=== PATIENT | male | born 1955 | race Caucasian/White ===

== ENCOUNTER 2018-04-17 20:52 | Emergency (ER) | payer OTHER, SELFPAY ==
[2018-04-17 21:01] VITALS: BP 154/105; PULSE 89; RESP 18; TEMP 36.9; O2SAT 95
--- NOTE | 2018-04-17 21:09 | DI.RAD.S_ITS ---
PROCEDURE: XR CHEST 1V INDICATIONS: chest pain TECHNIQUE: One view of the chest was acquired. COMPARISON: [facility], , CHEST 1 VIEW, 03/15/2016, 18:14. FINDINGS: Surgical changes and devices: None. Lungs and pleura: Right medial lower lung strandy parenchymal density, stable. Lungs are otherwise clear. No pleural effusions or pneumothorax. Mediastinum: Mediastinal contours appear normal. Heart size is normal. Bones and chest wall: No suspicious bony lesions. Overlying soft tissues appear unremarkable. IMPRESSION: Chronic right medial lung atelectatic changes, similar compared to prior study. No other acute process. Dictated by: Sally Ralph M.D. on 04/17/2018 at 21:44 Approved by: Sally Ralph M.D. on 04/17/2018 at 21:46
[2018-04-17] MEDS: ASPIRIN 81 MG TAB 324 MG PO (21:11)
[2018-04-17 21:35] LABS: Add Manual Diff / Slide Review NO; Basophils Absolute Auto 0 /uL (0-100); Basophils Percent Auto 0.9 % (0-2); Eosinophils Absolute Auto 200 /uL (0-450); Eosinophils Percent Auto 3.7 % (2-4); Hematocrit 47.5 % (41-53); Hemoglobin 16.7 g/dL (13.5-17.5); INR 0.9 (0.9-1.3); Lymphocytes Absolute Auto 2200 /uL (1100-4500); Lymphocytes Percent Auto 41.3 % (25-40); Mean Corpuscular HGB Conc 35.1 % (30-36); Mean Corpuscular Hemoglobin 32.9 PG (26-34); Mean Corpuscular Volume 93.7 fL (80-100); Monocytes Absolute Auto 700 /uL (0-900); Monocytes Percent Auto 13.3 % (3-14); Neutrophils Absolute Auto 2200 /uL (1500-7000); Neutrophils Percent Auto 40.8 % (50-75); Platelet Count 192 X10^3/uL (150-400); Red Blood Cell Count 5.07 X10^6/uL (4.5-5.9); Red Cell Distribution Width 14.6 % (11.6-14.8); White Blood Cell Count 5.3 X10^3/uL (4.5-11.0)
[2018-04-17 21:38] LABS: PTT Partial Thromboplastin Tim 30 SECONDS (26.4-36.2)
[2018-04-17 21:40] VITALS: BP 148/91; PULSE 93; RESP 25; O2SAT 95
[2018-04-17 21:40] LABS: Alanine Aminotransferase 26 IU/L (21-72); Albumin 4.3 g/dL (3.5-5.0); Albumin Globulin Ratio 1.3 (1.0-2.8); Alkaline Phosphatase 100 U/L (38-126); Aspartate Aminotransferase 26 IU/L (17-59); BUN Creatinine Ratio 15.3 (6-22); Bilirubin Total 0.5 mg/dL (0.2-1.3); Blood Urea Nitrogen 23 mg/dL (9-20); Calcium 8.8 mg/dL (8.4-10.2); Carbon Dioxide 26 mmol/L (22-32); Chloride 99 mmol/L (98-107); Creatine Kinase 70 U/L (55-170); Estimated Glomerular Filt Rate 47.6 mL/min (>60); Globulin 3.2 g/dL (1.7-4.1); Glucose 200 mg/dL (80-110); Lipase 75 U/L (23-300); Sodium 134 mmol/L (137-145); Total Protein 7.5 g/dL (6.3-8.2)
[2018-04-17 21:41] LABS: HEMOLYSIS 71 (0-50); Prothrombin Time 10.3 SECONDS (10.1-12.7)
[2018-04-17 21:51] LABS: Troponin I < 0.012 ng/mL (0.01-0.034)
[2018-04-17 22:00] VITALS: BP 127/88; PULSE 91; RESP 15; O2SAT 95
--- NOTE | 2018-04-17 22:22 | ED.CHESTPAIN ---
HPI - Chest Pain General Chief Complaint: Chest Pain Stated Complaint: chest pain, pain in his head, pains in his back Time Seen by Provider: 04/17/18 22:22 Source: patient Mode of arrival: ambulatory Limitations: no limitations History of Present Illness HPI narrative: The patient is here with left-sided chest pain. Had intermittent chest pain yesterday, none today. He describes pin like chest pain on and off in the left upper lateral chest. Pain would be sharp, lasting only seconds. There was no injury to the site. Has no underlying cardiac disease. He is on meds for hypertension and hyperlipidemia. He is a nonsmoker. The pain is not present today. There is no radiation or associated dyspnea. Interestingly, yesterday he was suffering intermittent headaches. He was having brief, sharp stabbing headaches in the central scalp. He has no headaches today. He has had these root occasionally. He was taking Tylenol and Advil for the headaches. He has only 1 kidney, he previously donated 1 his kidneys. He has known normal renal function. He has no diagnosis of migraines. He has no recent illness. Related Data Home Medications Medication Instructions Recorded Confirmed losartan 50 mg PO QDAY #0 03/15/16 04/17/18 metformin [Glucophage] 1,000 mg PO BIDCC #0 03/15/16 simvastatin 40 mg PO QDAY #0 03/15/16 04/17/18 tadalafil [Cialis] 5 mg PO QDAY #0 03/15/16 04/17/18 canagliflozin [Invokana] 300 mg PO DAILY 04/17/18 04/17/18 mometasone 2 spray INTRANASAL DAILY 04/17/18 04/17/18 Previous Rx's Medication Instructions Recorded tramadol 50 mg PO Q6H PRN #20 tab 04/17/18 Allergies Allergy/AdvReac Type Severity Reaction Status Date / Time celecoxib [From CELEBREX] Allergy Intermediate Verified 04/17/18 21:05 citalopram [From CELEXA] Allergy Intermediate Verified 04/17/18 21:05 sulfamethoxazole Allergy Intermediate Verified 04/17/18 21:05 [From SEPTRA] trimethoprim [From SEPTRA] Allergy Intermediate Verified 04/17/18 21:05 Review of Systems Review of Systems ROS Unobtainable: All systems reviewed & are unremarkable except as noted in HPI and below Constitutional Reports as per HPI and Reports system reviewed and no additional complaints, except as docu Eyes Denies change in vision, Denies irritation and Denies loss of vision ENT Ears, Nose, Mouth, and Throat: Denies change in voice, Denies dizziness, Denies dry mouth, Denies ear discharge, Denies neck pain and Denies sore throat Cardiovascular Reports as per HPI, Reports chest pain, Denies irregular heart rhythm, Denies lightheadedness, Denies palpitations, Denies dyspnea, Denies dyspnea on exertion and Denies orthopnea Respiratory Denies cough, Denies dyspnea, Denies dyspnea on exertion and Denies wheezing Gastrointestinal Gastrointestinal: Denies abdominal pain, Denies change in bowel habits, Denies nausea and Denies vomiting Musculoskeletal Denies back pain, Denies myalgias and Denies neck pain Integumentary/Breasts Denies pruritus, Denies erythema, Denies rash and Denies wounds Neurologic Denies dizziness and Denies loss of vision Endocrine Denies palpitations Allergic/Immunologic Denies wheezing PFSH Medical History History of nephrectomy, unilateral (Acute) Hyperlipidemia (Acute) Hypertension (Acute) Social History Smoking Status: Former smoker Social History Smoking Status: Former smoker Exam Initial Vital Signs Initial Vital Signs: Vital Signs Temperature 98.4 F 04/17/18 21:01 Pulse Rate 89 04/17/18 21:01 Respiratory Rate 18 04/17/18 21:01 Blood Pressure 154/105 H 04/17/18 21:01 Pulse Oximetry 95 04/17/18 21:01 Const General: cooperative and well developed Nutritional Appearance: well nourished Orientation: alert, awake, oriented x3 and not confused [facility] Head: normocephalic, atraumatic, No scalp tenderness and other ( no palpable sinus tenderness) Ears: external ears normal and TM's normal bilaterally Nose: external nose normal and No nasal discharge Face and sinus: sinuses nontender, face symmetric, no sinus tenderness and No dry mucous membranes Mouth: oral mucosae normal and moist mucous membranes Teeth and gingiva: dentition normal Throat: tonsils normal and uvula midline Eyes General: appearance normal, both eyes and all related structures Eyelids: eyelids normal Conjunctivae: conjunctivae normal Sclera: sclerae normal Pupils: PERRL EOM: EOM intact bilaterally Neck Neck: normal visual inspection, trachea midline, No lymphadenopathy, No midline deformity and No JVD Lymphatic: No lymphedema Chest Chest: normal inspection of the chest and No crepitus Resp Effort & Inspection: normal respiratory effort, able to speak in complete sentences, no respiratory distress and no use of accessory muscles Auscultation: clear to auscultation bilaterally, no rales, no rhonchi and no wheezes Cardio Rate: regular rate Rhythm: regular rhythm Heart Sounds: no click, no gallops, no murmurs and no rubs Pulses: normal peripheral pulses GI Inspection: non-distended Palpation: soft, no hepatosplenomegaly, No guarding, No pulsatile mass and No tender Auscultation: normal bowel sounds Skin General: no rashes or lesions noted, No jaundice and No petechiae Neuro General: alert, oriented x3, gait normal and no focal motor deficits Speech: speech normal Course Orders Ordered: ED Orders 04/17/18 21:09 XR chest 1V Stat EKG-12 Lead Stat 04/17/18 21:25 Complete Blood Count AUTO DIFF Stat Comprehensive Metabolic Panel Stat Lipase Stat Partial Thromboplastin Time Stat Prothrombin Time INR Stat Troponin & CK Cardiac Panel Stat Discontinued Medications Aspirin (Aspirin Chew) 324 mg PO NOW ONE Stop: 04/17/18 21:10 Last Admin: 04/17/18 21:11 Dose: 324 mg Vital Signs - 8 hr 04/17/18 21:01 04/17/18 21:40 04/17/18 22:00 Temperature 98.4 F Pulse Rate 89 93 H 91 H Respiratory Rate 18 25 H 15 Blood Pressure 154/105 H Blood Pressure [Left Arm] 148/91 H 127/88 Pulse Oximetry 95 95 95 04/17/18 22:36 Temperature Pulse Rate 88 Respiratory Rate 32 H Blood Pressure Blood Pressure [Left Arm] 127/82 Pulse Oximetry 95 MDM - Chest Pain Lab Data Result diagrams: 04/17/18 21:25 04/17/18 21:25 Lab Results 04/17/18 04/17/18 04/17/18 Range/Units 21:25 21:25 21:25 WBC 5.3 (4.5-11.0) X10^3/uL RBC 5.07 (4.5-5.9) X10^6/uL Hgb 16.7 (13.5-17.5) g/dL Hct 47.5 (41-53) % MCV 93.7 (80-100) fL MCH 32.9 (26-34) PG MCHC 35.1 (30-36) % RDW 14.6 (11.6-14.8) % Plt Count 192 (150-400) X10^3/uL Neut % (Auto) 40.8 L (50-75) % Lymph % (Auto) 41.3 H (25-40) % Coleman % (Auto) 13.3 (3-14) % Eos % (Auto) 3.7 (2-4) % Baso % (Auto) 0.9 (0-2) % Neut # (Auto) 2200 (4896-8999) /uL Lymph # (Auto) 2200 (6783-3152) /uL Coleman # (Auto) 700 (0-900) /uL Eos # (Auto) 200 (0-450) /uL Baso # (Auto) 0 (0-100) /uL PT 10.3 (10.1-12.7) SECONDS INR 0.9 (0.9-1.3) APTT 30 (26.4-36.2) SECONDS Sodium 134 L (137-145) mmol/L Potassium 4.0 (3.4-5.1) mmol/L Chloride 99 (98-107) mmol/L Carbon Dioxide 26 (22-32) mmol/L BUN 23 H (9-20) mg/dL Creatinine 1.50 H (0.66-1.25) mg/dL Estimated GFR 47.6 L (>60) mL/min BUN/Creatinine Ratio 15.3 (6-22) Glucose 200 H (80-110) mg/dL Calcium 8.8 (8.4-10.2) mg/dL Total Bilirubin 0.5 (0.2-1.3) mg/dL AST 26 (17-59) IU/L ALT 26 (21-72) IU/L Alkaline Phosphatase 100 (38-126) U/L Total Creatine Kinase 70 (55-170) U/L CK-MB (CK-2) TNP CK-MB (CK-2) Rel Index TNP Troponin I < 0.012 (0.01-0.034) ng/mL Total Protein 7.5 (6.3-8.2) g/dL Albumin 4.3 (3.5-5.0) g/dL Globulin 3.2 (1.7-4.1) g/dL Albumin/Globulin Ratio 1.3 (1.0-2.8) Lipase 75 (23-300) U/L Imaging Data Chest x-ray: Radiologist's impression: [address] [id number] XRay Report Signed Patient: Mal Goodwin OMR#: [id number] : 7Acct:[id number] Age/Sex: 62 / MDate of Service: 04/17/18 Loc: ED Accession Number: [id number] Procedure: XR chest 1V Ordering Provider: Rod Her M.D. PROCEDURE: XR CHEST 1V INDICATIONS: chest pain TECHNIQUE: One view of the chest was acquired. COMPARISON: [facility], CHEST 1 VIEW, 03/15/2016, 18:14. FINDINGS: Surgical changes and devices: None. Lungs and pleura: Right medial lower lung strandy parenchymal density, stable. Lungs are otherwise clear. No pleural effusions or pneumothorax. Mediastinum: Mediastinal contours appear normal. Heart size is normal. Bones and chest wall: No suspicious bony lesions. Overlying soft tissues appear unremarkable. IMPRESSION: Chronic right medial lung atelectatic changes, similar compared to prior study. No other acute process. Dictated by: Sally Ralph M.D. on 04/17/2018 at 21:44 Approved by: Sally Ralph M.D. on 04/17/2018 at 21:46 ECG Data Attestation: I personally reviewed and interpreted this ECG as follows: ( normal sinus rhythm rate 85 bpm. No ectopy. No acute ST or T-wave changes. Normal study.) [facility] Narrative Medical decision making narrative: The patient has no findings suggestive of a cardio or pulmonary disease. He has these ice pick type headaches, he has had these headaches in periods of clusters periodic lead across his life. He has normal renal function, but has donated a kidney to his sister. I am suggesting tramadol for headache management. He has had good luck with this in the past. Discharge Plan Departure Patient Disposition: Home Clinical Impression: Atypical chest pain Headache Qualifiers: Headache type: primary stabbing headache Qualified Code(s): G44.85 - Primary stabbing headache Instructions: Cluster Headaches (Alternative Therapy), DI for Atypical Chest Pain Activity Restrictions/Additional Instructions: I would recommend avoiding Advil. Tylenol 2 tablets every 4 hr as needed For headache. Tramadol every 6 hr when necessary for added headache control. If you have sustained, severe chest pain return the ER. Follow up with her doctor for ongoing headache management. Prescriptions: New tramadol 50 mg tablet 50 mg PO Q6H PRN (Reason: pain) Qty: 20 RF: 0 No Action metformin [Glucophage] 1,000 MG tablet 1,000 mg PO BIDCC Qty: 0 RF: 0 tadalafil [Cialis] 5 MG tablet 5 mg PO QDAY Qty: 0 RF: 0 losartan 50 MG tablet 50 mg PO QDAY Qty: 0 RF: 0 simvastatin 40 MG tablet 40 mg PO QDAY Qty: 0 RF: 0 mometasone 50 mcg/actuation spray,non-aerosol 2 spray Intranasal DAILY RF: 0 Invokana 300 mg tablet 300 mg PO DAILY RF: 0 Referrals: Marcello Marti MD [Primary Care Provider] -
[2018-04-17 22:36] VITALS: BP 127/82; PULSE 88; RESP 32; O2SAT 95
[2018-04-17 23:30] VITALS: BP 133/77; PULSE 94; RESP 24; O2SAT 95
== END 2018-04-17 23:31 | disposition home or self-care (01) ==
PROVIDERS: Emergency Provider Emergency Medicine; Family Provider Family Medicine; PCP Family Medicine
DX: R07.89 Other chest pain (principal); G44.85 Primary stabbing headache
CPT/HCPCS: 36591; 71045; 80053; 82550; 83690; 84484; 85025; 85610; 85730; 93005; 99283; 99285

== ENCOUNTER 2018-11-03 15:41 | Inpatient (IN) | payer OTHER, SELFPAY ==
[2018-11-03 15:44] VITALS: BP 179/101; PULSE 99; RESP 20; TEMP 36.9; O2SAT 97
[2018-11-03] MEDS: ONDANSETRON 4 MG/2 ML INJ IV ×2 (16:35→18:23)
[2018-11-03 16:42] LABS: Add Manual Diff / Slide Review NO; Basophils Absolute Auto 0 /uL (0-100); Basophils Percent Auto 0.6 % (0-2); Eosinophils Absolute Auto 100 /uL (0-450); Eosinophils Percent Auto 2.6 % (2-4); Hematocrit 45.4 % (41-53); Hemoglobin 15.8 g/dL (13.5-17.5); Lymphocytes Absolute Auto 1000 /uL (1100-4500); Lymphocytes Percent Auto 25.4 % (25-40); Mean Corpuscular HGB Conc 34.7 % (30-36); Mean Corpuscular Hemoglobin 32.1 PG (26-34); Mean Corpuscular Volume 92.4 fL (80-100); Monocytes Absolute Auto 600 /uL (0-900); Monocytes Percent Auto 14.7 % (3-14); Neutrophils Absolute Auto 2100 /uL (1500-7000); Neutrophils Percent Auto 56.7 % (50-75); Platelet Count 179 X10^3/uL (150-400); Red Blood Cell Count 4.92 X10^6/uL (4.5-5.9); Red Cell Distribution Width 14.2 % (11.6-14.8); White Blood Cell Count 3.8 X10^3/uL (4.5-11.0)
[2018-11-03 16:57] LABS: Alanine Aminotransferase 22 IU/L (21-72); Albumin 3.7 g/dL (3.5-5.0); Albumin Globulin Ratio 1.2 (1.0-2.8); Alkaline Phosphatase 111 U/L (38-126); Aspartate Aminotransferase 18 IU/L (17-59); BUN Creatinine Ratio 18.9 (6-22); Bilirubin Total 0.4 mg/dL (0.2-1.3); Blood Urea Nitrogen 17 mg/dL (9-20); Calcium 8.8 mg/dL (8.4-10.2); Carbon Dioxide 30 mmol/L (22-32); Chloride 97 mmol/L (98-107); Estimated Glomerular Filt Rate > 60.0 mL/min (>60); Globulin 3.1 g/dL (1.7-4.1); Glucose 306 mg/dL (80-110); HEMOLYSIS 16 (0-50); Lipase 31 U/L (23-300); Potassium 3.9 mmol/L (3.4-5.1); Sodium 134 mmol/L (137-145); Total Protein 6.8 g/dL (6.3-8.2)
--- NOTE | 2018-11-03 18:11 | DI.CT.S_ITS ---
PROCEDURE: CT ABDOMEN PELVIS W CON INDICATIONS: abd pain/bloating TECHNIQUE: After the administration of intravenous contrast, 5 mm thick sections acquired from the diaphragm to the symphysis. 5 mm coronal and sagittal reformats were acquired. For radiation dose reduction, the following was used: automated exposure control, adjustment of mA and/or kV according to patient size. COMPARISON: None. FINDINGS: Image quality: Excellent. ABDOMEN: Lung bases: Elevation of the right hemidiaphragm and associated right base atelectasis. Heart size is normal. Coarse aortic valvular calcification. Solid organs: Liver is normal in size and enhancement. Gallbladder contains a peripherally calcified, 2.3 cm stone.. Biliary system is non dilated. Pancreas enhances normally. Spleen is normal in size and enhancement. No adrenal nodules. A right kidney is surgically absent. The left demonstrates normal morphology without stones. Peritoneum and bowel: Stomach appears within normal limits. There is incomplete rotation of proximal small bowel with either a surgical takedown or congenital laxity ligament of Treitz. Axial jejunum is to the right of midline. There are multiple scattered areas of mild circumferential wall thickening, and site wall edema resulting in short segments of stricture alternating with numerous loops of moderately prominent/dilated small bowel. There is mild hypervascularity of left abdominal and mid abdominal small bowel loops. The long segment stricture seen in the central mid abdomen. Distal small bowel loops are of normal caliber. There is fatty infiltration at the ileocecal valve. There is fat within the colonic wall. No pericolonic inflammation. Occasional diverticula are seen in the sigmoid. Mild mucosal hyperemia seen in the rectum without wall thickening or inflammation. Nodes and vessels: No retroperitoneal or mesenteric adenopathy by size criteria. Aorta and inferior vena cava are normal in size. Miscellaneous: No ventral hernias. PELVIS: Genitourinary: Bladder wall thickness is normal. Miscellaneous: No inguinal hernias or adenopathy. Bones: No suspicious bony lesions. Surgical changes of remote right lower rib resection. 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 No vertebral body compression fractures. IMPRESSION: 1. Findings of scattered segments of small bowel stricture and dilatation with adjacent hyperemia. Findings are most suggestive of acute flare of inflammatory bowel disease such as Crohn's disease. Given long segment findings, adhesive or ischemic strictures are felt less likely. There are multiple segments of partial bowel obstruction. 2. Possible mild proctitis. 3. Right nephrectomy. 4. Incomplete proximal bowel rotation. 5. Cholelithiasis. Dictated by: Sally Ralph M.D. on 11/03/2018 at 19:06 Approved by: Sally Ralph M.D. on 11/03/2018 at 19:16
[2018-11-03] MEDS: MORPHINE 4 MG/ML INJ IV ×2 (18:23→21:27)
[2018-11-03] MEDS: SODIUM CHLORIDE 0.9% 1,000 ML 1000 ML IV ×2 (18:23→21:06)
--- NOTE | 2018-11-03 18:45 | ED_ITS ---
HPI - Abdominal Pain General Chief Complaint: Abdominal Pain Stated Complaint: cramps and abdominal pain,nausea Time Seen by Provider: 11/03/18 18:03 Source: patient Mode of arrival: ambulatory Limitations: no limitations History of Present Illness HPI narrative: 63-year-old male former smoker with history of hypertension presents with a chief complaint of worsening abdominal pain with nausea and vomiting over the past few days. He admits to decreased bowel movements, he continues to pass gas but decreasing the. His belly is swollen and distended. He denies fever or chills. His pain is worse with motion and improves with rest. MD complaint: abdominal pain Onset (ago): day(s) Pain Consistency: constant Location: diffuse Severity: moderate Quality: cramping and aching Radiation: none Migration to: no migration Relieving factors: rest Exacerbating factors: movement Associated symptoms: nausea and constipation Related Data Home Medications Medication Instructions Recorded Confirmed losartan 50 mg PO QDAY #0 03/15/16 11/03/18 metformin [Glucophage] 1,000 mg PO BIDCC #0 03/15/16 11/03/18 simvastatin 40 mg PO QDAY #0 03/15/16 11/03/18 tadalafil [Cialis] 5 mg PO QDAY #0 03/15/16 11/03/18 canagliflozin [Invokana] 300 mg PO DAILY 04/17/18 11/03/18 mometasone 2 spray INTRANASAL DAILY 04/17/18 11/03/18 Previous Rx's Medication Instructions Recorded tramadol 50 mg PO Q6H PRN #20 tab 04/17/18 Allergies Allergy/AdvReac Type Severity Reaction Status Date / Time celecoxib [From CELEBREX] Allergy Intermediate Verified 04/17/18 21:05 citalopram [From CELEXA] Allergy Intermediate Verified 04/17/18 21:05 sulfamethoxazole Allergy Intermediate Verified 04/17/18 21:05 [From SEPTRA] trimethoprim [From SEPTRA] Allergy Intermediate Verified 04/17/18 21:05 Review of Systems Constitutional Constitutional: Denies chills, Denies fatigue, Denies fever(s), Denies frequent falls, Denies lethargy and Denies weakness Eyes Eyes: Denies change in vision, Denies eye discharge, Denies irritation and Denies loss of vision ENT Ears, Nose, Mouth, and Throat: Denies change in voice, Denies dizziness, Denies neck pain, Denies sore throat and Denies throat swelling Cardiovascular Cardiovascular: Denies chest pain, Denies irregular heart rhythm, Denies lightheadedness, Denies palpitations, Denies dyspnea, Denies dyspnea on exertion and Denies orthopnea Respiratory Respiratory: Denies cough, Denies dyspnea, Denies dyspnea on exertion and Denies wheezing Gastrointestinal Gastrointestinal: Reports abdominal pain, Reports change in bowel habits, Denies diarrhea, Reports nausea and Denies vomiting Genitourinary Genitourinary: Denies hematuria, Denies flank pain, Denies urinary incontinence and Denies urinary urgency Musculoskeletal Musculoskeletal: Denies back pain, Denies muscle weakness, Denies neck pain, Denies numbness and Denies tingling Integumentary/Breasts Skin/Breast: Denies pruritus, Denies erythema, Denies rash and Denies wounds Neurologic Neurologic: Denies behavioral changes, Denies confusion, Denies dizziness, Denies frequent falls, Denies loss of vision, Denies numbness, Denies tingling and Denies weakness Psychiatric Psychiatric: Denies anxiety, Denies behavioral changes, Denies confusion, Denies depression, Denies homicidal ideation and Denies suicidal ideation Endocrine Endocrine: Denies fatigue, Denies flushing and Denies palpitations Hematologic/Lymphatic Hematologic/Lymphatic: Denies easy bruising Allergic/Immunologic Allergic/Immunologic: Denies urticaria, Denies throat swelling and Denies wheezing [facility] Medical History History of nephrectomy, unilateral (Acute) Hyperlipidemia (Acute) Hypertension (Acute) Surgical History History of appendectomy (Acute) History of exploratory laparotomy (Acute) History of ventral hernia repair (Acute) Social History household members: family Smoking Status: Former smoker Social History household members: family Smoking Status: Former smoker Exam Narrative Exam Narrative: GENERAL: [61 to] year old patient appears stated age. Well- nourished, well-developed patient, in mild distress. HEAD: Atraumatic. Normocephalic. EYES: Pupils equal round and reactive. Extraocular motions intact. No scleral icterus. No injection or drainage. ENT: Nose without bleeding, purulent drainage. Throat without erythema, tonsillar hypertrophy or exudate. Airway patent. NECK: Trachea midline. Non tender CARDIOVASCULAR: Regular rate and rhythm without murmurs, gallops, or rubs. RESPIRATORY: Clear to auscultation. Breath sounds equal bilaterally. No wheezes, rales, or rhonchi. GASTROINTESTINAL: Abdomen soft, protuberant, generalized tenderness with decreased bowel sounds EXTREMITIES: No edema or joint tenderness. BACK: Nontender without deformity or crepitance. No flank tenderness. NEURO: AOx3. SKIN: No rash or erythema of visible areas Initial Vital Signs Initial Vital Signs: Vital Signs Temperature 98.5 F 11/03/18 15:44 Pulse Rate 99 H 11/03/18 15:44 Respiratory Rate 20 11/03/18 15:44 Blood Pressure 179/101 H 11/03/18 15:44 Pulse Oximetry 97 11/03/18 15:44 Course Orders Ordered: Acetaminophen (Tylenol) 650 mg PO Q6HR PRN PRN Reason: As Needed for Fever/Mild Pain Dextrose (D50w) 25 gm IV PRN PRN PRN Reason: Hypoglycemia Docusate Sodium (Colace) 100 mg PO BID [facility] Enalaprilat (Vasotec) 2.5 mg IV NOW [facility] Last Admin: 11/04/18 00:57 Dose: 2.5 mg Documented by: SUSAN Enoxaparin Sodium (Lovenox) 40 mg SUBCUT DAILY [facility] Sodium Chloride (Normal Saline 0.45%) 1,000 mls @ 150 mls/hr IV CONT [facility] Last Admin: 11/03/18 23:59 Dose: 150 mls/hr Documented by: SUSAN Metronidazole (Flagyl) 500 mg in 100 mls @ 100 mls/hr IV Q6H [facility] Levofloxacin (Levaquin) 500 mg in 100 mls @ 100 mls/hr IV Q24H [facility] Influenza Virus Vaccine (Flu Vaccine) 0.5 ml IM .ONCE ONE Stop: 11/04/18 09:01 Insulin Aspart (Novolog Flexpen) 0 unit SUBCUT Q6HR [facility]; Protocol Last Admin: 11/04/18 01:32 Dose: 5 unit Documented by: SUSAN Cosigned by: GREYSON Ketorolac Tromethamine (Toradol) 15 mg IV Q6HR [facility]IYAH Stop: 11/08/18 21:57 Last Admin: 11/04/18 00:13 Dose: 15 mg Documented by: SUSAN Methylprednisolone (Solu-Medrol 125 Mg Vial) 20 mg IV Q6H [facility] Last Admin: 11/04/18 03:01 Dose: 20 mg Documented by: SUSAN Morphine Sulfate (Morphine) 2 mg IV Q4HR PRN PRN Reason: Pain, Moderate (4-6) Ondansetron HCl (Zofran) 4 mg IV Q6HR [facility] Last Admin: 11/04/18 00:12 Dose: 4 mg Documented by: SUSAN Discontinued Medications Enalaprilat (Enalaprilat) 2.5 mg IV NOW ONE Stop: 11/03/18 22:09 Last Admin: 11/04/18 00:55 Dose: 2.5 mg Documented by: SUSAN Sodium Chloride (Normal Saline 0.9%) 1,000 mls @ 1,000 mls/hr IV BOLUS ONE Stop: 11/03/18 19:15 Last Infusion: 11/03/18 20:16 Dose: 0 mls/hr Documented by: Admin: 11/03/18 18:23 Dose: 1,000 mls/hr Documented by: DEBORAH Levofloxacin (Levaquin) 500 mg in 100 mls @ 100 mls/hr IV NOW ONE Stop: 11/03/18 21:32 Last Admin: 11/03/18 21:08 Dose: 100 mls/hr Documented by: SHARON Metronidazole (Flagyl) 500 mg in 100 mls @ 100 mls/hr IV NOW ONE Stop: 11/03/18 21:32 Last Admin: 11/03/18 22:32 Dose: 100 mls/hr Documented by: ERICA Sodium Chloride (Normal Saline 0.9%) 1,000 mls @ 1,000 mls/hr IV BOLUS ONE Stop: 11/03/18 21:36 Last Admin: 11/03/18 21:06 Dose: 1,000 mls/hr Documented by: SHARON Levofloxacin (Levaquin) 500 mg in 100 mls @ 100 mls/hr IV Q24H [facility] Insulin Aspart (Novolog Flexpen) 0 unit SUBCUT Q6H [facility]; Protocol Last Admin: 11/04/18 02:39 Dose: Not Given Documented by: SUSAN Ketorolac Tromethamine (Toradol) 15 mg IV NOW ONE Stop: 11/03/18 18:12 Last Admin: 11/03/18 18:27 Dose: Not Given Documented by: DEBORAH Methylprednisolone (Solu-Medrol 125 Mg Vial) 125 mg IV NOW ONE Stop: 11/03/18 20:34 Last Admin: 11/03/18 21:06 Dose: 125 mg Documented by: SHARON Methylprednisolone (Solu-Medrol 125 Mg Vial) 20 mg IV Q6HR [facility] Methylprednisolone (Solu-Medrol 125 Mg Vial) 20 mg IV Q6HR [facility] Methylprednisolone (Solu-Medrol 125 Mg Vial) 20 mg IV Q6HR [facility] Morphine Sulfate (Morphine) 4 mg IV NOW ONE Stop: 11/03/18 18:18 Last Admin: 11/03/18 18:23 Dose: 4 mg Documented by: DEBORAH Morphine Sulfate (Morphine) 4 mg IV NOW ONE Stop: 11/03/18 21:15 Last Admin: 11/03/18 21:27 Dose: 4 mg Documented by: JOSH Ondansetron HCl (Zofran) 4 mg IV NOW ONE Stop: 11/03/18 16:32 Last Admin: 11/03/18 16:35 Dose: 4 mg Documented by: DEBORAH Ondansetron HCl (Zofran) 4 mg IV NOW ONE Stop: 11/03/18 18:12 Last Admin: 11/03/18 18:23 Dose: 4 mg Documented by: DEBORAH Consultations Consultation #1: call to Dr. Logan upon receipt of imaging. He has seen patient at bedside and written a consult. Consultation #2: call to GI at [facility]. They suggest that patient is in no obvious need of transfer at this time and is best served by received antibiotics, bowel rest, and steroids. In the end they suggest that though patient needs a GI follow up that he is most appropriate for [facility] given the strictures suggested on imaging. Consultation #3: hospitalist happy to accept Vital Signs Vital signs: Vital Signs - 8 hr 11/03/18 21:00 Pulse Rate 96 H Respiratory Rate 16 Blood Pressure [Right Arm] 158/92 H Pulse Oximetry 100 MDM - Abdominal Pain Lab Data Result diagrams: 11/03/18 16:30 11/03/18 16:30 Labs: Lab Results 11/03/18 11/03/18 11/03/18 Range/Units 16:30 16:30 16:30 WBC 3.8 L (4.5-11.0) X10^3/uL RBC 4.92 (4.5-5.9) X10^6/uL Hgb 15.8 (13.5-17.5) g/dL Hct 45.4 (41-53) % MCV 92.4 (80-100) fL MCH 32.1 (26-34) PG MCHC 34.7 (30-36) % RDW 14.2 (11.6-14.8) % Plt Count 179 (150-400) X10^3/uL Neut % (Auto) 56.7 (50-75) % Lymph % (Auto) 25.4 (25-40) % [place] % (Auto) 14.7 H (3-14) % Eos % (Auto) 2.6 (2-4) % Baso % (Auto) 0.6 (0-2) % Neut # (Auto) 2100 (1372-8275) /uL Lymph # (Auto) 1000 L (1676-5291) /uL [place] # (Auto) 600 (0-900) /uL Eos # (Auto) 100 (0-450) /uL Baso # (Auto) 0 (0-100) /uL Sodium 134 L (137-145) mmol/L Potassium 3.9 (3.4-5.1) mmol/L Chloride 97 L (98-107) mmol/L Carbon Dioxide 30 (22-32) mmol/L BUN 17 (9-20) mg/dL Creatinine 0.90 (0.66-1.25) mg/dL Estimated GFR > 60.0 (>60) mL/min BUN/Creatinine Ratio 18.9 (6-22) Glucose 306 H (80-110) mg/dL Hemoglobin A1c 9.8 H (4.0-6.0) % Calcium 8.8 (8.4-10.2) mg/dL Total Bilirubin 0.4 (0.2-1.3) mg/dL AST 18 (17-59) IU/L ALT 22 (21-72) IU/L Alkaline Phosphatase 111 (38-126) U/L Total Protein 6.8 (6.3-8.2) g/dL Albumin 3.7 (3.5-5.0) g/dL Globulin 3.1 (1.7-4.1) g/dL Albumin/Globulin Ratio 1.2 (1.0-2.8) Lipase 31 (23-300) U/L Imaging Data CT scan - abdomen: Radiologist's impression: [address] [address] [address] Scan Report Signed Patient: Mal Goodwin OMR#: [id number] : 7Acct:[id number] Age/Sex: 63 / MDate of Service: 11/03/18 Loc: ED Accession Number: [id number] Procedure: CT abdomen pelvis w con Ordering Provider: Desmond Rm D.O. PROCEDURE: CT ABDOMEN PELVIS W CON INDICATIONS: abd pain/bloating TECHNIQUE: After the administration of intravenous contrast, 5 mm thick sections acquired from the diaphragm to the symphysis. 5 mm coronal and sagittal reformats were acquired. For radiation dose reduction, the following was used: automated exposure control, adjustment of mA and/or kV according to patient size. COMPARISON: None. FINDINGS: Image quality: Excellent. ABDOMEN: Lung bases: Elevation of the right hemidiaphragm and associated right base atelectasis. Heart size is normal. Coarse aortic valvular calcification. Solid organs: Liver is normal in size and enhancement. Gallbladder contains a peripherally calcified, 2.3 cm stone.. Biliary system is non dilated. Pancreas enhances normally. Spleen is normal in size and enhancement. No adrenal nodules. A right kidney is surgically absent. The left demonstrates normal morphology without stones. Peritoneum and bowel: Stomach appears within normal limits. There is incomplete rotation of proximal small bowel with either a surgical takedown or congenital laxity ligament of Treitz. Axial jejunum is to the right of midline. There are multiple scattered areas of mild circumferential wall thickening, and site wall edema resulting in short segments of stricture alternating with numerous loops of moderately prominent/dilated small bowel. There is mild hypervascularity of left abdominal and mid abdominal small bowel loops. The long segment stricture seen in the central mid abdomen. Distal small bowel loops are of normal caliber. There is fatty infiltration at the ileocecal valve. There is fat within the colonic wall. No pericolonic inflammation. Occasional diverticula are seen in the sigmoid. Mild mucosal hyperemia seen in the rectum without wall thickening or inflammation. Nodes and vessels: No retroperitoneal or mesenteric adenopathy by size criteria. Aorta and inferior vena cava are normal in size. Miscellaneous: No ventral hernias. PELVIS: Genitourinary: Bladder wall thickness is normal. Miscellaneous: No inguinal hernias or adenopathy. Bones: No suspicious bony lesions. Surgical changes of remote right lower rib resection. 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 No vertebral body compression fra ctures. IMPRESSION: 1. Findings of scattered segments of small bowel stricture and dilatation with adjacent hyperemia. Findings are most suggestive of acute flare of inflammatory bowel disease such as Crohn's disease. Given long segment findings, adhesive or ischemic strictures are felt less likely. There are multiple segments of partial bowel obstruction. 2. Possible mild proctitis. 3. Right nephrectomy. 4. Incomplete proximal bowel rotation. 5. Cholelithiasis. Dictated by: Sally Ralph M.D. on 11/03/2018 at 19:06 Approved by: Sally Ralph M.D. on 11/03/2018 at 19:16 ECG Data Prior ECG tracings: available for review Discharge Plan Departure Patient Disposition: Admitted As Inpatient Clinical Impression: Colitis Abdominal pain Qualifiers: Abdominal location: generalized Qualified Code(s): R10.84 - Generalized abdominal pain Discharge Date/Time: 11/03/18 22:20 Admit Date/Time: 11/03/18 21:03 Admit Provider: Teresa Persaud
[2018-11-03 19:33] VITALS: PULSE 96; RESP 16; O2SAT 100
--- NOTE | 2018-11-03 20:08 | PM.CN ---
History of Present Illness Consult details Date Patient Seen: 11/03/18 Time Patient Seen: 20:08 Chief complaint: cramps and abdominal pain,nausea Reason for consult: Abdominal pain/abnormal CT Requesting provider: Desmond Rm Narrative: The patient is a gentleman who developed abdominal pain and distension on for Thursday. The pain was quite intense at that time and was accompanied by nausea and the sensation that he had to vomit. He almost passed out at that point. However he waited until this evening to come. He has had intermittent crampy dull achy abdominal pain since then. This is very similar to an episode he had perhaps 15 years ago. At that time he underwent exploration and was told he had inflammation throughout his intestine but nothing was resected except an incidental appendectomy was performed (per his history). He was treated with IV antibiotics and the problem resolved. He continues to pass flatus and have bowel movements but is far from normal he said. The bowel movements are very small and narrow and claylike and the gas is very intermittent. Usually he has 5 normal bowel movements a day he said. They are not diarrhea they are formed. He also states he feels very distended though he is usually have a big belly. He is a type 2 diabetic but he does not test sugars. He denies any fever. No blood in his stool. He has had a kidney resection as he was a donor for his sister were 2 receive a kidney. 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 He had a ventral hernia repaired and a subsequent exploration described above. No personal history or family history of ulcerative colitis or Crohn's disease. [facility] Medical History (Updated 11/03/18 @ 20:19 by Josh Logan MD) History of nephrectomy, unilateral (Acute) Hyperlipidemia (Acute) Hypertension (Acute) Surgical History (Updated 11/03/18 @ 20:14 by Josh Logan MD) History of appendectomy (Acute) History of exploratory laparotomy (Acute) History of ventral hernia repair (Acute) Social History Smoking Status: Former smoker Social History Smoking Status: Former smoker Meds Home Medications and Allergies Home Medications Medication Instructions Recorded Confirmed Type losartan 50 mg PO QDAY #0 03/15/16 04/17/18 History metformin [Glucophage] 1,000 mg PO BIDCC #0 03/15/16 History simvastatin 40 mg PO QDAY #0 03/15/16 04/17/18 History tadalafil [Cialis] 5 mg PO QDAY #0 03/15/16 04/17/18 History canagliflozin [Invokana] 300 mg PO DAILY 04/17/18 04/17/18 History mometasone 2 spray INTRANASAL DAILY 04/17/18 04/17/18 History tramadol 50 mg PO Q6H PRN #20 tab 04/17/18 Rx Allergies Allergy/AdvReac Type Severity Reaction Status Date / Time celecoxib [From CELEBREX] Allergy Intermediate Verified 04/17/18 21:05 citalopram [From CELEXA] Allergy Intermediate Verified 04/17/18 21:05 sulfamethoxazole Allergy Intermediate Verified 04/17/18 21:05 [From SEPTRA] trimethoprim [From SEPTRA] Allergy Intermediate Verified 04/17/18 21:05 Review of Systems Review of Systems Narrative: Patient denies visual difficulties. No cough or cold but is right lung does not ventilate normally because of the diaphragm issue. No heart attacks though he does have a aortic stenosis and a bifid aortic valve. He has had a heart murmur all of his life. No chest pain. No black bowel movements. No history of renal calculus though he has had prostatitis with stones. No seizures. Exam Vital Signs (past 8 hours): - 11/03/18 15:44 11/03/18 19:33 Temperature 98.5 F Pulse Rate 99 H 96 H Respiratory Rate 20 16 Blood Pressure 179/101 H Pulse Oximetry 97 100 Oxygen Delivery Method Room Air Narrative Exam Narrative: Obese gentleman no apparent distress. He is standing in the room looking at me and moves without difficulty. He has been medicated however with morphine and feels much better. His eyes are nonicteric. Pupils equal round reactive to light. Lungs are clear to auscultation. No rales or rhonchi. Heart regular rate and rhythm without gallop. He has a soft systolic blowing murmur heard best at the right base without radiation into the neck. He has no heave lift or thrill. His abdomen is distended like a basketball. There is a midline scar, and a right flank scar. No hernias are appreciated. There is mild tenderness diffusely. No guarding. The patient is alert and oriented. Speech rate and content are appropriate. Affect is appropriate. Objective Imaging CT scan - abdomen: My impression: Most of the abdomen distention is actually intraperitoneal fat. There are some areas of distention of small bowel but they appeared to be isolated and not in continuity. Much of the intestine is small and contracted. Labs Result Diagrams: 11/03/18 16:30 11/03/18 16:30 Labs: Laboratory Results - last 24 hr 11/03/18 11/03/18 16:30 16:30 WBC 3.8 L RBC 4.92 Hgb 15.8 Hct 45.4 MCV 92.4 MCH 32.1 MCHC 34.7 RDW 14.2 Plt Count 179 Neut % (Auto) 56.7 Lymph % (Auto) 25.4 [place] % (Auto) 14.7 H Eos % (Auto) 2.6 Baso % (Auto) 0.6 Neut # (Auto) 2100 Lymph # (Auto) 1000 L [place] # (Auto) 600 Eos # (Auto) 100 Baso # (Auto) 0 Sodium 134 L Potassium 3.9 Chloride 97 L Carbon Dioxide 30 BUN 17 Creatinine 0.90 Estimated GFR > 60.0 BUN/Creatinine Ratio 18.9 Glucose 306 H Calcium 8.8 Total Bilirubin 0.4 AST 18 ALT 22 Alkaline Phosphatase 111 Total Protein 6.8 Albumin 3.7 Globulin 3.1 Albumin/Globulin Ratio 1.2 Lipase 31 Assessment & Plan Assessment and plan (1) Abdominal pain: Current visit: Yes Status: Acute Assessment & Plan narrative: Not clear what the patient's symptoms are from. His CT suggest a possible ileitis. I do not think this is an obstruction. The patient's white blood cell count and differential are fairly normal except an increase of monos. I do not see anything requiring surgical intervention at this time. I do believe however that the patient should be admitted and begun on broad-spectrum treatment with submission of stool specimen for analysis for infectious agents. It is also not clear the patient has taken some medication recently which could have induced this process. If they cause cannot be found consider transfer to a facility with GI availability. Consider a Gastrografin or other water contrast small-bowel follow-through which may help elucidate the inflammatory process and also provide for therapeutic treatment of any narrowing or partially obstructive process. Obviously, patient needs better control of his diabetes as well.
[2018-11-03 21:00] VITALS: BP 158/92; PULSE 96; RESP 16; O2SAT 100
[2018-11-03] MEDS: methylPREDNISolone 125 MG/2 ML VIAL IV (21:06)
[2018-11-03] MEDS: levoFLOXacin 500 MG/100 ML PIGGYBACK 100 MG IV (21:08)
[2018-11-03 22:28] VITALS: BP 140/100; PULSE 100; RESP 20; TEMP 37.1; O2SAT 99
[2018-11-03] MEDS: metroNIDAZOLE 500 MG/100 ML PIGGYBACK 100 MG IV (22:32)
[2018-11-03 22:44] VITALS: BMI 34.2
[2018-11-03 23:00] VITALS: O2SAT 99
--- NOTE | 2018-11-03 23:02 | PC.ADMIT ---
[id number] [facility] Admission Note: The patient,Mal Goodwin,63 y/o, was given written information regarding hospital policies, unit procedures and contact persons. Patient's smoking status: Former smoker. Vital Signs - 8 hr 11/03/18 15:44 11/03/18 19:33 11/03/18 21:00 Temperature 98.5 F Pulse Rate 99 H 96 H 96 H Respiratory Rate 20 16 16 Blood Pressure 179/101 H Blood Pressure [Right Arm] 158/92 H Pulse Oximetry 97 100 100 11/03/18 22:28 Temperature 98.7 F Pulse Rate 100 H Respiratory Rate 20 Blood Pressure 140/100 H Blood Pressure [Right Arm] Pulse Oximetry 99 Pt arrived via stretcher from ED. A/O, ambulated to bed independently. Urine specimen needed. Pt aware. Valuables sent home with family. Pt states he has not taken most of his meds in a long time. Enc pt to start following his PCP plan of care. Pt verbalized understanding. Oriented to room and call system. Call light within reach.
[2018-11-03 23:04] LABS: Hemoglobin A1C% w Est Avg Glu 9.8 % (4.0-6.0)
--- NOTE | 2018-11-03 23:09 | P.HP_ITS ---
History of Present Illness History of Present Illness Date Patient Seen: 11/03/18 Time Patient Seen: 21:15 Chief complaint: cramps and abdominal pain,nausea Narrative: Buddy Resendez is a 63-year-old male with a history of diabetes type 2, hypertension, history of hyperlipidemia who presents to the emergency department with a 3 day history of abdominal cramping, diminished bowel movements and abdominal pain. He stated that it started with cramping and decreased bowel movements from a normal 3 bowel movements a day pattern to 1 bowel movement per day. He stated he was burping a lot and was releasing what he referred to as small farts. On Thursday he stopped eating and was very nauseated but did not vomit. On Thursday he states that his abdomen seemed to be flatter and he did go to work and had a brautworst. On Thursday he went to work and then started to feel abdominal cramping and pain and went to the walk-in clinic which was was very busy, and then presented himself to the emergency department. He states he went to Dr. Mazariegos at [facility] who did an exploratory laparotomy, removed his appendix, noted that his bowel was inflamed, closed his abdomen up and was put on a long course of antibiotics. The patient endorses having low-grade fever of 99. He states that he has had a history of diminished lung capacity of 56% due to having a paralyzed diaphragm and a partial lobectomy a number of years ago. He states that he has been bloating and cramping, has had diminished urine output for the last 4 days and partially due to not drinking fluids. He does endorse having chronic muscle aches and pains, he has psoriasis of the scalp although his PCP started him on an antibiotic thinking he might have a staph infection. Patient is had shooting pains across his chest and has been worked up as a recent for chest pain and has not been ruled in for an acute OK. Patient was taking Cymbalta for anxiety but discontinued this in some years back. He states that he bruises easily. He states that he believes his diabetes is under good control, however he does not take his blood sugars and his last A1c was over a year ago. CT exam noted: There are multiple scattered areas of mild circumferential wall thickening, and site wall edema resulting in short segments of stricture alternating with numerous loops of moderately prominent/dilated small bowel. There is mild hypervascularity of left abdominal and mid abdominal small bowel loops. The long segment stricture seen in the central mid abdomen. 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 Tobacco & Substance use: Smoking Status Former smoker, quit 4 years ago alcohol intake frequency holiday/special occasion Substance Use Type does not use Meds Home Medications and Allergies Home Medications Medication Instructions Recorded Confirmed Type losartan 50 mg PO QDAY #0 03/15/16 11/03/18 History metformin [Glucophage] 1,000 mg PO BIDCC #0 03/15/16 11/03/18 History simvastatin 40 mg PO QDAY #0 03/15/16 11/03/18 History tadalafil [Cialis] 5 mg PO QDAY #0 03/15/16 11/03/18 History canagliflozin [Invokana] 300 mg PO DAILY 04/17/18 11/03/18 History mometasone 2 spray INTRANASAL DAILY 04/17/18 11/03/18 History tramadol 50 mg PO Q6H PRN #20 tab 04/17/18 11/03/18 Rx Allergies Allergy/AdvReac Type Severity Reaction Status Date / Time celecoxib [From CELEBREX] Allergy Intermediate Verified 04/17/18 21:05 citalopram [From CELEXA] Allergy Intermediate Verified 04/17/18 21:05 sulfamethoxazole Allergy Intermediate Verified 04/17/18 21:05 [From SEPTRA] trimethoprim [From SEPTRA] Allergy Intermediate Verified 04/17/18 21:05 Review of Systems Review of Systems ROS Unobtainable: All systems reviewed & are unremarkable except as noted in HPI and below Exam Vital Signs (past 8 hours): - 11/03/18 15:44 11/03/18 19:33 11/03/18 21:00 Temperature 98.5 F Pulse Rate 99 H 96 H 96 H Respiratory Rate 20 16 16 Blood Pressure 179/101 H Blood Pressure [Right Arm] 158/92 H Pulse Oximetry 97 100 100 11/03/18 22:28 Temperature 98.7 F Pulse Rate 100 H Respiratory Rate 20 Blood Pressure 140/100 H Blood Pressure [Right Arm] Pulse Oximetry 99 Oxygen Delivery Method Room Air Narrative Exam Narrative: Gen: Alert, oriented, truncally obese 63 y.o. male, appears uncomfortable HEENT: normocephalic, atraumatic, conjunctiva clear, sclera non-icteric, oral mucosa dry Neck: supple, full ROM Resp: Lungs CTA, non-labored breathing CV: RRR, no murmur or rubs Abd: distended, hard w/hypoactive bowel tones, no peritoneal signs, diffusely tender Skin: no lesions or rashes, dry and intact Neuro: Alert and oriented X 4 w/no focal deficits Extremities: moves all 4 extremities, is ambulatory, negative Liane?s sign Psyche: normal mood and affect. Objective Labs Result Diagrams: 11/03/18 16:30 11/03/18 16:30 Labs: Laboratory Results - last 24 hr 11/03/18 11/03/18 11/03/18 16:30 16:30 16:30 WBC 3.8 L RBC 4.92 Hgb 15.8 Hct 45.4 MCV 92.4 MCH 32.1 MCHC 34.7 RDW 14.2 Plt Count 179 Neut % (Auto) 56.7 Lymph % (Auto) 25.4 [place] % (Auto) 14.7 H Eos % (Auto) 2.6 Baso % (Auto) 0.6 Neut # (Auto) 2100 Lymph # (Auto) 1000 L [place] # (Auto) 600 Eos # (Auto) 100 Baso # (Auto) 0 Sodium 134 L Potassium 3.9 Chloride 97 L Carbon Dioxide 30 BUN 17 Creatinine 0.90 Estimated GFR > 60.0 BUN/Creatinine Ratio 18.9 Glucose 306 H Hemoglobin A1c 9.8 H Calcium 8.8 Total Bilirubin 0.4 AST 18 ALT 22 Alkaline Phosphatase 111 Total Protein 6.8 Albumin 3.7 Globulin 3.1 Albumin/Globulin Ratio 1.2 Lipase 31 Assessment & Plan Assessment & Plan narrative: Buddy Resendez will be admitted for management and treatment of a suspected small bowel obstruction/stricture. General Surgery was consulted and their involvement and guidance is appreciated. 1. Acute abdominal pain, acute, present on admission * Patient will be administered IV Levaquin once daily, IV Flagyl 500 mg q.6 hour s * Per recommendation of GI service, the patient will be administered IV Solu- Medrol 20 mg q.6 hours * Bowel rest, NPO * Patient will receive IV morphine 2 mg q.4 hours as needed for pain or iv Torad ol 15 mg q.6 hours as needed for mild pain * CT indicated strictures in bowel wall. Per the ED provider, recommended outpatient referral to the stricture sparing subspecialty unit of Gastroenterology. 2. Diabetes type 2 poorly controlled with a hemoglobin A1c of 9.8, present on admission * Patient's admission glucose was in excess of 300 and his A1c is 9.8. * Patient will be on high-dose insulin correctional scale q.6 hours due to the patient being NPO and due to his poorly controlled blood sugars. * I have requested diabetic education during the day. * Patient's oral anti diabetic medications have been held due to NPO status. 3. Essential hypertension, chronic, poorly controlled, present on admission * Patient seen home medication list includes losartan 50 mg daily however this is being held due to NPO status * Patient was given a 1 time dose of enalapril 2.5 mg and will be administered on a one time basis as needed for elevated blood pressures 4. Hyperlipidemia, chronic and stable, present on admission * Patient's home medication includes simvastatin 40 mg p.o. daily, this is being held due to NPO status, will likely be resumed in a couple of days 5. Solitary kidney, stable * Patient was a kidney donor to his sister and has one kidney Patient is admitted inpatient as his/her stay is anticipated to exceed 2 midnights. FEN: 0.45 NS at 150 ml/hour, NPO, chemistries in the am. VTE Prophylaxis: Enoxaparin 40 mg subQ daily Disposition: unknown at this time Code status: Full Code Admission time: 75 minutes Meds reconciled: Yes Time Spent With Patient Time with patient: 25 - 35 minutes Quality VTE Deep Vein Thrombosis/Pulmonary Embolism Present on Admission: No
[2018-11-03 23:35] VITALS: BP 127/74; PULSE 90; RESP 18; TEMP 36.5; O2SAT 94
[2018-11-03] MEDS: SODIUM CHLORIDE 0.45% 1,000 ML 150 ML IV (23:59)
[2018-11-04] VITALS (11 sets, daily range): BP systolic 97–145; BP diastolic 58–84; PULSE 79–110; RESP 16–18; TEMP 36.1–36.6; O2SAT 93–97
[2018-11-04] MEDS: ONDANSETRON 4 MG/2 ML INJ IV ×4 (00:12→18:27)
[2018-11-04] MEDS: KETOROLAC 30 MG/ML VIAL 15 MG IV ×3 (00:13→13:20)
[2018-11-04] MEDS: ENALAPRILAT 2.5 MG/ 2 ML VIAL IV (00:55)
[2018-11-04] MEDS: ENALAPRILAT 1.25 MG/ML VIAL 2.5 MG IV (00:57)
[2018-11-04] MEDS: INSULIN ASPART 100 UNIT/ML INSULN PEN SUBCUT ×4 (01:32→18:28)
--- NOTE | 2018-11-04 02:54 | PC.NURSE ---
Pt states he does not have an advance directive.
[2018-11-04] MEDS: methylPREDNISolone 125 MG/2 ML VIAL 20 MG IV ×4 (03:01→21:57)
[2018-11-04 03:19] LABS: Bacteria Urine None Seen; RBC Urine None Seen (0-5/HPF); WBC Urine None Seen (0-5/HPF)
[2018-11-04 03:35] LABS: Appearance Urine UA CLEAR; Bilirubin Urine UA NEGATIVE (NEGATIVE); Color Urine UA YELLOW; Glucose Urine UA 2+ g/dL (Negative); Ketones Urine UA NEGATIVE (NEGATIVE); Leukocyte Esterase Urine UA NEGATIVE (NEGATIVE); Nitrite Urine UA NEGATIVE (Negative); Occult Blood Urine UA TRACE-LYSED (Negative); Protein Urine UA 2+ (Negative); Specific Gravity Urine UA 1.015 (1.000-1.035); Urobilinogen Urine UA 0.2 E.U./dL (0.2)
[2018-11-04 03:45] LABS: Culture Indicated Urine Cult Not Indicated; Urine Comments Microscopic Normal
[2018-11-04] MEDS: metroNIDAZOLE 500 MG/100 ML PIGGYBACK 100 MG IV ×3 (04:28→16:56)
[2018-11-04] MEDS: SODIUM CHLORIDE 0.45% 1,000 ML 150 ML IV ×2 (06:11→16:07)
--- NOTE | 2018-11-04 06:54 | PC.NURSE ---
Pt admitted after abdominal pain and cramping since thursday. Upon arrival to floor pt stated he has felt the best he had in days. On IV methylpred q6hrs, received IV morphine in ED. Pt NPO on q6hr BG, in 300's. Pt reports he does not manage his BG at home, providers aware. Pt up independently in room. On IV Flagyl and Levofloxacin. Plan for IV antibiotics, review CT scan and consult with conferring MD today. If pt GI cause not found will transfer pt to facility with GI service. Monitoring for pain control. BG levels, change in GI symptoms.
[2018-11-04 07:05] LABS: Blood Urea Nitrogen 18 mg/dL (9-20); Calcium 8.3 mg/dL (8.4-10.2); Carbon Dioxide 28 mmol/L (22-32); Chloride 99 mmol/L (98-107); Estimated Glomerular Filt Rate > 60.0 mL/min (>60); Glucose 326 mg/dL (80-110); HEMOLYSIS < 15 (0-50); Potassium 4.7 mmol/L (3.4-5.1); Sodium 135 mmol/L (137-145)
[2018-11-04 07:14] LABS: Add Manual Diff / Slide Review NO; Basophils Absolute Auto 0 /uL (0-100); Eosinophils Absolute Auto 0 /uL (0-450); Hematocrit 42.4 % (41-53); Hemoglobin 14.3 g/dL (13.5-17.5); Lymphocytes Absolute Auto 300 /uL (1100-4500); Lymphocytes Percent Auto 8.2 % (25-40); Mean Corpuscular HGB Conc 33.8 % (30-36); Mean Corpuscular Volume 94.7 fL (80-100); Monocytes Absolute Auto 100 /uL (0-900); Monocytes Percent Auto 2.2 % (3-14); Neutrophils Absolute Auto 3200 /uL (1500-7000); Neutrophils Percent Auto 89.6 % (50-75); Platelet Count 159 X10^3/uL (150-400); Red Blood Cell Count 4.48 X10^6/uL (4.5-5.9); Red Cell Distribution Width 14.1 % (11.6-14.8); White Blood Cell Count 3.6 X10^3/uL (4.5-11.0)
--- NOTE | 2018-11-04 08:23 | DI.RAD.S_ITS ---
PROCEDURE: [place] SMALL BOWEL FOLLOW THROUGH INDICATIONS: evaluate small bowel mucosa for inflammation COMPARISON: [facility], CT, CT ABDOMEN PELVIS W CON, 11/03/2018, 18:25. FINDINGS: KUB: Preprocedural concreter film demonstrates a normal bowel gas pattern. No suspicious abdominal calcifications. Visualized solid organ contours appear normal. No suspicious bony abnormalities. Small bowel: There is moderately reduced transit time of barium through the small bowel. Small bowel loops are of abnormal enlarged caliber throughout the small bowel superiorly, but more inferiorly approximately half through the small bowel the caliber diminishes and then becomes normal proximal to the right lower quadrant.. Mucosal folds are smooth and of normal thickness. No strictures, intraluminal masses, or extrinsic mass effects are noted. The terminal ileum is identified, and is normal in morphology. IMPRESSION: Partial small bowel obstruction appears present. The point of transition appears to be at approximately the junction of the middle and distal thirds of the small bowel. Etiology is uncertain. The patient does report prior abdominal surgery and also an inflammatory event possibly diverticulitis that produce similar symptomatology. Dictated by: Duane Anderson M.D. on 11/04/2018 at 10:50 Approved by: Duane Anderson M.D. on 11/04/2018 at 10:52
--- NOTE | 2018-11-04 08:44 | PC.NURSE ---
Addendum entered by Roderick Butler R.N. 11/04/18 12:28: PATIENT HAD 1000CC'S LIQUID BROWN STOOL. SAMPLE SENT FOR GI PANEL. Original Note: Patient denies flatus, abd round and firm but not rigid. Indep w/ ambulation. Steady on feet. Off of unit for small bowel follow thru.
[2018-11-04] MEDS: DOCUSATE 100 MG CAPSULE PO (10:44)
[2018-11-04] MEDS: ENOXAPARIN 40 MG/0.4 ML SYRINGE SUBCUT (10:44)
--- NOTE | 2018-11-04 11:27 | CM.DANOTE ---
DCP: Case received, EMR reviewed and met with patient. Introduced self and role. Was able to meet with patient in his room to obtain baseline health information. DCP template/assessment completed with information currently available. Patient is a 63 year old male who admitted yesterday evening to the care of the hospitalist team. PCP: Dr. Marti. Payer: confirmed: [employer]. Patient came to the hospital via family vehicle secondary to abdominal pain. Patient diagnosed with small bowel obstruction. Dr. Wills is consulting. At this time, unclear if he will be having surgery. Patient has history of diabetes type 2, as well as a partial lobectomy. Met with patient in his room after his testing. Alert and oriented, pleasant, and appreciative of care. He is independent at home. He resides in [place] with his son, Juan. Patient is independent with ambulation, and drives. P: DCP to continue to follow closely. It is uncertain if patient will be having surgery. Patient should be able to go home when he is medically stable. Mali Wang RN/Car Repairer
[2018-11-04 13:42] LABS: Adenovirus F 40/41 Not Detected (Not Detect); Astrovirus Not Detected (Not Detect); Campylobacter Not Detected (Not Detect); Clostridium difficile toxin AB Not Detected (Not Detect); Cryptosporidium Not Detected (Not Detect); Cyclospora cayetanensis Not Detected (Not Detect); Entamoeba histolytica Not Detected (Not Detect); Enteroaggregative E.coli Not Detected (Not Detect); Enteropathogenic E.coli Not Detected (Not Detect); Enterotoxigenic E.coli It/st Not Detected (Not Detect); Giardia lamblia Not Detected (Not Detect); Norovirus GI/GII Not Detected (Not Detect); Plesiomonsa shigelloides Not Detected (Not Detect); Rotavirus A Not Detected (Not Detect); Salmonella Not Detected (Not Detect); Shiga-like toxin-prod E.coli Not Detected (Not Detect); Shigella/Enteroinvasive E.coli Not Detected (Not Detect); Vibrio Not Detected (Not Detect); Vibrio cholerae Not Detected (Not Detect); Yersinia enterocolitica Not Detected (Not Detect)
--- NOTE | 2018-11-04 14:49 | PM.PN.1 ---
Subjective Subjective Date Patient Seen: 11/04/18 Time Patient Seen: 14:49 Interval history: The patient feels much better. Since the small-bowel follow-through this morning he has had multiple large bowel movements. Feels less distended and has no abdominal pain. Exam Vital Signs (past 8 hours): - 11/04/18 07:00 11/04/18 07:23 11/04/18 12:00 Temperature 97.0 F L 97.4 F L Pulse Rate 79 110 H Respiratory Rate 18 18 Blood Pressure 97/59 L 121/79 Pulse Oximetry 95 95 95 11/04/18 14:44 Temperature Pulse Rate 101 H Respiratory Rate Blood Pressure 145/78 H Pulse Oximetry 93 Oxygen Delivery Method Room Air Oxygen Flow Rate 0 Narrative Exam Narrative: Lungs are clear. Abdomen is less distended. Soft. No guarding or tenderness. Objective Labs Result Diagrams: 11/04/18 06:45 11/04/18 06:45 Labs: Laboratory Results - last 24 hr 11/03/18 11/03/18 11/03/18 16:30 16:30 16:30 WBC 3.8 L RBC 4.92 Hgb 15.8 Hct 45.4 MCV 92.4 MCH 32.1 MCHC 34.7 RDW 14.2 Plt Count 179 Neut % (Auto) 56.7 Lymph % (Auto) 25.4 [place] % (Auto) 14.7 H Eos % (Auto) 2.6 Baso % (Auto) 0.6 Neut # (Auto) 2100 Lymph # (Auto) 1000 L [place] # (Auto) 600 Eos # (Auto) 100 Baso # (Auto) 0 Sodium 134 L Potassium 3.9 Chloride 97 L Carbon Dioxide 30 BUN 17 Creatinine 0.90 Estimated GFR > 60.0 BUN/Creatinine Ratio 18.9 Glucose 306 H Hemoglobin A1c 9.8 H Calcium 8.8 Total Bilirubin 0.4 AST 18 ALT 22 Alkaline Phosphatase 111 Total Protein 6.8 Albumin 3.7 Globulin 3.1 Albumin/Globulin Ratio 1.2 Lipase 31 Urine Color Urine Appearance Urine pH Ur Specific [place] Urine Protein Urine Glucose (UA) Urine Ketones Urine Occult Blood Urine Nitrate Urine Bilirubin Urine Urobilinogen Ur Leukocyte Esterase Urine RBC Urine WBC Urine Bacteria Ur Culture Indicated? Micro UA Comment Stl C. cayetanensis PCR Stool Rotavirus (PCR) Stool Adenovirus (PCR) Stool Astrovirus (PCR) Stool Cryptosporidium PCR Stl E.coli Shiga Tox PCR St Sh/Enteroin Ecoli PCR Stool E coli O157 PCR Stl Enterotoxigenic E PCR Stool EPEC (PCR) Stl E. histolytica PCR Stool Giardia Lamblia PCR Stl P. shigelloides PCR St Y.enterocolitica PCR Stool Vibrio (PCR) Stl Vibrio cholerae PCR Stl Enteroaggr Ecoli PCR Stl Norovirus GI/GII PCR Campylobacter (PCR) C. difficile Tox (PCR) Salmonella (PCR) 11/03/18 11/04/18 11/04/18 23:35 06:45 06:45 WBC 3.6 L RBC 4.48 L Hgb 14.3 Hct 42.4 MCV 94.7 MCH 32.0 MCHC 33.8 RDW 14.1 Plt Count 159 Neut % (Auto) 89.6 H D Lymph % (Auto) 8.2 L [place] % (Auto) 2.2 L Eos % (Auto) 0.0 L Baso % (Auto) 0.0 Neut # (Auto) 3200 Lymph # (Auto) 300 L [place] # (Auto) 100 Eos # (Auto) 0 Baso # (Auto) 0 Sodium 135 L Potassium 4.7 Chloride 99 Carbon Dioxide 28 BUN 18 Creatinine 0.90 Estimated GFR > 60.0 BUN/Creatinine Ratio 20.0 Glucose 326 H Hemoglobin A1c Calcium 8.3 L Total Bilirubin AST ALT Alkaline Phosphatase Total Protein Albumin Globulin Albumin/Globulin Ratio Lipase Urine Color Yellow Urine Appearance Clear Urine pH 5.0 Ur Specific [place] 1.015 Urine Protein 2+ H Urine Glucose (UA) 2+ H Urine Ketones Negative Urine Occult Blood Trace-lysed Urine Nitrate Negative Urine Bilirubin Negative Urine Urobilinogen 0.2 Ur Leukocyte Esterase Negative Urine RBC None seen Urine WBC None seen Urine Bacteria None seen Ur Culture Indicated? Cult not indicated Micro UA Comment Microscopic normal Stl C. cayetanensis PCR Stool Rotavirus (PCR) Stool Adenovirus (PCR) Stool Astrovirus (PCR) Stool Cryptosporidium PCR Stl E.coli Shiga Tox PCR St Sh/Enteroin Ecoli PCR Stool E coli O157 PCR Stl Enterotoxigenic E PCR Stool EPEC (PCR) Stl E. histolytica PCR Stool Giardia Lamblia PCR Stl P. shigelloides PCR St Y.enterocolitica PCR Stool Vibrio (PCR) Stl Vibrio cholerae PCR Stl Enteroaggr Ecoli PCR Stl Norovirus GI/GII PCR Campylobacter (PCR) C. difficile Tox (PCR) Salmonella (PCR) 11/04/18 12:05 WBC RBC Hgb Hct MCV MCH MCHC RDW Plt Count Neut % (Auto) Lymph % (Auto) [place] % (Auto) Eos % (Auto) Baso % (Auto) Neut # (Auto) Lymph # (Auto) [place] # (Auto) Eos # (Auto) Baso # (Auto) Sodium Potassium Chloride Carbon Dioxide BUN Creatinine Estimated GFR BUN/Creatinine Ratio Glucose Hemoglobin A1c Calcium Total Bilirubin AST ALT Alkaline Phosphatase Total Protein Albumin Globulin Albumin/Globulin Ratio Lipase Urine Color Urine Appearance Urine pH Ur Specific [place] Urine Protein Urine Glucose (UA) Urine Ketones Urine Occult Blood Urine Nitrate Urine Bilirubin Urine Urobilinogen Ur Leukocyte Esterase Urine RBC Urine WBC Urine Bacteria Ur Culture Indicated? Micro UA Comment Stl C. cayetanensis PCR Not detected Stool Rotavirus (PCR) Not detected Stool Adenovirus (PCR) Not detected Stool Astrovirus (PCR) Not detected Stool Cryptosporidium PCR Not detected Stl E.coli Shiga Tox PCR Not detected St Sh/Enteroin Ecoli PCR Not detected Stool E coli O157 PCR Not detected Stl Enterotoxigenic E PCR Not detected Stool EPEC (PCR) Not detected Stl E. histolytica PCR Not detected Stool Giardia Lamblia PCR Not detected Stl P. shigelloides PCR Not detected St Y.enterocolitica PCR Not detected Stool Vibrio (PCR) Not detected Stl Vibrio cholerae PCR Not detected Stl Enteroaggr Ecoli PCR Not detected Stl Norovirus GI/GII PCR Not detected Campylobacter (PCR) Not detected C. difficile Tox (PCR) Not detected Salmonella (PCR) Not detected Assessment & Plan Assessment & Plan narrative: X-rays suggest the presence of a partial small-bowel obstruction rather than an ileitis or colitis as a source of the patient's symptoms. The stomach and proximal small bowel were quite dilated on the study. Contrast to ever reach the colon. Therefore I will keep him NPO for right now in bring her sugars under control. Will repeat x-rays in the morning before trying to give any p.o.. Quality VTE Deep Vein Thrombosis/Pulmonary Embolism Present on Admission: No
[2018-11-04] MEDS: INSULIN REGULAR 100 UNIT/ML 3 ML VIAL IV (15:02)
--- NOTE | 2018-11-04 18:08 | P.PN_ITS ---
Subjective Subjective Date Patient Seen: 11/04/18 Interval history: Patient seen and examined chart reviewed. Patient is a 63-year-old male who was admitted to the hospital for abdominal pain. There was concern regarding a stricture and possible inflammatory bowel disease. He was initially treated with Solu-Medrol and then placed on bowel rest. He was able to have a bowel movement his abdomen is still distended but pain has significantly improved. He is NPO for repeat studies tomorrow. Exam Vital Signs (past 8 hours): - 11/04/18 12:00 11/04/18 14:44 11/04/18 15:00 Temperature 97.4 F L Pulse Rate 110 H 101 H Respiratory Rate 18 Blood Pressure 121/79 145/78 H Pulse Oximetry 95 93 97 11/04/18 15:52 Temperature 97.6 F Pulse Rate 103 H Respiratory Rate 18 Blood Pressure 140/84 Pulse Oximetry 97 Oxygen Delivery Method Room Air Oxygen Flow Rate 0 Narrative Exam Narrative: Pleasant male resting comfortably in no obvious distress Lungs: Clear to auscultation Cardiac exam: Regular rate and rhythm normal S1-S2 with a 3/6 systolic ejection murmur Abdomen soft nontender distended with normoactive bowel tones no rebound tenderness no board-like rigidity no palpable mass Extremities no edema Objective Labs Result Diagrams: 11/04/18 06:45 11/04/18 06:45 Labs: Laboratory Results - last 24 hr 11/03/18 11/03/18 11/04/18 16:30 23:35 06:45 WBC 3.6 L RBC 4.48 L Hgb 14.3 Hct 42.4 MCV 94.7 MCH 32.0 MCHC 33.8 RDW 14.1 Plt Count 159 Neut % (Auto) 89.6 H D Lymph % (Auto) 8.2 L [place] % (Auto) 2.2 L Eos % (Auto) 0.0 L Baso % (Auto) 0.0 Neut # (Auto) 3200 Lymph # (Auto) 300 L [place] # (Auto) 100 Eos # (Auto) 0 Baso # (Auto) 0 Sodium Potassium Chloride Carbon Dioxide BUN Creatinine Estimated GFR BUN/Creatinine Ratio Glucose Hemoglobin A1c 9.8 H Calcium Urine Color Yellow Urine Appearance Clear Urine pH 5.0 Ur Specific [place] 1.015 Urine Protein 2+ H Urine Glucose (UA) 2+ H Urine Ketones Negative Urine Occult Blood Trace-lysed Urine Nitrate Negative Urine Bilirubin Negative Urine Urobilinogen 0.2 Ur Leukocyte Esterase Negative Urine RBC None seen Urine WBC None seen Urine Bacteria None seen Ur Culture Indicated? Cult not indicated Micro UA Comment Microscopic normal Stl C. cayetanensis PCR Stool Rotavirus (PCR) Stool Adenovirus (PCR) Stool Astrovirus (PCR) Stool Cryptosporidium PCR Stl E.coli Shiga Tox PCR St Sh/Enteroin Ecoli PCR Stool E coli O157 PCR Stl Enterotoxigenic E PCR Stool EPEC (PCR) Stl E. histolytica PCR Stool Giardia Lamblia PCR Stl P. shigelloides PCR St Y.enterocolitica PCR Stool Vibrio (PCR) Stl Vibrio cholerae PCR Stl Enteroaggr Ecoli PCR Stl Norovirus GI/GII PCR Campylobacter (PCR) C. difficile Tox (PCR) Salmonella (PCR) 11/04/18 11/04/18 06:45 12:05 WBC RBC Hgb Hct MCV MCH MCHC RDW Plt Count Neut % (Auto) Lymph % (Auto) [place] % (Auto) Eos % (Auto) Baso % (Auto) Neut # (Auto) Lymph # (Auto) [place] # (Auto) Eos # (Auto) Baso # (Auto) Sodium 135 L Potassium 4.7 Chloride 99 Carbon Dioxide 28 BUN 18 Creatinine 0.90 Estimated GFR > 60.0 BUN/Creatinine Ratio 20.0 Glucose 326 H Hemoglobin A1c Calcium 8.3 L Urine Color Urine Appearance Urine pH Ur Specific [place] Urine Protein Urine Glucose (UA) Urine Ketones Urine Occult Blood Urine Nitrate Urine Bilirubin Urine Urobilinogen Ur Leukocyte Esterase Urine RBC Urine WBC Urine Bacteria Ur Culture Indicated? Micro UA Comment Stl C. cayetanensis PCR Not detected Stool Rotavirus (PCR) Not detected Stool Adenovirus (PCR) Not detected Stool Astrovirus (PCR) Not detected Stool Cryptosporidium PCR Not detected Stl E.coli Shiga Tox PCR Not detected St Sh/Enteroin Ecoli PCR Not detected Stool E coli O157 PCR Not detected Stl Enterotoxigenic E PCR Not detected Stool EPEC (PCR) Not detected Stl E. histolytica PCR Not detected Stool Giardia Lamblia PCR Not detected Stl P. shigelloides PCR Not detected St Y.enterocolitica PCR Not detected Stool Vibrio (PCR) Not detected Stl Vibrio cholerae PCR Not detected Stl Enteroaggr Ecoli PCR Not detected Stl Norovirus GI/GII PCR Not detected Campylobacter (PCR) Not detected C. difficile Tox (PCR) Not detected Salmonella (PCR) Not detected Assessment & Plan Assessment & Plan narrative: 1. Partial small-bowel obstruction, improved, patient is NPO and will have repeat x-rays in the morning. 2. Type 2 diabetes poorly controlled. Despite the patient being NPO home blood sugars are elevated. Will start him on a basal insulin of 10 units plus a sliding scale. 3. Hyperlipidemia medications on hold 4. Hypertension will resume losartan once the patient is taking p.o.. Hopefully if repeat x-rays have improved and patient's diet will be advanced tomorrow and if tolerated discharge home. Quality VTE Deep Vein Thrombosis/Pulmonary Embolism Present on Admission: No
[2018-11-04] MEDS: INSULIN GLARGINE 100 UNIT/ML 3ML PEN 10 UNIT SUBCUT (21:58)
[2018-11-05] VITALS (9 sets, daily range): BP systolic 129–157; BP diastolic 80–99; PULSE 83–93; RESP 18–20; TEMP 36.2–37.3; O2SAT 95–97
[2018-11-05] MEDS: SODIUM CHLORIDE 0.45% 1,000 ML 150 ML IV ×2 (00:24→06:32)
[2018-11-05] MEDS: INSULIN ASPART 100 UNIT/ML INSULN PEN SUBCUT ×5 (01:14→16:35)
[2018-11-05] MEDS: ONDANSETRON 4 MG/2 ML INJ IV ×2 (01:18→06:32)
[2018-11-05] MEDS: methylPREDNISolone 125 MG/2 ML VIAL 20 MG IV ×2 (02:44→09:46)
--- NOTE | 2018-11-05 05:50 | PC.NURSE ---
Pt denies abdominal pain or cramping, denies nausea. Remain NPO for repeat x-rays today. Pt states he is anxious to go home and he hopes the x-rays can be done early today. Had small bowel follow through yesterday showing partial small bowel obstruction. Pt had 1000cc diarrhea yesterday, none overnight. On IV methylpred. BG q6hr with coverage. Up independently, ambulating halls this morning.
--- NOTE | 2018-11-05 07:54 | DI.RAD.S_ITS ---
PROCEDURE: XR ABDOMEN MIN 2V INDICATIONS: Follow-up SBO TECHNIQUE: 2 views of the abdomen were acquired. COMPARISON: [facility], , [place] SMALL BOWEL FOLLOW THROUGH, 11/04/2018, 8:41. FINDINGS: Surgical changes and devices: None. Bowel: No pneumoperitoneum. Contrast remains visualized within portions of the colon, extending to what appears to be the sigmoid colon. There remains dilated loops of small bowel appearing slightly improved compared to prior exam Soft tissues: No masses; visualized solid organ contours appear normal in size. No suspicious abdominal calcifications. Bones: No suspicious bony abnormalities. IMPRESSION: Contrast noted within the colon as above. There is persistent dilation of small bowel loops although minimally improved consistent partial small bowel traction. Dictated by: Shobha Hebert M.D. on 11/05/2018 at 8:20 Approved by: Shobha Hebert M.D. on 11/05/2018 at 8:33
--- NOTE | 2018-11-05 09:34 | P.PN_ITS ---
Subjective Subjective Date Patient Seen: 11/05/18 Time Patient Seen: 09:34 Interval history: No acute overnight events. Was began on a small-bowel follow- through yesterday the x-rays morning demonstrates contrast within the colon. He has had multiple bowel movements overnight. No nausea no vomiting. Hungry. Exam Vital Signs (past 8 hours): - 11/05/18 06:00 11/05/18 07:45 Temperature 97.5 F L 98.8 F Pulse Rate 83 84 Respiratory Rate 18 20 Blood Pressure 147/80 H 147/91 H Pulse Oximetry 96 95 Oxygen Delivery Method Room Air Oxygen Flow Rate 0 Narrative Exam Narrative: General adult male no acute distress Abdomen soft compressible. No peritonitis Objective Labs Result Diagrams: 11/04/18 06:45 11/04/18 06:45 Labs: Laboratory Results - last 24 hr 11/04/18 12:05 Stl C. cayetanensis PCR Not detected Stool Rotavirus (PCR) Not detected Stool Adenovirus (PCR) Not detected Stool Astrovirus (PCR) Not detected Stool Cryptosporidium PCR Not detected Stl E.coli Shiga Tox PCR Not detected St Sh/Enteroin Ecoli PCR Not detected Stool E coli O157 PCR Not detected Stl Enterotoxigenic E PCR Not detected Stool EPEC (PCR) Not detected Stl E. histolytica PCR Not detected Stool Giardia Lamblia PCR Not detected Stl P. shigelloides PCR Not detected St Y.enterocolitica PCR Not detected Stool Vibrio (PCR) Not detected Stl Vibrio cholerae PCR Not detected Stl Enteroaggr Ecoli PCR Not detected Stl Norovirus GI/GII PCR Not detected Campylobacter (PCR) Not detected C. difficile Tox (PCR) Not detected Salmonella (PCR) Not detected Assessment & Plan Assessment & Plan narrative: 63-year-old male with multiple prior abdominal surgeries admitted with a partial small-bowel obstruction secondary to adhesions resolving. I reviewed his abdominal x-ray this morning which demonstrates his small-bowel follow-through has contrast within the colon. I he has resolution of his nausea vomiting he is having multiple bowel movements. Plan -clear liquid diet now, if tolerates advance diet Quality VTE Deep Vein Thrombosis/Pulmonary Embolism Present on Admission: No
[2018-11-05] MEDS: ENOXAPARIN 40 MG/0.4 ML SYRINGE SUBCUT (09:46)
[2018-11-05] MEDS: DOCUSATE 100 MG CAPSULE PO ×2 (09:48→21:04)
[2018-11-05] MEDS: LOSARTAN 50 MG TABLET PO (12:43)
--- NOTE | 2018-11-05 14:10 | DIET.PN ---
Dietary Progress Note Assessment: 63 yom referred for Type 2 Diabetes nutrition counseling. He is with long standing HX of diabetes admitted with cramps, abd pain, and nausea. He has been NPO for several days and was just progressed to [place] with hopes of progressing to General/CCD for dinner. He admits he has not taken care of his diabetes for quite some time, but in recent events has decided it is time for a change. He is knowledgeable on the disease process, but has become complacent in care. Admits he does not monitor his BG. Diet: F/L Ht: 177.8cm Wt: 108.2kg BMI: 34.2 (obese) Labs: A1c: 9.8 Gluc: 306, 326 Meds: Transdermal Metformin at home NUTRITION DX 1. Altered Nutrition related labs related to impaired glucose metabolism, lack of previous exposure to accurate nutrition information as evidenced by pt report, dx of diabetes, previous diet high in refined carbohydrates.? INTERVENTION(s): 1. Discussed pathophysiology of diabetes. Reviewed A1c and its correlation to blood glucose numbers. Discussed recommended BG ranges. 2. Discussed importance of self-monitoring, how often, and when to check. 3. Discussed impact of nutrition/diet on blood sugar control.? Discussed fed versus non-fed state.?? 4. Discussed the effect of carbohydrates/protein/fat on blood sugar control.? Stressed importance of consistent carbohydrate intake at each meal and provided instructions for recommended servings/portions of carbohydrates/protein per meal. Provided pt with educational material. 5. Reviewed carbohydrate counting and measuring carbohydrate content via serving sizes and reading nutrition labels.? Provided handouts.?? 6. Reviewed pt menu he planned before my arrival. Expresses greater understanding of counting carbs and easy ways to cut them out. MONITOR/EVALUATE: Wt, PO's BG. Diet: Advance to Diabetic (CCD-4) as tolerated. Recommend pt for outpatient Diabetes MNT. Pt agreeable and states he will request referral. Contact info provided.
--- NOTE | 2018-11-05 15:58 | PM.PN.1 ---
Subjective Subjective Date Patient Seen: 11/05/18 Interval history: He is seen today to follow-up his small-bowel obstruction, valvular heart disease, diabetes and hypertension. He tells me that he has had a heart murmur caused by a bicuspid aortic valve for several years but he thinks his last echocardiogram was over 5 years ago. His x-rays apparently show evidence of resolving bowel obstruction so he is now on a diet per General surgery. Exam Vital Signs (past 8 hours): - 11/05/18 12:00 Temperature 97.3 F L Pulse Rate 84 Respiratory Rate 20 Blood Pressure 146/83 H Pulse Oximetry 97 Oxygen Delivery Method Room Air Oxygen Flow Rate 0 Narrative Exam Narrative: He is alert and oriented x3. He is in no apparent distress. Heart is regular rate and rhythm with a 2/6 systolic ejection murmur. Lungs are clear to auscultation bilaterally. Abdomen is distended, with high-pitched tinkling bowel sounds and bulges across the upper abdomen suggestive of ventral hernia small size. Extremities have no ankle edema. Objective Labs Result Diagrams: 11/04/18 06:45 11/04/18 06:45 Assessment & Plan Assessment & Plan narrative: 1. Partial small-bowel obstruction, improved symptomatically and on xray, patient is on a diet challenge per General surgery with expected discharge soon, possibly tomorrow. 2. Type 2 diabetes poorly controlled. With the Solu-Medrol being stopped his blood sugars are expected to improve, meanwhile he is on Lantus 10 units plus a sliding scale. 3. Hyperlipidemia medications on hold 4. Hypertension, will now resume losartan. 5. Valvular Heart Disease. -he has a significant heart murmur. Per his history he probably has a history of bicuspid aortic valve which can be expected to progress to significant aortic stenosis over time so an echocardiogram as an outpatient is advised. I think he will proceed, based on this discussion today. Quality VTE Deep Vein Thrombosis/Pulmonary Embolism Present on Admission: No
[2018-11-05] MEDS: INSULIN GLARGINE 100 UNIT/ML 3ML PEN 10 UNIT SUBCUT (21:04)
[2018-11-06 00:10] VITALS: BP 147/96; PULSE 81; RESP 16; TEMP 36.7; O2SAT 97
[2018-11-06] MEDS: diphenhydrAMINE 25 MG TABLET PO (00:24)
[2018-11-06 06:00] VITALS: BP 141/86; PULSE 80; RESP 16; TEMP 36.9; O2SAT 97
--- NOTE | 2018-11-06 06:58 | PC.NURSE ---
Pt reports no BM since mid day yesterday. Passing flatus. Tolerating PO intake without increased in abd pain or cramping. Pt remains hypertensive, Losaartn restarted. Pt stated he understands how to better take care of his DM after speaking with Dieticianand plans on better self care of DM post discharge
--- NOTE | 2018-11-06 07:44 | P.DS_ITS ---
History of Present Illness History of Present Illness Date Patient Seen: 11/06/18 Chief complaint: cramps and abdominal pain,nausea Narrative: The patient is a gentleman who developed abdominal pain and distension on for Thursday. The pain was quite intense at that time and was accompanied by nausea and the sensation that he had to vomit. He almost passed out at that point. However he waited until this evening to come. He has had intermittent crampy dull achy abdominal pain since then. This is very similar to an episode he had perhaps 15 years ago. At that time he underwent explo ration and was told he had inflammation throughout his intestine but nothing was resected except an incidental appendectomy was performed (per his history). He was treated with IV antibiotics and the problem resolved. He continues to pass flatus and have bowel movements but is far from normal he said. The bowel movements are very small and narrow and claylike and the gas is very intermittent. Usually he has 5 normal bowel movements a day he said. They are not diarrhea they are formed. He also states he feels very distended though he is usually have a big belly. He is a type 2 diabetic but he does not test sugars. He denies any fever. No blood in his stool. He has had a kidney resec tion as he was a donor for his sister were 2 receive a kidney. 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 He had a ventral hernia repaired and a subsequent exploration described above. No personal history or family history of ulcerative colitis or Crohn's disease. Discharge Providers Provider Date of admission: 11/03/18 21:03 Discharge Date: 11/06/18 Primary care physician: Marcello Marti MD Consults: 11/03/18 21:59 Consult to Physician Routine Comment: Consulting Provider: Josh Logan Reason for consultation: SBO, strictures, vs crohn's Has provider been notified: Yes 11/05/18 12:51 Consult to Dietitian, Adult Routine Comment: Reason For Exam: diabetic teaching, elevated A1C, Discharge provider: Maricarmen De Oliveira MD Summary Hospital Course Discharge Diagnosis: 1. Partial small-bowel obstruction resolved 2. Type 2 diabetes 3. Hypertension 4. Allergic rhinitis 5. Hyperlipidemia Hospital Course: The patient is a 63-year-old male who was admitted to the hospital for abdominal pain. Initially there was concern regarding Crohn's disease versus inflammatory bowel disease. He was initially treated with IV antibiotics and steroids. The patient had an x-ray which demonstrated a partial small bowel obstruction. He subsequently had an upper GI small-bowel follow- through and contrast was seen going all the way down to the level of the colon. Patient had bowel movements. He had no further abdominal pain. His diet was advanced and he tolerated this without difficulty. He had no fever or chills. His abdominal distention improved. He was seen and followed by our general surgeon who outlined the course to treat and agreed that the patient was appropriate for discharge home. On the day of discharge she has no complaints. He has no nausea vomiting or abdominal pain. He has had no additional bowel movements. He tolerated his diet yesterday without incident. Patient was deemed appropriate for discharge and discharged home. Status at Discharge Cognitive/behavioral status at discharge: oriented Functional status at discharge: independent ambulation Overall status at discharge: patient is back to baseline Time Spent with Patient Time spent: Less than 30 minutes Exam Vital Signs (past 8 hours): - 11/06/18 00:10 11/06/18 06:00 Temperature 98.0 F 98.5 F Pulse Rate 81 80 Respiratory Rate 16 16 Blood Pressure 147/96 H 141/86 H Pulse Oximetry 97 97 Oxygen Delivery Method Room Air Oxygen Flow Rate 0 Narrative Exam Narrative: Pleasant gentleman resting comfortably in no obvious distress Lungs: Clear to auscultation Cardiac exam: Regular rate and rhythm normal S1-S2 with a 2/6 systolic ejection murmur Abdomen: Distended, positive bowel tones in all quadrants, no board-like rigidity, no palpable masses, no rebound tender Extremities: 1+ edema Objective Labs Result Diagrams: 11/04/18 06:45 11/04/18 06:45 Discharge Plan Discharge Plan Patient Disposition: Home Discharge Med Rec/Prescriptions Prescriptions: Continued metformin [Glucophage] 1,000 MG tablet 1,000 mg PO BIDCC Qty: 0 RF: 0 tadalafil [Cialis] 5 MG tablet 5 mg PO QDAY Qty: 0 RF: 0 losartan 50 MG tablet 50 mg PO QDAY Qty: 0 RF: 0 simvastatin 40 MG tablet 40 mg PO QDAY Qty: 0 RF: 0 mometasone 50 mcg/actuation spray,non-aerosol 2 spray Intranasal DAILY RF: 0 Invokana 300 mg tablet 300 mg PO DAILY RF: 0 tramadol 50 mg tablet 50 mg PO Q6H PRN (Reason: pain) Qty: 20 RF: 0 Follow up/Referrals: Marcello Marti MD [Primary Care Provider] - Provider Discharge Instructions Diet: Low-sodium and Low-cholesterol Activity: as tolerated Discharge Data Primary Care Provider: Marcello Marti Quality VTE Deep Vein Thrombosis/Pulmonary Embolism Present on Admission: No
[2018-11-06 08:30] VITALS: BP 138/87; PULSE 86; RESP 16; TEMP 36.4; O2SAT 97
[2018-11-06] MEDS: LOSARTAN 50 MG TABLET PO (08:40)
[2018-11-06] MEDS: DOCUSATE 100 MG CAPSULE PO (08:41)
[2018-11-06] MEDS: INSULIN ASPART 100 UNIT/ML INSULN PEN SUBCUT (08:42)
--- NOTE | 2018-11-06 10:36 | PC.NURSE ---
1035 Pt dcd to home per Dr De Oliveira and Dr Echevarria. Escorted out via w/c .
== END 2018-11-06 10:37 | disposition home or self-care (01) | DRG 390 ==
LOC: ED 20:38 → AC 21:05
PROVIDERS: Emergency Medicine; Specialist; Admitting Provider Nurse Practitioner Family; Emergency Provider Emergency Medicine; Family Provider Family Medicine; PCP Family Medicine; Visit Provider Nurse Practitioner Family
DX: K56.51 Intestinal adhesions [bands], with partial obstruction (principal); E11.65 Type 2 diabetes mellitus with hyperglycemia; I10 Essential (primary) hypertension; E78.5 Hyperlipidemia, unspecified; Z90.5 Acquired absence of kidney; Z87.891 Personal history of nicotine dependence; Z79.84 Long term (current) use of oral hypoglycemic drugs
CPT/HCPCS: 36415; 36591; 74019; 74177; 74250; 80048; 80053; 81001; 82962; 83036; 83690; 85025; 87507; 96361; 96365; 96375; 96376; 99282; 99285; J1650; J1885; J1956; J2270; J2405; J2920; J2930; J7050; Q9967

== ENCOUNTER 2019-01-14 06:43 | Emergency (ER) | payer OTHER, SELFPAY ==
[2019-01-14 06:52] VITALS: BP 170/100; PULSE 88; RESP 15; TEMP 36.5; O2SAT 97; BMI 32.3
--- NOTE | 2019-01-14 07:09 | ED.ABDPAIN ---
HPI - Abdominal Pain General Chief Complaint: Abdominal Pain Stated Complaint: possible bowel blockage, nausea Time Seen by Provider: 01/14/19 07:01 Source: patient and family Mode of arrival: Family Vehicle Limitations: no limitations History of Present Illness HPI narrative: 63-year-old male former smoker with history of diabetes, hypertension, hyperlipidemia, and colitis presents with a chief complaint of 24 hours of gradually worsening generalized abdominal pain with nausea and vomiting. He has a history of small-bowel obstruction and states this feels the same. He normally has about 4 bowel movements daily and has not gone in 24 hours. Patient has a history with Gastroenterology at the [facility] and had saravia endoscopy on January 03 and 1 polyp was removed but was otherwise normal. He was last seen and evaluated here in October and admitted for 3 and half days on IV fluids, antibiotics. Patient has had multiple abdominal surgeries. He does have a solitary kidney as he donated 1 to his sister. He states that since his last hospitalization he has been visual in about adhering to dietary restrictions and has lost 20 lb. MD complaint: abdominal pain Onset (ago): hour(s) Pain Consistency: constant Location: diffuse Severity: moderate Quality: cramping and aching Radiation: none Relieving factors: nothing Exacerbating factors: movement Associated symptoms: nausea and vomiting Related Data Home Medications Medication Instructions Recorded Confirmed losartan 50 mg PO QDAY #0 03/15/16 11/03/18 metformin [Glucophage] 1,000 mg PO BIDCC #0 03/15/16 11/03/18 simvastatin 40 mg PO QDAY #0 03/15/16 11/03/18 tadalafil [Cialis] 5 mg PO QDAY #0 03/15/16 11/03/18 canagliflozin 300 mg PO DAILY 04/17/18 11/03/18 mometasone 2 spray INTRANASAL DAILY 04/17/18 11/03/18 ketoconazole 1 applic TOPICAL DAILY 01/14/19 01/14/19 Previous Rx's Medication Instructions Recorded tramadol 50 mg PO Q6H PRN #20 tab 04/17/18 hydrocodone-acetaminophen 1 tab PO Q4-6H PRN #10 tab 01/14/19 ondansetron 4 mg PO TID-QID PRN #10 tab 01/14/19 Allergies Allergy/AdvReac Type Severity Reaction Status Date / Time celecoxib [From CELEBREX] Allergy Intermediate Verified 01/14/19 07:53 citalopram [From CELEXA] Allergy Intermediate Verified 01/14/19 07:53 sulfamethoxazole Allergy Intermediate Verified 01/14/19 07:53 [From SEPTRA] trimethoprim [From SEPTRA] Allergy Intermediate Verified 01/14/19 07:53 Review of Systems Constitutional Constitutional: Denies chills, Denies fatigue, Denies fever(s), Denies frequent falls, Denies lethargy and Denies weakness Eyes Eyes: Denies change in vision, Denies eye discharge, Denies irritation and Denies loss of vision ENT Ears, Nose, Mouth, and Throat: Denies change in voice, Denies dizziness, Denies neck pain, Denies sore throat and Denies throat swelling Cardiovascular Cardiovascular: Denies chest pain, Denies irregular heart rhythm, Denies lightheadedness, Denies palpitations, Denies dyspnea, Denies dyspnea on exertion and Denies orthopnea Respiratory Respiratory: Denies cough, Denies dyspnea, Denies dyspnea on exertion and Denies wheezing Gastrointestinal Gastrointestinal: Reports abdominal pain, Denies change in bowel habits, Denies diarrhea, Reports nausea and Reports vomiting Genitourinary Genitourinary: Denies hematuria, Denies flank pain, Denies urinary incontinence and Denies urinary urgency Musculoskeletal Musculoskeletal: Denies back pain, Denies muscle weakness, Denies neck pain, Denies numbness and Denies tingling Integumentary/Breasts Skin/Breast: Denies pruritus, Denies erythema, Denies rash and Denies wounds Neurologic Neurologic: Denies behavioral changes, Denies confusion, Denies dizziness, Denies frequent falls, Denies loss of vision, Denies numbness, Denies tingling and Denies weakness Psychiatric Psychiatric: Denies anxiety, Denies behavioral changes, Denies confusion, Denies depression, Denies homicidal ideation and Denies suicidal ideation Endocrine Endocrine: Denies fatigue, Denies flushing and Denies palpitations Hematologic/Lymphatic Hematologic/Lymphatic: Denies easy bruising Allergic/Immunologic Allergic/Immunologic: Denies urticaria, Denies throat swelling and Denies wheezing Patient History Medical History History of nephrectomy, unilateral (Acute) Hyperlipidemia (Acute) Hypertension (Acute) Surgical History History of appendectomy (Acute) History of exploratory laparotomy (Acute) History of ventral hernia repair (Acute) Social History household members: family Smoking Status: Former smoker alcohol intake frequency: holidays/special occasions only Substance Use Type: does not use Exam Narrative Exam Narrative: GENERAL: [63] year old patient appears stated age. Well-nourished, well-developed patient, in mild distress. HEAD: Atraumatic. Normocephalic. EYES: Pupils equal round and reactive. Extraocular motions intact. No scleral icterus. No injection or drainage. ENT: Nose without bleeding, purulent drainage. Throat without erythema, tonsillar hypertrophy or exudate. Airway patent. NECK: Trachea midline. Non tender CARDIOVASCULAR: Regular rate and rhythm without murmurs, gallops, or rubs. RESPIRATORY: Clear to auscultation. Breath sounds equal bilaterally. No wheezes, rales, or rhonchi. GASTROINTESTINAL: Abdomen firm, disteneded, decreased bowel sounds EXTREMITIES: No edema or joint tenderness. BACK: Nontender without deformity or crepitance. No flank tenderness. NEURO: AOx3. SKIN: No rash or erythema of visible areas Initial Vital Signs Initial Vital Signs: Vital Signs Temperature 97.7 F 01/14/19 06:52 Pulse Rate 88 01/14/19 06:52 Respiratory Rate 15 01/14/19 06:52 Blood Pressure 170/100 H 01/14/19 06:52 Pulse Oximetry 97 01/14/19 06:52 Course Orders Ordered: Discontinued Medications Hydromorphone HCl (Dilaudid) 0.5 mg IV NOW ONE Stop: 01/14/19 07:07 Last Admin: 01/14/19 07:15 Dose: 0.5 mg Documented by: MIRIAM Hydromorphone HCl (Dilaudid) 0.5 mg IV NOW ONE Stop: 01/14/19 08:30 Last Admin: 01/14/19 08:35 Dose: 0.5 mg Documented by: TATIANA Sodium Chloride (Normal Saline 0.9%) 1,000 mls @ 150 mls/hr IV CONT ALIYAH Last Infusion: 01/14/19 09:04 Dose: 0 mls/hr Documented by: Admin: 01/14/19 07:16 Dose: 150 mls/hr Documented by: MIRIAM Ondansetron HCl (Zofran) 4 mg IV NOW ONE Stop: 01/14/19 07:02 Last Admin: 01/14/19 07:15 Dose: 4 mg Documented by: MIRIAM Pantoprazole Sodium (Protonix) 40 mg IV NOW ONE Stop: 01/14/19 08:30 Last Admin: 01/14/19 08:35 Dose: 40 mg Documented by: TATIANA Vital Signs Vital signs: Vital Signs - 8 hr 01/14/19 06:52 Temperature 97.7 F Pulse Rate 88 Respiratory Rate 15 Blood Pressure 170/100 H Pulse Oximetry 97 MDM - Abdominal Pain Lab Data Result diagrams: 01/14/19 06:59 01/14/19 06:59 Labs: Lab Results 01/14/19 01/14/19 01/14/19 Range/Units 06:59 06:59 06:59 WBC 4.7 (4.5-11.0) X10^3/uL RBC 5.27 (4.5-5.9) X10^6/uL Hgb 16.7 (13.5-17.5) g/dL Hct 48.8 (41-53) % MCV 92.7 (80-100) fL MCH 31.6 (26-34) PG MCHC 34.1 (30-36) % RDW 14.4 (11.6-14.8) % Plt Count 218 (150-400) X10^3/uL Neut % (Auto) 66.6 (50-75) % Lymph % (Auto) 19.2 L (25-40) % [place] % (Auto) 11.2 (3-14) % Eos % (Auto) 2.6 (2-4) % Baso % (Auto) 0.4 (0-2) % Neut # (Auto) 3100 (0506-8867) /uL Lymph # (Auto) 900 L (9402-3180) /uL [place] # (Auto) 500 (0-900) /uL Eos # (Auto) 100 (0-450) /uL Baso # (Auto) 0 (0-100) /uL Sodium 137 (137-145) mmol/L Potassium 4.4 (3.4-5.1) mmol/L Chloride 98 (98-107) mmol/L Carbon Dioxide 26 (22-32) mmol/L BUN 27 H (9-20) mg/dL Creatinine 1.30 H (0.66-1.25) mg/dL Estimated GFR 55.9 L (>60) mL/min BUN/Creatinine Ratio 20.8 (6-22) Glucose 198 H (80-110) mg/dL Lactate 1.3 (0.7-2.1) mmol/L Calcium 10.2 (8.4-10.2) mg/dL Total Bilirubin 0.6 (0.2-1.3) mg/dL AST 20 (17-59) IU/L ALT 22 (<50) IU/L Alkaline Phosphatase 93 (38-126) U/L Total Protein 8.1 (6.3-8.2) g/dL Albumin 4.9 (3.5-5.0) g/dL Globulin 3.2 (1.7-4.1) g/dL Albumin/Globulin Ratio 1.5 (1.0-2.8) Lipase 55 (23-300) U/L Discharge Plan Departure Patient Disposition: Home Clinical Impression: Abdominal pain Qualifiers: Abdominal location: generalized Qualified Code(s): R10.84 - Generalized abdominal pain Constipation Qualifiers: Constipation type: unspecified constipation type Qualified Code(s): K59.00 - Constipation, unspecified Discharge Date/Time: 01/14/19 09:04 Instructions: DI for Abdominal Pain-Adult Activity Restrictions/Additional Instructions: 1. Stay active 2. Return to your normal diet as much as possible 3. Stay well hydrated 4. A combination of over the counter laxitives including Dulcolax (stimulant laxative) Magnesium Citrate (pulls water into stool) Colace (stool softener) 1. Drink plenty of fluids with frequent small sips. 2. For the next 24 hours a clear liquid diet is advised. After that please employ a brat diet which would include bananas, rice, apples, toast. 3. Please take medications as directed; including prescriptions given and over the counter antacids like Pepcid or Zantac 4. Please follow-up with your doctor in the next 1-2 days. Call the office for an appointment. 5. Please return to the emergency Department for any worsening or persistent symptoms, such as increasing pain or fever. Prescriptions: New hydrocodone-acetaminophen 5-325 mg tablet 1 tab PO Q4-6H PRN (Reason: pain) Qty: 10 RF: 0 ondansetron 4 mg tablet,disintegrating 4 mg PO TID-QID PRN (Reason: nausea and vomiting) Qty: 10 RF: 0 No Action metformin [Glucophage] 1,000 MG tablet 1,000 mg PO BIDCC Qty: 0 RF: 0 tadalafil [Cialis] 5 MG tablet 5 mg PO QDAY Qty: 0 RF: 0 losartan 50 MG tablet 50 mg PO QDAY Qty: 0 RF: 0 simvastatin 40 MG tablet 40 mg PO QDAY Qty: 0 RF: 0 mometasone 50 mcg/actuation spray,non-aerosol 2 spray Intranasal DAILY RF: 0 canagliflozin 300 mg tablet 300 mg PO DAILY RF: 0 tramadol 50 mg tablet 50 mg PO Q6H PRN (Reason: pain) Qty: 20 RF: 0 ketoconazole 2 % shampoo 1 applic TOPICAL DAILY RF: 0 Referrals: Marcello Marti MD [Primary Care Provider] -
[2019-01-14 07:12] LABS: Add Manual Diff / Slide Review NO; Basophils Absolute Auto 0 /uL (0-100); Basophils Percent Auto 0.4 % (0-2); Eosinophils Absolute Auto 100 /uL (0-450); Eosinophils Percent Auto 2.6 % (2-4); Hematocrit 48.8 % (41-53); Hemoglobin 16.7 g/dL (13.5-17.5); Lymphocytes Absolute Auto 900 /uL (1100-4500); Lymphocytes Percent Auto 19.2 % (25-40); Mean Corpuscular HGB Conc 34.1 % (30-36); Mean Corpuscular Hemoglobin 31.6 PG (26-34); Mean Corpuscular Volume 92.7 fL (80-100); Monocytes Absolute Auto 500 /uL (0-900); Monocytes Percent Auto 11.2 % (3-14); Neutrophils Absolute Auto 3100 /uL (1500-7000); Neutrophils Percent Auto 66.6 % (50-75); Platelet Count 218 X10^3/uL (150-400); Red Blood Cell Count 5.27 X10^6/uL (4.5-5.9); Red Cell Distribution Width 14.4 % (11.6-14.8); White Blood Cell Count 4.7 X10^3/uL (4.5-11.0)
[2019-01-14] MEDS: HYDROMORPHONE 0.5 MG INJ IV ×2 (07:15→08:35)
[2019-01-14] MEDS: ONDANSETRON 4 MG/2 ML INJ IV (07:15)
[2019-01-14] MEDS: SODIUM CHLORIDE 0.9% 1,000 ML 150 ML IV (07:16)
[2019-01-14 07:17] LABS: Alanine Aminotransferase 22 IU/L (<50); Albumin 4.9 g/dL (3.5-5.0); Albumin Globulin Ratio 1.5 (1.0-2.8); Alkaline Phosphatase 93 U/L (38-126); Aspartate Aminotransferase 20 IU/L (17-59); BUN Creatinine Ratio 20.8 (6-22); Bilirubin Total 0.6 mg/dL (0.2-1.3); Blood Urea Nitrogen 27 mg/dL (9-20); Calcium 10.2 mg/dL (8.4-10.2); Carbon Dioxide 26 mmol/L (22-32); Chloride 98 mmol/L (98-107); Estimated Glomerular Filt Rate 55.9 mL/min (>60); Globulin 3.2 g/dL (1.7-4.1); Glucose 198 mg/dL (80-110); HEMOLYSIS 19 (0-50); Lipase 55 U/L (23-300); Potassium 4.4 mmol/L (3.4-5.1); Sodium 137 mmol/L (137-145); Total Protein 8.1 g/dL (6.3-8.2)
[2019-01-14 07:18] LABS: Lactate (Lactic Acid) 1.3 mmol/L (0.7-2.1)
--- NOTE | 2019-01-14 07:41 | DI.CT.S_ITS ---
PROCEDURE: CT ABDOMEN PELVIS W CON INDICATIONS: vomiting pain distention hx small bowel obstruction TECHNIQUE: After the administration of intravenous contrast, 5 mm thick sections acquired from the diaphragm to the symphysis. 5 mm coronal and sagittal reformats were acquired. For radiation dose reduction, the following was used: automated exposure control, adjustment of mA and/or kV according to patient size. COMPARISON: [facility], CR, XR ABDOMEN MIN 2V, 11/05/2018, 8:00. [facility], RF, [place] SMALL BOWEL FOLLOW THROUGH, 11/04/2018, 8:41. [facility], CT, CT ABDOMEN PELVIS W CON, 11/03/2018, 18:25. FINDINGS: Image quality: Excellent. ABDOMEN: Lung bases: Right basilar atelectasis. Heart size is normal. Solid organs: Liver is normal in size and enhancement. Gallbladder contains a calcified stone.. Biliary system is non dilated. Pancreas enhances normally. Spleen is normal in size and enhancement. No adrenal nodules. Right kidney is absent. Left kidney is normal in size and enhancement, without hydronephrosis. Peritoneum and bowel: There is gastric antral thickening. Bowel loops demonstrate normal caliber. There are scattered colonic diverticula. No CT findings to suggest acute diverticulitis. There is a moderate amount of stool in colon. Appendix is not visualized, presumably surgically resected. No free fluid or air. Nodes and vessels: No retroperitoneal or mesenteric adenopathy by size criteria. Aorta and inferior vena cava are normal in size. Miscellaneous: No ventral hernias. PELVIS: Genitourinary: Bladder wall thickness is normal. Miscellaneous: No inguinal hernias or adenopathy. Bones: No suspicious bony lesions. No vertebral body compression fractures. Degenerative changes in lumbar spine. IMPRESSION: 1. Gastric antral thickening. This finding may be secondary to peptic ulcer disease or focal gastritis. In the absence of oral contrast, artifact from peristalsis could also give this appearance. 2. Cholelithiasis without acute cholecystitis. 3. Diverticulosis without acute diverticulitis. 4. No findings to suggest small bowel obstruction. 5. A moderate amount of stool in colon. The result was discussed with Dr. Rm. Dictated by: Helio Onofre M.D. on 01/14/2019 at 8:23 Approved by: Helio Onofre M.D. on 01/14/2019 at 8:34
[2019-01-14 07:52] VITALS: BP 135/72; PULSE 73; RESP 18; O2SAT 98
[2019-01-14] MEDS: PANTOPRAZOLE 40 MG VIAL IV (08:35)
[2019-01-14 09:04] VITALS: BP 153/82; PULSE 84; RESP 14; O2SAT 94
== END 2019-01-14 09:04 | disposition home or self-care (01) ==
PROVIDERS: Emergency Medicine; Emergency Provider Emergency Medicine; Family Provider Family Medicine; PCP Family Medicine
DX: K59.00 Constipation, unspecified (principal); R10.84 Generalized abdominal pain
CPT/HCPCS: 36415; 74177; 80053; 83605; 83690; 85025; 96361; 96374; 96375; 99283; 99285; C9113; J1170; J2405; Q9967

== ENCOUNTER → 2019-02-04 12:29 | Outpatient (CLI) | payer OTHER, SELFPAY ==
--- NOTE | 2019-02-04 | DI.RAD.S_ITS ---
PROCEDURE: XR ABDOMEN MIN 2V INDICATIONS: Abnormal findings on diagnostic imaging of other parts of di TECHNIQUE: 2 views of the abdomen were acquired. COMPARISON: [facility], CT, CT ABDOMEN PELVIS W CON, 01/14/2019, 7:28. [facility], CR, XR ABDOMEN MIN 2V, 11/05/2018, 8:00. FINDINGS: Surgical changes and devices: Surgical clips consistent with recent cholecystectomy. The gallbladder was present 01/14/[address] scanning.. Bowel: No pneumoperitoneum. The bowel gas pattern is normal. Soft tissues: No masses; visualized solid organ contours appear normal in size. No suspicious abdominal calcifications. Bones: No suspicious bony abnormalities. IMPRESSION: Postsurgical clips of cholecystectomy, no free air found. Dictated by: Duane Anderson M.D. on 02/04/2019 at 14:45 Approved by: Duane Anderson M.D. on 02/04/2019 at 14:47
== END ==
PROVIDERS: Family Provider Family Medicine; PCP Family Medicine; Visit Provider Nurse Practitioner
DX: R93.3 Abnormal findings on diagnostic imaging of other parts of digestive tract (principal); Z90.49 Acquired absence of other specified parts of digestive tract
CPT/HCPCS: 74019

== ENCOUNTER → 2019-02-17 16:25 | Outpatient (CLI) | payer OTHER, SELFPAY ==
--- NOTE | 2019-02-17 | DI.MRI.S_ITS ---
PROCEDURE: MR SHOULDER RT WO CON INDICATIONS: PAIN IN RIGHT SHOULDER TECHNIQUE: Noncontrast oblique coronal T2 fast spin echo with fat saturation, oblique sagittal T1 spin echo and T2 fast spin echo with fat saturation, axial T1 spin echo and T2 fast spin echo with fat saturation through the shoulder. COMPARISON: None. FINDINGS: Image quality: Excellent. Rotator cuff: Supraspinatus tendinopathy and thickening is present. There is interstitial tearing and low-grade bursal and articular surface fraying. No full-thickness or retracted defect identified.. There is mild infraspinatus tendinopathy and thickening. The teres minor appears grossly intact. Degenerative cystic change seen at the posterior aspect of the greater tuberosity. Partial thickness bursal sided tear and tendinopathy involving the subscapularis. Diffuse fatty infiltration of the rotator cuff musculature and borderline atrophy of the supraspinatus and subscapularis. Bones and bursae: No bone marrow contusions or fractures. Severe hypertrophic acromioclavicular joint degeneration. There is also severe soft tissue edema in the region of the coracoclavicular ligament image 21/9. Coracoclavicular ligament appears intact although thickened with intrasubstance T2 hyperintensity suggestive of sprain Acromion demonstrates conventional anatomy, without an os acromiale. Trace subacromial-subdeltoid bursitis. Capsule and soft tissues: Severe poorly defined and macerated circumferential labral tear which is probably chronic/degenerative. Long head of the biceps tendon intact. No definite medial subluxation. Of note, there is internal rotation of the humerus at the time of the study, which makes evaluation mildly suboptimal. The rotator interval appears normal, without fibrosis. Coracohumeral ligament intact. IMPRESSION: Supraspinatus tendinopathy and thickening, with interstitial tearing and low-grade bursal and articular surface fraying. Mild infraspinatus tendinopathy Subscapularis tendinopathy with partial-thickness bursal sided tear. Borderline atrophy of the supraspinatus and subscapularis muscles Trace subacromial-subdeltoid bursitis Severe macerated circumferential labral tear likely chronic/degenerative Sprain of the coracoclavicular ligament without complete rupture. Adjacent severe soft tissue edema Dictated by: Trav Persaud M.D. on 02/18/2019 at 8:56 Approved by: Trav Persaud M.D. on 02/18/2019 at 9:12
--- NOTE | 2019-02-17 | DI.RAD.S_ITS ---
PROCEDURE: XR ABDOMEN 1V INDICATIONS: POSSIBLE FOREIGN BODY MRI SCREENING. ENDOSCOPY CAMERA TECHNIQUE: One view of the abdomen acquired. COMPARISON: [facility], , XR ABDOMEN MIN 2V, 02/04/2019, 12:33. FINDINGS: Surgical changes and devices: Surgical clips are noted in gallbladder fossa and right lower quadrant abdomen unchanged from prior study. No other radiopaque foreign body is seen. Bowel: Bowel gas pattern is normal. Soft tissues: No suspicious abdominal calcifications. Visualized solid organ contours appear normal in size. Bones: No suspicious bony lesions. IMPRESSION: Surgical clips in right side of abdomen. No other foreign body is seen. No gross free air. Dictated by: Zach Arriaza M.D. on 02/17/2019 at 17:34 Approved by: Zach Arriaza M.D. on 02/17/2019 at 17:35
== END ==
PROVIDERS: Family Provider Family Medicine; PCP Family Medicine; Visit Provider Orthopaedic Surgery
DX: M25.511 Pain in right shoulder (principal); M75.111 Incomplete rotator cuff tear or rupture of right shoulder, not specified as traumatic; S43.491A Other sprain of right shoulder joint, initial encounter; S43.81XA Sprain of other specified parts of right shoulder girdle, initial encounter; M75.51 Bursitis of right shoulder; Z04.89 Encounter for examination and observation for other specified reasons
CPT/HCPCS: 73221; 74018

== ENCOUNTER 2019-08-14 11:37 | Emergency (ER) | payer OTHER, SELFPAY ==
[2019-08-14] VITALS (8 sets, daily range): BP systolic 92–156; BP diastolic 63–90; PULSE 82–119; RESP 12–26; TEMP 36.7; O2SAT 97–99; BMI 31.9
--- NOTE | 2019-08-14 11:43 | DI.RAD.S_ITS ---
PROCEDURE: XR CHEST 1V INDICATIONS: chest pain TECHNIQUE: One view of the chest was acquired. COMPARISON: [facility], CR, XR CHEST 1V, 04/17/2018, 21:25. FINDINGS: Surgical changes and devices: Median sternotomy. Lungs and pleura: Lungs are clear. No pleural effusions or pneumothorax. Mediastinum: Mediastinal contours appear normal. Heart size is normal. Bones and chest wall: No suspicious bony lesions. Overlying soft tissues appear unremarkable. IMPRESSION: No acute process. Dictated by: Ernesto Pretty M.D. on 08/14/2019 at 12:13 Approved by: Ernesto Pretty M.D. on 08/14/2019 at 12:13
--- NOTE | 2019-08-14 11:53 | PC.NURSE ---
[place] heart surgery in [place] on . Reports having palpitations, has had some nausea, ringing in the ears and blurry vision. Maurizio new or different chest pain. SOB but no worse than normal. Patient has been on lasix took last dose this morning.
[2019-08-14 12:06] LABS: Add Manual Diff / Slide Review NO; Basophils Absolute Auto 100 /uL (0-100); Basophils Percent Auto 1.2 % (0-2); Eosinophils Absolute Auto 200 /uL (0-450); Eosinophils Percent Auto 3.5 % (2-4); Hemoglobin 14.6 g/dL (13.5-17.5); Lymphocytes Absolute Auto 600 /uL (1100-4500); Lymphocytes Percent Auto 10.1 % (25-40); Mean Corpuscular HGB Conc 33.1 % (30-36); Mean Corpuscular Hemoglobin 31.5 PG (26-34); Monocytes Absolute Auto 800 /uL (0-900); Monocytes Percent Auto 13.3 % (3-14); Neutrophils Absolute Auto 4300 /uL (1500-7000); Neutrophils Percent Auto 71.9 % (50-75); Platelet Count 299 X10^3/uL (150-400); Red Blood Cell Count 4.63 X10^6/uL (4.5-5.9); Red Cell Distribution Width 14.3 % (11.6-14.8)
--- NOTE | 2019-08-14 12:06 | PC.NURSE ---
Patinet tearful and anxious i have just felt like I am on an emotional rollercoaster on the verge of tears encouraged patient to let it out. Release those feelings. Reminded patient he has been through a lot in the last month. Patient cried and repeated thank you Son at bedside for emotional support
[2019-08-14 12:10] LABS: INR 1.1 (0.9-1.3); Prothrombin Time 12.8 SECONDS (10.1-12.7)
[2019-08-14 12:12] LABS: PTT Partial Thromboplastin Tim 34 SECONDS (26.4-36.2)
[2019-08-14] MEDS: SODIUM CHLORIDE 0.9% 1,000 ML 150 ML IV (12:12)
[2019-08-14] MEDS: METOPROLOL TARTRATE 5 MG/5 ML INJ IV (12:12)
[2019-08-14 12:14] LABS: Alanine Aminotransferase 25 IU/L (<50); Albumin 4.4 g/dL (3.5-5.0); Albumin Globulin Ratio 1.4 (1.0-2.8); Alkaline Phosphatase 112 U/L (38-126); Aspartate Aminotransferase 24 IU/L (17-59); BUN Creatinine Ratio 18.3 (6-22); Bilirubin Total 0.3 mg/dL (0.2-1.3); Blood Urea Nitrogen 20 mg/dL (9-20); Calcium 9.6 mg/dL (8.4-10.2); Carbon Dioxide 31 mmol/L (22-32); Chloride 94 mmol/L (98-107); Creatine Kinase 36 U/L (55-170); Estimated Glomerular Filt Rate > 60.0 mL/min (>60); Globulin 3.1 g/dL (1.7-4.1); Glucose 324 mg/dL (80-110); HEMOLYSIS < 15 (0-50); Lipase 69 U/L (23-300); Magnesium 2.1 mg/dL (1.6-2.3); Potassium 3.9 mmol/L (3.4-5.1); Sodium 135 mmol/L (137-145); Total Protein 7.5 g/dL (6.3-8.2)
[2019-08-14 12:15] LABS: Lactate (Lactic Acid) 2.7 mmol/L (0.7-2.1)
[2019-08-14 12:26] LABS: NT-proBNP (BNP-Adult 18+) 303 pg/mL (<125); Troponin I 0.021 ng/mL (0.01-0.034)
--- NOTE | 2019-08-14 12:36 | ED_ITS ---
HPI - Arrhythmia/Palpitations General Chief Complaint: Arrhythmia/Palpitations Stated Complaint: a-fib Time Seen by Provider: 08/14/19 12:20 Source: patient and family Mode of arrival: Ambulatory Limitations: no limitations History of Present Illness HPI narrative: CC: Palpitations. HPI: The patient is a 64-year-old male who had a valve replacement on August 01. Today he came into the emergency department to be evaluated because he had a rapid heart rate and was experiencing palpitations. He denied having any new chest pain shortness of breath but did complain of feeling cold without any fever. He denies any shortness of breath. He is not reported to be on any anticoagulation. The patient states that he also had a repair of an aneurysm. He came into the emergency department today because he was primarily having a rapid heart rate called the PA who sent him in to be evaluated for the possibility of atrial fibrillation. He states that he was mildly short of breath and felt air hungry. 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 He denies being dizzy lightheaded or passing out. He has had no headache. He is not on any anticoagulant and had a bioprosthetic valve inserted. He has had no chest pain. He denies a history of myocardial infarction COPD air asthma but has had type 2 diabetes mellitus and hypertension. He is a former cigarette smoker and does not currently smoke cigarettes. He does not chew tobacco occasionally drinks alcohol which is rarely and does not use any marijuana products. Related Data Home Medications Medication Instructions Recorded Confirmed losartan 25 mg PO QAM #0 03/15/16 08/14/19 simvastatin 40 mg PO BEDTIME #0 03/15/16 08/14/19 mometasone 2 spray INTRANASAL DAILY PRN 04/17/18 08/14/19 B complex-vitamin C-folic acid 1 tab PO QAM 08/14/19 08/14/19 Metformin Gel 100 mg TOPICAL BID 08/14/19 08/14/19 acetaminophen [Acetaminophen Extra 500 mg PO Q6H PRN 08/14/19 08/14/19 Strength] albuterol sulfate 2 puff INHALATION Q6H PRN 08/14/19 08/14/19 ascorbic acid (vitamin C) 500 mg PO DAILY 08/14/19 08/14/19 aspirin [Adult Low Dose Aspirin] 81 mg PO QAM 08/14/19 08/14/19 cetirizine 10 mg PO BID PRN 08/14/19 08/14/19 cholecalciferol (vitamin D3) 100 mcg PO QAM 08/14/19 08/14/19 clobetasol 0.005 % TOPICAL BID PRN 08/14/19 08/14/19 cyanocobalamin (vitamin B-12) 100 mcg PO QAM 08/14/19 08/14/19 dapagliflozin [Farxiga] 10 mg PO QAM 08/14/19 08/14/19 furosemide 40 mg PO QAM 08/14/19 08/14/19 halobetasol propionate 1 applic TOPICAL BID PRN 08/14/19 08/14/19 ipratropium-albuterol 1 puff INHALATION Q4H PRN 08/14/19 08/14/19 melatonin 3 mg PO BEDTIME PRN 08/14/19 08/14/19 metoprolol succinate 25 mg PO QAM 08/14/19 08/14/19 vitikpxh-aii-MF-lycopen-lutein 1 tab PO QAM 08/14/19 08/14/19 [Centrum Silver Men] potassium chloride 20 meq PO BID 08/14/19 08/14/19 tadalafil 20 mg PO Q3D 08/14/19 08/14/19 tramadol 50 - 100 mg PO Q6H PRN 08/14/19 08/14/19 trazodone 50 mg PO BEDTIME PRN 08/14/19 08/14/19 Allergies Allergy/AdvReac Type Severity Reaction Status Date / Time celecoxib [From CELEBREX] Allergy Intermediate Verified 08/14/19 11:47 citalopram [From CELEXA] Allergy Intermediate Verified 08/14/19 11:47 sulfamethoxazole Allergy Intermediate Verified 08/14/19 11:47 [From SEPTRA] trimethoprim [From SEPTRA] Allergy Intermediate Verified 08/14/19 11:47 Review of Systems Review of Systems Narrative: REVIEW OF SYSTEMS: CONSTITUTIONAL: Patient has chronic chills since his surgery. He has had no fever nor sweats. NEUROLOGICAL: He denies any headache numbness tingling paresthesias or anesthesias. He has had no diplopia change in vision loss of vision. EENT: He denies being on any cold medications having sore throat dysphagia or sinus congestion. CARDIO-PULMONARY: He was mildly short of breath this morning but has had no significant shortness of breath more than what he normally experiences. He has had no chest pain cough or dizziness. He did not feel faint. He did have palpitations and felt rapid heart rate. GASTROINTESTINAL: He has had no abdominal pain nausea vomiting or diarrhea. GENITAL URINARY: He has had no urinary symptoms. MUSCULOSKELETAL/ RHEUMATOLOGICAL: He denies any back pain. DERMATOLOGICAL: He denies any swelling of his legs any skin rash bruising. Patient History Medical History History of nephrectomy, unilateral (Acute) Hyperlipidemia (Acute) Hypertension (Acute) Surgical History History of appendectomy (Acute) History of exploratory laparotomy (Acute) History of ventral hernia repair (Acute) Social History household members: family Smoking Status: Former smoker Smoking Status: Former smoker alcohol intake frequency: holidays/special occasions only Substance Use Type: does not use Exam Narrative Exam Narrative: PHYSICAL EXAM: CONSTITUTIONAL: Awake, Alert, Oriented, Coherent, Cooperative in NAD. Does not appear toxic or ill. The patient ambulated to the bathroom slowly but steadily without any discomfort or distress. The patient is very friendly and cooperative. HEAD: AT/NC EENT: PERRL, FROM of eyes, no discharge, no nystagmus NECK: Supple, no obvious JVD, Trachea is midline without stridor, no palpable LN. SPINE: Palpationof the cervical, Thoracic, Lumbar or Sacral spine reveals no gross deformity or tenderness. No CVA tenderness. THORAX: No deformity, retractions, chest wall tenderness. The patient has a midline sternal scar that is well-healed and apposed without any erythema drainage or signs of infection. The patient has diffuse brownish bruising over his chest. LUNGS: Clear, symmetrical breath sounds without respiratory distress. HEART: At this time postoperatively the patient has a normal rhythm that is regular without any murmur appreciated. His S2 seems to be a little bit prominent but not mechanical in nature. ABDOMEN: Soft, non-tender, without guarding, rebound, rigidity or palpable mass. EXTREMITIES: No pitting edema, deformity, calf tenderness or cyanosis. SKIN: No rash, bruising, petechiae or purpura. NEURO: Awake, alert, oriented, conversive, cooperative.cranial nerves II-XII are symmetrical , moves all 4 extremities and is ambulatory. MENTAL HEALTH: Does not appear anxious or depressed. Patient actually appears very good and healthy for what he has been through. Initial Vital Signs Initial Vital Signs: Vital Signs Temperature 98.0 F 08/14/19 11:40 Pulse Rate 119 H 08/14/19 11:40 Respiratory Rate 26 H 08/14/19 11:40 Blood Pressure 156/90 H 08/14/19 11:40 Pulse Oximetry 97 08/14/19 11:40 Course Course Course Narrative: 1247: The patient ambulated to the bathroom without difficulty. Orthostatics vital signs revealed the in the sitting position is heart rate was 92 and his blood pressure was 108/68. When he stood of his blood pressure was 92 over 64. A bolus of normal saline 500 cc was administered to the patient. 1300; when I saw the patient he stated that he felt 200% better since his heart rate slowed down. He was informed that he may be a little bit dehydrated and taking too much Lasix. He was hypotensive orthostatically. He informed me that he is taking his last dose of Lasix. He was advised that his EKG did not show that he was in atrial fibrillation but that he needs to follow-up with his analytical chemistry teacher and thoracic surgeon. If he develops rapid heart rate he needs to come back in so that we can evaluate to see whether not he is developing atrial fibrillation. 1400 the patient states that with the administration of the fluid this is the best that he has felt since surgery. I explained to the patient that when he has rapid heart rate palpitations feels dizzy lightheaded short of breath since he has had his valve replacement he needs to proceed to the nearest emergency department to be evaluated for atrial fibrillation. I explained to him that atrial fibrillation increases the possible risk of having a stroke and that is what his doctors are concerned with. Since he has had his valve replaced and luis rgery on his heart he has an increased risk for developing this more than the general population as result of the surgery. 1435 the patient's potassium is 3.9. The patient was instructed take his last dose of potassium. He informs is that this is his last dose of Lasix and potassium. His repeat lactic acid was 0.9. His urinalysis is normal. I believe the patient had a sinus tachycardia with mild orthostatic hypotension secondary to being dehydrated and probably over diuresed. He will be discharged home instructed to follow-up with his analytical chemistry teacher. Orders Ordered: Discontinued Medications Sodium Chloride (Normal Saline 0.9%) 1,000 mls @ 150 mls/hr IV BOLUS ONE Stop: 08/14/19 18:32 Last Infusion: 08/14/19 14:05 Dose: 0 mls/hr Documented by: Admin: 08/14/19 12:12 Dose: 150 mls/hr Documented by: KASSANDRA Sodium Chloride (Normal Saline 0.9%) 500 mls @ 500 mls/hr IV BOLUS ONE Stop: 08/14/19 13:45 Last Infusion: 08/14/19 14:05 Dose: 0 mls/hr Documented by: Admin: 08/14/19 13:06 Dose: 500 mls/hr Documented by: KASSANDRA Sodium Chloride (Normal Saline 0.9%) 1,000 mls @ 500 mls/hr IV BOLUS ONE Stop: 08/14/19 15:16 Last Infusion: 08/14/19 14:05 Dose: 0 mls/hr Documented by: Infusion: 08/14/19 14:04 Dose: 0 mls/hr Documented by: Admin: 08/14/19 13:36 Dose: 500 mls/hr Documented by: KASSANDRA Metoprolol Tartrate (Lopressor) 5 mg IV Q5M ALIYAH Stop: 08/14/19 12:11 Last Admin: 08/14/19 13:25 Dose: Not Given Documented by: Admin: 08/14/19 13:08 Dose: Not Given Documented by: Admin: 08/14/19 12:12 Dose: 5 mg Documented by: KASSANDRA Vital Signs Vital signs: Vital Signs - 8 hr 08/14/19 11:40 08/14/19 11:55 08/14/19 12:08 Temperature 98.0 F Pulse Rate 119 H 106 H 107 H Respiratory Rate 26 H 12 16 Blood Pressure 156/90 H Blood Pressure [Left Arm] 118/76 125/71 Pulse Oximetry 97 99 99 08/14/19 12:16 08/14/19 12:46 08/14/19 13:15 Temperature Pulse Rate 84 93 H 83 Respiratory Rate 16 18 Blood Pressure Blood Pressure [Left Arm] 111/63 92/64 121/80 Pulse Oximetry 98 97 08/14/19 13:35 Temperature Pulse Rate 82 Respiratory Rate 18 Blood Pressure Blood Pressure [Left Arm] 124/80 Pulse Oximetry 98 MDM - Arrhythmia/Palpitations Medical Records Attestation: I reviewed the patient's medical records. Lab Data Attestation: I reviewed the patient's lab results. Result diagrams: 08/14/19 11:45 08/14/19 11:45 Labs: Lab Results 08/14/19 08/14/19 08/14/19 Range/Units 11:45 11:45 11:45 WBC 6.0 (4.5-11.0) X10^3/uL RBC 4.63 (4.5-5.9) X10^6/uL Hgb 14.6 (13.5-17.5) g/dL Hct 44.0 (41-53) % MCV 95.0 (80-100) fL MCH 31.5 (26-34) PG MCHC 33.1 (30-36) % RDW 14.3 (11.6-14.8) % Plt Count 299 (150-400) X10^3/uL Neut % (Auto) 71.9 (50-75) % Lymph % (Auto) 10.1 L (25-40) % [place] % (Auto) 13.3 (3-14) % Eos % (Auto) 3.5 (2-4) % Baso % (Auto) 1.2 (0-2) % Neut # (Auto) 4300 (7673-4642) /uL Lymph # (Auto) 600 L (7041-9445) /uL [place] # (Auto) 800 (0-900) /uL Eos # (Auto) 200 (0-450) /uL Baso # (Auto) 100 (0-100) /uL ESR (0-15) MM/HR PT 12.8 H (10.1-12.7) SECONDS INR 1.1 (0.9-1.3) APTT 34 D (26.4-36.2) SECONDS Sodium 135 L (137-145) mmol/L Potassium 3.9 (3.4-5.1) mmol/L Chloride 94 L (98-107) mmol/L Carbon Dioxide 31 (22-32) mmol/L BUN 20 (9-20) mg/dL Creatinine 1.09 (0.66-1.25) mg/dL Estimated GFR > 60.0 (>60) mL/min BUN/Creatinine Ratio 18.3 (6-22) Glucose 324 H (80-110) mg/dL Lactate (0.7-2.1) mmol/L Calcium 9.6 (8.4-10.2) mg/dL Magnesium 2.1 (1.6-2.3) mg/dL Total Bilirubin 0.3 (0.2-1.3) mg/dL AST 24 (17-59) IU/L ALT 25 (<50) IU/L Alkaline Phosphatase 112 (38-126) U/L Total Creatine Kinase 36 L (55-170) U/L CK-MB (CK-2) TNP CK-MB (CK-2) Rel Index TNP Troponin I 0.021 (0.01-0.034) ng/mL C-Reactive Protein (<1.0) mg/dL NT-Pro-B Natriuret Pep 303 H (<125) pg/mL Total Protein 7.5 (6.3-8.2) g/dL Albumin 4.4 (3.5-5.0) g/dL Globulin 3.1 (1.7-4.1) g/dL Albumin/Globulin Ratio 1.4 (1.0-2.8) Lipase 69 (23-300) U/L Procalcitonin (<0.5) ng/mL Urine Color Urine Appearance Urine pH (4.5-8.0) Ur Specific [place] (1.000-1.035) Urine Protein (Negative) Urine Glucose (UA) (Negative) g/dL Urine Ketones (NEGATIVE) Urine Occult Blood (Negative) Urine Nitrate (Negative) Urine Bilirubin (NEGATIVE) Urine Urobilinogen (0.2) E.U./dL Ur Leukocyte Esterase (NEGATIVE) Urine RBC (0-5/HPF) Urine WBC (0-5/HPF) Urine Bacteria (None) Ur Culture Indicated? 08/14/19 08/14/19 08/14/19 Range/Units 11:45 11:45 11:45 WBC (4.5-11.0) X10^3/uL RBC (4.5-5.9) X10^6/uL Hgb (13.5-17.5) g/dL Hct (41-53) % MCV (80-100) fL MCH (26-34) PG MCHC (30-36) % RDW (11.6-14.8) % Plt Count (150-400) X10^3/uL Neut % (Auto) (50-75) % Lymph % (Auto) (25-40) % [place] % (Auto) (3-14) % Eos % (Auto) (2-4) % Baso % (Auto) (0-2) % Neut # (Auto) (6476-1765) /uL Lymph # (Auto) (7710-5696) /uL [place] # (Auto) (0-900) /uL Eos # (Auto) (0-450) /uL Baso # (Auto) (0-100) /uL ESR 37 H (0-15) MM/HR PT (10.1-12.7) SECONDS INR (0.9-1.3) APTT (26.4-36.2) SECONDS Sodium (137-145) mmol/L Potassium (3.4-5.1) mmol/L Chloride (98-107) mmol/L Carbon Dioxide (22-32) mmol/L BUN (9-20) mg/dL Creatinine (0.66-1.25) mg/dL Estimated GFR (>60) mL/min BUN/Creatinine Ratio (6-22) Glucose (80-110) mg/dL Lactate 2.7 H (0.7-2.1) mmol/L Calcium (8.4-10.2) mg/dL Magnesium (1.6-2.3) mg/dL Total Bilirubin (0.2-1.3) mg/dL AST (17-59) IU/L ALT (<50) IU/L Alkaline Phosphatase (38-126) U/L Total Creatine Kinase (55-170) U/L CK-MB (CK-2) CK-MB (CK-2) Rel Index Troponin I (0.01-0.034) ng/mL C-Reactive Protein (<1.0) mg/dL NT-Pro-B Natriuret Pep (<125) pg/mL Total Protein (6.3-8.2) g/dL Albumin (3.5-5.0) g/dL Globulin (1.7-4.1) g/dL Albumin/Globulin Ratio (1.0-2.8) Lipase (23-300) U/L Procalcitonin 0.06 (<0.5) ng/mL Urine Color Urine Appearance Urine pH (4.5-8.0) Ur Specific [place] (1.000-1.035) Urine Protein (Negative) Urine Glucose (UA) (Negative) g/dL Urine Ketones (NEGATIVE) Urine Occult Blood (Negative) Urine Nitrate (Negative) Urine Bilirubin (NEGATIVE) Urine Urobilinogen (0.2) E.U./dL Ur Leukocyte Esterase (NEGATIVE) Urine RBC (0-5/HPF) Urine WBC (0-5/HPF) Urine Bacteria (None) Ur Culture Indicated? 08/14/19 08/14/19 08/14/19 Range/Units 11:45 14:00 14:08 WBC (4.5-11.0) X10^3/uL RBC (4.5-5.9) X10^6/uL Hgb (13.5-17.5) g/dL Hct (41-53) % MCV (80-100) fL MCH (26-34) PG MCHC (30-36) % RDW (11.6-14.8) % Plt Count (150-400) X10^3/uL Neut % (Auto) (50-75) % Lymph % (Auto) (25-40) % [place] % (Auto) (3-14) % Eos % (Auto) (2-4) % Baso % (Auto) (0-2) % Neut # (Auto) (5772-5439) /uL Lymph # (Auto) (5283-9677) /uL [place] # (Auto) (0-900) /uL Eos # (Auto) (0-450) /uL Baso # (Auto) (0-100) /uL ESR (0-15) MM/HR PT (10.1-12.7) SECONDS INR (0.9-1.3) APTT (26.4-36.2) SECONDS Sodium (137-145) mmol/L Potassium (3.4-5.1) mmol/L Chloride (98-107) mmol/L Carbon Dioxide (22-32) mmol/L BUN (9-20) mg/dL Creatinine (0.66-1.25) mg/dL Estimated GFR (>60) mL/min BUN/Creatinine Ratio (6-22) Glucose (80-110) mg/dL Lactate 0.9 (0.7-2.1) mmol/L Calcium (8.4-10.2) mg/dL Magnesium (1.6-2.3) mg/dL Total Bilirubin (0.2-1.3) mg/dL AST (17-59) IU/L ALT (<50) IU/L Alkaline Phosphatase (38-126) U/L Total Creatine Kinase (55-170) U/L CK-MB (CK-2) CK-MB (CK-2) Rel Index Troponin I (0.01-0.034) ng/mL C-Reactive Protein 1.6 H (<1.0) mg/dL NT-Pro-B Natriuret Pep (<125) pg/mL Total Protein (6.3-8.2) g/dL Albumin (3.5-5.0) g/dL Globulin (1.7-4.1) g/dL Albumin/Globulin Ratio (1.0-2.8) Lipase (23-300) U/L Procalcitonin (<0.5) ng/mL Urine Color Yellow Urine Appearance Clear Urine pH 5.5 (4.5-8.0) Ur Specific [place] <=1.005 (1.000-1.035) Urine Protein Trace H (Negative) Urine Glucose (UA) 3+ H (Negative) g/dL Urine Ketones Negative (NEGATIVE) Urine Occult Blood Negative (Negative) Urine Nitrate Negative (Negative) Urine Bilirubin Negative (NEGATIVE) Urine Urobilinogen 0.2 (0.2) E.U./dL Ur Leukocyte Esterase Negative (NEGATIVE) Urine RBC None seen (0-5/HPF) Urine WBC None seen (0-5/HPF) Urine Bacteria None seen (None) Ur Culture Indicated? Cult not indicated ECG Data Attestation: I personally reviewed and interpreted this ECG as follows: Interpretation: The patient's initial EKG obtained on arrival on August 13 at 11:43 a.m. revealed a ventricular rate of 115 with normal intervals QRS is slightly prolonged at 106 milliseconds. QTC is borderline at 456 milliseconds left axis deviation. The patient's EKG is relatively normal with slight R to R variation. It does not grossly look irregular irregular. There appears to be P waves and this appears to be actually a sinus tachycardia rather than atrial fib rillation. The patient has a questionable history of atrial fibrillation. The patient's repeat EKG obtained on August 13 at 12:24 p.m. reveals a ventricular rate of 78 with a definite identified normal sinus rhythm. QRS remains 106 milliseconds duration. QTC is 419 milliseconds. He has a left axis deviation at this time. The patient has inverted T-waves in leads III and V1 as well as the to. This indicates that the patient may have some septal arm ischemia or may be a normal variant. There are no other acute diagnostic ST segment changes. There are no ST segment changes to suggest an acute infarct or injury pattern. The patient's heart rate converted than slow down after he was administered 5 mg of metoprolol IV. The patient's lactic acid was elevated at 2.7. Magnesium is 2.1. Renal functions are within normal limits. The question is whether not the lactate is elevated because the patient is dehydrated. There is no signs that the patient has infection at this time. Chest x-ray reveals no acute cardiopulmonary pathology no evidence of pneumonia. Discharge Plan Departure Patient Disposition: Home Clinical Impression: Sinus tachycardia, Palpitation, Orthostatic hypotension, Acidosis, lactic, Dehydration Discharge Date/Time: 08/14/19 14:59 Instructions: DI for Dehydration -- Adult, DI for Atrial Fibrillation, DI for Paroxysmal Supraventricular Tachycardia Activity Restrictions/Additional Instructions: 1. Follow-up with your primary care physician and analytical chemistry teacher. 2. Continue to take your metoprolol as prescribed. 3. As we discussed since you have had the valve surgery if you developed rapid heart rate palpitations, shortness of breath, feelings of being faint or or that she might pass out you need to proceed to the nearest emergency department to be evaluated for atrial fibrillation. If this occurs keep a log so that you can notify your primary care physician and analytical chemistry teacher. 4. If you develop chest pain you need to be re-evaluated and proceed to the nearest emergency department. 5. Take your medications as prescribed. Prescriptions: No Action losartan 50 MG tablet 25 mg PO QAM Qty: 0 RF: 0 simvastatin 40 MG tablet 40 mg PO BEDTIME Qty: 0 RF: 0 mometasone 50 mcg/actuation spray,non-aerosol 2 spray Intranasal DAILY PRN (Reason: allergies) RF: 0 furosemide 40 mg tablet 40 mg PO QAM RF: 0 potassium chloride 20 mEq tablet,ER particles/crystals 20 meq PO BID RF: 0 tadalafil 20 mg Tablet 20 mg PO Q3D RF: 0 tramadol 50 mg tablet 50 - 100 mg PO Q6H PRN (Reason: pain) RF: 0 cyanocobalamin (vitamin B-12) 100 mcg Tablet 100 mcg PO QAM RF: 0 trazodone 50 mg Tablet 50 mg PO BEDTIME PRN (Reason: Insomnia) RF: 0 melatonin 3 mg Tablet 3 mg PO BEDTIME PRN (Reason: Insomnia) RF: 0 aspirin [Adult Low Dose Aspirin] 81 mg Tablet,Delayed Release (Dr/Ec) 81 mg PO QAM RF: 0 acetaminophen [Acetaminophen Extra Strength] 500 mg Tablet 500 mg PO Q6H PRN (Reason: Pain (Scale Score 1-3)) RF: 0 ascorbic acid (vitamin C) 500 mg Tablet 500 mg PO DAILY RF: 0 halobetasol propionate 0.05 % ointment 1 applic TOPICAL BID PRN (Reason: Skin Cleansing) RF: 0 B complex-vitamin C-folic acid 0.8 mg Tablet 1 tab PO QAM RF: 0 albuterol sulfate 90 mcg/actuation Hfa Aerosol Inhaler 2 puff INHALATION Q6H PRN (Reason: Wheezing) RF: 0 clobetasol 0.05 % solution 0.005 % TOPICAL BID PRN (Reason: Skin Cleansing) RF: 0 cetirizine 10 mg Capsule 10 mg PO BID PRN (Reason: allergies) RF: 0 cholecalciferol (vitamin D3) 100 mcg (4,000 unit) Tablet 100 mcg PO QAM RF: 0 Centrum Silver Men 300-600-300 mcg Tablet 1 tab PO QAM RF: 0 Farxiga 10 mg tablet 10 mg PO QAM RF: 0 ipratropium-albuterol 20-100 mcg/actuation Mist 1 puff INHALATION Q4H PRN (Reason: Wheezing) RF: 0 metoprolol succinate 25 mg Tablet Extended Release 24 Hr 25 mg PO QAM RF: 0 Metformin Gel 200 mg gel 100 mg topical BID RF: 0 Referrals: Marcello Marti MD [Primary Care Provider] -
[2019-08-14 12:37] LABS: Procalcitonin 0.06 ng/mL (<0.5)
[2019-08-14] MEDS: SODIUM CHLORIDE 0.9% 500 ML IV (13:06)
[2019-08-14] MEDS: SODIUM CHLORIDE 0.9% 1,000 ML 500 ML IV (13:36)
[2019-08-14 13:42] LABS: C-Reactive Protein Quant 1.6 mg/dL (<1.0)
[2019-08-14 13:49] LABS: Reflexed Lactate in 2 Hours Y
[2019-08-14 14:12] LABS: Bacteria Urine None Seen; RBC Urine None Seen (0-5/HPF); WBC Urine None Seen (0-5/HPF)
[2019-08-14 14:15] LABS: Erythrocyte Sedimentation Rate 37 MM/HR (0-15)
[2019-08-14 14:15] LABS: Appearance Urine UA CLEAR; Bilirubin Urine UA NEGATIVE (NEGATIVE); Color Urine UA YELLOW; Glucose Urine UA 3+ g/dL (Negative); Ketones Urine UA NEGATIVE (NEGATIVE); Leukocyte Esterase Urine UA NEGATIVE (NEGATIVE); Nitrite Urine UA NEGATIVE (Negative); Occult Blood Urine UA NEGATIVE (Negative); Protein Urine UA TRACE (Negative); Specific Gravity Urine UA <=1.005 (1.000-1.035); Urobilinogen Urine UA 0.2 E.U./dL (0.2); pH Urine UA 5.5 (4.5-8.0)
[2019-08-14 14:21] LABS: Culture Indicated Urine Cult Not Indicated
[2019-08-14 14:23] LABS: Lactate 2HR (Lactic Acid Rflx) 0.9 mmol/L (0.7-2.1)
== END 2019-08-14 14:59 | disposition home or self-care (01) ==
PROVIDERS: Emergency Provider Emergency Medicine; Family Provider Family Medicine; PCP Family Medicine
DX: R00.0 Tachycardia, unspecified (principal); R00.2 Palpitations; I95.1 Orthostatic hypotension; E87.2 Acidosis; E86.0 Dehydration; Z95.5 Presence of coronary angioplasty implant and graft; R06.02 Shortness of breath; E11.9 Type 2 diabetes mellitus without complications; I10 Essential (primary) hypertension
CPT/HCPCS: 36415; 71045; 80053; 81001; 82550; 83605; 83690; 83735; 83880; 84145; 84484; 85025; 85610; 85651; 85730; 86140; 93005; 96360; 96361; 99285

== ENCOUNTER → 2020-02-11 15:21 | Outpatient (CLI) | payer OTHER, SELFPAY ==
[2020-02-11 16:33] LABS: COVID19 -Nasal RAPID Negative (Negative)
== END ==
PROVIDERS: Family Provider Physician Assistant; PCP Family Medicine; Visit Provider Nurse Practitioner
DX: Z11.59 Encounter for screening for other viral diseases (principal)
CPT/HCPCS: 87635

== ENCOUNTER → 2020-05-09 07:48 | Outpatient (CLI) | payer OTHER, SELFPAY ==
[2020-05-09 08:58] LABS: Hemoglobin A1C% w Est Avg Glu 6.9 % (4.0-6.0)
[2020-05-09 09:03] LABS: Alanine Aminotransferase 22 IU/L (<50); Albumin 4.2 g/dL (3.5-5.0); Albumin Globulin Ratio 1.4 (1.0-2.8); Alkaline Phosphatase 86 U/L (38-126); Aspartate Aminotransferase 24 IU/L (17-59); BUN Creatinine Ratio 15.7 (6-22); Bilirubin Total 0.4 mg/dL (0.2-1.3); Blood Urea Nitrogen 18 mg/dL (9-20); Calcium 9.3 mg/dL (8.4-10.2); Carbon Dioxide 30 mmol/L (22-32); Chloride 100 mmol/L (98-107); Cholesterol 145 mg/dL (140-199); Estimated Glomerular Filt Rate > 60.0 mL/min (>60); Globulin 2.9 g/dL (1.7-4.1); Glucose 165 mg/dL (80-110); HDL Cholesterol 33 mg/dL (40-60); HEMOLYSIS < 15 (0-50); LDL Cholesterol Calculated 71 mg/dL (<100); Potassium 4.4 mmol/L (3.4-5.1); Sodium 136 mmol/L (137-145); Total Protein 7.1 g/dL (6.3-8.2); Triglycerides 207 mg/dL (35-150)
== END ==
PROVIDERS: Family Provider Physician Assistant; PCP Internal Medicine; Referring Provider Internal Medicine; Visit Provider Internal Medicine
DX: E11.9 Type 2 diabetes mellitus without complications (principal); E78.5 Hyperlipidemia, unspecified; I10 Essential (primary) hypertension; J44.9 Chronic obstructive pulmonary disease, unspecified
CPT/HCPCS: 36415; 80053; 80061; 83036

== ENCOUNTER 2020-05-21 08:30 | Outpatient (RCR) | payer OTHER, SELFPAY | END 2020-05-21 10:30 | LOC: CAR 08:30 | PROVIDERS: Family Provider Physician Assistant; PCP Family Medicine; Referring Provider Internal Medicine Cardiovascular Disease; Visit Provider Physician Assistant | DX: Z95.2 Presence of prosthetic heart valve (principal) | CPT/HCPCS: 93798 ==

== ENCOUNTER → 2021-09-03 08:54 | Outpatient (CLI) | payer OTHER, SELFPAY ==
[2021-09-03 09:37] LABS: Hemoglobin A1C% w Est Avg Glu 9.2 % (4.0-6.0)
[2021-09-03 09:58] LABS: Alanine Aminotransferase 22 IU/L (<50); Albumin 4.1 g/dL (3.5-5.0); Alkaline Phosphatase 85 U/L (38-126); Aspartate Aminotransferase 21 IU/L (17-59); BUN Creatinine Ratio 12.8 (6-22); Bilirubin Total 0.5 mg/dL (0.2-1.3); Blood Urea Nitrogen 14 mg/dL (9-20); Calcium 9.1 mg/dL (8.4-10.2); Carbon Dioxide 32 mmol/L (22-32); Chloride 98 mmol/L (98-107); Estimated Glomerular Filt Rate > 60 mL/min (>60); Globulin 2.4 g/dL (1.7-4.1); Glucose 202 mg/dL (80-110); Potassium 4.8 mmol/L (3.4-5.1); Sodium 137 mmol/L (137-145); Total Protein 6.5 g/dL (6.3-8.2)
[2021-09-03 09:59] LABS: Albumin Globulin Ratio 1.7 (1.0-2.8); Cholesterol 177 mg/dL (140-199); HDL Cholesterol 43 mg/dL (40-60); HEMOLYSIS < 15 (0-50); LDL Cholesterol Calculated 83 mg/dL (<100); Triglycerides 255 mg/dL (35-150)
== END ==
PROVIDERS: Family Provider Physician Assistant; PCP Internal Medicine; Referring Provider Internal Medicine; Visit Provider Internal Medicine
DX: E11.9 Type 2 diabetes mellitus without complications (principal); E78.2 Mixed hyperlipidemia; I10 Essential (primary) hypertension
CPT/HCPCS: 36415; 80053; 80061; 83036

== ENCOUNTER → 2021-11-20 10:22 | Outpatient (CLI) | payer OTHER, SELFPAY ==
[2021-11-20 12:45] LABS: COVID19 -Nasal RAPID Negative (Negative)
== END ==
PROVIDERS: Family Provider Physician Assistant; PCP Internal Medicine; Visit Provider Surgery
DX: Z01.812 Encounter for preprocedural laboratory examination (principal); Z20.822 Contact with and (suspected) exposure to COVID-19
CPT/HCPCS: 87635; C9803

== ENCOUNTER 2021-11-21 08:32 | Day surgery (SDC) | payer OTHER, SELFPAY ==
--- NOTE | 2021-11-21 | PATH_ITS ---
[facility] [place] Accession Number: [id number] . 01 Material submitted: . cecum - CECAL POLYP . 01 Clinical history: . SCREENING COLONOSCOPY ENCOUNTER FOR SCREENING FOR MALIGNANT NEOPLASM . 01 Diagnosis: Cecal Polyp, Biopsy: Food/plant and fecal material. No colonic mucosa present. MRV 11/26/2021 1205 Local . 01 Electronically signed: . Sissy Resendiz MD, Pathologist NPI- [id number] . 01 Gross description: . CECAL POLYP: Received in formalin are multiple fragment(s) of mcallister, soft tissue measuring 0.1 x 0.1 x 0.1 cm to 0.2 x 0.1 x 0.1 cm submitted entirely in 1 cassette(s) /EZEKIEL 11/25/20217 Local . 01 Pathologist provided ICD-10: Z12.11 . 01 CPT . 992495 Performed at: 01 [facility] [address] [place] [address] [address], [place], [place] [id number] MD Juma Edouard MD Phone: [phone]
[2021-11-21 08:51] VITALS: BP 163/86; PULSE 90; RESP 18; TEMP 36.2; O2SAT 96; BMI 34.1
[2021-11-21] MEDS: LACTATED RINGERS 1,000 ML 42 ML IV (09:00)
--- NOTE | 2021-11-21 09:50 | PM.HP.1 ---
History of Present Illness History of Present Illness Date Patient Seen: 11/21/21 Time Patient Seen: 09:50 Chief complaint: SCREENING COLONOSCOPY Narrative: Mal is a 66-year-old man who is here for colonoscopy. He had several in the past most recently 5 years ago which was polyp free. He has had polyps on prior colonoscopies. He says multiple types of cancers run in the family and he had an uncle with colon cancer. Patient History Medical History (Updated 11/21/21 @ 09:51 by Marcello Templeton MD) Aneurysm, thoracic aortic Aortic regurgitation Aortic stenosis Atrial fibrillation BPH w urinary obs/LUTS Cataracts, bilateral Colon polyps COPD (chronic obstructive pulmonary disease) Depression H/O adenomatous polyp of colon Hearing loss Hyperlipidemia Hypertelorism Hypertension Hypogonadism male Low testosterone (~2009) Psoriasis (~2016) Tinnitus Type 2 diabetes mellitus Uncontrolled type 2 diabetes mellitus with hyperglycemia Wears glasses Surgical History (Updated 05/17/20 @ 20:26 by Teresa Shepherd) Anesthesia History of appendectomy (~1987) History of exploratory laparotomy History of nephrectomy, unilateral (~1984) History of ventral hernia repair (~1986) S/P AVR (aortic valve replacement) (~08/2019) S/P plication of diaphragm (~2010) Family & Social History Family History (Updated 05/17/20 @ 20:28 by Teresa Shepherd) Father Cancer Mother Diabetes mellitus Sister Diabetes mellitus Grandfather Cancer Social History: household members family Tobacco & Substance use: Smoking Status Former smoker alcohol intake frequency holiday/special occasion Substance Use Type does not use Meds Home Medications and Allergies Home Medications Medication Instructions Recorded Confirmed Type mometasone 50 mcg/actuation nasal 2 spray intranasal DAILY PRN 04/17/18 11/21/21 History spray allergies acetaminophen 500 mg tablet 500 mg PO Q6H PRN Pain (Scale 08/14/19 11/21/21 History (Acetaminophen Extra Strength) Score 1-3) albuterol sulfate 90 mcg/actuation 2 puff inhalation Q6H PRN Wheezing 08/14/19 11/21/21 History aerosol inhaler ascorbic acid (vitamin C) 500 mg 500 mg PO DAILY 08/14/19 11/21/21 History tablet aspirin 81 mg tablet,delayed 81 mg PO QAM 08/14/19 11/21/21 History release (Adult Low Dose Aspirin) cetirizine 10 mg capsule 10 mg PO BID PRN allergies 08/14/19 11/21/21 History cholecalciferol (vitamin D3) 100 100 mcg PO QAM 08/14/19 11/21/21 History mcg (4,000 unit) tablet clobetasol 0.05 % scalp solution 0.005 % topical BID PRN Skin 08/14/19 11/21/21 History Cleansing cyanocobalamin (vitamin B-12) 100 100 mcg PO QAM 08/14/19 11/21/21 History mcg tablet ipratropium 20 mcg-albuterol 100 1 puff inhalation Q4H PRN Wheezing 08/14/19 11/21/21 History mcg/actuation mist for inhalation melatonin 3 mg tablet 6 mg PO BEDTIME PRN Insomnia 08/14/19 11/21/21 History hwsluvoo-yxb-phlyv acid 300 1 tab PO QAM 08/14/19 11/21/21 History mcg-lycopene 600 mcg-lutein 300 mcg tablet (Centrum Silver Men) trazodone 50 mg tablet 50 mg PO BEDTIME PRN Insomnia 08/14/19 11/21/21 History vitamin B complex-vitamin C-folic 1 tab PO QAM 08/14/19 11/21/21 History acid 0.8 mg tablet amoxicillin 500 mg capsule 2,000 mg PO .PRN 03/22/20 11/21/21 History CoQ10 Chewable 1 ea PO DAILY 09/10/21 11/21/21 History dapagliflozin 10 mg tablet 10 mg PO QAM #90 tabs 09/10/21 11/21/21 Rx (Farxiga) glipizide 5 mg tablet 5 mg PO BID #180 tabs 09/10/21 11/21/21 Rx losartan 25 mg tablet 25 mg PO DAILY #90 tabs 09/10/21 11/21/21 Rx metoprolol succinate 25 mg 25 mg PO QAM #90 tabs 09/10/21 11/21/21 Rx tablet,extended release 24 hr rosuvastatin 5 mg tablet 5 mg PO DAILY 09/10/21 11/21/21 History tamsulosin 0.4 mg capsule 0.4 mg PO DAILY #90 caps 09/10/21 11/21/21 Rx ketoconazole 2 % shampoo 1 applic topical 2XW 10/08/21 11/21/21 History Allergies Allergy/AdvReac Type Severity Reaction Status Date / Time celecoxib [From CELEBREX] Allergy Intermediate Verified 11/21/21 08:44 citalopram [From CELEXA] Allergy Intermediate Verified 11/21/21 08:44 sulfamethoxazole Allergy Intermediate Verified 11/21/21 08:44 [From SEPTRA] trimethoprim [From SEPTRA] Allergy Intermediate Verified 11/21/21 08:44 metformin AdvReac Severe GI Sx Verified 11/21/21 08:44 Exam Vital Signs (past 8 hours): - 11/21/21 08:51 Temperature 97.2 F L Pulse Rate 90 Respiratory Rate 18 Blood Pressure 163/86 H Pulse Oximetry 96 Oxygen Delivery Method Room Air Oxygen Flow Rate 0 Oxygen Delivery Method Room Air Oxygen Flow Rate 0 Const General: No acute distress Resp Effort & Inspection: normal respiratory effort Assessment & Plan Assessment and plan (1) Colon cancer screening: Status: Acute Plan Mal is a 66-year-old man who is here for colonoscopy for colon cancer screening. We reviewed the risks and benefits and he would like to proceed. Time Spent With Patient Critical Care time: I spent a total of [] minutes of critical care time on this patient's care today; this time is exclusive of procedural time.
[2021-11-21] MEDS: MIDAZOLAM 5 MG/5 ML VIAL 10 MG IV (09:58)
[2021-11-21] MEDS: fentaNYL 100 MCG/2 ML INJ 225 MCG IV (09:58)
--- NOTE | 2021-11-21 10:46 | PM.OP.COLON ---
Operative Date/Time/Diagnoses Date of procedure: 11/21/21 Time of procedure: 10:46 Pre-op diagnosis: Colon cancer screening Post-op diagnosis: same Procedure & Clinicians Study performed: Colonoscopy Same procedure as scheduled: Yes Surgeon: Marcello Templeton Procedure Notes Procedure in detail: Surgeon: Marcello Templeton MD Procedure: The patient was brought to the endoscopy suite, placed in left lateral decubitus position. The patient was connected to monitoring devices. A time-out was performed. Sedation was administered. Once the patient was adequately sedated, a digital rectal exam was performed and was normal. The scope was then inserted and advanced to the cecum where the appendiceal orifice was identified and photographed. 5 mm polyp was removed from the cecum with cold snare. The scope was then slowly withdrawn over greater than 6 minutes. The mucosa was thoroughly inspected. There were few rare diverticula in the sigmoid colon. No other polyps were noted. The scope was retroflexed in the rectum. No other abnormalities were noted. The scope was straightened and removed. The patient was awakened and brought to recovery. Versed: 10 mg Fentanyl: 225 mcg EBL: 5 mL Findings: 5 mm cecal polyp Scope withdrawal time: 23 Sedation minutes: 46 Post-procedure Disposition: PACU
[2021-11-21 10:50] VITALS: BP 126/72; PULSE 77; RESP 16; TEMP 36.3; O2SAT 99
[2021-11-21 10:55] VITALS: BP 111/73; PULSE 76; RESP 16; O2SAT 95
[2021-11-21 11:00] VITALS: BP 113/72; PULSE 87; RESP 18; TEMP 37.2; O2SAT 95
[2021-11-21 11:17] VITALS: BP 123/76; PULSE 75; RESP 16; O2SAT 99
== END 2021-11-21 11:37 | disposition home or self-care (01) ==
PROVIDERS: Family Provider Physician Assistant; PCP Internal Medicine; Referring Provider Surgery; Visit Provider Surgery
PROC: 0DJD8ZZ Inspection of Lower Intestinal Tract, Via Natural or Artificial Opening Endoscopic (ICD-10-PCS; CPT 45378; principal; 2021-11-21 09:15)
DX: Z12.11 Encounter for screening for malignant neoplasm of colon (principal); Z86.010 Personal history of colon polyps; K57.30 Diverticulosis of large intestine without perforation or abscess without bleeding
CPT/HCPCS: 45385; 99152; 99153; J2250; J3010

== ENCOUNTER 2021-11-26 18:25 | Emergency (ER) | payer OTHER, SELFPAY ==
[2021-11-26 18:42] VITALS: BP 134/74; PULSE 82; RESP 20; TEMP 37.1; O2SAT 96; BMI 34.4
--- NOTE | 2021-11-26 18:46 | DI.RAD.S_ITS ---
PROCEDURE: XR CHEST 2V INDICATIONS: covid exposure, sob TECHNIQUE: 2 views of the chest were acquired. COMPARISON: [facility], CR, XR CHEST 1V, 04/17/2018, 21:25. [facility], CR, XR CHEST 1V, 08/14/2019, 12:03. FINDINGS: Surgical changes and devices: Sternotomy wires and prosthetic heart valve are again seen. Lungs and pleura: Stable small opacity at the medial right lower lung zone. No acute consolidation. No pleural effusions or pneumothorax. Mediastinum: Mediastinal contours are normal. Heart size is borderline enlarged. Bones and chest wall: No suspicious bony abnormalities. Soft tissues appear unremarkable. Small ossification projecting over the left scapula may represent intra-articular loose body in the left shoulder or other nonspecific soft tissue ossification. IMPRESSION: No acute cardiopulmonary abnormality. Stable borderline cardiomegaly. Dictated by: Constantino Molina M.D. on 11/26/2021 at 18:58 Approved by: Constantino Molina M.D. on 11/26/2021 at 19:01
[2021-11-26 19:14] LABS: COVID19 -Nasal RAPID POSITIVE (Negative)
[2021-11-26 21:57] VITALS: BP 133/68; PULSE 82; RESP 18; O2SAT 97
--- NOTE | 2021-11-26 22:11 | ED.URI ---
HPI - URI/Sore Throat General Chief Complaint: Upper Respiratory Symptoms Stated Complaint: Head cold weakness cough Time Seen by Provider: 11/26/21 22:00 History of Present Illness HPI Narrative: 66-year-old male former smoker, hypertension, hyperlipidemia, BPH had a recent COVID exposure and has had classic symptoms including runny nose, sore throat and dry hacking cough with body aches for the past few days. He denies any nausea or vomiting. Denies shortness of breath or hypoxemia. He is otherwise well and free of complaint Related Data Home Medications Medication Instructions Recorded Confirmed mometasone 50 mcg/actuation nasal 2 spray intranasal DAILY PRN 04/17/18 11/21/21 spray allergies acetaminophen 500 mg tablet 500 mg PO Q6H PRN Pain (Scale 08/14/19 11/21/21 (Acetaminophen Extra Strength) Score 1-3) albuterol sulfate 90 mcg/actuation 2 puff inhalation Q6H PRN Wheezing 08/14/19 11/21/21 aerosol inhaler ascorbic acid (vitamin C) 500 mg 500 mg PO DAILY 08/14/19 11/21/21 tablet aspirin 81 mg tablet,delayed 81 mg PO QAM 08/14/19 11/21/21 release (Adult Low Dose Aspirin) cetirizine 10 mg capsule 10 mg PO BID PRN allergies 08/14/19 11/21/21 cholecalciferol (vitamin D3) 100 100 mcg PO QAM 08/14/19 11/21/21 mcg (4,000 unit) tablet clobetasol 0.05 % scalp solution 0.005 % topical BID PRN Skin 08/14/19 11/21/21 Cleansing cyanocobalamin (vitamin B-12) 100 100 mcg PO QAM 08/14/19 11/21/21 mcg tablet ipratropium 20 mcg-albuterol 100 1 puff inhalation Q4H PRN Wheezing 08/14/19 11/21/21 mcg/actuation mist for inhalation melatonin 3 mg tablet 6 mg PO BEDTIME PRN Insomnia 08/14/19 11/21/21 fydcwkml-sit-oesha acid 300 1 tab PO QAM 08/14/19 11/21/21 mcg-lycopene 600 mcg-lutein 300 mcg tablet (Centrum Silver Men) trazodone 50 mg tablet 50 mg PO BEDTIME PRN Insomnia 08/14/19 11/21/21 vitamin B complex-vitamin C-folic 1 tab PO QAM 08/14/19 11/21/21 acid 0.8 mg tablet amoxicillin 500 mg capsule 2,000 mg PO .PRN 03/22/20 11/21/21 CoQ10 Chewable 1 ea PO DAILY 09/10/21 11/21/21 rosuvastatin 5 mg tablet 5 mg PO DAILY 09/10/21 11/21/21 ketoconazole 2 % shampoo 1 applic topical 2XW 10/08/21 11/21/21 Previous Rx's Medication Instructions Recorded dapagliflozin 10 mg tablet 10 mg PO QAM #90 tabs 09/10/21 (Farxiga) glipizide 5 mg tablet 5 mg PO BID #180 tabs 09/10/21 losartan 25 mg tablet 25 mg PO DAILY #90 tabs 09/10/21 metoprolol succinate 25 mg 25 mg PO QAM #90 tabs 09/10/21 tablet,extended release 24 hr tamsulosin 0.4 mg capsule 0.4 mg PO DAILY #90 caps 09/10/21 Allergies Allergy/AdvReac Type Severity Reaction Status Date / Time celecoxib [From CELEBREX] Allergy Intermediate Verified 11/21/21 08:44 citalopram [From CELEXA] Allergy Intermediate Verified 11/21/21 08:44 sulfamethoxazole Allergy Intermediate Verified 11/21/21 08:44 [From SEPTRA] trimethoprim [From SEPTRA] Allergy Intermediate Verified 11/21/21 08:44 metformin AdvReac Severe GI Sx Verified 11/21/21 08:44 Review of Systems Review of Systems Narrative: GENERAL: See HPI HEENT: See HPI RESPIRATORY: See HPI CARDIOVASCULAR: Denies chest pain, palpitations, orthopnea, edema, GASTROINTESTINAL: Denies nausea, vomiting, abdominal pain, diarrhea, constipation, melena. : Denies dysuria, frequency, incontinence, hematuria, urinary retention. MUSCULOSKELETAL: denies weakness, joint pain, or bony pain SKIN: Denies rash, skin lesions, or other NEUROLOGIC: Denies weakness, headache, numbness, change in speech, confusion, seizures, incoordination. PSYCHIATRIC: No concerning psychosocial issues. 12 point review of systems is negative except for those stated above Patient History Medical History Aneurysm, thoracic aortic Aortic regurgitation Aortic stenosis Atrial fibrillation BPH w urinary obs/LUTS Cataracts, bilateral Colon polyps COPD (chronic obstructive pulmonary disease) Depression H/O adenomatous polyp of colon Hearing loss Hyperlipidemia Hypertelorism Hypertension Hypogonadism male Low testosterone (~2009) Psoriasis (~2016) Tinnitus Type 2 diabetes mellitus Uncontrolled type 2 diabetes mellitus with hyperglycemia Wears glasses Surgical History Anesthesia History of appendectomy (~1987) History of exploratory laparotomy History of nephrectomy, unilateral (~1984) History of ventral hernia repair (~1986) S/P AVR (aortic valve replacement) (~08/2019) S/P plication of diaphragm (~2010) Family History Father Cancer Mother Diabetes mellitus Sister Diabetes mellitus Grandfather Cancer Social History household members: family Smoking Status: Former smoker Smoking Status: Former smoker alcohol intake frequency: holidays/special occasions only Substance Use Type: does not use Exam Narrative Exam Narrative: GENERAL: [66] year old patient appears stated age. Well-developed patient, in mild distress. HEAD: Atraumatic. Normocephalic. EYES: Pupils equal round and reactive. Extraocular motions intact. No scleral icterus. No injection or drainage. ENT: Nose without bleeding, purulent drainage. Throat without erythema, tonsillar hypertrophy or exudate. Airway patent. NECK: Trachea midline. Non tender CARDIOVASCULAR: Regular rate and rhythm without murmurs, gallops, or rubs. RESPIRATORY: Clear to auscultation. Breath sounds equal bilaterally. No wheezes, rales, or rhonchi. GASTROINTESTINAL: Abdomen soft, non-tender, nondistended. EXTREMITIES: No edema or joint tenderness. BACK: Nontender without deformity or crepitance. No flank tenderness. NEURO: AOx3. SKIN: No rash or erythema of visible areas Initial Vital Signs Initial Vital Signs: Vital Signs Temperature 98.8 F 11/26/21 18:42 Pulse Rate 82 11/26/21 18:42 Respiratory Rate 20 11/26/21 18:42 Blood Pressure 134/74 11/26/21 18:42 Pulse Oximetry 96 11/26/21 18:42 Oxygen Delivery Method 11/26/21 18:42 Course Orders Ordered: Discontinued Medications Hydrocodone Bitart/Acetaminophen (Hydrocodone/Acet 5/325 Prepack) 1 bottle MISC SEEINSTR ONE Stop: 11/26/21 22:25 Last Admin: 11/26/21 22:31 Dose: 1 bottle Documented By: ASHISH Vital Signs Vital signs: Vital Signs - 8 hr 11/26/21 18:42 11/26/21 21:57 Temperature 98.8 F Pulse Rate 82 82 Respiratory Rate 20 18 Blood Pressure 134/74 133/68 Pulse Oximetry 96 97 Oxygen Delivery Method Room Air Room Air MDM - URI/Sore Throat Lab Data Labs: Lab Results 11/26/21 Range/Units 18:47 SARS-CoV-2 (PCR) Positive H (Negative) MDM Narrative Medical decision making narrative: Well-appearing, vaccinated patient with classic symptoms and a known exposure to COVID. There is no hypoxemia, increased work of breathing or use of accessory muscles. Chest x-ray is clear. No nausea, vomiting or diarrhea. Patient outside of any window for paxlovid and no further workup is indicated. Patient given extensive return precautions and questions have been answered to his apparent satisfaction Discharge Plan Departure Patient Disposition: Home Clinical Impression: COVID-19 Instructions: COVID-19 Activity Restrictions/Additional Instructions: *You have been diagnosed with [ COVID-19] *What to do: ?* per recommendations from the CDC and the [facility] Department of Health ?* stay home except to get medical care. ?Restrict activities outside your home, except for getting medical care. ?Do not go to work, school, or public areas. ?Avoid using public transportation, ride sharing, or taxis. ?* separate yourself from other people in your home. ?* call ahead before visiting your doctor ?* Wear a facemask ?* Cover your coughs and sneezes ?* Clean your hands often ?* Avoid sharing household items ?* Clean all high-touch services every day ?* Monitor your symptoms and seek prompt medical attention if your illness is worsening, particularly with difficulty in breathing. You may discontinue your isolation when: ?1. You have been fever-free for at least 24 hours without the use of fever reducing medication, AND ?2. Your symptoms are getting better, AND ?3. At least 5 days have passed since symptoms first appeared ?4. If you have fever, continue to stay home until fever resolves Individuals with laboratory confirmed COVID-19 who have not had any symptoms may discontinue home isolation when at least 5 days have passed since the date of their first COVID-19 diagnostic test and have had no subsequent illness You should notifiy any friends and family that have been in close contact *If up to date on COVID Vaccines, then they do not need to quarantine unless symptoms develop. Get tested on day 5 (or sooner if symptoms develop). Take precautions and watch for symptoms until day 10 *If NOT up to date on COVID Vaccines, then CDC recommends quarantine for at least 5 full days. Wear a well fitted mask at home if you must be around others. If they ?develop symptoms they should get tested. If they remain asymptomatic they should get tested on day 5. They should take precautions and monitor for symptoms until day 10. Prescriptions: No Action amoxicillin 500 mg capsule 2,000 mg PO .PRN Rx Instructions: Prior to dental procedures. ketoconazole 2 % shampoo 1 applic topical 2XW rosuvastatin 5 mg tablet 5 mg PO DAILY CoQ10 Chewable 1,000 mg 1 ea PO DAILY Farxiga 10 mg tablet 10 mg PO QAM Qty: 90 3RF metoprolol succinate 25 mg tablet extended release 24 hr 25 mg PO QAM Qty: 90 3RF losartan 25 mg tablet 25 mg PO DAILY Qty: 90 3RF glipizide 5 mg tablet 5 mg PO BID Qty: 180 3RF tamsulosin 0.4 mg capsule 0.4 mg PO DAILY Qty: 90 3RF mometasone 50 mcg/actuation spray,non-aerosol 2 spray Intranasal DAILY PRN (Reason: allergies) Label Comments: SHAKE LQ AND U 2 SPRAYS IEN BID cyanocobalamin (vitamin B-12) 100 mcg Tablet 100 mcg PO QAM trazodone 50 mg Tablet 50 mg PO BEDTIME PRN (Reason: Insomnia) melatonin 3 mg Tablet 6 mg PO BEDTIME PRN (Reason: Insomnia) aspirin [Adult Low Dose Aspirin] 81 mg Tablet,Delayed Release (Dr/Ec) 81 mg PO QAM acetaminophen [Acetaminophen Extra Strength] 500 mg Tablet 500 mg PO Q6H PRN (Reason: Pain (Scale Score 1-3)) ascorbic acid (vitamin C) 500 mg Tablet 500 mg PO DAILY B complex-vitamin C-folic acid 0.8 mg Tablet 1 tab PO QAM albuterol sulfate 90 mcg/actuation Hfa Aerosol Inhaler 2 puff INHALATION Q6H PRN (Reason: Wheezing) clobetasol 0.05 % solution 0.005 % TOPICAL BID PRN (Reason: Skin Cleansing) cetirizine 10 mg Capsule 10 mg PO BID PRN (Reason: allergies) cholecalciferol (vitamin D3) 100 mcg (4,000 unit) Tablet 100 mcg PO QAM Centrum Silver Men 300-600-300 mcg Tablet 1 tab PO QAM ipratropium-albuterol 20-100 mcg/actuation Mist 1 puff INHALATION Q4H PRN (Reason: Wheezing) Referrals: Benjamin Mancilla MD [Primary Care Provider] - Visit Report Forms: Patient Portal/API
[2021-11-26] MEDS: HYDROCODONE/ACET 5/325 PREPACK 1 BOTTLE MISC (22:31)
== END 2021-11-26 22:34 | disposition home or self-care (01) ==
PROVIDERS: Emergency Provider Emergency Medicine; Family Provider Physician Assistant; PCP Internal Medicine
DX: U07.1 COVID-19 (principal)
CPT/HCPCS: 71046; 87635; 99282; 99283; C9803

== ENCOUNTER → 2021-12-11 08:44 | Outpatient (CLI) | payer OTHER, SELFPAY ==
[2021-12-11 10:04] LABS: Hemoglobin A1C% w Est Avg Glu 6.8 % (4.0-6.0)
[2021-12-11 10:28] LABS: BUN Creatinine Ratio 17.6 (6-22); Blood Urea Nitrogen 21 mg/dL (9-20); Calcium 9.3 mg/dL (8.4-10.2); Carbon Dioxide 29 mmol/L (22-32); Chloride 99 mmol/L (98-107); Estimated Glomerular Filt Rate > 60 mL/min (>60); Glucose 140 mg/dL (80-110); HEMOLYSIS < 15 (0-50); Sodium 138 mmol/L (137-145)
== END ==
PROVIDERS: Family Provider Physician Assistant; PCP Internal Medicine; Referring Provider Internal Medicine; Visit Provider Internal Medicine
DX: E11.65 Type 2 diabetes mellitus with hyperglycemia (principal)
CPT/HCPCS: 36415; 80048; 83036

== ENCOUNTER → 2022-03-17 09:17 | Outpatient (CLI) | payer OTHER, SELFPAY ==
[2022-03-17 11:05] LABS: Alanine Aminotransferase 21 IU/L (<50); Alkaline Phosphatase 93 U/L (38-126); Aspartate Aminotransferase 20 IU/L (17-59); BUN Creatinine Ratio 13.9 (6-22); Bilirubin Total 0.6 mg/dL (0.2-1.3); Blood Urea Nitrogen 16 mg/dL (9-20); Carbon Dioxide 30 mmol/L (22-32); Chloride 99 mmol/L (98-107); Cholesterol 169 mg/dL (140-199); Estimated Glomerular Filt Rate > 60 mL/min (>60); Glucose 189 mg/dL (80-110); HDL Cholesterol 45 mg/dL (40-60); HEMOLYSIS < 15 (0-50); LDL Cholesterol Calculated 84 mg/dL (<100); Potassium 4.8 mmol/L (3.4-5.1); Sodium 138 mmol/L (137-145); Triglycerides 202 mg/dL (35-150)
[2022-03-21 15:43] LABS: Albumin 4.2 g/dL (3.5-5.0); Albumin Globulin Ratio 1.5 (1.0-2.8); Globulin 2.8 g/dL (1.7-4.1)
== END ==
PROVIDERS: Family Provider Physician Assistant; PCP Internal Medicine; Referring Provider Internal Medicine; Visit Provider Internal Medicine
DX: E11.9 Type 2 diabetes mellitus without complications (principal); E78.2 Mixed hyperlipidemia; I10 Essential (primary) hypertension; J44.9 Chronic obstructive pulmonary disease, unspecified
CPT/HCPCS: 36415; 80053; 80061; 83036

== ENCOUNTER → 2022-09-16 08:13 | Outpatient (CLI) | payer OTHER, SELFPAY ==
[2022-09-16 09:48] LABS: Alanine Aminotransferase 23 IU/L (<50); Albumin 3.9 g/dL (3.5-5.0); Albumin Globulin Ratio 1.6 (1.0-2.8); Alkaline Phosphatase 98 U/L (38-126); Aspartate Aminotransferase 18 IU/L (17-59); Bilirubin Total 0.3 mg/dL (0.2-1.3); Blood Urea Nitrogen 18 mg/dL (9-20); Calcium 8.7 mg/dL (8.4-10.2); Carbon Dioxide 36 mmol/L (22-32); Chloride 99 mmol/L (98-107); Cholesterol 122 mg/dL (140-199); Estimated Glomerular Filt Rate > 60 mL/min (>60); Globulin 2.4 g/dL (1.7-4.1); Glucose 144 mg/dL (80-110); HDL Cholesterol 39 mg/dL (40-60); HEMOLYSIS < 15 (0-50); LDL Cholesterol Calculated 63 mg/dL (<100); Potassium 5.4 mmol/L (3.4-5.1); Sodium 138 mmol/L (137-145); Total Protein 6.3 g/dL (6.3-8.2); Triglycerides 98 mg/dL (35-150)
[2022-09-16 10:02] LABS: Creatinine Urine Random 121.3 mg/dL
[2022-09-16 10:31] LABS: Microalbumi Creatinin Ratio Ur 355.3 ug/mg CR (<30); Microalbumin Urine Random 43.1 mg/dL (0-1.6)
[2022-09-17 06:05] LABS: x Labcorp Estim. Avg Glu (eAG) 146 mg/dL (.); x Labcorp Hemoglobin A1c 6.7 % (4.8-5.6)
== END ==
PROVIDERS: Family Provider Physician Assistant; PCP Internal Medicine; Referring Provider Internal Medicine; Visit Provider Internal Medicine
DX: E11.9 Type 2 diabetes mellitus without complications (principal); E78.2 Mixed hyperlipidemia; I10 Essential (primary) hypertension; Z12.5 Encounter for screening for malignant neoplasm of prostate
CPT/HCPCS: 36415; 80053; 80061; 82043; 82570; 83036; G0103

== ENCOUNTER → 2022-11-27 17:05 | Outpatient (CLI) | payer OTHER, SELFPAY ==
[2022-11-26 12:05] VITALS: BMI 34.2
[2022-11-27 18:51] LABS: Prostate Specific Antigen 22.2 ng/mL (0.10-4.00)
== END ==
PROVIDERS: Family Provider Physician Assistant; PCP Internal Medicine; Referring Provider Specialist; Visit Provider Specialist
DX: R97.20 Elevated prostate specific antigen [PSA] (principal)
CPT/HCPCS: 36415; 84153

== ENCOUNTER → 2023-03-16 11:07 | Outpatient (CLI) | payer OTHER, SELFPAY ==
[2022-11-26 12:05] VITALS: BMI 34.2
[2023-03-16 12:17] LABS: Alanine Aminotransferase 26 IU/L (<50); Albumin 4.1 g/dL (3.5-5.0); Albumin Globulin Ratio 1.5 (1.0-2.8); Alkaline Phosphatase 108 U/L (38-126); Aspartate Aminotransferase 24 IU/L (17-59); BUN Creatinine Ratio 17.3 (6-22); Bilirubin Total 0.7 mg/dL (0.2-1.3); Blood Urea Nitrogen 18 mg/dL (9-20); Calcium 9.4 mg/dL (8.4-10.2); Carbon Dioxide 32 mmol/L (22-32); Chloride 98 mmol/L (98-107); Cholesterol 243 mg/dL (140-199); Estimated Glomerular Filt Rate > 60 mL/min (>60); Globulin 2.7 g/dL (1.7-4.1); Glucose 155 mg/dL (80-110); HDL Cholesterol 42 mg/dL (40-60); HEMOLYSIS < 15 (0-50); LDL Cholesterol Calculated 148 mg/dL (<100); Potassium 5.5 mmol/L (3.4-5.1); Sodium 137 mmol/L (137-145); Total Protein 6.8 g/dL (6.3-8.2); Triglycerides 266 mg/dL (35-150)
[2023-03-16 12:26] LABS: Hemoglobin A1C% w Est Avg Glu 6.4 % (4.0-6.0)
== END ==
PROVIDERS: Family Provider Physician Assistant; PCP Internal Medicine; Referring Provider Internal Medicine; Visit Provider Internal Medicine
DX: E11.9 Type 2 diabetes mellitus without complications (principal); I10 Essential (primary) hypertension
CPT/HCPCS: 36415; 80053; 80061; 83036

== ENCOUNTER → 2023-05-11 15:43 | Outpatient (CLI) | payer OTHER, SELFPAY ==
[2022-11-26 12:05] VITALS: BMI 34.2
[2023-05-11 16:42] LABS: Add Manual Diff / Slide Review NO; Basophils Absolute Auto 0 /uL (0-100); Basophils Percent Auto 0.5 % (0-2); Eosinophils Absolute Auto 100 /uL (0-450); Eosinophils Percent Auto 2.6 % (2-4); Hematocrit 45.2 % (41-53); Hemoglobin 15.8 g/dL (13.5-17.5); Lymphocytes Absolute Auto 900 /uL (1100-4500); Mean Corpuscular HGB Conc 34.9 % (30-36); Mean Corpuscular Hemoglobin 33.6 PG (26-34); Mean Corpuscular Volume 96.3 fL (80-100); Monocytes Absolute Auto 400 /uL (0-900); Monocytes Percent Auto 13.4 % (3-14); Neutrophils Absolute Auto 1400 /uL (1500-7000); Neutrophils Percent Auto 50.5 % (50-75); Platelet Count 176 X10^3/uL (150-400); Red Blood Cell Count 4.69 X10^6/uL (4.5-5.9); Red Cell Distribution Width 14.9 % (11.6-14.8); White Blood Cell Count 2.8 X10^3/uL (4.5-11.0)
[2023-05-11 17:09] LABS: Albumin 4.3 g/dL (3.5-5.0); BUN Creatinine Ratio 19.6 (6-22); Blood Urea Nitrogen 22 mg/dL (9-20); Calcium 8.9 mg/dL (8.4-10.2); Carbon Dioxide 32 mmol/L (22-32); Chloride 103 mmol/L (98-107); Estimated Glomerular Filt Rate > 60 mL/min (>60); Glucose 122 mg/dL (80-110); HEMOLYSIS 39 (0-50); Potassium 4.3 mmol/L (3.4-5.1); Sodium 141 mmol/L (137-145)
[2023-05-11 17:18] LABS: Prealbumin 40.6 mg/dL (17.6-36.0)
[2023-05-11 17:42] LABS: Vitamin D 25 Hydroxy (D3) 41.1 ng/mL (30.0-100.0)
[2023-05-11 20:21] LABS: Hemoglobin A1C% w Est Avg Glu 6.4 % (4.0-6.0)
== END ==
PROVIDERS: Family Provider Physician Assistant; PCP Internal Medicine; Referring Provider Orthopaedic Surgery Adult Reconstructive Orthopaedic Surgery; Visit Provider Orthopaedic Surgery Adult Reconstructive Orthopaedic Surgery
DX: Z01.812 Encounter for preprocedural laboratory examination (principal); R77.0 Abnormality of albumin; E55.9 Vitamin D deficiency, unspecified; R73.9 Hyperglycemia, unspecified
CPT/HCPCS: 36415; 80048; 82040; 82306; 83036; 84134; 85025

== ENCOUNTER 2023-07-11 15:02 | Observation (INO) | payer OTHER, SELFPAY ==
[2022-11-26 12:05] VITALS: BMI 34.2
[2023-06-24 08:55] VITALS: BMI 36.1
[2023-07-10] VITALS (17 sets, daily range): BP systolic 86–149; BP diastolic 44–81; PULSE 79–91; RESP 12–20; TEMP 36.3–37.2; O2SAT 90–99; BMI 30.1
[2023-07-10 07:02] LABS: Add Manual Diff / Slide Review NO; Basophils Absolute Auto 0 /uL (0-100); Basophils Percent Auto 0.6 % (0-2); Eosinophils Absolute Auto 100 /uL (0-450); Eosinophils Percent Auto 4.9 % (2-4); Hemoglobin 13.7 g/dL (13.5-17.5); Lymphocytes Absolute Auto 800 /uL (1100-4500); Lymphocytes Percent Auto 29.5 % (25-40); Mean Corpuscular HGB Conc 33.4 % (30-36); Mean Corpuscular Hemoglobin 32.3 PG (26-34); Mean Corpuscular Volume 96.7 fL (80-100); Monocytes Absolute Auto 500 /uL (0-900); Monocytes Percent Auto 17.9 % (3-14); Neutrophils Absolute Auto 1200 /uL (1500-7000); Neutrophils Percent Auto 47.1 % (50-75); Platelet Count 141 X10^3/uL (150-400); Red Blood Cell Count 4.24 X10^6/uL (4.5-5.9); White Blood Cell Count 2.6 X10^3/uL (4.5-11.0)
[2023-07-10] MEDS: LACTATED RINGERS 1,000 ML 42 ML IV ×2 (07:09→09:41)
--- NOTE | 2023-07-10 07:32 | PM.PREOP ---
Pre-operative Note Interval Note History & Physical reviewed/Exam performed by Physician: Yes Changes to H&P: No
[2023-07-10] MEDS: CEFAZOLIN 2 GM/100 ML PREMIX 100 ML IV ×2 (07:53→17:30)
--- NOTE | 2023-07-10 08:27 | SUR.OPER ---
Patient supine on padded [place] table, Both arms on padded arm board at <90, both legs secured in padded traction boots and positioned per surgeon, padded post at patient's groin, pressure points checked and padded.
[2023-07-10] MEDS: BUPIVACAINE 0.25% (PF) 30 ML, EPINEPHrine 0.15 MG INJ (08:40)
[2023-07-10] MEDS: BUPIVACAINE LIPOSOME 266 MG/20 ML VIAL INJ (08:41)
[2023-07-10] MEDS: TRANEXAMIC ACID 1,000 MG in SODIUM CHLORIDE 0.9% 100 ML 200 MG IV ×2 (08:42→09:41)
--- NOTE | 2023-07-10 09:57 | P.OP_ITS ---
Operative Date/Time/Diagnoses Date of procedure: 07/10/23 Pre-op diagnosis: Right hip osteoarthritis Post-op diagnosis: same Procedure & Clinicians Procedure: Right total hip arthroplasty (12865) Same procedure as scheduled: Yes Surgeon: Nick Pierre Business Support: Tonya Hebert Anesthesia Type: Spinal, Sedation and Local Operative Notes Estimated Blood Loss (mL): 250 Procedure in detail: Right Uncemented Direct Anterior Total Hip Arthroplasty: Implants: Right Depuy Total Hip Arthroplasty: * Depuy [place] Gription size 60 cup?with +4 liner * Depuy Actis femoral stem size 6 high offset? * 36 mm +8.5 ceramic femoral head? Procedure Summary: This 68-year-old male patient is 250 lb with a relatively muscular body habitus. A conjoined tendon release was necessary to obtain access to the femur for broaching. His operative hip was 2 mm long relative to his contralateral side and there are no plans to proceed with total hip arthroplasty in the near future on that side. He has a significant amount of varus through his proximal femur as well. Therefore in order to maximize stability, restore his significant offset, and avoid lengthening the hip, I utilized a +4 liner, a high offset neck, and a +8.5 head. The neck cut was very short and after initial trialing I think the broach further to get it down closer to the lesser trochanter to minimize his leg length. I was unable to dislocate the final construct with maximum external rotation. Leg lengths was grossly equal with the use of a metal gael to measure leg lengths relative to the contralateral side to minimize the effect of fluoroscopic distortion. Procedure in Detail: This patient was seen preoperatively and evaluated for hip pain which was refractory to numerous nonoperative treatment modalities. Their hip pain correlated with radiographic changes demonstrating significant degeneration in the hip joint. The risks and benefits of continued nonoperative management versus operative management were discussed at length and all of the patient?s questions were answered. Additional educational materials providing further details beyond our discussion in clinic were provided via a publicly available patient education video which included the incidence of medical complications associated with total hip arthroplasty, reasons for revision following total hip arthroplasty, and patient satisfaction rates following total hip arthroplasty. That video can be accessed at [email or web address] . With this understanding of the risks inherent to the procedure, the patient elected to move forward with operative management. Following preoperative optimization, the patient was scheduled for surgery. The patient was met in the preoperative holding area the day of the procedure and all questions were answered. The patient?s nares were swabbed with betadine in order to decolonize them from MRSA. Informed consent was signed and the operative limb was marked with indelible ink.? The patient was brought back to the operating room where anesthesia was induced. The patient was transferred to the [place] table and all bony prominences were padded. The operative site was prepped and draped in the usual sterile fashion. Prior to incision, tranexamic acid and cefazolin were administered. Operative templating images were displayed demonstrating the anticipated implant sizes and correct operative extremity. A timeout procedure was performed verifying the patient?s identity, medical comorbidities, allergies, relevant medications, anesthesia type and the surgical plan. All present were in agreement. The assistance of a physician orthotics prosthetics assistant was required for positioning, room setup, soft tissue retraction and wound closure. Without this assistance, the procedure would have been significantly more challenging and time consuming.?? A direct anterior approach to the hip was utilized. This was performed with a longitudinal incision through a Heuter interval. The incision was planned 2 cm distal and 2 cm lateral to the ASIS extending towards the lateral patella, in line with the muscle body of the TFL. Following incision, the subcutaneous tissue was dissected while taking care to avoid injury to the lateral femoral cutaneous nerve. The fascia overlying the TFL was identified by dissecting off the overlying fat and identifying perforating vessels to the TFL. The TFL fascia was incised and dissected away from the medial border of the TFL. A cobra retractor was placed over the superior femoral neck between the abductors and the hip capsule and used to reflect the TFL laterally. A [place] self-retainer was then placed in the distal aspect of the wound between the TFL and the rectus femoris. This was tensioned to open up the direct anterior interval and the lateral circumflex vessels were identified and coagulated using electrocautery. The floor of the TFL fascia was incised, exposing the pericapsular fat overlying the hip capsule. A second cobra retractor was placed on the inferior femoral neck. A double-bent soft tissue retractor was placed on the anterior wall of the acetabulum and used to tension the reflected head of rectus femoris, which was then released in order to limit soft tissue tension. A capsulotomy was made in the midline of the anterior hip capsule in line with the femoral neck ending at the vastus tubercle. The double-bent retractor was removed in order to limit the amount of time that a soft tissue retractor remained on the anterior wall and protect the femoral nerve. Tag stitches were placed in the superior and inferior leaflets of the hip capsule. An Markel soft tissue retractor was introduced over the tag stitches and tensioned in the interval between the rectus femoris and the TFL in order to retract and protect those muscles. The cobra retractors were replaced intracapsularly, with one over the superior neck in the pocket created by the base of the greater trochanter and the other on the femoral head. The capsulotomy was extended laterally to the base of the greater trochanter and medially to the lesser trochanter. This required externally rotating the hip. Once the lesser trochanter had been identified, a neck cut was planned according to measurements from preoperative templating. A ruler was cut at the length measured between the superior aspect of the lesser trochanter and the collar of the prosthesis. This line was extended towards the inferior aspect of the lateral cobra retractor to plan a cut which would leave minimal residual femoral neck laterally. The neck was cut at 60 degrees of external rotation along that line. A second cut was performed to remove a large napkin ring and facilitate head extraction. The napkin ring cut and femoral head were removed.?? A broad anterior wall retractor was placed between the labrum and the anterior capsule so that the anterior capsule would prevent capturing and pinching the femoral nerve anteriorly. An additional retractor was placed on the posterior wall. External rotation and traction were applied through the [place] table so that the cut surface of the femoral neck would not restrict access to the acetabulum. The labrum was excised sharply and the pulvinar was excised with electrocautery to limit bleeding from branches of the obturator artery. Acetabular reamers were selected based on preoperative templating and measurements of the excised femoral head. These were introduced into the acetabulum. Fluoroscopy was utilized to replicate a standing AP pelvis radiograph by centering over the pelvis, rotating until there was appropriate symmetry between the obturator foramen, and introducing caudal tilt to match the position of the pubic symphysis relative to the sacrococcygeal junction according to the patient?s anatomy. Fluoroscopy was utilized to ensure appropriate reaming depth. Once satisfied with the reaming depth corresponding to the preoperative template and the pinch fit between the columns, an appropriate sized acetabular cup was selected which would provide 1 mm of press-fit. This cup was introduced and manipulated until appropriate abduction and anteversion angles were obtained with careful attention to appropriate abduction and anteversion angles as evaluated by the position of the cup relative to the anterior and posterior navarro of the acetabulum and the AP fluoroscopy which recreated the patient?s standing radiograph. The cup was impacted into place. Peripheral osteophytes were removed. The acetabular liner was then placed with care to ensure locking of the locking mechanism.? Attention was then turned to the femur. All retractors were removed, traction was released, a retractor was placed in the interval between the hip capsule and the gluteus minimus, and the hip was externally rotated to 90 degrees. Traction was applied through the [place] table to tension the lateral capsule and this was released using electrocautery. Traction was released and a [place] hook was placed posteriorly around the proximal femur at the level of the vastus ridge. The table height was lowered in order to restrict the tension on the anterior structures during hip hyperextension to limit the risk of femoral nerve palsy. With traction off and the hip at 90 degrees of external rotation, the hip was hyperextended and adducted while manually elevating the femur away from the acetabulum with the [place] hook to ensure it would not be caught behind the greater trochanter. An asymmetric retractor was placed over the calcar and a broad double-pronged retractor was placed over the greater trochanter. The tag stitch capturing the lateral leaflet of the capsule was moved to the medial side, leaving the conjoined and piriformis tendons isolated in the face of the greater trochanter. The hip was externally rotated and elevated. A release of the conjoined tendon was necessary in order to obtain adequate exposure for broaching. The canal was opened with an opening broach and a rasp was used to remove cancellous bone. A rongeur was used to remove the residual lateral bone at the base of the greater trochanter to avoid placing the stem in varus. The femur was then broached to the appropriate sized stem yielding good rotational fit and fill of the canal as well as appropriate version of the stem trial. Neck and head trials were placed, all retractors were removed and the hip was returned to neutral abduction and extension. I then reduced the hip. An AP pelvis fluoroscopic image matching the preoperative standing radiograph was obtained with both lesser trochanters visible and both hips in 40 degrees of external rotation. This demonstrated that the operative site was long but had appropriate offset. I therefore downsized from a +8.5 head to a +5 head. Stability was maintained with this construct but the operative side still appeared long. I therefore downsized to a +1.5 head. I noted instability with maximum external rotation with a +1.5 head.. An AP hip fluoroscopic image was obtained with the hip in neutral rotation which demonstrated good canal fill with the size 6 broach. Good canal fill was also demonstrated on a 110 degree externally rotated fluoroscopic image. The hip was dislocated and I returned to the broaching position. I felt that it would be beneficial to sink the broach further to decrease leg length and go back up to a +8.5 head in order to maximize offset instability after I had decreased the length. I therefore think the size 6 broach significantly further down the canal closer to the lesser trochanter and repeated the calcar planing. I did this again and was able to obtain additional depth. I placed the high offset neck trial and a +8.5 head trial on the size 6 broach in repeated the trialing process. Leg length was appropriate with the use of a long metal bar to limit the affected fluoroscopic distortion. Offset was restored. The hip was unable to be dislocated with maximum external rotation through the foot and did not dislocate with a 45 degree drop test. Satisfied with this construct I returned to the broaching positioned. The definitive stem was placed and the trunnion was cleaned and dried. I placed a ceramic head onto the trunnion and impacted it into place on the [place] taper.?? All retractors were removed and the hip was reduced. A dilute mixture of betadine and peroxide was used to bathe the soft tissues during final fluoroscopic assessment. Appropriate component positioning was confirmed on an AP pelvis radiograph with the operative and nonoperative legs in 40 degrees of external rotation, evaluating leg length and offset. Appropriate stem fill was evaluated on an AP hip radiograph with the operative leg in neutral rotation. No fractures were identified on these radiographs. Stability was satisfactory with a 90 degree external rotation test as well as a 45 degree drop test. The hip was copiously irrigated with pulse lavage. The capsule was closed with absorbable interrupted suture. The TFL fascia was closed with barbed suture while carefully protecting the lateral femoral cutaneous nerve from entrapment. A mixture of local anesthetic and Exparel was infiltrated throughout the soft tissues. The skin was closed with 2-0 and 3-0 sutures. Surgical glue was applied and a soft dressing was placed.??The sponge, instrument and needle counts were reported as being correct at the end of the case.??No obvious complications occurred. The patient was transferred from the [place] table back to a stretcher. The patient emerged from anesthesia without difficulty and was taken to the PACU in a stable condition.? Plan for aftercare: * Anterior hip precautions * Weightbearing as tolerated * Aspirin 81 twice per day for DVT prophylaxis * Multimodal pain regimen with no IV opioids ordered. No NSAIDs as the patient does not take NSAIDs given his solitary kidney * Anticipate discharge home today following mobilization with physical therapy * Follow up at [facility] in 2 weeks * Detailed postoperative instructions available at [email or web address]
--- NOTE | 2023-07-10 10:00 | DI.RAD.S_ITS ---
PROCEDURE: XR HIP W PEL IF DONE RT 2V INDICATIONS: INNER OP HIP TECHNIQUE: AP pelvis and lateral view of the hip acquired. COMPARISON: [facility], [facility], XR HIP W PEL IF DONE RT 2V, 07/10/2023, 10:25. FINDINGS: Intraoperative images demonstrate right hip arthroplasty. Hardware is intact. Good anatomic alignment. IMPRESSION: Intraoperative right hip arthroplasty. Dictated by: Shobha Hebert M.D. on 07/10/2023 at 14:53 Approved by: Shobha Hebert M.D. on 07/10/2023 at 14:56
[2023-07-10] MEDS: ALBUTEROL/IPRATROPIUM 3 ML AMPUL INH (10:24)
[2023-07-10] MEDS: OXYCODONE IR 5 MG TABLET PO ×5 (10:41→21:12)
--- NOTE | 2023-07-10 10:52 | SUR.PHASEI ---
Addendum entered by Carmencita Rosen R.N. 07/10/23 10:53: Karolina verbal order from Dr Coello. Original Note: Pt to PACU with anesth. Pt with cough, suction for clear secretions. Pt with exp wheezes and coarse lungs. Duoneb given with good results.
--- NOTE | 2023-07-10 10:56 | SUR.PHASEI ---
Dr Pierre informed of CBG of 183. Sliding scale ordered for AC and MD states pt may start this upstairs.
--- NOTE | 2023-07-10 11:00 | DI.RAD.S_ITS ---
PROCEDURE: XR HIP W PEL IF DONE RT 2V INDICATIONS: POST OP RIGHT HIP TECHNIQUE: 2. views of the hip were acquired. COMPARISON: [facility], [place], XR HIP W PEL IF DONE RT 2V, 07/10/2023, 8:47. FINDINGS: Bones: Status post right total hip arthroplasty, in near anatomic alignment. No hardware complication. Soft tissues: No suspicious soft tissue calcifications or masses. IMPRESSION: Postoperative changes. No hardware complication. Dictated by: Nery Elam M.D. on 07/10/2023 at 12:19 Approved by: Nery Elam M.D. on 07/10/2023 at 12:21
[2023-07-10] MEDS: ACETAMINOPHEN IV 1,000 MG/100 ML VIAL 400 MG IV (11:09)
--- NOTE | 2023-07-10 11:47 | SUR.PHASEI ---
Pt transferred to room 205 in bed with one belongings bag by Josie GONZALES.
[2023-07-10] MEDS: LACTATED RINGERS 1,000 ML 100 ML IV ×2 (12:21→21:50)
[2023-07-10] MEDS: TRAMADOL 50 MG TABLET PO (14:38)
--- NOTE | 2023-07-10 15:02 | PT.IIE ---
Current Diagnoses Unilateral primary osteoarthritis, right hip (07/10/23) Surgery Performed Operation Date: 07/10/23 07:45 Actual Procedures p Total Hip Arthroplasty/Anterior Approach(Right) - Nick Pierre MD Surgical History (Last Updated 06/24/23 @ 09:20 by Mariposa Marks, RN) Anesthesia History of appendectomy (~1987) History of circumcision History of exploratory laparotomy History of nephrectomy, unilateral (~1984) History of ventral hernia repair (~1986) Hx of bilateral cataract extraction S/P AVR (aortic valve replacement) (~08/2019) S/P plication of diaphragm (~2010) Medical History (Last Updated 06/24/23 @ 09:36 by Mariposa Marks, CHRISTIAN) Anesthesia complication Aneurysm, thoracic aortic Aortic regurgitation Aortic stenosis Atrial fibrillation Bicuspid aortic valve Bowel obstruction (01/2019) BPH w urinary obs/LUTS Cataracts, bilateral Colon polyps COPD (chronic obstructive pulmonary disease) COVID-19 (~10/2021) Depression Elevated PSA H/O adenomatous polyp of colon Hearing impaired Hearing loss History of gout Hyperlipidemia Hypertelorism Hypertension Hypogonadism male Incomplete bladder emptying Low testosterone (~2009) Prostate nodule with urinary obstruction Psoriasis (~2016) Solitary kidney Tinnitus Type 2 diabetes mellitus Wears glasses Physical Therapy Inpatient Evaluation/Re-Eval M1 PT/OT-IP Prior Functional Status Start: 07/10/23 17:06 Freq: NEEDED Status: Active Protocol: Document 07/10/23 15:02 AB (Rec: 07/10/23 17:25 AB [id number]) Medical Review Prior Functional Status Medical History Reviewed Yes Communication able to make needs known Mobility and Gait pt stated that he was modified independent with all mobilities and ambulation without AD indoors but tends to furniture cruise but uses a SPC for outdoor mobility Social History Household Members family Living Arrangements House Number of Floors (Floors) One Floor Number of Stairs To Enter/Railing? 2 platform steps to enter Home Environment Standard Height Toilet,Walk in Shower Home Equipment Front Wheel Walker,Straight Cane,Raised Toilet Seat w/ Armrests,Shower Seat without Backrest,Hand Held Shower,Leg Campus Aide,Sock Aid,Hospital Bed Additional Social History Comment pt has an adjustable bed M2 PT-IP Current Condition Start: 07/10/23 17:06 Freq: NEEDED Status: Active Protocol: Document 07/10/23 15:02 AB (Rec: 07/10/23 17:25 [id number]) Physical Therapy Current Condition Current Condition Evaluation Date 07/10/23 Treatment Diagnosis s/p R SABIHA anterior; difficulty in walking Onset Date 07/10/23 M3 PT-IP Subjective Start: 07/10/23 17:06 Freq: NEEDED Status: Active Protocol: Document 07/10/23 15:02 AB (Rec: 07/10/23 17:25 [id number]) Subjective Physical Therapy Visit Type Type Initial Evaluation Visit Start Time 15:02 Visit Stop Time 16:10 Number of ACCESS TECH Visits 0 Physical Therapy Visit Comments Patient Comments agreeable to do PT Therapy Pain Assessment Pain When Pain Assessed At Rest Pain Present Pain Present Pain Reported Location Right Hip Intensity 8 Scale Used Numeric (0 - 10) Pain Behaviors Facial Grimacing,Guarding Pain Management Techniques Apply Cold,Distraction, Modification of Treatment,Re- positioning,Timing of Activity with Medications M4 PT-IP Mobility and Gait Start: 07/10/23 17:06 Freq: NEEDED Status: Active Protocol: Document 07/10/23 15:02 AB (Rec: 07/10/23 17:25 [id number]) PT-Bed Mobility Assessment Supine to Sit Supine to Sit Minimal Assistance Sit to Supine Sit to Supine Minimal Assistance PT-Transfer Assessment Sit to and From Stand Sit to and from Stand Contact Guard Assistance,1 Person Assistance,Use of Upper Extremities Equipment Transfer Assistive Device Gait Belt,Front Wheeled Walker Orthotic/Prosthetic Devices or Brace: No Transfers Transfer Destination Bed,Chair Transfer Technique ambulated Transfer Ability Level of Assist Contact Guard Assistance,1 Person Assistance,Use of Upper Extremities Comments Mobility Comments pt sitting on the chair. family in room with pt. obtained PLOF and home set up from pt and family. pt's DIL will be the man person assist pt at home. post-op folder provided and reviewed contents . educated pt regarding anterior hip precautions for RLE. pt completed sit to stand from the chair CGA and ambulated ~ 20 ft in room using FWW CGA. pt sat on EOB. completed sit<>supine min A and cues. pt used a leg lift to assist and bed rail. family will get a bed cane for pt to use at home. educated DIL on how to assist pt with bed mobility. caregiver training conducted. educated DIL on how to use safety belt and how to assist pt. DIL was able to put safety belt on and assisted pt with sit to stand. ambulated with pt using FWW CGA ~ 15 ft . educated pt and family regarding car transfers. stair climbing training. educated pt and DIL on how to do stairs. DIL assisted pt with ambulation to platform step. pt completed up/down step using FWW min A with cues needed initially from PT. pt repeated again and was able to complete with only the DIL providing cues and assistance. pt ambulated back to his room using fWW CGA. DIL assisted pt . Left pt with family and OT. pt and family without further concerns. Gait Assessment Gait Gait Assistance Required: Contact Guard Assist,1 Person Assist Distance (Feet) 20 Able to Maintain Weight Bearing Status Yes During Gait Assistive Devices Assistive Device Gait Belt,Front Wheeled Walker Orthotic/Prosthetic Devices or Brace: No Gait Deviations General Gait Pattern Antalgic,Decreased Feet Clearance Factors Limiting Gait Function Factors Limiting Gait Function Decreased Strength,Limited Range of Motion,Pain,Poor Balance,Poor Safety Awareness Stair Climbing Assessment Evaluation Level of Assist On Stairs Minimal Assistance,1 Person Assistance Devices Stair Climbing Assistive Devices Front Wheel Walker Technique/Endurance Stair Climbing Direction Ascend and Descend Stair Climbing Technique Step to Step Number of Steps Climbed 1 Query Text: Stair Climbing Set # Repetitions (reps) 2 PT-Balance Assessment Sitting Balance and Reactions Static Sitting Balance Ability Normal Dynamic Sitting Balance Ability Good Standing Balance and Reactions Static Standing Balance Ability Fair Dynamic Standing Balance Ability Fair Device Used FWW M5 PT-IP Objective Assessments Start: 07/10/23 17:06 Freq: NEEDED Status: Active Protocol: Document 07/10/23 15:02 AB (Rec: 07/10/23 17:25 AB [id number]) Orientation Orientation/Cognition Level of Alertness Alert Orientation Name,Place,Situation Language Function Ability No Deficits Noted Safety Awareness Decreased Safety Awareness Memory Description Short Term Impaired Gross Range of Motion Lower Extremity ROM Assessment Within Functional Limits Strength Lower Extremity Strength Assessment Right Impaired Hip 3-/5 Knee 3+/5 Coordination Assessment Gross Coordination Gross Coordination WNL Sensation Assessment Sensation Gross Sensation WNL Muscle Tone Muscle Tone WNL Yes M6 PT-IP Treatment Start: 07/10/23 17:06 Freq: NEEDED Status: Active Protocol: Document 07/10/23 15:02 AB (Rec: 07/10/23 17:25 AB [id number]) Physical Therapy Treatment Education Education Provided Precautions,Weight Bearing Status,Post-Op Packet,Safety M7 PT-IP Assessment and Plan Start: 07/10/23 17:06 Freq: NEEDED Status: Active Protocol: Document 07/10/23 15:02 (Rec: 07/10/23 17:25 [id number]) PT Summary Assessment and Plan Potential Rehabilitation Potential Good Status of Condition at Evaluation Evolving Summary Impairments Pain,ROM,Strength,Balance, Coordination,Sensation,Tone, Cognition,Bed Mobility, Transfers,Gait,Activity Tolerance Assessment Summary pt is a 68 y/o M s/p R SABIHA anterior approach POD 0. pt has R hip anterior precautions and is WBAT. pt requiring CGA with mobility using fWW and min A for stair climbing. caregiver training conducted and DIL was able to assist pt safely. pt may go home when medically stable. pt stated that he has outpt PT set up. Goals Bed Mobility Goal Independent Transfer Goal Independent,Front Wheeled Walker Gait Goal Independent,Front Wheel Walker Gait Distance 200 Other Goals up/down 2 platform steps mod I using FWW Days to Meet Goals 5 Frequency of Treatment Frequency Of Treatment Twice a Day Treatment Plan Physical Therapy Treatment Plan Bed Mobility Training,Transfer Training,Gait Training, Therapeutic Exercise,Balance Retraining,Post Op Education, Discharge Planning,Hot or Cold Pack,Neuromuscular Re-ed, Coordination Retraining,Manual Therapy Precautions Anterior Hip Precautions No Hip Extension,No Hip External Rotation Weight Bearing Status Weight Bearing Status Weight Bear as Tolerated Allowed Weight Bearing Amount (enter % RLE WBAT or #) (%) Recommendations To Nursing Amount of Assist Needed 1 Person Assist Discharge Recommendations PT Discharge Recommendations Home with Assistance, Outpatient PT Transportation Needs at Discharge Private Vehicle
--- NOTE | 2023-07-10 16:23 | OT.IP.EVAL ---
Current Diagnoses Unilateral primary osteoarthritis, right hip (07/10/23) Surgery Performed Operation Date: 07/10/23 07:45 Actual Procedures p Total Hip Arthroplasty/Anterior Approach(Right) - Nick Pierre MD Past Medical History (Last Updated 06/24/23 @ 09:36 by Mariposa Marks, RN) Anesthesia complication Aneurysm, thoracic aortic Aortic regurgitation Aortic stenosis Atrial fibrillation Bicuspid aortic valve Bowel obstruction (01/2019) BPH w urinary obs/LUTS Cataracts, bilateral Colon polyps COPD (chronic obstructive pulmonary disease) COVID-19 (~10/2021) Depression Elevated PSA H/O adenomatous polyp of colon Hearing impaired Hearing loss History of gout Hyperlipidemia Hypertelorism Hypertension Hypogonadism male Incomplete bladder emptying Low testosterone (~2009) Prostate nodule with urinary obstruction Psoriasis (~2016) Solitary kidney Tinnitus Type 2 diabetes mellitus Wears glasses Surgical History (Last Updated 06/24/23 @ 09:20 by Mariposa Marks RN) Anesthesia History of appendectomy (~1987) History of circumcision History of exploratory laparotomy History of nephrectomy, unilateral (~1984) History of ventral hernia repair (~1986) Hx of bilateral cataract extraction S/P AVR (aortic valve replacement) (~08/2019) S/P plication of diaphragm (~2010) Occupational Therapy Inpatient Evaluation/Re-Eval M2 OT-IP Current Condition Start: 07/10/23 16:47 Freq: Status: Active Protocol: Document 07/10/23 16:48 [facility] (Rec: 07/10/23 17:09 [facility] [id number]) Occupational Therapy Current Condition Current Condition Evaluation Date 07/10/23 Treatment Diagnosis S/P R SABIHA Anterior approach Diagnosis Onset Date 07/10/23 Post Operative Precautions Anterior Hip Precautions No Hip Extension,No Hip External Rotation M3 OT- IP Subjective and Pain Start: 07/10/23 16:47 Freq: Status: Active Protocol: Document 07/10/23 16:48 [facility] (Rec: 07/10/23 17:09 [facility] [id number]) OT- Subjective Occupational Therapy Visit Type Type Initial Evaluation Visit Start Time 15:35 Visit Stop Time 16:23 Occupational Therapy Visit Comments Patient Comments Pt working with PT when OT came in to work with the pt. Patient/Caregiver Goals TO go home. OT Pain Assessment Pain When Pain Assessed During Mobility Pain Present Pain Present Pain Reported Location Right Hip Intensity 9 Scale Used Numeric (0 - 10) M4 OT- IP ADL's Start: 05/10/24 16:47 Freq: Status: Active Protocol: Document 07/10/23 16:48 [facility] (Rec: 07/10/23 17:09 [facility] [id number]) OT [id number] General Evaluation Self-Feeding Ability Independent OT ADL-Grooming Comments OT Grooming Comments Not performed. OT ADL-Oral Care Comments Oral Care Comments Not performed. OT ADL-Dressing Comments OT Dressing Comments Pt has all LB dressing equipment at home. Educated to dress his RLE first and take out last. Reminded pt to be mindful of his RLE positioning during ADL needs. In addition suggested to attach his licensed investment sales assistant to FWW. Suggested to use one hand on the FWW while the other hand asisst with his LB dressing needs. Or initially have his daughter assist as needed. OT ADL-Toileting Comments OT Toileting Comments Suggested to wear pads/pull ups and use of urinal at night . Able to show pt toilet paper aid or bidet to increase his ease and independence with hygiene needs. OT ADL-Bathing Comments OT Bathing Comments Suggested to use the FWW to help get into the shower and sit to the shower chair while showering. M5 OT- IP IADL's Start: 07/10/23 16:47 Freq: Status: Active Protocol: Document 07/10/23 16:48 [facility] (Rec: 07/10/23 17:09 [facility] [id number]) OT-Instrumental Activities of Daily Living Deficits IADL Deficits Identified Deficits Home Safety Awareness Awareness of Need for Assistance at Home Good Awareness Ability to Problem Solve Emergency Able to Problem Solve Situations Medication Management Medication Management No Deficits Identified Money Management Money Management No Deficits Identified Meal Preparation Meal Preparation Caregiver Provides Assist Concession Supervisor Concession Supervisor Caregiver Provides Assist M6 OT- IP Functional Cognition Start: 07/10/23 16:47 Freq: Status: Active Protocol: Document 07/10/23 16:48 [facility] (Rec: 07/10/23 17:09 [facility] [id number]) Cognitive Factors Limiting Selfcare Function Cognitive Ability Level of Alertness Alert Patient Orientation Name,Age,Birthday,Month,Date, Year,Day of Week,Place, Situation Ability to Follow Commands Able to Follow One Step Commands Safety Awareness Decreased Ability to Apply Precautions Cognitive Comments Cognitive Assessment Comments Pt able to follow commands for ADl and mobility needs and needing reminders to incorporate his hip precautions during especially mobility needs. OT- Vision and Hearing OT- Hearing Assessment OT- Hearing Assessment Use of Hearing Aids OT- Vision Assessment Visual Acuity Glasses For Reading Visual Attentiveness WFL Occular Pursuits WFL M7 OT- IP Mobility and Balance Start: 07/10/23 16:47 Freq: Status: Active Protocol: Document 07/10/23 16:48 [facility] (Rec: 07/10/23 17:09 [facility] [id number]) OT-Transfer Assessment Sit to and From Stand Sit to and from Stand Minimal Assistance,Moderate Assistance Transfers Transfer Ability Contact Guard Assistance, Minimal Assistance Comments Mobility Comments Pt needing use of leg dealer support technician and with the bed elevated so able to get out of bed. Educated to try to use his core more to assist with his needs and eventually work towards not using the bed to assist. Pt needing heavy use of the bed rail to assist to get up as well. Pt plans on buying a bed cane. Pt needing one person assist to come to stand and walk with the FWW. OT- Balance Assessment Sitting Balance and Reactions Static Sitting Balance Ability Normal Dynamic Sitting Balance Ability Good Standing Balance and Reactions Static Standing Balance Ability Good Dynamic Standing Balance Ability Fair M8 OT- IP Objective Assessments Start: 07/10/23 16:47 Freq: Status: Active Protocol: Document 07/10/23 16:48 [facility] (Rec: 07/10/23 17:09 [facility] [id number]) OT Gross Range of Motion Upper Extremity Range of Motion Assessment Within Functional Limits OT Strength Comments Strength Comments WFL for ADL and mobility needs . M9 OT- IP Assessment and Plan Start: 07/10/23 16:47 Freq: Status: Active Protocol: Document 07/10/23 16:48 [facility] (Rec: 07/10/23 17:09 [facility] [id number]) OT Summary Assessment and Plan Potential Rehabilitation Potential Good Analytic Complexity at Evaluation Low Summary OT Impairments Pain,Strength,Balance, Functional Mobility,Dressing, Toileting,Bathing,Toilet Transfers,Shower Transfers, Activity Tolerance Progress Towards Goals Progressing Toward Goals Assessment Summary Pt low complexity and main barriers are pain, difficulty with bed mobility and transition due to weakness. Pt 's daughter and son in law present for caregiver training and his daughter able to assist him safely for all needs. Pt to go home with assist when medically stable and have outpt PT. Goals Dressing Goal Independent,Long Handled Shoe Horn,Veterinary Practitioner,Sock Aid Toileting Goal Independent Bathing Goal Standby Assistance,Grab Bars, Hand Held Shower Sprayer Toilet Transfer Goal Independent Shower Transfer Goal Standby Assistance Days to Meet Goals 2 Frequency of Treatment Frequency Of Treatment Once a Day Treatment Plan OT Treatment Plan ADL Training,Functional Mobility,Patient/Family Education,Discharge Planning Discharge Recommendations OT Discharge Recommendations Home with Assistance, Outpatient PT Transportation Needs at Discharge Private Vehicle
--- NOTE | 2023-07-10 17:17 | P.PN_ITS ---
Subjective Subjective Interval history: Patient seen postoperatively. Using the bathroom when I arrived. Spoke with physical therapy who said he ambulated very well during the session. His dressing is clean dry and intact. He would like to remain inpatient overnight and have some more time to ambulate in the morning prior to returning home. We will continue with routine postoperative care for him. He will not receive any NSAIDs given his solitary kidney Exam Vital Signs (past 8 hours): - 07/10/23 10:16 07/10/23 10:21 07/10/23 10:26 Temperature 98.4 F Pulse Rate 86 79 80 Respiratory Rate 18 13 14 Blood Pressure 123/67 121/76 105/57 L Pulse Oximetry 94 92 96 Oxygen Delivery Method Room Air Room Air Room Air Oxygen Flow Rate 07/10/23 10:31 07/10/23 10:36 07/10/23 10:41 Temperature 97.3 F L Pulse Rate 80 83 81 Respiratory Rate 14 15 16 Blood Pressure 86/45 L 90/44 L 109/71 Pulse Oximetry 99 94 95 Oxygen Delivery Method Room Air Room Air Room Air Oxygen Flow Rate 07/10/23 10:47 07/10/23 11:01 07/10/23 11:16 Temperature Pulse Rate 85 83 80 Respiratory Rate 19 12 20 Blood Pressure 132/74 128/79 127/70 Pulse Oximetry 95 94 94 Oxygen Delivery Method Room Air Room Air Room Air Oxygen Flow Rate 07/10/23 11:26 07/10/23 11:45 07/10/23 12:15 Temperature 97.3 F L 97.7 F 97.8 F Pulse Rate 79 82 91 H Respiratory Rate 18 14 18 Blood Pressure 126/75 134/73 115/64 Pulse Oximetry 95 94 90 L Oxygen Delivery Method Room Air Oxygen Flow Rate 0 0 07/10/23 12:30 07/10/23 13:30 07/10/23 15:10 Temperature 98.0 F 98.1 F 98.0 F Pulse Rate 87 82 86 Respiratory Rate 18 18 18 Blood Pressure 113/73 120/72 129/70 Pulse Oximetry 96 96 92 Oxygen Delivery Method Oxygen Flow Rate 0 0 0 Oxygen Delivery Method Room Air Oxygen Flow Rate 0 Objective Labs 07/10/23 06:50 Labs: Laboratory Results - last 24 hr 07/10/23 06:50 WBC 2.6 L RBC 4.24 L Hgb 13.7 Hct 41.0 MCV 96.7 MCH 32.3 MCHC 33.4 RDW 15.0 H Plt Count 141 L Neut % (Auto) 47.1 L Lymph % (Auto) 29.5 O'Brien % (Auto) 17.9 H Eos % (Auto) 4.9 H Baso % (Auto) 0.6 Neut # (Auto) 1200 L Lymph # (Auto) 800 L O'Brien # (Auto) 500 Eos # (Auto) 100 Baso # (Auto) 0 Blood Type O Positive Antibody Screen Negative PFSH Medical History (Updated 06/24/23 @ 09:36 by Mariposa Marks RN) Bowel obstruction (01/2019) Anesthesia complication Hearing impaired Solitary kidney Bicuspid aortic valve Incomplete bladder emptying Prostate nodule with urinary obstruction Elevated PSA History of gout COVID-19 (~10/2021) BPH w urinary obs/LUTS Wears glasses Tinnitus Hearing loss Cataracts, bilateral Colon polyps Low testosterone (~2009) Aortic regurgitation Psoriasis (~2016) COPD (chronic obstructive pulmonary disease) Depression Hypogonadism male H/O adenomatous polyp of colon Atrial fibrillation Aortic stenosis Aneurysm, thoracic aortic Type 2 diabetes mellitus Hyperlipidemia Hypertension Hypertelorism Surgical History (Updated 06/24/23 @ 09:20 by Mariposa Marks RN) Hx of bilateral cataract extraction History of circumcision Anesthesia S/P plication of diaphragm (~2010) S/P AVR (aortic valve replacement) (~08/2019) History of appendectomy (~1987) History of exploratory laparotomy History of ventral hernia repair (~1986) History of nephrectomy, unilateral (~1984) Family History Father Cancer Mother Diabetes mellitus Sister Diabetes mellitus Grandfather Cancer Social History marital status: number of children: 2 household members: family Smoking Status: Former smoker alcohol intake: current Quality VTE Deep Vein Thrombosis/Pulmonary Embolism Present on Admission: No
[2023-07-10] MEDS: TAMSULOSIN 0.4 MG CAPSULE 0.8 MG PO (17:28)
[2023-07-10] MEDS: INSULIN LISPRO 100 UNIT/ML 3ML VIAL SUBCUT ×2 (17:29→21:14)
[2023-07-10] MEDS: ONDANSETRON 4 MG/2 ML INJ IV ×2 (17:33→21:50)
[2023-07-10] MEDS: glipiZIDE 5 MG TABLET PO (21:12)
[2023-07-10] MEDS: DOCUSATE 100 MG CAPSULE PO (21:12)
[2023-07-10] MEDS: ASPIRIN EC 81 MG TABLET PO (21:12)
[2023-07-11] VITALS (8 sets, daily range): BP systolic 123–146; BP diastolic 54–84; PULSE 82–103; RESP 16–22; TEMP 36.8–37.3; O2SAT 89–95
[2023-07-11] MEDS: TRAZODONE 50 MG TABLET PO (00:13)
[2023-07-11] MEDS: OXYCODONE IR 5 MG TABLET PO ×7 (00:13→23:30)
[2023-07-11] MEDS: CEFAZOLIN 2 GM/100 ML PREMIX 100 ML IV (01:12)
[2023-07-11] MEDS: TRAMADOL 50 MG TABLET PO (05:10)
[2023-07-11 06:10] LABS: Hematocrit 33.9 % (41-53); Hemoglobin 11.5 g/dL (13.5-17.5)
--- NOTE | 2023-07-11 06:49 | P.DS_ITS ---
History of Present Illness History of Present Illness Chief complaint: Right SABIHA *OPB* Narrative: Mal is a pleasant 68 year old male who is POD#1 s/p right anterior SABIHA by Dr. Pierre. Today patient states he is doing well overall, pain is X His postop pain medications at home already and already has outpatient PT set up as well. Denies fever, chills, chest pain, SOB, nausea, vomiting. Discharge Providers Provider Primary care physician: Benjamin Mancilla MD Consults: 06/25/23 12:22 Consult to Anesthesiology Routine Comment: Consulting Provider: Anesthesiologist Reason for consultation: Surgeon requested re: Aortic valve replacement, solitary kidney 07/10/23 11:24 Consult to Discharge Planning Routine Comment: Consult to Occupational Therapy Evaluate & Treat Comment: Physician Instructions: Evaluate and treat Consult to Physical Therapy Evaluate & Treat Comment: Physician Instructions: post op SABIHA protocol Discharge provider: Tonya Hebert PA-C Summary Hospital Course Discharge Diagnosis: right hip OA s/p R SABIHA Exam Vital Signs (past 8 hours): - 07/11/23 00:50 07/11/23 04:55 Temperature 99.2 F 98.7 F Pulse Rate 93 H 103 H Respiratory Rate 16 18 Blood Pressure 146/73 H 135/61 Pulse Oximetry 93 95 Oxygen Flow Rate 0 0 Oxygen Delivery Method Room Air Oxygen Flow Rate 0 Objective Labs 07/11/23 05:55 Labs: Laboratory Results - last 24 hr 07/10/23 07/11/23 06:50 05:55 WBC 2.6 L RBC 4.24 L Hgb 13.7 11.5 L Hct 41.0 33.9 L MCV 96.7 MCH 32.3 MCHC 33.4 RDW 15.0 H Plt Count 141 L Neut % (Auto) 47.1 L Lymph % (Auto) 29.5 [place] % (Auto) 17.9 H Eos % (Auto) 4.9 H Baso % (Auto) 0.6 Neut # (Auto) 1200 L Lymph # (Auto) 800 L [place] # (Auto) 500 Eos # (Auto) 100 Baso # (Auto) 0 Blood Type O Positive Antibody Screen Negative [facility] Medical History (Updated 06/24/23 @ 09:36 by Mariposa Marks RN) Bowel obstruction (01/2019) Anesthesia complication Hearing impaired Solitary kidney Bicuspid aortic valve Incomplete bladder emptying Prostate nodule with urinary obstruction Elevated PSA History of gout COVID-19 (~10/2021) BPH w urinary obs/LUTS Wears glasses Tinnitus Hearing loss Cataracts, bilateral Colon polyps Low testosterone (~2009) Aortic regurgitation Psoriasis (~2016) COPD (chronic obstructive pulmonary disease) Depression Hypogonadism male H/O adenomatous polyp of colon Atrial fibrillation Aortic stenosis Aneurysm, thoracic aortic Type 2 diabetes mellitus Hyperlipidemia Hypertension Hypertelorism Surgical History (Updated 06/24/23 @ 09:20 by Mariposa Marks RN) Hx of bilateral cataract extraction History of circumcision Anesthesia S/P plication of diaphragm (~2010) S/P AVR (aortic valve replacement) (~08/2019) History of appendectomy (~1987) History of exploratory laparotomy History of ventral hernia repair (~1986) History of nephrectomy, unilateral (~1984) Family History Father Cancer Mother Diabetes mellitus Sister Diabetes mellitus Grandfather Cancer Social History marital status: number of children: 2 household members: family Smoking Status: Former smoker alcohol intake: current Discharge Assessment & Plan Assessment and Plan Assessment: stable s/p R SABIHA Discharge Plan Discharge Plan Patient Disposition: Home Provider Discharge Comment: [email or web address] Discharge orders & Medications Prescriptions: New oxycodone 5 mg Tablet 5 mg PO Q4-6H PRN (Reason: Pain, Severe (7-10)) Qty: 30 0RF docusate sodium 100 mg Capsule 100 mg PO BID Qty: 30 0RF ondansetron 4 mg Tablet,Disintegrating 4 mg PO Q4HR PRN (Reason: Nausea) Qty: 10 0RF aspirin 81 mg Tablet,Delayed Release (Dr/Ec) 81 mg PO BID 42 Days Qty: 84 0RF Continued glipizide 5 mg tablet 5 mg PO BID Qty: 180 3RF Farxiga 10 mg tablet 10 mg PO QAM Qty: 90 3RF metoprolol succinate 25 mg tablet extended release 24 hr 25 mg PO QAM Qty: 90 3RF triazolam [Halcion] 0.25 mg tablet 0.25 mg PO ONCE Qty: 2 0RF Rx Instructions: Take 2 tablets 1-2 hours prior to scheduled MRI as directed. ketoconazole 2 % shampoo 1 applic topical 2XW losartan 25 mg tablet 25 mg PO DAILY Qty: 90 3RF CoQ10 Chewable 200 mg 1 tab PO DAILY albuterol sulfate 90 mcg/actuation HFA aerosol inhaler 2 puff inhalation Q4-6H PRN (Reason: shortness of breath or wheezing) Qty: 8.5 6RF pravastatin 20 mg tablet 20 mg PO DAILY Qty: 90 3RF (DME) Disabled Parking See Rx Instructions .ROUTE .MEDSUPPLY Qty: 1 0RF Rx Instructions: Patient qualifies for disabled parking as per the attached form. tamsulosin 0.4 mg capsule 0.8 mg PO QPM mometasone 50 mcg/actuation [place],Non-Aerosol 50 mcg INTRANASAL DAILY cyanocobalamin (vitamin B-12) 100 mcg Tablet 100 mcg PO QAM trazodone 50 mg Tablet 50 mg PO BEDTIME PRN (Reason: Insomnia) acetaminophen [Acetaminophen Extra Strength] 500 mg Tablet 1,000 mg PO TID-QID PRN (Reason: Pain (Scale Score 1-3)) ascorbic acid (vitamin C) 500 mg Tablet 500 mg PO DAILY clobetasol 0.05 % solution 0.005 % TOPICAL BID PRN (Reason: Skin Cleansing) cetirizine 10 mg Capsule 10 mg PO BID PRN (Reason: allergies) cholecalciferol (vitamin D3) 100 mcg (4,000 unit) Tablet 100 mcg PO QAM Centrum Silver Men 300-600-300 mcg Tablet 1 tab PO QAM melatonin 3 mg tablet 10 mg PO BEDTIME PRN (Reason: Insomnia) Discontinued aspirin [Adult Low Dose Aspirin] 81 mg Tablet,Delayed Release (Dr/Ec) 81 mg PO QAM Follow up/Referrals: Benjamin Mancilla MD [Primary Care Provider] - Nick Pierre MD [Physician] - (Follow up at [facility] as scheduled in 2 weeks. Appointment on 07/22/2023 at 1:30 p.m. with BRAD Adams. ) Diet/Activity/Treatments Diet: Diet as Tolerated Activity: Weight-bearing as tolerated, maintain anterior hip precautions. With outpatient PT to improve mobility. Cold/Heat Therapy: Ice to the hip for additional pain control. Skin/Wound/Dressing Care Report to your healthcare provider any signs of infection, such as:: chills, fever, night sweats, unusual drainage and unusual redness Dressing: Keep dressing intact, clean and dry until 2 week post-op appointment. No soaking the incision site in pools or tubs. No topical ointments or creams to the incision site. Visit Report/Discharge Packet Instructions: DI for Hip Replacement, DI for Prescription Opioid Use Stand Alone Forms: Patient Portal/API Discharge Data Primary Care Provider: Benjamin Mancilla Attending Provider: Nick Pierre VTE Deep Vein Thrombosis/Pulmonary Embolism Present on Admission: No
--- NOTE | 2023-07-11 07:14 | PM.PNPO.1 ---
Subjective Subjective Interval history: Mal is a pleasant 68 year old male who is POD#1 s/p right anterior SABIHA by Dr. Pierre. Today patient states he is still in a significant amount of pain, although slightly improved since last night. Patient reports he was finally able to get his pain under control at 1:00 a.m. and get some sleep. He reports that he walked down the hallways with physical therapy yesterday and did okay but now feels as though he can not move his right leg due to the severe pain in both his hip and knee. He has been able to ambulate to the bathroom with 2 person assist and walker although he was straight cathed once last night for urinary retention. Mal lives with his son and [id number] who he was planning to discharge home to today but now expresses significant concern to be discharged home as he still has very limited mobility and poor pain control, he fears he may suffer a fall. He has his postop pain medications at home already as well as his outpatient PT set up. Denies fever, chills, chest pain, SOB, nausea, vomiting. Exam Vital Signs (past 8 hours): - 07/11/23 00:50 07/11/23 04:55 Temperature 99.2 F 98.7 F Pulse Rate 93 H 103 H Respiratory Rate 16 18 Blood Pressure 146/73 H 135/61 Pulse Oximetry 93 95 Oxygen Flow Rate 0 0 Oxygen Delivery Method Room Air Oxygen Flow Rate 0 Narrative Exam Narrative: Lying in bed with SCDs on and functioning during our interview today Resp Effort & Inspection: normal respiratory effort and able to speak in complete sentences Cardio Rate: regular rate Skin Other: Clean, dry, intact Aquacel dressing in place over the Right anterior hip. No drainage. Neuro General: patient alert, patient awake and patient oriented x3 Other: Gross sensation intact throughout bilateral lower extremities, he does have mild pre-existing bilateral neuropathy that was present prior to surgery. Extrem Other: RIGHT: Grossly normal alignment, moderate swelling throughout the RLE. 5/5 strength with DF, PF, EHL. 0/5 strength with knee flexion, extension or hip flexion. Muscle firing is felt with both quad and hamstring muscle groups but no AROM achieved at the knee or hip. Minimal passive ROM achived with the knee, limited by pain. Calves soft and compressible bilaterally. Objective Labs 07/11/23 05:55 Labs: Laboratory Results - last 24 hr 07/10/23 07/11/23 06:50 05:55 Hgb 11.5 L Hct 33.9 L Blood Type O Positive Antibody Screen Negative PFSH Medical History (Updated 06/24/23 @ 09:36 by Mariposa Marks RN) Bowel obstruction (01/2019) Anesthesia complication Hearing impaired Solitary kidney Bicuspid aortic valve Incomplete bladder emptying Prostate nodule with urinary obstruction Elevated PSA History of gout COVID-19 (~10/2021) BPH w urinary obs/LUTS Wears glasses Tinnitus Hearing loss Cataracts, bilateral Colon polyps Low testosterone (~2009) Aortic regurgitation Psoriasis (~2016) COPD (chronic obstructive pulmonary disease) Depression Hypogonadism male H/O adenomatous polyp of colon Atrial fibrillation Aortic stenosis Aneurysm, thoracic aortic Type 2 diabetes mellitus Hyperlipidemia Hypertension Hypertelorism Surgical History (Updated 06/24/23 @ 09:20 by Mariposa Marks RN) Hx of bilateral cataract extraction History of circumcision Anesthesia S/P plication of diaphragm (~2010) S/P AVR (aortic valve replacement) (~08/2019) History of appendectomy (~1987) History of exploratory laparotomy History of ventral hernia repair (~1986) History of nephrectomy, unilateral (~1984) Family History Father Cancer Mother Diabetes mellitus Sister Diabetes mellitus Grandfather Cancer Social History marital status: number of children: 2 household members: family Smoking Status: Former smoker alcohol intake: current Assessment & Plan Post-op Postoperative Procedures: Procedures Operation Date: 07/10/23 07:45 Actual Procedure Side Surgeon p Total Hip Arthroplasty/Anterior Approach Right Nick Pierre MD Postoperative day: 1 Postoperative status narrative: Poor pain control, poor mobility Postoperative plan narrative: 1) Due to patients poor pain control and limited mobility, will likely discharge to home with son and daughter in law tomorrow. Suspect his limited AROM of the RLE is d/t poor pain control, will continue to monitor. 2) Continue multimodal pain management with ice to the hip for additional pain control. 3) ASA b.i.d. for DVT prophylaxis. 4) Continue to work with physical therapy to improve mobility, stability while still here in the hospital. Will transfer to outpatient physical therapy to work on range of motion and mobility once d/c from hospital. 5) Keep dressing intact, clean, dry until 2 week postop appointment. No soaking the incision site in pools or tubs. No topical ointments or creams to the incision site. 5) Follow up at [facility] orthopedics in 2 weeks for a postop appointment and wound check. All patient's questions were answered, he demonstrates understanding and are in agreement with the plan. Call our office if any questions or concerns arise. Quality VTE Deep Vein Thrombosis/Pulmonary Embolism Present on Admission: No
[2023-07-11] MEDS: polyethylene glycoL 3350 17 GM POWD.PACK PO (08:00)
[2023-07-11] MEDS: ASPIRIN EC 81 MG TABLET PO ×2 (08:01→20:20)
[2023-07-11] MEDS: DOCUSATE 100 MG CAPSULE PO ×2 (08:02→20:20)
[2023-07-11] MEDS: INSULIN LISPRO 100 UNIT/ML 3ML VIAL SUBCUT (08:02)
[2023-07-11] MEDS: CHOLECALCIFEROL (VITAMIN D3) 1,000 UNIT TABLET 4000 UNIT PO (08:08)
[2023-07-11] MEDS: MULTIVITAMIN 1 TABLET 1 TAB PO (08:08)
[2023-07-11] MEDS: CYANOCOBALAMIN (VITAMIN B-12) 100 MCG TABLET PO (08:08)
[2023-07-11] MEDS: FLUTICASONE 120 SPRAY/16 GM SPRAY.SUSP NASAL (08:10)
[2023-07-11] MEDS: ONDANSETRON 4 MG/2 ML INJ IV ×2 (08:11→12:02)
[2023-07-11] MEDS: glipiZIDE 5 MG TABLET PO ×2 (08:12→20:20)
[2023-07-11] MEDS: METOPROLOL ER 25 MG TABLET PO (08:13)
[2023-07-11] MEDS: PRAVASTATIN 20 MG TABLET PO (09:06)
[2023-07-11] MEDS: DAPAGLIFLOZIN PROPANEDIOL 10 MG 10 EACH PO (09:06)
[2023-07-11] MEDS: ASCORBIC ACID 500 MG TABLET PO (09:06)
--- NOTE | 2023-07-11 09:37 | CM.DANOTE ---
Addendum entered by WALDO Beth 07/11/23 11:09: ADD: According to DIE DRAWING CHECKER [place], patient could likely discharge home with family later today; patient still complaining of pain and weakness however likely not a SNF candidate. DIE DRAWING CHECKER concerned that patient may have mentally resigned himself to staying in the hospital, as he was asking to go to a SNF POD0, before getting out of bed. If patient stays the night; expect this to be a potentially avoidable day. CM team following closely and available to coordinate HH services if patient agreeable. HUGO Original Note: Initial DCP Assessment Note Pt is a 68 yo male, resident of [place], POD#1 s/p right anterior SABIHA by Dr. Pierre. Patient in significant pain today. Lives with son and DIL, hopeful to return home if pain subsides. PCP: Benjamin Mancilla Payer: [facility] Reviewed chart, Met w/patient this morning to introduced self and role. Patient has planned to return home with his son and DIL, with whom he lives, although feeling overwhelmed today by the amount of pain he is in, leaving him immobilized. Patient continues to hope for discharge home, no hx of HH or SNF. States he would be open to either of these options if recommended. If SNF; one would need to be secured that accepts patient's [place] [employer] A/S insurance and a SNF auth would need to be obtained. CM team will plan to follow clinical course closely. DIE DRAWING CHECKER [place] today will be helpful to assist in dispo planning. WALDO Prasad Discharge Planning/Care Management CM Discharge Assessment Start: 07/11/23 09:33 Freq: Status: Active Protocol: Document 07/11/23 09:33 HUGO (Rec: 07/11/23 09:37 HUGO [id number]) Discharge Planning Assessment Assigned Recycling Manager WALDO Jones DPOA/Assigned Designee Name Juan Goodwin [phone] Contact Information Hood Goodwin [phone] ([place]) Advance Directives? No History Provided By Patient,Medical Record Prior Living Arrangements House Household Members family Type of transporation used prior to Drives own vehicle admit Independent with ADL's Yes Is patient alert and oriented? Yes Barriers to Discharge Yes Comment Significant pain today and cannot mobilize as well as POD0. Home w/ HH vs SNF. [facility] for insurance. Discharge Plan Home with Home Health Transportation Arrangement Family Additional Comment Patient wants to return home, may benefit from HH services if discharged home
--- NOTE | 2023-07-11 10:32 | PT.IPTN ---
Current Diagnoses Unilateral primary osteoarthritis, right hip (07/10/23) Surgery Performed Operation Date: 07/10/23 07:45 Actual Procedures p Total Hip Arthroplasty/Anterior Approach(Right) - Nick Pierre MD Physical Therapy Treatment Note M2 PT-IP Current Condition Start: 07/10/23 17:06 Freq: NEEDED Status: Active Protocol: Document 07/10/23 15:02 AB (Rec: 07/10/23 17:25 AB [id number]) Physical Therapy Current Condition Current Condition Evaluation Date 07/10/23 Treatment Diagnosis s/p R SABIHA anterior; difficulty in walking Onset Date 07/10/23 M3 PT-IP Subjective Start: 07/10/23 17:06 Freq: NEEDED Status: Active Protocol: Document 07/11/23 11:03 TS (Rec: 07/11/23 11:16 TS [id number]) Subjective Physical Therapy Visit Type Type Treatment Note Visit Start Time 10:32 Visit Stop Time 10:55 Number of THIRD COOK Visits 1 Physical Therapy Visit Comments Patient Comments Pt found resting in bed, reports he can't move his R leg and pain is 7/10, pt is agreeable to PT. Therapy Pain Assessment Pain When Pain Assessed During Mobility Pain Present Pain Present Pain Reported Location Right Hip Intensity 7 Description Aching Pain Management Techniques Apply Cold,Distraction, Modification of Treatment,Re- positioning,Timing of Activity with Medications M4 PT-IP Mobility and Gait Start: 07/10/23 17:06 Freq: NEEDED Status: Active Protocol: Document 07/11/23 11:03 TS (Rec: 07/11/23 11:16 TS [id number]) PT-Bed Mobility Assessment Supine to Sit Supine to Sit Moderate Assistance,1 Person Assistance Scooting Scooting to Edge of Bed Minimal Assistance PT-Transfer Assessment Sit to and From Stand Sit to and from Stand Minimal Assistance,1 Person Assistance Equipment Transfer Assistive Device Gait Belt,Front Wheeled Walker Orthotic/Prosthetic Devices or Brace: No Transfers Transfer Destination Chair Transfer Technique Stand Step Pivot Transfer Ability Level of Assist Minimal Assistance,1 Person Assistance,Use of Upper Extremities Comments Mobility Comments Pt performed heel slides and quad sets prior to mobility, pt demonstrates poor strength with EX. He performed supine to sit ModA for uprighting trunk and RLE assist. STS from bed Santhosh with FWW, pt is heavy handed on FWW. Pt performed stand step pivot to chair Santhosh with FWW, pt has difficulty lifting and bringing RLE forward, pt tends to shuffle R foot. Pt was left in chair, all needs met. Gait Assessment Gait Gait Assistance Required: Minimum Assistance,1 Person Assist Distance (Feet) 3 Able to Maintain Weight Bearing Status Yes During Gait Assistive Devices Assistive Device Gait Belt,Front Wheeled Walker Orthotic/Prosthetic Devices or Brace: No Gait Deviations General Gait Pattern Antalgic,Decreased Feet Clearance Factors Limiting Gait Function Factors Limiting Gait Function Decreased Strength,Limited Range of Motion,Pain,Poor Balance,Poor Safety Awareness PT-Balance Assessment Sitting Balance and Reactions Static Sitting Balance Ability Good Dynamic Sitting Balance Ability Fair Standing Balance and Reactions Static Standing Balance Ability Fair Dynamic Standing Balance Ability Poor Device Used FWW M5 PT-IP Objective Assessments Start: 07/10/23 17:06 Freq: NEEDED Status: Active Protocol: Document 07/10/23 15:02 AB (Rec: 07/10/23 17:25 AB [id number]) Orientation Orientation/Cognition Level of Alertness Alert Orientation Name,Place,Situation Language Function Ability No Deficits Noted Safety Awareness Decreased Safety Awareness Memory Description Short Term Impaired Gross Range of Motion Lower Extremity ROM Assessment Within Functional Limits Strength Lower Extremity Strength Assessment Right Impaired Hip 3-/5 Knee 3+/5 Coordination Assessment Gross Coordination Gross Coordination WNL Sensation Assessment Sensation Gross Sensation WNL Muscle Tone Muscle Tone WNL Yes M6 PT-IP Treatment Start: 07/10/23 17:06 Freq: NEEDED Status: Active Protocol: Document 07/11/23 11:03 TS (Rec: 07/11/23 11:16 [id number]) Physical Therapy Treatment Education Education Provided Precautions,Weight Bearing Status,Post-Op Packet,Safety M7 PT-IP Assessment and Plan Start: 07/10/23 17:06 Freq: NEEDED Status: Active Protocol: Document 07/11/23 11:03 TS (Rec: 07/11/23 11:16 TS [id number]) PT Summary Assessment and Plan Potential Rehabilitation Potential Good Summary Impairments Pain,ROM,Strength,Balance, Coordination,Sensation,Tone, Cognition,Bed Mobility, Transfers,Gait,Activity Tolerance Progress Towards Goals Slow Progress due to Pain,Slow Progress due to Activity Tolerance Assessment Summary Mal is having difficulty progressing his mobility this session due to increase in pain and weakness. He requires ModA for uprighting trunk into sitting position. He performed STS Santhosh with FWW, pt is slow to stand but has no buckling or LOB. He is having increased difficulty with gait and moving RLE forward, pt tends to shuffle with R foot. PT at this time is recommending Home with 24/7 assist and HHPT. Pt will be seen again in afternoon to assess progress. Goals Bed Mobility Goal Independent Transfer Goal Independent,Front Wheeled Walker Gait Goal Independent,Front Wheel Walker Gait Distance 200 Other Goals up/down 2 platform steps mod I using FWW Days to Meet Goals 5 Frequency of Treatment Frequency Of Treatment Twice a Day Treatment Plan Physical Therapy Treatment Plan Bed Mobility Training,Transfer Training,Gait Training, Therapeutic Exercise,Balance Retraining,Post Op Education, Discharge Planning,Hot or Cold Pack,Neuromuscular Re-ed, Coordination Retraining,Manual Therapy Precautions Anterior Hip Precautions No Hip Extension,No Hip External Rotation Weight Bearing Status Weight Bearing Status Weight Bear as Tolerated Allowed Weight Bearing Amount (enter % RLE WBAT or #) (%) Recommendations To Nursing Amount of Assist Needed 2 Person Assist Discharge Recommendations PT Discharge Recommendations Home with 24/7 Assist Available,Home Health Transportation Needs at Discharge Private Vehicle
[2023-07-11] MEDS: hydrOXYzine HCL 25 MG TABLET PO ×2 (12:02→20:20)
--- NOTE | 2023-07-11 13:15 | PT.IPTN ---
Current Diagnoses Unilateral primary osteoarthritis, right hip (07/10/23) Surgery Performed Operation Date: 07/10/23 07:45 Actual Procedures p Total Hip Arthroplasty/Anterior Approach(Right) - Nick Pierre MD Physical Therapy Treatment Note M2 PT-IP Current Condition Start: 07/10/23 17:06 Freq: NEEDED Status: Active Protocol: Document 07/10/23 15:02 AB (Rec: 07/10/23 17:25 AB [id number]) Physical Therapy Current Condition Current Condition Evaluation Date 07/10/23 Treatment Diagnosis s/p R SABIHA anterior; difficulty in walking Onset Date 07/10/23 M3 PT-IP Subjective Start: 07/10/23 17:06 Freq: NEEDED Status: Active Protocol: Document 07/11/23 13:25 TS (Rec: 07/11/23 13:36 TS [id number]) Subjective Physical Therapy Visit Type Type Treatment Note Visit Start Time 13:15 Visit Stop Time 13:25 Number of CONVENTIONAL MORTGAGE UNDERWRITER Visits 2 Physical Therapy Visit Comments Patient Comments Pt found resting in chair, lethargic and reports high pain in groin on R side. Pt is agreeable to PT. Therapy Pain Assessment Pain When Pain Assessed During Mobility Pain Present Pain Present Pain Reported M4 PT-IP Mobility and Gait Start: 07/10/23 17:06 Freq: NEEDED Status: Active Protocol: Document 07/11/23 13:25 TS (Rec: 07/11/23 13:36 TS [id number]) PT-Transfer Assessment Comments Mobility Comments Cued pt to scoot in chair to attempt standing. Pt could not get lift of hips to scoot forward in chair. Pt required multiple times to sit straight and bend at waist, pt could not follow cues due to pain. He attempted STS x1 but could not get lift. Pt reports high pain in groin. He requested to remain in chair. RN was notified of possible jamari out of chair. PT-Balance Assessment Sitting Balance and Reactions Static Sitting Balance Ability Fair Dynamic Sitting Balance Ability Fair M5 PT-IP Objective Assessments Start: 07/10/23 17:06 Freq: NEEDED Status: Active Protocol: Document 07/10/23 15:02 AB (Rec: 07/10/23 17:25 AB [id number]) Orientation Orientation/Cognition Level of Alertness Alert Orientation Name,Place,Situation Language Function Ability No Deficits Noted Safety Awareness Decreased Safety Awareness Memory Description Short Term Impaired Gross Range of Motion Lower Extremity ROM Assessment Within Functional Limits Strength Lower Extremity Strength Assessment Right Impaired Hip 3-/5 Knee 3+/5 Coordination Assessment Gross Coordination Gross Coordination WNL Sensation Assessment Sensation Gross Sensation WNL Muscle Tone Muscle Tone WNL Yes M6 PT-IP Treatment Start: 07/10/23 17:06 Freq: NEEDED Status: Active Protocol: Document 07/11/23 13:25 TS (Rec: 07/11/23 13:36 TS [id number]) Physical Therapy Treatment Education Education Provided Precautions,Weight Bearing Status,Post-Op Packet,Safety M7 PT-IP Assessment and Plan Start: 07/10/23 17:06 Freq: NEEDED Status: Active Protocol: Document 07/11/23 13:25 TS (Rec: 07/11/23 13:36 TS [id number]) PT Summary Assessment and Plan Potential Rehabilitation Potential Fair Summary Impairments Pain,ROM,Strength,Balance, Coordination,Sensation,Tone, Cognition,Bed Mobility, Transfers,Gait,Activity Tolerance Progress Towards Goals Slow Progress due to Pain,Slow Progress due to Activity Tolerance Assessment Summary Post-op after hip surgery pt was mobilizing well with PT and caregiver training was conducted. Pt now is lethargic and having increased difficulty with mobility and following cues today. He attempted STS from chair but could not get lift. Pt requested to remain in chair and RN was informed of pt needing possible jamari for getting back to bed. PT continues to recommend Home 24 /7 assist and HHPT at this time. If pt's mobility does not improve he may require SNF . Goals Bed Mobility Goal Independent Transfer Goal Independent,Front Wheeled Walker Gait Goal Independent,Front Wheel Walker Gait Distance 200 Other Goals up/down 2 platform steps mod I using FWW Days to Meet Goals 5 Frequency of Treatment Frequency Of Treatment Twice a Day Treatment Plan Physical Therapy Treatment Plan Bed Mobility Training,Transfer Training,Gait Training, Therapeutic Exercise,Balance Retraining,Post Op Education, Discharge Planning,Hot or Cold Pack,Neuromuscular Re-ed, Coordination Retraining,Manual Therapy Precautions Anterior Hip Precautions No Hip Extension,No Hip External Rotation Weight Bearing Status Weight Bearing Status Weight Bear as Tolerated Allowed Weight Bearing Amount (enter % RLE WBAT or #) (%) Recommendations To Nursing Amount of Assist Needed 2 Person Assist,Mechanical Lift Discharge Recommendations PT Discharge Recommendations Home with 24/7 Assist Available,Home Health Transportation Needs at Discharge Private Vehicle
[2023-07-11] MEDS: ACETAMINOPHEN 325 MG TABLET 650 MG PO ×2 (15:26→23:31)
[2023-07-11] MEDS: TAMSULOSIN 0.4 MG CAPSULE 0.8 MG PO (18:00)
[2023-07-11] MEDS: ALBUTEROL 2.5 MG/3 ML NEB (ADULT) INH (22:20)
--- NOTE | 2023-07-11 22:39 | PC.NURSE ---
Patient with audible wheezing and reports SOB, POX 93% on RA. RT here and gave Neb tx, RT stated POX was 89% and O2 2L NC applied. RT stated ipatient has upper airway wheezing and may have too much fluid on board. Patient's output not accurate due to patient refusing to use urinal and voiding in toilet. Dr Ritter notified of above, no new orders beyond RT treatments.
[2023-07-12] VITALS (10 sets, daily range): BP systolic 110–137; BP diastolic 53–71; PULSE 84–105; RESP 16–22; TEMP 36.1–38.3; O2SAT 84–98
[2023-07-12] MEDS: hydrOXYzine HCL 25 MG TABLET PO (02:40)
[2023-07-12] MEDS: TRAMADOL 50 MG TABLET PO ×3 (02:40→19:52)
[2023-07-12] MEDS: OXYCODONE IR 5 MG TABLET PO ×3 (06:33→23:15)
--- NOTE | 2023-07-12 09:12 | PT.IPTN ---
Current Diagnoses Unilateral primary osteoarthritis, right hip (07/10/23) Surgery Performed Operation Date: 07/10/23 07:45 Actual Procedures p Total Hip Arthroplasty/Anterior Approach(Right) - Ncik Pierre MD Physical Therapy Treatment Note M2 PT-IP Current Condition Start: 07/10/23 17:06 Freq: NEEDED Status: Active Protocol: Document 07/10/23 15:02 AB (Rec: 07/10/23 17:25 AB [id number]) Physical Therapy Current Condition Current Condition Evaluation Date 07/10/23 Treatment Diagnosis s/p R SABIHA anterior; difficulty in walking Onset Date 07/10/23 M3 PT-IP Subjective Start: 07/10/23 17:06 Freq: NEEDED Status: Active Protocol: Document 07/12/23 08:38 MB (Rec: 07/12/23 09:11 MB [id number]) Subjective Physical Therapy Visit Type Type Treatment Note Visit Start Time 08:38 Visit Stop Time 09:01 Number of REHAB PHYSICIAN Visits 0 Physical Therapy Visit Comments Patient Comments Pt states that he has not been able to move his right leg since surgery. He reports 8/10 pain in thigh and also reports decreased sensation. Therapy Pain Assessment Pain When Pain Assessed At Rest Pain Present Pain Present Pain Reported Location Right Hip Intensity 8 Pain Management Techniques Distraction,Re-positioning, Timing of Activity with Medications M4 PT-IP Mobility and Gait Start: 07/10/23 17:06 Freq: NEEDED Status: Active Protocol: Document 07/12/23 08:38 MB (Rec: 07/12/23 09:11 MB [id number]) PT-Bed Mobility Assessment Supine to Sit Supine to Sit Minimal Assistance,1 Person Assistance,Head of Bed Elevated,Bedrails Scooting Scooting to Edge of Bed Minimal Assistance PT-Transfer Assessment Sit to and From Stand Sit to and from Stand Moderate Assistance,1 Person Assistance,Use of Upper Extremities Equipment Transfer Assistive Device Gait Belt,Front Wheeled Walker Orthotic/Prosthetic Devices or Brace: No Transfers Transfer Destination Chair Transfer Technique Scooting right foot, use of RW Transfer Ability Level of Assist Moderate Assistance,1 Person Assistance,Use of Upper Extremities Comments Mobility Comments Pt does not tend to perform spontaneous movement in the bed. He uses leg supervisor microbiology technologists to scoot his right leg to the right to get to EOB. Increased time, ed and encouragement to get to EOB and heavy use of rail and HOB all the way increased. Cues for hand placement for STS. Right leg appears very unstable with standing/WB/weight shifting when up. Gait Assessment Gait Gait Assistance Required: Moderate Assistance,1 Person Assist Distance (Feet) 1 Able to Maintain Weight Bearing Status Yes During Gait Assistive Devices Assistive Device Gait Belt,Front Wheeled Walker Orthotic/Prosthetic Devices or Brace: No Gait Deviations General Gait Pattern Antalgic,Decreased Stride Length,Decreased Feet Clearance,Flexed Trunk,Step-to Gait,Wide Based Gait Factors Limiting Gait Function Factors Limiting Gait Function Decreased Activity Tolerance, Decreased Sensation,Decreased Strength,Limited Range of Motion,Pain,Poor Balance,Poor Safety Awareness Comments Gait Comments Pt with very poor functional use of right leg with standing and right LE appears unstable and with poor functional muscle strength at hip and knee. Pt uses toes to scoot right foot minimally to take a few scooting steps to the chair. PT-Balance Assessment Sitting Balance and Reactions Static Sitting Balance Ability Fair Dynamic Sitting Balance Ability Fair Standing Balance and Reactions Static Standing Balance Ability Fair Dynamic Standing Balance Ability Poor Device Used RW M5 PT-IP Objective Assessments Start: 07/10/23 17:06 Freq: NEEDED Status: Active Protocol: Document 07/10/23 15:02 AB (Rec: 07/10/23 17:25 AB [id number]) Orientation Orientation/Cognition Level of Alertness Alert Orientation Name,Place,Situation Language Function Ability No Deficits Noted Safety Awareness Decreased Safety Awareness Memory Description Short Term Impaired Gross Range of Motion Lower Extremity ROM Assessment Within Functional Limits Strength Lower Extremity Strength Assessment Right Impaired Hip 3-/5 Knee 3+/5 Coordination Assessment Gross Coordination Gross Coordination WNL Sensation Assessment Sensation Gross Sensation WNL Muscle Tone Muscle Tone WNL Yes M6 PT-IP Treatment Start: 07/10/23 17:06 Freq: NEEDED Status: Active Protocol: Document 07/12/23 08:38 MB (Rec: 07/12/23 09:11 MB [id number]) Physical Therapy Treatment Education Education Provided Precautions,Weight Bearing Status,Post-Op Packet,Safety M7 PT-IP Assessment and Plan Start: 07/10/23 17:06 Freq: NEEDED Status: Active Protocol: Document 07/12/23 08:38 MB (Rec: 07/12/23 09:11 MB [id number]) PT Summary Assessment and Plan Potential Rehabilitation Potential Fair Summary Impairments Pain,ROM,Strength,Balance, Coordination,Sensation,Tone, Cognition,Bed Mobility, Transfers,Gait,Activity Tolerance Progress Towards Goals Slow Progress due to Pain,Slow Progress due to Activity Tolerance Assessment Summary Pt does not make spontaneous LE movement in the bed and requires heavy cues to initiate self mobility. He uses leg supervisor microbiology technologists to move right leg to the right in the bed. He states that he cannot move his right leg and that it is very weak. He states that he was unable to get OOB last date and PT and AN EMPLOYEE SPONSOR OR ADVOCATE AND remind him that he did get OOB to chair with PT and back to bed with nsg last date. Upon standing, right leg does appear very unstable/weak and he uses toes to take away attendant the floor to advance the right leg minimally. Heavy UE and LLE use with mobility. At current level, pt will not be able to d/c home at time of dishcarge. Goals Bed Mobility Goal Independent Transfer Goal Independent,Front Wheeled Walker Gait Goal Independent,Front Wheel Walker Gait Distance 200 Other Goals up/down 2 platform steps mod I using FWW Days to Meet Goals 5 Frequency of Treatment Frequency Of Treatment Once a Day Treatment Plan Physical Therapy Treatment Plan Bed Mobility Training,Transfer Training,Gait Training, Therapeutic Exercise,Balance Retraining,Post Op Education, Discharge Planning,Hot or Cold Pack,Neuromuscular Re-ed, Coordination Retraining,Manual Therapy Precautions Anterior Hip Precautions No Hip Extension,No Hip External Rotation Weight Bearing Status Weight Bearing Status Weight Bear as Tolerated Allowed Weight Bearing Amount (enter % RLE WBAT or #) (%) Recommendations To Nursing Amount of Assist Needed 2 Person Assist,Mechanical Lift Discharge Recommendations PT Discharge Recommendations SNF vs Acute Rehab Transportation Needs at Discharge Private Vehicle
[2023-07-12] MEDS: glipiZIDE 5 MG TABLET PO ×2 (09:39→20:31)
[2023-07-12] MEDS: METOPROLOL ER 25 MG TABLET PO (09:39)
[2023-07-12] MEDS: MULTIVITAMIN 1 TABLET 1 TAB PO (09:39)
[2023-07-12] MEDS: CHOLECALCIFEROL (VITAMIN D3) 1,000 UNIT TABLET 4000 UNIT PO (09:39)
[2023-07-12] MEDS: ASCORBIC ACID 500 MG TABLET PO (09:39)
[2023-07-12] MEDS: DOCUSATE 100 MG CAPSULE PO ×2 (09:39→20:31)
[2023-07-12] MEDS: PRAVASTATIN 20 MG TABLET PO (09:39)
[2023-07-12] MEDS: CYANOCOBALAMIN (VITAMIN B-12) 100 MCG TABLET PO (09:39)
[2023-07-12] MEDS: ASPIRIN EC 81 MG TABLET PO ×2 (09:39→20:31)
[2023-07-12] MEDS: polyethylene glycoL 3350 17 GM POWD.PACK PO (09:40)
[2023-07-12] MEDS: ACETAMINOPHEN 325 MG TABLET 650 MG PO ×3 (09:40→23:16)
[2023-07-12] MEDS: DAPAGLIFLOZIN PROPANEDIOL 10 MG 10 EACH PO (09:47)
[2023-07-12] MEDS: ONDANSETRON 4 MG ODT PO ×2 (09:47→16:47)
[2023-07-12] MEDS: FLUTICASONE 120 SPRAY/16 GM SPRAY.SUSP NASAL (09:52)
--- NOTE | 2023-07-12 10:14 | PM.PNPO.1 ---
Subjective Subjective Interval history: 68-year-old gentleman who is postoperative day 2. A right total hip arthroplasty. Pain is better today than it was yesterday but still having difficulty mobilizing and ambulating. Still requiring 2 people to get him up. But does feel like he is making more improvements each day. Exam Vital Signs (past 8 hours): - 07/12/23 05:30 07/12/23 09:39 Temperature 97 F L Pulse Rate 84 84 Respiratory Rate 17 Blood Pressure 125/60 125/60 Pulse Oximetry 97 Oxygen Flow Rate 2 Oxygen Delivery Method Room Air Oxygen Flow Rate 2 Narrative Exam Narrative: Patient's incision is well healed. No sign of any wound complications. Dressing is clean and dry. Positive dorsiflexion and plantar flexion of the toes and ankles. Palpable pedal pulses. Objective Labs 07/11/23 05:55 PFSH Medical History (Updated 06/24/23 @ 09:36 by Mariposa Marks RN) Bowel obstruction (01/2019) Anesthesia complication Hearing impaired Solitary kidney Bicuspid aortic valve Incomplete bladder emptying Prostate nodule with urinary obstruction Elevated PSA History of gout COVID-19 (~10/2021) BPH w urinary obs/LUTS Wears glasses Tinnitus Hearing loss Cataracts, bilateral Colon polyps Low testosterone (~2009) Aortic regurgitation Psoriasis (~2016) COPD (chronic obstructive pulmonary disease) Depression Hypogonadism male H/O adenomatous polyp of colon Atrial fibrillation Aortic stenosis Aneurysm, thoracic aortic Type 2 diabetes mellitus Hyperlipidemia Hypertension Hypertelorism Surgical History (Updated 06/24/23 @ 09:20 by Mariposa Marks RN) Hx of bilateral cataract extraction History of circumcision Anesthesia S/P plication of diaphragm (~2010) S/P AVR (aortic valve replacement) (~08/2019) History of appendectomy (~1987) History of exploratory laparotomy History of ventral hernia repair (~1986) History of nephrectomy, unilateral (~1984) Family History Father Cancer Mother Diabetes mellitus Sister Diabetes mellitus Grandfather Cancer Social History marital status: number of children: 2 household members: family Smoking Status: Former smoker alcohol intake: current Assessment & Plan Post-op Postoperative Procedures: Procedures Operation Date: 07/10/23 07:45 Actual Procedure Side Surgeon p Total Hip Arthroplasty/Anterior Approach Right Nick Pierre MD Postoperative day: 2 Postoperative plan narrative: Patient making slow improvement status post right total hip arthroplasty. Due to the fact that he has still a 2 person assist patient is going to need SNF placement. Quality VTE Deep Vein Thrombosis/Pulmonary Embolism Present on Admission: No
--- NOTE | 2023-07-12 15:14 | CM.DPNOTE ---
Addendum entered by WALDO Jones 07/12/23 16:56: From Jeannine at [facility], able to accept pt. Will work on getting ins auth, anticipate potential dc tomorrow afternoon. SL Original Note: DCP Note MEDICAL ECONOMICS CONSULTANT reviewed EMR. Per PT note, rec SNF vs Acute rehab. In a lot of pain, unstable, mod assist. getting worse with PT. Per RN, 1-2PA once in chair. Per otho note, rec SNF placement at this time. MEDICAL ECONOMICS CONSULTANT met with pt in room. Reviewed therapy recs/barriers to placement. Pt preference at this time would be to pursue SNF placement if authorized by insurance. Reviewed SNFs that accept insurance- preference is closest to [place] as possible. No hx of HH, open to it if SNF placement not an option. MEDICAL ECONOMICS CONSULTANT spoke with Jeannine at [facility]. Report one male bed available, agreed to review. Could take him potentially tomorrow afternoon if ins auth/able to accept/medically stable. Plan: pt preference is [facility] for rehab placement. Auth/acceptance pending. Potential Thursday afternoon dc. PASRR needed. CM team will continue to follow closely. will place backup referrals to [facility] if [facility] unable to accept. HH referral needed if dc home. WALDO Jones
[2023-07-12] MEDS: TAMSULOSIN 0.4 MG CAPSULE 0.8 MG PO (16:47)
[2023-07-12] MEDS: INSULIN LISPRO 100 UNIT/ML 3ML VIAL SUBCUT (16:56)
[2023-07-12] MEDS: ALBUTEROL 2.5 MG/3 ML NEB (ADULT) INH (23:02)
[2023-07-12] MEDS: TRAZODONE 50 MG TABLET PO (23:16)
[2023-07-13 03:00] VITALS: BP 137/75; PULSE 103; RESP 18; TEMP 36.9; O2SAT 98
--- NOTE | 2023-07-13 07:47 | P.DS_ITS ---
History of Present Illness History of Present Illness Date Patient Seen: 07/13/23 Time Patient Seen: 07:47 Chief complaint: Right SABIHA *OPB* Narrative: Operative Date/Time/Diagnoses Date of procedure: 07/10/23 Pre-op diagnosis: Right hip osteoarthritis Post-op diagnosis: same Procedure & Clinicians Procedure: Right total hip arthroplasty (47574) Same procedure as scheduled: Yes Surgeon: Nick Pierre Bell Captain: Tonya Hebert Anesthesia Type: Spinal, Sedation and Local Operative Notes Estimated Blood Loss (mL): 250 Procedure in detail: Right Uncemented Direct Anterior Total Hip Arthroplasty: Implants: Right Depuy Total Hip Arthroplasty: * Depuy [place] Gription size 60 cup?with +4 liner * Depuy Actis femoral stem size 6 high offset? * 36 mm +8.5 ceramic femoral head? Discharge Providers Provider Date of admission: 07/11/23 15:02 Discharge Date: 07/13/23 Primary care physician: Benjamin Mancilla MD Consults: 06/25/23 12:22 Consult to Anesthesiology Routine Comment: Consulting Provider: Anesthesiologist Reason for consultation: Surgeon requested re: Aortic valve replacement, solitary kidney 07/10/23 11:24 Consult to Discharge Planning Routine Comment: Consult to Occupational Therapy Evaluate & Treat Comment: Physician Instructions: Evaluate and treat Consult to Physical Therapy Evaluate & Treat Comment: Physician Instructions: post op SABIHA protocol Discharge provider: Shannon Root PA-C Summary Hospital Course Discharge Diagnosis: Right hip osteoarthritis, s/p right total hip arthroplasty Hospital Course: Mr Goodwin's hospital course was significant for slow progress w/ PT, and they recommended further rehab at a SNF facility prior to discharge. On the morning of POD# 3, he was feeling well, but did not feel he could manage at home without more rehab. His pain was well-controlled w/ oral medication. He has a h/o enlarged prostate and take tamsulosin regularly; he is currently c/o urinary retention that is relieved by sitting down and leaning forward. Exam Vital Signs (past 8 hours): - 07/13/23 03:00 Temperature 98.5 F Pulse Rate 103 H Respiratory Rate 18 Blood Pressure 137/75 Pulse Oximetry 98 Oxygen Flow Rate 0 Oxygen Delivery Method Nasal Cannula Oxygen Flow Rate 0 Narrative Exam Narrative: Aquacel dressing CDI. Pt not examined as he is sitting on the toilet this morning. Objective Labs 07/11/23 05:55 [facility] Medical History (Updated 06/24/23 @ 09:36 by Mariposa Marks RN) Bowel obstruction (01/2019) Anesthesia complication Hearing impaired Solitary kidney Bicuspid aortic valve Incomplete bladder emptying Prostate nodule with urinary obstruction Elevated PSA History of gout COVID-19 (~10/2021) BPH w urinary obs/LUTS Wears glasses Tinnitus Hearing loss Cataracts, bilateral Colon polyps Low testosterone (~2009) Aortic regurgitation Psoriasis (~2016) COPD (chronic obstructive pulmonary disease) Depression Hypogonadism male H/O adenomatous polyp of colon Atrial fibrillation Aortic stenosis Aneurysm, thoracic aortic Type 2 diabetes mellitus Hyperlipidemia Hypertension Hypertelorism Surgical History (Updated 07/13/23 @ 07:55 by Shannon Root PA-C) Hx of bilateral cataract extraction History of circumcision Anesthesia S/P plication of diaphragm (~2010) S/P AVR (aortic valve replacement) (~08/2019) History of appendectomy (~1987) History of exploratory laparotomy History of ventral hernia repair (~1986) History of nephrectomy, unilateral (~1984) Family History Father Cancer Mother Diabetes mellitus Sister Diabetes mellitus Grandfather Cancer Social History marital status: number of children: 2 household members: family Smoking Status: Former smoker alcohol intake: current Discharge Assessment & Plan Assessment and Plan Assessment: Right hip osteoarthritis, s/p right total hip arthroplasty Plan of Treatment: Per CM notes, it appears that [facility] has accepted him today, authorization pending. Multimodal pain control, ASA BID for VTE prophylaxis, f/u in office in 2 weeks as scheduled. Discharge Plan Discharge Plan Patient Disposition: SNF Transfer to: [facility] Transportation: Facility vehicle Provider Discharge Comment: [email or web address] I certify the postop hospital jail care is medically necessary on a continuing basis for any conditions for which he/ she received care during this hospitalization.: Yes The receiving facility has agreed to accept transfer and provide medical treatment.: Yes Discharge orders & Medications Prescriptions: New docusate sodium 100 mg Capsule 100 mg PO BID Qty: 30 0RF ondansetron 4 mg Tablet,Disintegrating 4 mg PO Q4HR PRN (Reason: Nausea) Qty: 10 0RF aspirin 81 mg Tablet,Delayed Release (Dr/Ec) 81 mg PO BID 42 Days Qty: 84 0RF oxycodone 5 mg tablet 5 mg PO Q4-6H PRN (Reason: pain (scale score 4-6)) Qty: 30 0RF Continued glipizide 5 mg tablet 5 mg PO BID Qty: 180 3RF Farxiga 10 mg tablet 10 mg PO QAM Qty: 90 3RF metoprolol succinate 25 mg tablet extended release 24 hr 25 mg PO QAM Qty: 90 3RF triazolam [Halcion] 0.25 mg tablet 0.25 mg PO ONCE Qty: 2 0RF Rx Instructions: Take 2 tablets 1-2 hours prior to scheduled MRI as directed. ketoconazole 2 % shampoo 1 applic topical 2XW losartan 25 mg tablet 25 mg PO DAILY Qty: 90 3RF CoQ10 Chewable 200 mg 1 tab PO DAILY albuterol sulfate 90 mcg/actuation HFA aerosol inhaler 2 puff inhalation Q4-6H PRN (Reason: shortness of breath or wheezing) Qty: 8.5 6RF pravastatin 20 mg tablet 20 mg PO DAILY Qty: 90 3RF (DME) Disabled Parking See Rx Instructions .ROUTE .MEDSUPPLY Qty: 1 0RF Rx Instructions: Patient qualifies for disabled parking as per the attached form. tamsulosin 0.4 mg capsule 0.8 mg PO QPM mometasone 50 mcg/actuation [place],Non-Aerosol 50 mcg INTRANASAL DAILY cyanocobalamin (vitamin B-12) 100 mcg Tablet 100 mcg PO QAM trazodone 50 mg Tablet 50 mg PO BEDTIME PRN (Reason: Insomnia) acetaminophen [Acetaminophen Extra Strength] 500 mg Tablet 1,000 mg PO TID-QID PRN (Reason: Pain (Scale Score 1-3)) ascorbic acid (vitamin C) 500 mg Tablet 500 mg PO DAILY clobetasol 0.05 % solution 0.005 % TOPICAL BID PRN (Reason: Skin Cleansing) cetirizine 10 mg Capsule 10 mg PO BID PRN (Reason: allergies) cholecalciferol (vitamin D3) 100 mcg (4,000 unit) Tablet 100 mcg PO QAM Centrum Silver Men 300-600-300 mcg Tablet 1 tab PO QAM melatonin 3 mg tablet 10 mg PO BEDTIME PRN (Reason: Insomnia) Discontinued aspirin [Adult Low Dose Aspirin] 81 mg Tablet,Delayed Release (Dr/Ec) 81 mg PO QAM Follow up/Referrals: Benjamin Mancilla MD [Primary Care Provider] - Nick Pierre MD [Physician] - (Follow up at [facility] as scheduled in 2 weeks. Appointment on 07/22/2023 at 1:30 p.m. with BRAD Adams. ) Diet/Activity/Treatments Diet: Diet as Tolerated Activity: Weight-bearing as tolerated, maintain anterior hip precautions. With outpatient PT to improve mobility. Cold/Heat Therapy: Ice to the hip for additional pain control. Skin/Wound/Dressing Care Report to your healthcare provider any signs of infection, such as:: chills, fever, night sweats, unusual drainage and unusual redness Dressing: Keep dressing intact, clean and dry until 2 week post-op appointment. No soaking the incision site in pools or tubs. No topical ointments or creams to the incision site. Visit Report/Discharge Packet Instructions: DI for Hip Replacement, DI for Prescription Opioid Use Stand Alone Forms: Patient Portal/API Discharge Data Primary Care Provider: Benjamin Mancilla Attending Provider: Nick Pierre Admit Date/Time: 07/11/23 15:02 Quality VTE Deep Vein Thrombosis/Pulmonary Embolism Present on Admission: No
--- NOTE | 2023-07-13 08:33 | PT.IPTN ---
Current Diagnoses Unilateral primary osteoarthritis, right hip (07/11/23) Presence of unspecified artificial hip joint (07/11/23) Surgery Performed Operation Date: 07/10/23 07:45 Actual Procedures p Total Hip Arthroplasty/Anterior Approach(Right) - Nick Pierre MD Physical Therapy Treatment Note M2 PT-IP Current Condition Start: 07/10/23 17:06 Freq: NEEDED Status: Active Protocol: Document 07/10/23 15:02 AB (Rec: 07/10/23 17:25 AB [id number]) Physical Therapy Current Condition Current Condition Evaluation Date 07/10/23 Treatment Diagnosis s/p R SABIHA anterior; difficulty in walking Onset Date 07/10/23 M3 PT-IP Subjective Start: 07/10/23 17:06 Freq: NEEDED Status: Active Protocol: Document 07/13/23 08:00 MB (Rec: 07/13/23 08:33 MB [id number]) Subjective Physical Therapy Visit Type Type Treatment Note Visit Start Time 08:00 Visit Stop Time 08:28 Number of RING ROLLING MACHINE OPERATOR Visits 0 Physical Therapy Visit Comments Patient Comments Pt sitting on BR commode and states that it taks up to 30 minutes for him to be able to urinate d/t prostate issues. M4 PT-IP Mobility and Gait Start: 07/10/23 17:06 Freq: NEEDED Status: Active Protocol: Document 07/13/23 08:00 MB (Rec: 07/13/23 08:33 MB [id number]) PT-Transfer Assessment Sit to and From Stand Sit to and from Stand Contact Guard Assistance,1 Person Assistance,Use of Upper Extremities Equipment Transfer Assistive Device Gait Belt,Front Wheeled Walker Orthotic/Prosthetic Devices or Brace: No Transfers Transfer Destination Chair Transfer Technique Ambulation Transfer Ability Level of Assist Contact Guard Assistance,1 Person Assistance,Use of Upper Extremities Comments Mobility Comments Pt does not answer pain question when asked and states that his right leg feels tight. It is edematous today. Pt with reports of hiccuping before feeling nauseated. Pt transfers better today with right hand on rail in BR and reaching back to the chair. Gait Assessment Gait Gait Assistance Required: Contact Guard Assist,1 Person Assist Distance (Feet) 20 Able to Maintain Weight Bearing Status Yes During Gait Assistive Devices Assistive Device Gait Belt,Front Wheeled Walker Orthotic/Prosthetic Devices or Brace: No Gait Deviations General Gait Pattern Antalgic,Decreased Stride Length,Decreased Feet Clearance,Flexed Trunk,Step-to Gait,Wide Based Gait Factors Limiting Gait Function Factors Limiting Gait Function Decreased Activity Tolerance, Decreased Strength,Limited Range of Motion,Poor Balance Comments Gait Comments Improved mobility today and pt is able to shrimp picker right foot better: 20'x1 and 10'x1 gait Stair Climbing Assessment Evaluation Level of Assist On Stairs Minimal Assistance,1 Person Assistance Devices Stair Climbing Assistive Devices Front Wheel Walker Technique/Endurance Stair Climbing Direction Ascend and Descend Stair Climbing Technique Step to Step Number of Steps Climbed 1 Stair Climbing Set # Repetitions (reps) 1 Comments Stair Climbing Comments Pt brings platform step into room and pt is able to ascend and descend once with use of RW and cues PT-Balance Assessment Sitting Balance and Reactions Static Sitting Balance Ability Good Dynamic Sitting Balance Ability Fair Standing Balance and Reactions Static Standing Balance Ability Fair Dynamic Standing Balance Ability Fair Device Used RW M5 PT-IP Objective Assessments Start: 07/10/23 17:06 Freq: NEEDED Status: Active Protocol: Document 07/10/23 15:02 AB (Rec: 07/10/23 17:25 AB [id number]) Orientation Orientation/Cognition Level of Alertness Alert Orientation Name,Place,Situation Language Function Ability No Deficits Noted Safety Awareness Decreased Safety Awareness Memory Description Short Term Impaired Gross Range of Motion Lower Extremity ROM Assessment Within Functional Limits Strength Lower Extremity Strength Assessment Right Impaired Hip 3-/5 Knee 3+/5 Coordination Assessment Gross Coordination Gross Coordination WNL Sensation Assessment Sensation Gross Sensation WNL Muscle Tone Muscle Tone WNL Yes M6 PT-IP Treatment Start: 07/10/23 17:06 Freq: NEEDED Status: Active Protocol: Document 07/13/23 08:00 MB (Rec: 07/13/23 08:33 [id number]) Physical Therapy Treatment Education Education Provided Precautions,Weight Bearing Status,Post-Op Packet,Safety M7 PT-IP Assessment and Plan Start: 07/10/23 17:06 Freq: NEEDED Status: Active Protocol: Document 07/13/23 08:00 MB (Rec: 07/13/23 08:33 [id number]) PT Summary Assessment and Plan Potential Rehabilitation Potential Fair Summary Impairments Pain,ROM,Strength,Balance, Coordination,Sensation,Bed Mobility,Transfers,Gait, Activity Tolerance Progress Towards Goals Slow Progress due to Activity Tolerance Assessment Summary Mal progresses with short gait distance, picking up right foot and platform step training this morning. His right LE is edematous and tight feeling. Goals Bed Mobility Goal Independent Transfer Goal Independent,Front Wheeled Walker Gait Goal Independent,Front Wheel Walker Gait Distance 200 Other Goals up/down 2 platform steps mod I using FWW Days to Meet Goals 5 Frequency of Treatment Frequency Of Treatment Once a Day Treatment Plan Physical Therapy Treatment Plan Bed Mobility Training,Transfer Training,Gait Training, Therapeutic Exercise,Balance Retraining,Post Op Education, Discharge Planning,Hot or Cold Pack,Neuromuscular Re-ed, Coordination Retraining,Manual Therapy Precautions Anterior Hip Precautions No Hip Extension,No Hip External Rotation Weight Bearing Status Weight Bearing Status Weight Bear as Tolerated Allowed Weight Bearing Amount (enter % RLE WBAT or #) (%) Recommendations To Nursing Amount of Assist Needed 1 Person Assist Discharge Recommendations PT Discharge Recommendations SNF Rehab Transportation Needs at Discharge Wheelchair/Cabulance
[2023-07-13] MEDS: ONDANSETRON 4 MG ODT PO (08:37)
[2023-07-13] MEDS: glipiZIDE 5 MG TABLET PO ×2 (08:37→20:25)
[2023-07-13] MEDS: DAPAGLIFLOZIN PROPANEDIOL 10 MG 10 EACH PO (08:37)
[2023-07-13] MEDS: TRAMADOL 50 MG TABLET PO (08:45)
--- NOTE | 2023-07-13 09:35 | CM.DPNOTE ---
Addendum entered by WALDO Jones 07/13/23 15:00: Per Jeannine at [facility], pt has managed [facility] plan, and therefore the auth process is going to take longer than anticipated. As of 1500, no ins auth at this time. From Jeannine at [facility], may not hear until later this evening. Tentative transport time for 1100. FIRE TECHNICIAN updated ortho PA/battery charger conveyor line/RN of lack of ins auth. Floor RN reports pt having some urinary concerns at this time/has been struggling to urinate since surg. RN reports Ortho PA was notified of urinary concerns. FIRE TECHNICIAN updated pt. Pt in agreement with plan, understands pending auth. Plan: pending ins auth, dc to [facility] tomorrow at 1100. CM team will continue to follow closely. SL Original Note: DCP note FIRE TECHNICIAN reviewed EMR. ortho placed dc order. FIRE TECHNICIAN spoke with Jeannine from . Able to accept pt, submitted for auth, and auth pending. time pending, anticipate later this afternoon. FIRE TECHNICIAN updated RN, gave report number. FIRE TECHNICIAN completed PASRR. JUAN PABLO Weiss kindly agreed to send dc information, PASRR, and signed meds/scripts to [facility]. FIRE TECHNICIAN updated pt on accepting facility and auth pending. confirm agreeable to plan. Plan: anticipate dc to [facility] later this afternoon, auth and time pending. CM team will continue to follow closely WALDO Jones
[2023-07-13] MEDS: ASCORBIC ACID 500 MG TABLET PO (09:43)
[2023-07-13] MEDS: DOCUSATE 100 MG CAPSULE PO ×2 (09:43→20:24)
[2023-07-13] MEDS: CHOLECALCIFEROL (VITAMIN D3) 1,000 UNIT TABLET 4000 UNIT PO (09:43)
[2023-07-13] MEDS: PRAVASTATIN 20 MG TABLET PO (09:43)
[2023-07-13] MEDS: CYANOCOBALAMIN (VITAMIN B-12) 100 MCG TABLET PO (09:43)
[2023-07-13 09:44] VITALS: BP 143/73; PULSE 99
[2023-07-13] MEDS: MULTIVITAMIN 1 TABLET 1 TAB PO (09:44)
[2023-07-13] MEDS: METOPROLOL ER 25 MG TABLET PO (09:44)
[2023-07-13] MEDS: ASPIRIN EC 81 MG TABLET PO ×2 (09:47→20:25)
[2023-07-13] MEDS: FLUTICASONE 120 SPRAY/16 GM SPRAY.SUSP NASAL (09:48)
[2023-07-13] MEDS: polyethylene glycoL 3350 17 GM POWD.PACK PO (09:48)
[2023-07-13] MEDS: INSULIN LISPRO 100 UNIT/ML 3ML VIAL SUBCUT ×2 (12:57→18:21)
[2023-07-13 13:01] VITALS: RESP 18
[2023-07-13 13:27] VITALS: BP 157/78; PULSE 94; TEMP 37; O2SAT 95
--- NOTE | 2023-07-13 14:18 | PC.NURSE ---
Patient states he has continued issues trying to urinate since surgery, with previous prostate enlargement, he reports it is more difficult to urinate. Patient sat on toilet for almost an hour peeing a little bit at a time equalling approximately 400cc. bladder scan then showed greater than 600cc in the bladder. Patient attempting to use urinal again, Will continue to monitor. Shannon SALINAS notified of patient's difficulty voiding and urinary retention, states she is aware of situation and discussed with patient. No hay at this time. Patient is to follow up with his urologist as scheduled. BRAD Root asked this RN to reach out to urology office- Kahlil is not fish conservationist today- BRAD notified that this RN would not be able to reach him. Per Ivett SALINAS patient is ok to transfer to snf as planned.
[2023-07-13] MEDS: TAMSULOSIN 0.4 MG CAPSULE 0.8 MG PO (18:22)
[2023-07-13] MEDS: OXYCODONE IR 5 MG TABLET PO (20:24)
[2023-07-13 20:25] VITALS: BP 131/55; PULSE 101; RESP 20; TEMP 37.5; O2SAT 98
[2023-07-13] MEDS: ALBUTEROL 2.5 MG/3 ML NEB (ADULT) INH (20:35)
[2023-07-13 20:37] VITALS: O2SAT 97
[2023-07-14] MEDS: ACETAMINOPHEN 325 MG TABLET 650 MG PO ×3 (01:42→16:52)
[2023-07-14] MEDS: OXYCODONE IR 5 MG TABLET PO ×5 (01:42→21:44)
[2023-07-14 01:43] VITALS: BP 117/54; PULSE 100; RESP 20; TEMP 36.1; O2SAT 91
--- NOTE | 2023-07-14 07:17 | P.PN_ITS ---
Subjective Subjective Date Patient Seen: 07/14/23 Time Patient Seen: 07:17 Interval history: Patient's pain is well controlled. Patient has seen Dr. Walsh in the past and is needing to follow up with his office regarding recent MRI. Patient has not yet contacted our office for appointment. Otherwise without complaints. Exam Vital Signs (past 8 hours): - 07/14/23 01:43 Temperature 97.0 F L Pulse Rate 100 H Respiratory Rate 20 Blood Pressure 117/54 L Pulse Oximetry 91 Oxygen Flow Rate 0 Oxygen Delivery Method Room Air Oxygen Flow Rate 0 Narrative Exam Narrative: 68-year-old male in no apparent distress. Neurovascular status is intact bilateral lower extremities. Const General: cooperative and comfortable Nutritional Appearance: average body habitus Resp Effort & Inspection: normal respiratory effort and able to speak in complete sentences Objective Labs 07/11/23 05:55 PFSH Medical History Bowel obstruction (01/2019) Anesthesia complication Hearing impaired Solitary kidney Bicuspid aortic valve Incomplete bladder emptying Prostate nodule with urinary obstruction Elevated PSA History of gout COVID-19 (~10/2021) BPH w urinary obs/LUTS Wears glasses Tinnitus Hearing loss Cataracts, bilateral Colon polyps Low testosterone (~2009) Aortic regurgitation Psoriasis (~2016) COPD (chronic obstructive pulmonary disease) Depression Hypogonadism male H/O adenomatous polyp of colon Atrial fibrillation Aortic stenosis Aneurysm, thoracic aortic Type 2 diabetes mellitus Hyperlipidemia Hypertension Hypertelorism Surgical History Hx of bilateral cataract extraction History of circumcision Anesthesia S/P plication of diaphragm (~2010) S/P AVR (aortic valve replacement) (~08/2019) History of appendectomy (~1987) History of exploratory laparotomy History of ventral hernia repair (~1986) History of nephrectomy, unilateral (~1984) Family History Father Cancer Mother Diabetes mellitus Sister Diabetes mellitus Grandfather Cancer Social History marital status: number of children: 2 household members: family Smoking Status: Former smoker alcohol intake: current Assessment & Plan Post-op Postoperative Procedures: Procedures Operation Date: 07/10/23 07:45 Actual Procedure Side Surgeon p Total Hip Arthroplasty/Anterior Approach Right Nick Pierre MD Postoperative day: 4 Postoperative status narrative: Status post right total hip arthroplasty July 10, 2023, urinary retention with history BPH, urinary catheter placed yesterday and will be left in place until follow up with Dr. Walsh's office. Postoperative plan narrative: Anterior hip precautions, weight-bearing as tolerated Multimodal pain management Aspirin 81 mg b.i.d. for DVT prophylaxis No NSAIDs as the patient does not take anti-inflammatories given his solitary kidney Follow up outpatient Orthopedics in 2 weeks Follow up with Urology 5-7 days. Discharge to group home facility today. Quality VTE Deep Vein Thrombosis/Pulmonary Embolism Present on Admission: No
[2023-07-14] MEDS: CHOLECALCIFEROL (VITAMIN D3) 1,000 UNIT TABLET 4000 UNIT PO (09:05)
[2023-07-14] MEDS: CYANOCOBALAMIN (VITAMIN B-12) 100 MCG TABLET PO (09:05)
[2023-07-14] MEDS: MULTIVITAMIN 1 TABLET 1 TAB PO (09:05)
[2023-07-14] MEDS: METOPROLOL ER 25 MG TABLET PO (09:05)
[2023-07-14] MEDS: ASPIRIN EC 81 MG TABLET PO ×2 (09:05→21:44)
[2023-07-14] MEDS: DOCUSATE 100 MG CAPSULE PO ×2 (09:05→21:44)
[2023-07-14] MEDS: polyethylene glycoL 3350 17 GM POWD.PACK PO (09:06)
[2023-07-14] MEDS: PRAVASTATIN 20 MG TABLET PO (09:11)
[2023-07-14] MEDS: ONDANSETRON 4 MG ODT PO (09:11)
[2023-07-14] MEDS: ASCORBIC ACID 500 MG TABLET PO (09:11)
[2023-07-14] MEDS: hydrOXYzine HCL 25 MG TABLET PO ×2 (09:12→17:52)
[2023-07-14] MEDS: glipiZIDE 5 MG TABLET PO ×2 (09:12→21:44)
--- NOTE | 2023-07-14 09:13 | PT.IPTN ---
Current Diagnoses Unilateral primary osteoarthritis, right hip (07/11/23) Presence of unspecified artificial hip joint (07/11/23) Surgery Performed Operation Date: 07/10/23 07:45 Actual Procedures p Total Hip Arthroplasty/Anterior Approach(Right) - Nick Pierre MD Physical Therapy Treatment Note M2 PT-IP Current Condition Start: 07/10/23 17:06 Freq: NEEDED Status: Active Protocol: Document 07/10/23 15:02 AB (Rec: 07/10/23 17:25 AB [id number]) Physical Therapy Current Condition Current Condition Evaluation Date 07/10/23 Treatment Diagnosis s/p R SABIHA anterior; difficulty in walking Onset Date 07/10/23 M3 PT-IP Subjective Start: 07/10/23 17:06 Freq: NEEDED Status: Active Protocol: Document 07/14/23 10:17 TS (Rec: 07/14/23 10:23 TS [id number]) Subjective Physical Therapy Visit Type Type Treatment Note Visit Start Time 09:13 Visit Stop Time 09:43 Number of TEXTILE CLOTHING AND FOOTWEAR MECHANIC Visits 1 Physical Therapy Visit Comments Patient Comments Pt found on toilet, trying to have BM, pt is agreeable to PT . Therapy Pain Assessment Pain When Pain Assessed During Mobility Pain Present Pain Present Pain Reported M4 PT-IP Mobility and Gait Start: 07/10/23 17:06 Freq: NEEDED Status: Active Protocol: Document 07/14/23 10:17 TS (Rec: 07/14/23 10:23 TS [id number]) PT-Bed Mobility Assessment Sit to Supine Sit to Supine Minimal Assistance,1 Person Assistance PT-Transfer Assessment Sit to and From Stand Sit to and from Stand Contact Guard Assistance,1 Person Assistance,Use of Upper Extremities Equipment Transfer Assistive Device Gait Belt,Front Wheeled Walker Orthotic/Prosthetic Devices or Brace: No Comments Mobility Comments STS from toilet CGA with use of grab bars. Pt ambulated with FWW ~100 with step to antalgic gait, pt denied any buckling or ligtheadedness. Sit to supine into bed Santhosh for RLE. Nursing in room dispsensing meds. Gait Assessment Gait Gait Assistance Required: Contact Guard Assist,1 Person Assist Distance (Feet) 100 Able to Maintain Weight Bearing Status Yes During Gait Assistive Devices Assistive Device Gait Belt,Front Wheeled Walker Orthotic/Prosthetic Devices or Brace: No Gait Deviations General Gait Pattern Antalgic,Decreased Stride Length,Decreased Feet Clearance,Flexed Trunk,Step-to Gait,Wide Based Gait Factors Limiting Gait Function Factors Limiting Gait Function Decreased Activity Tolerance, Decreased Strength,Limited Range of Motion,Poor Balance Comments Gait Comments See mobility comments PT-Balance Assessment Sitting Balance and Reactions Static Sitting Balance Ability Good Dynamic Sitting Balance Ability Fair Standing Balance and Reactions Static Standing Balance Ability Fair Dynamic Standing Balance Ability Fair Device Used RW M5 PT-IP Objective Assessments Start: 07/10/23 17:06 Freq: NEEDED Status: Active Protocol: Document 07/10/23 15:02 AB (Rec: 07/10/23 17:25 AB [id number]) Orientation Orientation/Cognition Level of Alertness Alert Orientation Name,Place,Situation Language Function Ability No Deficits Noted Safety Awareness Decreased Safety Awareness Memory Description Short Term Impaired Gross Range of Motion Lower Extremity ROM Assessment Within Functional Limits Strength Lower Extremity Strength Assessment Right Impaired Hip 3-/5 Knee 3+/5 Coordination Assessment Gross Coordination Gross Coordination WNL Sensation Assessment Sensation Gross Sensation WNL Muscle Tone Muscle Tone WNL Yes M6 PT-IP Treatment Start: 07/10/23 17:06 Freq: NEEDED Status: Active Protocol: Document 07/14/23 10:17 TS (Rec: 07/14/23 10:23 TS [id number]) Physical Therapy Treatment Education Education Provided Precautions,Weight Bearing Status,Post-Op Packet,Safety M7 PT-IP Assessment and Plan Start: 07/10/23 17:06 Freq: NEEDED Status: Active Protocol: Document 07/14/23 10:17 TS (Rec: 07/14/23 10:23 TS [id number]) PT Summary Assessment and Plan Potential Rehabilitation Potential Fair Summary Impairments Pain,ROM,Strength,Balance, Coordination,Sensation,Bed Mobility,Transfers,Gait, Activity Tolerance Progress Towards Goals Progressing Toward Goals Assessment Summary Mal is making progress with his mobility. He is CGA for STS with use of FWW. He progressed his gait to ~100' SBA with FWW. He performed bed mobility with Santhosh for RLE. PT is recommending home 22/09 vs SNF. Goals Bed Mobility Goal Independent Transfer Goal Independent,Front Wheeled Walker Gait Goal Independent,Front Wheel Walker Gait Distance 200 Other Goals up/down 2 platform steps mod I using FWW Days to Meet Goals 5 Frequency of Treatment Frequency Of Treatment Once a Day Treatment Plan Physical Therapy Treatment Plan Bed Mobility Training,Transfer Training,Gait Training, Therapeutic Exercise,Balance Retraining,Post Op Education, Discharge Planning,Hot or Cold Pack,Neuromuscular Re-ed, Coordination Retraining,Manual Therapy Precautions Anterior Hip Precautions No Hip Extension,No Hip External Rotation Weight Bearing Status Weight Bearing Status Weight Bear as Tolerated Allowed Weight Bearing Amount (enter % RLE WBAT or #) (%) Recommendations To Nursing Amount of Assist Needed 1 Person Assist Discharge Recommendations PT Discharge Recommendations Home with 22/09 Assist Available,SNF Rehab,Home vs SNF Transportation Needs at Discharge Private Vehicle,Wheelchair/ Cabulance
--- NOTE | 2023-07-14 10:46 | CM.DPNOTE ---
Addendum entered by WALDO Jones 07/14/23 14:06: Per RN, pt's leg became very swollen throughout the day today. Getting ultra sound. Per Ortho PA Nolberto Adams, please cancel dc for today, plan for [facility] tomorrow. REPORT PROGRAMMER updated Jeannine at [facility]. Transport can only picker and packer pt tomorrow before noon, official time pending. PLAN: pt to discharge to [facility] before noon tomorrow pending medical stability. CM team will follow closely. SL Original Note: DCP Note REPORT PROGRAMMER reviewed EMR. Discussed pt in multidisciplinary morning rounds. Per FISHERIES OFFICER Pavan, pt doing much better today. REPORT PROGRAMMER and Jeannine from [facility] often re:ins/auth barriers. [facility] auth'd patient for 7 days, due to [facility] being out of network with [facility] ([facility] managed by [employer] but it's not [employer] advantage plan) [facility] would cover 100% of costs if pt had already met $8500 out of network deductible. Pt likely met $8500 deductible with this current surgery. However, still Potential for copay. REPORT PROGRAMMER emailed Jeannine JONES from today with updated info about pt discharging with catheter. With auth, transport set up for 1315 today. REPORT PROGRAMMER updated RN/gave RN report number/updated charge poster. JUAN PABLO Weiss placed PASRR and signed med list in chart. JUAN PABLO Weiss updated FRANCHISE MANAGER. REPORT PROGRAMMER met with pt in room. REPORT PROGRAMMER reviewed above ins auth/potential co pay concerns. Pt wishes to continue with SNF rehab. Pt eager to dc. Plan: pt to dc today to [facility] today at 1315. CM team will continue to follow as needed. WALDO Jones
--- NOTE | 2023-07-14 11:04 | OT.IP.TRT ---
Current Diagnoses Unilateral primary osteoarthritis, right hip (07/11/23) Presence of unspecified artificial hip joint (07/11/23) Surgery Performed Operation Date: 07/10/23 07:45 Actual Procedures p Total Hip Arthroplasty/Anterior Approach(Right) - Nick Pierre MD Occupational Therapy Treatment Note M2 OT-IP Current Condition Start: 07/10/23 16:47 Freq: Status: Active Protocol: Document 07/10/23 16:48 [facility] (Rec: 07/10/23 17:09 [facility] [id number]) Occupational Therapy Current Condition Current Condition Evaluation Date 07/10/23 Treatment Diagnosis S/P R SABIHA Anterior approach Diagnosis Onset Date 07/10/23 Post Operative Precautions Anterior Hip Precautions No Hip Extension,No Hip External Rotation M3 OT- IP Subjective and Pain Start: 07/10/23 16:47 Freq: Status: Active Protocol: Document 07/14/23 11:07 [facility] (Rec: 07/14/23 11:14 [facility] [id number]) OT- Subjective Occupational Therapy Visit Type Type Treatment Note Visit Start Time 10:40 Visit Stop Time 11:03 Occupational Therapy Visit Comments Patient Comments Pt too tired to get up but willing to take about ADL needs. Patient/Caregiver Goals TO go home. M4 OT- IP ADL's Start: 07/10/23 16:47 Freq: Status: Active Protocol: Document 07/14/23 11:07 [facility] (Rec: 07/14/23 11:14 [facility] [id number]) OT ADL-Dressing Comments OT Dressing Comments Pt has all LB dressing equipment and aware how to use it. OT ADL-Toileting Comments OT Toileting Comments Pt has a catheter in place. Went over various ways to be able to wipe and suggested use of toilet paper aid or bidet. OT ADL-Bathing Comments OT Bathing Comments Spoke of use of thin towel to assist to wash while in the shower for pericare needs. M5 OT- IP IADL's Start: 07/10/23 16:47 Freq: Status: Active Protocol: Document 07/10/23 16:48 [facility] (Rec: 07/10/23 17:09 [facility] [id number]) OT-Instrumental Activities of Daily Living Deficits IADL Deficits Identified Deficits Home Safety Awareness Awareness of Need for Assistance at Home Good Awareness Ability to Problem Solve Emergency Able to Problem Solve Situations Medication Management Medication Management No Deficits Identified Money Management Money Management No Deficits Identified Meal Preparation Meal Preparation Caregiver Provides Assist Customer Order Clerk Customer Order Clerk Caregiver Provides Assist M6 OT- IP Functional Cognition Start: 07/10/23 16:47 Freq: Status: Active Protocol: Document 07/10/23 16:48 [facility] (Rec: 07/10/23 17:09 [facility] [id number]) Cognitive Factors Limiting Selfcare Function Cognitive Ability Level of Alertness Alert Patient Orientation Name,Age,Birthday,Month,Date, Year,Day of Week,Place, Situation Ability to Follow Commands Able to Follow One Step Commands Safety Awareness Decreased Ability to Apply Precautions Cognitive Comments Cognitive Assessment Comments Pt able to follow commands for ADl and mobility needs and needing reminders to incorporate his hip precautions during especially mobility needs. OT- Vision and Hearing OT- Hearing Assessment OT- Hearing Assessment Use of Hearing Aids OT- Vision Assessment Visual Acuity Glasses For Reading Visual Attentiveness WFL Occular Pursuits WFL M8 OT- IP Objective Assessments Start: 07/10/23 16:47 Freq: Status: Active Protocol: Document 07/10/23 16:48 [facility] (Rec: 07/10/23 17:09 [facility] [id number]) OT Gross Range of Motion Upper Extremity Range of Motion Assessment Within Functional Limits OT Strength Comments Strength Comments WFL for ADL and mobility needs . M9 OT- IP Assessment and Plan Start: 07/10/23 16:47 Freq: Status: Active Protocol: Document 07/14/23 11:07 [facility] (Rec: 07/14/23 11:14 [facility] [id number]) OT Summary Assessment and Plan Potential Rehabilitation Potential Good Analytic Complexity at Evaluation Low Summary Progress Towards Goals Progressing Toward Goals Assessment Summary Pt looking to go to skilled rehab today. Went over with pt what to expect while at skilled rehab and goals to be sure to talk to the therapists about. Pt to go to skilled rehab. Goals Dressing Goal Independent,Long Handled Shoe Horn,Laydown Machine Operator,Sock Aid Toileting Goal Independent Bathing Goal Standby Assistance,Grab Bars, Hand Held Shower Sprayer Toilet Transfer Goal Independent Shower Transfer Goal Independent Days to Meet Goals 7 Frequency of Treatment Frequency Of Treatment Once a Day Discharge Recommendations OT Discharge Recommendations SNF Rehab Transportation Needs at Discharge Wheelchair/Cabulance
--- NOTE | 2023-07-14 13:32 | DI.US.S_ITS ---
PROCEDURE: US PERIPH VENOUS LOW EXTREM RT INDICATIONS: Rt leg swelling and bruising. TECHNIQUE: Real-time imaging, as well as color and pulse Doppler interrogation, were performed of the lower extremity deep veins from the inguinal ligament to the popliteal fossa, with documentation of the visualized calf veins. COMPARISON: None. FINDINGS: The common femoral, femoral, popliteal, and the visualized calf veins are normally compressible, and free of intraluminal thrombus. Color and pulse Doppler demonstrate normal phasic intraluminal flow. There is normal augmentation response to distal compression maneuver. IMPRESSION: No findings of lower extremity deep venous thrombosis. Dictated by: Angus Velez M.D. on 07/14/2023 at 13:35 Approved by: Angus Velez M.D. on 07/14/2023 at 13:35
[2023-07-14 13:57] VITALS: BP 122/66; PULSE 93; RESP 20; TEMP 36.6; O2SAT 96
[2023-07-14] MEDS: TAMSULOSIN 0.4 MG CAPSULE 0.8 MG PO (16:52)
[2023-07-14] MEDS: TRAMADOL 50 MG TABLET PO (16:53)
[2023-07-14 20:00] VITALS: BP 123/66; PULSE 94; RESP 18; TEMP 36.6; O2SAT 94
[2023-07-14] MEDS: SENNOSIDES 8.6 MG TABLET 17.2 MG PO (21:44)
[2023-07-14] MEDS: TRAZODONE 50 MG TABLET PO (21:44)
[2023-07-15] MEDS: TRAMADOL 50 MG TABLET PO ×2 (00:47→06:39)
[2023-07-15] MEDS: hydrOXYzine HCL 25 MG TABLET PO ×2 (00:48→06:39)
[2023-07-15 01:10] VITALS: O2SAT 94
[2023-07-15] MEDS: ALBUTEROL 2.5 MG/3 ML NEB (ADULT) INH (01:19)
[2023-07-15] MEDS: OXYCODONE IR 5 MG TABLET PO ×2 (03:12→10:07)
[2023-07-15] MEDS: ACETAMINOPHEN 325 MG TABLET 650 MG PO (03:12)
[2023-07-15 04:00] VITALS: BP 140/86; PULSE 78; TEMP 36.4; O2SAT 96
[2023-07-15 08:10] VITALS: BP 134/72; PULSE 86; RESP 20; TEMP 36.3; O2SAT 100
--- NOTE | 2023-07-15 08:28 | PM.DS.1 ---
History of Present Illness History of Present Illness Chief complaint: Right SABIHA *OPB* Narrative: Mal is a 68 year old male Discharge Providers Provider Date of admission: 07/11/23 15:02 Primary care physician: Benjamin Mancilla MD Consults: 06/25/23 12:22 Consult to Anesthesiology Routine Comment: Consulting Provider: Anesthesiologist Reason for consultation: Surgeon requested re: Aortic valve replacement, solitary kidney 07/10/23 11:24 Consult to Discharge Planning Routine Comment: Consult to Occupational Therapy Evaluate & Treat Comment: Physician Instructions: Evaluate and treat Consult to Physical Therapy Evaluate & Treat Comment: Physician Instructions: post op SABIHA protocol Discharge provider: Tonya Hebert PA-C Exam Vital Signs (past 8 hours): - 07/15/23 01:10 07/15/23 04:00 07/15/23 08:10 Temperature 97.6 F 97.3 F L Pulse Rate 78 86 Respiratory Rate 20 Blood Pressure 140/86 134/72 Pulse Oximetry 94 96 100 Oxygen Delivery Method Room Air Oxygen Flow Rate 0 0 Oxygen Delivery Method Room Air Oxygen Flow Rate 0 Objective Labs 07/11/23 05:55 PFSH Medical History Bowel obstruction (01/2019) Anesthesia complication Hearing impaired Solitary kidney Bicuspid aortic valve Incomplete bladder emptying Prostate nodule with urinary obstruction Elevated PSA History of gout COVID-19 (~10/2021) BPH w urinary obs/LUTS Wears glasses Tinnitus Hearing loss Cataracts, bilateral Colon polyps Low testosterone (~2009) Aortic regurgitation Psoriasis (~2016) COPD (chronic obstructive pulmonary disease) Depression Hypogonadism male H/O adenomatous polyp of colon Atrial fibrillation Aortic stenosis Aneurysm, thoracic aortic Type 2 diabetes mellitus Hyperlipidemia Hypertension Hypertelorism Surgical History Hx of bilateral cataract extraction History of circumcision Anesthesia S/P plication of diaphragm (~2010) S/P AVR (aortic valve replacement) (~08/2019) History of appendectomy (~1987) History of exploratory laparotomy History of ventral hernia repair (~1986) History of nephrectomy, unilateral (~1984) Family History Father Cancer Mother Diabetes mellitus Sister Diabetes mellitus Grandfather Cancer Social History marital status: number of children: 2 household members: family Smoking Status: Former smoker alcohol intake: current Discharge Assessment & Plan Assessment and Plan Assessment: Right hip osteoarthritis, s/p right total hip arthroplasty Plan of Treatment: Per CM notes, it appears that [facility] has accepted him today, authorization pending. Multimodal pain control, ASA BID for VTE prophylaxis, f/u in office in 2 weeks as scheduled. Discharge Plan Discharge Plan Patient Disposition: SNF Transfer to: [facility] Transportation: Facility vehicle Provider Discharge Comment: [email or web address] I certify the postop hospital nursing home care is medically necessary on a continuing basis for any conditions for which he/ she received care during this hospitalization.: Yes The receiving facility has agreed to accept transfer and provide medical treatment.: Yes Discharge orders & Medications Prescriptions: New docusate sodium 100 mg Capsule 100 mg PO BID Qty: 30 0RF ondansetron 4 mg Tablet,Disintegrating 4 mg PO Q4HR PRN (Reason: Nausea) Qty: 10 0RF aspirin 81 mg Tablet,Delayed Release (Dr/Ec) 81 mg PO BID 42 Days Qty: 84 0RF oxycodone 5 mg tablet 5 mg PO Q4-6H PRN (Reason: pain (scale score 4-6)) Qty: 30 0RF Continued glipizide 5 mg tablet 5 mg PO BID Qty: 180 3RF Farxiga 10 mg tablet 10 mg PO QAM Qty: 90 3RF metoprolol succinate 25 mg tablet extended release 24 hr 25 mg PO QAM Qty: 90 3RF triazolam [Halcion] 0.25 mg tablet 0.25 mg PO ONCE Qty: 2 0RF Patient Comments: No longer taking was for MRI Rx Instructions: Take 2 tablets 1-2 hours prior to scheduled MRI as directed. ketoconazole 2 % shampoo 1 applic topical 2XW losartan 25 mg tablet 25 mg PO DAILY Qty: 90 3RF CoQ10 Chewable 200 mg 1 tab PO DAILY albuterol sulfate 90 mcg/actuation HFA aerosol inhaler 2 puff inhalation Q4-6H PRN (Reason: shortness of breath or wheezing) Qty: 8.5 6RF pravastatin 20 mg tablet 20 mg PO DAILY Qty: 90 3RF tamsulosin 0.4 mg capsule 0.8 mg PO QPM cyanocobalamin (vitamin B-12) 100 mcg Tablet 100 mcg PO QAM trazodone 50 mg Tablet 50 mg PO BEDTIME PRN (Reason: Insomnia) acetaminophen [Acetaminophen Extra Strength] 500 mg Tablet 1,000 mg PO TID-QID PRN (Reason: Pain (Scale Score 1-3)) ascorbic acid (vitamin C) 500 mg Tablet 500 mg PO DAILY clobetasol 0.05 % solution 0.005 % TOPICAL BID PRN (Reason: Skin Cleansing) cholecalciferol (vitamin D3) 100 mcg (4,000 unit) Tablet 100 mcg PO QAM Centrum Silver Men 300-600-300 mcg Tablet 1 tab PO QAM Discontinued aspirin [Adult Low Dose Aspirin] 81 mg Tablet,Delayed Release (Dr/Ec) 81 mg PO QAM No Action nystatin 100,000 unit/gram ointment 1 applic topical BID PRN (Reason: Skin Irritation) (DME) Disabled Parking See Rx Instructions Rx Instructions: Patient qualifies for disabled parking as per the attached form. fluticasone propionate [Flonase] 50 mcg/actuation [place],Suspension 50 mcg INTRANASAL 1XD loratadine [Claritin] 10 mg Tablet 10 mg PO DAILY melatonin 10 mg Tablet 10 mg PO BEDTIME PRN (Reason: sleep) Follow up/Referrals: Alyse Walsh MD [Physician] - (5-7 days for urinary retention and retained Canales catheter) Benjamin Mancilla MD [Primary Care Provider] - Nick Pierre MD [Physician] - (Follow up at [facility] as scheduled in 2 weeks. Appointment on 07/22/2023 at 1:30 p.m. with BRAD Adams. ) Diet/Activity/Treatments Diet: Diet as Tolerated Activity: Weight-bearing as tolerated, maintain anterior hip precautions. Work with outpatient PT to improve mobility. Cold/Heat Therapy: Ice to the hip for additional pain control. Skin/Wound/Dressing Care Report to your healthcare provider any signs of infection, such as:: chills, fever, night sweats, unusual drainage and unusual redness Dressing: Keep dressing intact, clean and dry until 2 week post-op appointment. No soaking the incision site in pools or tubs. No topical ointments or creams to the incision site. Special Rehabilitation Services Reason for rehabilitation: Post-operative therapy Rehab type: Physical therapy Visit Report/Discharge Packet Instructions: DI for Hip Replacement, DI for Prescription Opioid Use Stand Alone Forms: Patient Portal/API, Surgery Discharge Discharge Data Primary Care Provider: Benjamin Mancilla Attending Provider: Nick Pierre Admit Date/Time: 07/11/23 15:02 Quality VTE Deep Vein Thrombosis/Pulmonary Embolism Present on Admission: No
[2023-07-15] MEDS: polyethylene glycoL 3350 17 GM POWD.PACK PO (10:00)
[2023-07-15] MEDS: ASPIRIN EC 81 MG TABLET PO (10:01)
[2023-07-15] MEDS: SENNOSIDES 8.6 MG TABLET 17.2 MG PO (10:01)
[2023-07-15] MEDS: MULTIVITAMIN 1 TABLET 1 TAB PO (10:01)
[2023-07-15] MEDS: ASCORBIC ACID 500 MG TABLET PO (10:01)
[2023-07-15] MEDS: DOCUSATE 100 MG CAPSULE PO (10:01)
[2023-07-15] MEDS: METOPROLOL ER 25 MG TABLET PO (10:01)
[2023-07-15] MEDS: glipiZIDE 5 MG TABLET PO (10:01)
[2023-07-15] MEDS: CYANOCOBALAMIN (VITAMIN B-12) 100 MCG TABLET PO (10:01)
[2023-07-15] MEDS: CHOLECALCIFEROL (VITAMIN D3) 1,000 UNIT TABLET 4000 UNIT PO (10:01)
--- NOTE | 2023-07-15 10:03 | PT.IPTN ---
Current Diagnoses Unilateral primary osteoarthritis, right hip (07/11/23) Presence of unspecified artificial hip joint (07/11/23) Surgery Performed Operation Date: 07/10/23 07:45 Actual Procedures p Total Hip Arthroplasty/Anterior Approach(Right) - Nick Pierre MD Physical Therapy Treatment Note M2 PT-IP Current Condition Start: 07/10/23 17:06 Freq: NEEDED Status: Active Protocol: Document 07/10/23 15:02 AB (Rec: 07/10/23 17:25 AB [id number]) Physical Therapy Current Condition Current Condition Evaluation Date 07/10/23 Treatment Diagnosis s/p R SABIHA anterior; difficulty in walking Onset Date 07/10/23 M3 PT-IP Subjective Start: 07/10/23 17:06 Freq: NEEDED Status: Active Protocol: Document 07/15/23 10:31 TS (Rec: 07/15/23 10:44 TS [id number]) Subjective Physical Therapy Visit Type Type Treatment Note Visit Start Time 10:03 Visit Stop Time 10:27 Number of SCRUB WHEEL OPERATOR Visits 2 Physical Therapy Visit Comments Patient Comments Pt found resting in chair, reports weakness in RLE, is agreeable to PT. Therapy Pain Assessment Pain When Pain Assessed During Mobility Pain Present Pain Present Pain Reported M4 PT-IP Mobility and Gait Start: 07/10/23 17:06 Freq: NEEDED Status: Active Protocol: Document 07/15/23 10:31 TS (Rec: 07/15/23 10:44 TS [id number]) PT-Transfer Assessment Sit to and From Stand Sit to and from Stand Contact Guard Assistance,1 Person Assistance,Use of Upper Extremities Equipment Transfer Assistive Device Gait Belt,Front Wheeled Walker Orthotic/Prosthetic Devices or Brace: No Comments Mobility Comments STS from chair with FWW SBA with cues for pushin from arms of chair. He ambulated ~150' SBA step to gait. Pt fatigued and required to sit in w/c. Pt was brought back to room in chair, he requested to use toilet. Pt was left on toilet, RN notified. Gait Assessment Gait Gait Assistance Required: Contact Guard Assist,1 Person Assist Distance (Feet) 150 Able to Maintain Weight Bearing Status Yes During Gait Assistive Devices Assistive Device Gait Belt,Front Wheeled Walker Orthotic/Prosthetic Devices or Brace: No Gait Deviations General Gait Pattern Antalgic,Decreased Stride Length,Decreased Feet Clearance,Flexed Trunk,Step-to Gait,Wide Based Gait Factors Limiting Gait Function Factors Limiting Gait Function Decreased Activity Tolerance, Decreased Strength,Limited Range of Motion Comments Gait Comments See mobility comments PT-Balance Assessment Sitting Balance and Reactions Static Sitting Balance Ability Good Dynamic Sitting Balance Ability Fair Standing Balance and Reactions Static Standing Balance Ability Fair Dynamic Standing Balance Ability Fair Device Used RW M5 PT-IP Objective Assessments Start: 07/10/23 17:06 Freq: NEEDED Status: Active Protocol: Document 07/10/23 15:02 AB (Rec: 07/10/23 17:25 AB [id number]) Orientation Orientation/Cognition Level of Alertness Alert Orientation Name,Place,Situation Language Function Ability No Deficits Noted Safety Awareness Decreased Safety Awareness Memory Description Short Term Impaired Gross Range of Motion Lower Extremity ROM Assessment Within Functional Limits Strength Lower Extremity Strength Assessment Right Impaired Hip 3-/5 Knee 3+/5 Coordination Assessment Gross Coordination Gross Coordination WNL Sensation Assessment Sensation Gross Sensation WNL Muscle Tone Muscle Tone WNL Yes M6 PT-IP Treatment Start: 07/10/23 17:06 Freq: NEEDED Status: Active Protocol: Document 07/15/23 10:31 TS (Rec: 07/15/23 10:44 TS [id number]) Physical Therapy Treatment Education Education Provided Precautions,Weight Bearing Status,Post-Op Packet,Safety M7 PT-IP Assessment and Plan Start: 07/10/23 17:06 Freq: NEEDED Status: Active Protocol: Document 07/15/23 10:31 TS (Rec: 07/15/23 10:44 TS [id number]) PT Summary Assessment and Plan Potential Rehabilitation Potential Fair Summary Impairments Pain,ROM,Strength,Balance, Coordination,Sensation,Bed Mobility,Transfers,Gait, Activity Tolerance Progress Towards Goals Progressing Toward Goals Assessment Summary Mal is making progress with his mobility. He progressed his gait to ~150' SBA with step to gait. PT is recommending pt return home with assist. Goals Bed Mobility Goal Independent Transfer Goal Independent,Front Wheeled Walker Gait Goal Independent,Front Wheel Walker Gait Distance 200 Other Goals up/down 2 platform steps mod I using FWW Days to Meet Goals 5 Frequency of Treatment Frequency Of Treatment Once a Day Treatment Plan Physical Therapy Treatment Plan Bed Mobility Training,Transfer Training,Gait Training, Therapeutic Exercise,Balance Retraining,Post Op Education, Discharge Planning,Hot or Cold Pack,Neuromuscular Re-ed, Coordination Retraining,Manual Therapy Precautions Anterior Hip Precautions No Hip Extension,No Hip External Rotation Weight Bearing Status Weight Bearing Status Weight Bear as Tolerated Allowed Weight Bearing Amount (enter % RLE WBAT or #) (%) Recommendations To Nursing Amount of Assist Needed Standby Assistance,1 Person Assist Discharge Recommendations PT Discharge Recommendations Home with Assistance,Home Health Transportation Needs at Discharge Private Vehicle
[2023-07-15] MEDS: PRAVASTATIN 20 MG TABLET PO (10:07)
--- NOTE | 2023-07-15 10:50 | PC.NURSE ---
Day shift: Report given to RN at [facility] at approx 1045. All questions answered.
--- NOTE | 2023-07-15 11:25 | PC.NURSE ---
Day shift: Left unit via WC with [facility] transport person at 1125. SNF paperwork is with Pt. Pt has all personal belongings. VS remain WNL. Dressing on rt hip CDI. Pt did spend time in bathroom this AM attempting a BM but did not have one. Was given prune juice and BM meds per APR thi AM.
--- NOTE | 2023-07-15 11:30 | PM.PN.1 ---
Subjective Subjective Interval history: Patient seen this morning. Admission prolonged due to poor mobilization with unexpected DC to SNF. Had swelling yesterday prompting a DVT US. That was negative. Stay has been complicated by urinary retention with indwelling hay in place. Plan for outpatient followup with urology, with whom he was already established previously. Dressing is clean dry intact and sensorimotor function is normal. Plan for outpatient followup for wound check as previously scheduled. Exam Vital Signs (past 8 hours): - 07/15/23 04:00 07/15/23 08:10 Temperature 97.6 F 97.3 F L Pulse Rate 78 86 Respiratory Rate 20 Blood Pressure 140/86 134/72 Pulse Oximetry 96 100 Oxygen Flow Rate 0 Oxygen Delivery Method Room Air Oxygen Flow Rate 0 Objective Labs 07/11/23 05:55 PFSH Medical History Bowel obstruction (01/2019) Anesthesia complication Hearing impaired Solitary kidney Bicuspid aortic valve Incomplete bladder emptying Prostate nodule with urinary obstruction Elevated PSA History of gout COVID-19 (~10/2021) BPH w urinary obs/LUTS Wears glasses Tinnitus Hearing loss Cataracts, bilateral Colon polyps Low testosterone (~2009) Aortic regurgitation Psoriasis (~2016) COPD (chronic obstructive pulmonary disease) Depression Hypogonadism male H/O adenomatous polyp of colon Atrial fibrillation Aortic stenosis Aneurysm, thoracic aortic Type 2 diabetes mellitus Hyperlipidemia Hypertension Hypertelorism Surgical History Hx of bilateral cataract extraction History of circumcision Anesthesia S/P plication of diaphragm (~2010) S/P AVR (aortic valve replacement) (~08/2019) History of appendectomy (~1987) History of exploratory laparotomy History of ventral hernia repair (~1986) History of nephrectomy, unilateral (~1984) Family History Father Cancer Mother Diabetes mellitus Sister Diabetes mellitus Grandfather Cancer Social History marital status: number of children: 2 household members: family Smoking Status: Former smoker alcohol intake: current Quality VTE Deep Vein Thrombosis/Pulmonary Embolism Present on Admission: No
--- NOTE | 2023-07-15 13:29 | CM.DPNOTE ---
DC Note Discharge to [facility]; Jeannine at [facility] confirms patient okay to admit today. Patient and family aware and agreeable to plan. Transport arranged for 1115. CRISTIAN Weiss assisting with this discharge plan. All Rx sent yesterday. DC order updated, Janey SALINAS completing DC Summary. Plan: Discharge to [facility] via cabulance. [facility]
== END 2023-07-15 11:27 ==
LOC: OR 07-13 06:14 → AC 07-13 06:14
PROVIDERS: Anesthesiology; Admitting Provider Orthopaedic Surgery Adult Reconstructive Orthopaedic Surgery; Family Provider Physician Assistant; PCP Internal Medicine; Referring Provider Orthopaedic Surgery Adult Reconstructive Orthopaedic Surgery; Visit Provider Orthopaedic Surgery Adult Reconstructive Orthopaedic Surgery
PROC: (CPT 27130; principal; 2023-07-10 07:45)
DX: M16.11 Unilateral primary osteoarthritis, right hip (principal); E11.42 Type 2 diabetes mellitus with diabetic polyneuropathy; Z79.84 Long term (current) use of oral hypoglycemic drugs; Z90.5 Acquired absence of kidney; I10 Essential (primary) hypertension
CPT/HCPCS: 27130; 36415; 73502; 76000; 82962; 85014; 85018; 85025; 86850; 86900; 86901; 93971; 94640; 97116; 97162; 97165; 97530; 97535; C1776; G0378; A9270; C9290; J0136; J0171; J0690; J1100; J1815; J2250; J2405; J2704; J3010; J7613

== ENCOUNTER 2023-07-30 00:01 | Emergency (ER) | payer OTHER, SELFPAY ==
[2023-07-10 11:49] VITALS: BMI 30.1
[2023-07-30] VITALS (8 sets, daily range): BP systolic 129–153; BP diastolic 58–70; PULSE 85–101; RESP 18–36; TEMP 36.6; O2SAT 93–100; BMI 35.9
--- NOTE | 2023-07-30 01:14 | ED.ANXIETY ---
HPI - Anxiety General Chief Complaint: Shortness of Breath/Dyspnea Stated Complaint: not sleeping Time Seen by Provider: 07/30/23 00:14 Source: patient Mode of arrival: Ambulatory History of Present Illness HPI narrative: 68-year-old male with a history of hypertension, hyperlipidemia, bovine aortic valve replacement presents by private vehicle for approximately 2 weeks of shortness of breath. Patient states that he has been told in the past that he was COPD and always feels slightly short of breath, however ever since his hip replacement surgery on 07/10/23 he has felt even more short of breath than usual. He spent 2 weeks at [facility] rehab where he regained some of his strength, however he was unable to sleep at night due to his shortness of breath. He states that whenever he feels himself falling asleep he feels like he is choking and wakes back up. He has bilateral lower extremity pitting edema, he states that he was placed on Lasix, but he did not feel it was very helpful. Related Data Home Medications Medication Instructions Recorded Confirmed acetaminophen 500 mg tablet 1,000 mg PO TID-QID PRN Pain 08/14/19 07/28/23 (Acetaminophen Extra Strength) (Scale Score 1-3) ascorbic acid (vitamin C) 500 mg 500 mg PO DAILY 08/14/19 07/28/23 tablet cholecalciferol (vitamin D3) 100 100 mcg PO QAM 08/14/19 07/28/23 mcg (4,000 unit) tablet clobetasol 0.05 % scalp solution 0.005 % topical BID PRN Skin 08/14/19 07/28/23 Cleansing cyanocobalamin (vitamin B-12) 100 100 mcg PO QAM 08/14/19 07/28/23 mcg tablet fxawhlad-ro-auflw 300 mcg-K 60 1 tab PO QAM 08/14/19 07/28/23 mcg-lycop 600 mcg-lutein 300 mcg tablet (Centrum Silver Men) ketoconazole 2 % shampoo 1 applic topical 2XW 10/08/21 07/28/23 tamsulosin 0.4 mg capsule 0.8 mg PO QPM 06/24/23 07/28/23 nystatin 100,000 unit/gram topical 1 applic topical BID PRN Skin 07/13/23 07/28/23 ointment Irritation Disabled Parking 07/14/23 07/28/23 fluticasone propionate 50 50 mcg intranasal 1XD 07/14/23 07/28/23 mcg/actuation nasal spray,suspension loratadine 10 mg tablet (Claritin) 10 mg PO DAILY 07/14/23 07/28/23 Previous Rx's Medication Instructions Recorded losartan 25 mg tablet 25 mg PO DAILY #90 tabs 09/10/21 dapagliflozin propanediol 10 mg 10 mg PO QAM #90 tabs 09/15/22 tablet (Farxiga) glipizide 5 mg tablet 5 mg PO BID #180 tabs 09/15/22 metoprolol succinate 25 mg 25 mg PO QAM #90 tabs 10/22/22 tablet,extended release 24 hr albuterol sulfate 90 mcg/actuation 2 puff inhalation Q4-6H PRN 03/23/23 aerosol inhaler shortness of breath or wheezing #8.5 grams pravastatin 20 mg tablet 20 mg PO DAILY #90 tabs 03/23/23 aspirin 81 mg tablet,delayed 81 mg PO BID 6 weeks #84 tabs 07/10/23 release docusate sodium 100 mg capsule 100 mg PO BID #30 caps 07/10/23 ondansetron 4 mg disintegrating 4 mg PO Q4HR PRN Nausea #10 tabs 07/10/23 tablet oxycodone 5 mg tablet 5 mg PO Q4-6H PRN pain (scale 07/13/23 score 4-6) #30 tabs furosemide 40 mg tablet 40 mg PO DAILY #14 tabs 07/30/23 Allergies Allergy/AdvReac Type Severity Reaction Status Date / Time sulfamethoxazole Allergy Mild Rash Verified 06/24/23 09:18 [From SEPTRA] trimethoprim [From SEPTRA] Allergy Mild Rash Verified 06/24/23 09:18 celecoxib [From CELEBREX] AdvReac Severe Tears my Verified 06/24/23 09:18 stomach up citalopram [From CELEXA] AdvReac Severe Tears my Verified 06/24/23 09:18 stomach up metformin AdvReac Severe GI Sx Verified 05/19/23 15:59 rosuvastatin AdvReac Intermediate myalgia Verified 05/19/23 15:59 simvastatin AdvReac Intermediate myalgia Verified 05/19/23 15:59 Review of Systems Review of Systems Narrative: See HPI Patient History Medical History Bowel obstruction (01/2019) Anesthesia complication Hearing impaired Solitary kidney Bicuspid aortic valve Incomplete bladder emptying Prostate nodule with urinary obstruction Elevated PSA History of gout COVID-19 (~10/2021) BPH w urinary obs/LUTS Wears glasses Tinnitus Hearing loss Cataracts, bilateral Colon polyps Low testosterone (~2009) Aortic regurgitation Psoriasis (~2016) COPD (chronic obstructive pulmonary disease) Depression Hypogonadism male H/O adenomatous polyp of colon Atrial fibrillation Aortic stenosis Aneurysm, thoracic aortic Type 2 diabetes mellitus Hyperlipidemia Hypertension Hypertelorism Surgical History Hx of bilateral cataract extraction History of circumcision Anesthesia S/P plication of diaphragm (~2010) S/P AVR (aortic valve replacement) (~08/2019) History of appendectomy (~1987) History of exploratory laparotomy History of ventral hernia repair (~1986) History of nephrectomy, unilateral (~1984) Family History Father Cancer Mother Diabetes mellitus Sister Diabetes mellitus Grandfather Cancer Social History marital status: number of children: 2 household members: family Smoking Status: Former smoker alcohol intake: current Smoking Status: Former smoker alcohol intake frequency: holidays/special occasions only Substance Use Type: does not use Exam Initial Vital Signs Initial Vital Signs: Vital Signs Temperature 97.8 F 07/30/23 00:07 Pulse Rate 101 H 07/30/23 00:07 Respiratory Rate 18 07/30/23 00:07 Blood Pressure 134/63 07/30/23 00:07 Pulse Oximetry 100 07/30/23 00:07 Oxygen Delivery Method Room Air 07/30/23 00:07 Const: Awake, alert, nontoxic appearing Cardiac: regular rate, regular rhythm, systolic murmur auscultated right sternal border RESP: unlabored, clear bilaterally, no wheezing GI: Soft, nontender, nondistended, no rebound, no guarding MSK: 3+ pitting edema to thighs bilaterally Skin: Warm, Dry, intact, no rashes Neuro: AO x3, CN II-XII grossly intact, moves all extremities Course Orders Ordered: Discontinued Medications Furosemide (Furosemide 40 Mg/4 Ml Vial) 40 mg IV NOW ONE Stop: 07/30/23 01:50 Last Admin: 07/30/23 02:10 Dose: 40 mg Documented By: AB Vital Signs Vital signs: Vital Signs - 8 hr 07/30/23 00:07 07/30/23 02:00 07/30/23 02:15 Temperature 97.8 F Pulse Rate 101 H 92 H 85 Respiratory Rate 18 19 20 Blood Pressure 134/63 Pulse Oximetry 100 97 95 Oxygen Delivery Method Room Air 07/30/23 02:15 07/30/23 02:30 07/30/23 02:30 Temperature Pulse Rate 93 H Respiratory Rate 19 Blood Pressure 131/61 153/70 H Pulse Oximetry 93 Oxygen Delivery Method 07/30/23 03:00 Temperature Pulse Rate 93 H Respiratory Rate Blood Pressure Pulse Oximetry 95 Oxygen Delivery Method MDM - Anxiety Lab Data 07/30/23 01:45 07/30/23 01:45 Labs: Lab Results 07/30/23 Range/Units 01:45 WBC 2.5 L (4.5-11.0) X10^3/uL RBC 3.42 L (4.5-5.9) X10^6/uL Hgb 10.6 L (13.5-17.5) g/dL Hct 32.1 L (41-53) % MCV 93.9 (80-100) fL MCH 31.1 (26-34) PG MCHC 33.2 (30-36) % RDW 15.3 H (11.6-14.8) % Plt Count 234 (150-400) X10^3/uL Neut % (Auto) 63.6 (50-75) % Lymph % (Auto) 18.2 L (25-40) % [place] % (Auto) 13.5 (3-14) % Eos % (Auto) 2.7 (2-4) % Baso % (Auto) 2.0 (0-2) % Neut # (Auto) 1600 (6714-0571) /uL Lymph # (Auto) 500 L (0602-7752) /uL [place] # (Auto) 300 (0-900) /uL Eos # (Auto) 100 (0-450) /uL Baso # (Auto) 100 (0-100) /uL PT 13.8 H (9.4-12.5) SECONDS INR 1.2 (0.9-1.3) Sodium 138 (137-145) mmol/L Potassium 4.3 (3.4-5.1) mmol/L Chloride 103 (98-107) mmol/L Carbon Dioxide 32 (22-32) mmol/L BUN 16 (9-20) mg/dL Creatinine 0.94 (0.66-1.25) mg/dL Estimated GFR > 60 (>60) mL/min BUN/Creatinine Ratio 17.0 (6-22) Glucose 78 L (80-110) mg/dL Calcium 9.0 (8.4-10.2) mg/dL Total Bilirubin 0.3 (0.2-1.3) mg/dL AST 22 (17-59) IU/L ALT 25 (<50) IU/L Alkaline Phosphatase 148 H (38-126) U/L Total Creatine Kinase 93 (55-170) U/L Troponin I < 0.012 (0.01-0.034) ng/mL NT-Pro-B Natriuret Pep 84 (<125) pg/mL Total Protein 6.6 (6.3-8.2) g/dL Albumin 3.7 (3.5-5.0) g/dL Globulin 2.9 (1.7-4.1) g/dL Albumin/Globulin Ratio 1.3 (1.0-2.8) Imaging Data Chest x-ray: My Impression: PROCEDURE: XR CHEST 1V INDICATIONS: DYSPNEA TECHNIQUE: One view of the chest was acquired. COMPARISON: [facility], , XR CHEST 2V, 11/26/2021, 18:46. FINDINGS: Surgical changes and devices: Median sternotomy wires are seen. Lungs and pleura: There is mild pulmonary vascular congestion. Small bilateral infrahilar infiltrate versus atelectasis cannot be excluded. No pleural effusions or pneumothorax. Mediastinum: Mediastinal contours appear normal. Heart size is enlarged. Bones and chest wall: No suspicious bony lesions. Overlying soft tissues appear unremarkable. IMPRESSION: Cardiomegaly and mild congestion. Cannot rule out small bilateral infrahilar infiltrate/atelectasis. No pleural effusion or pneumothorax. Dictated by: Zach Arriaza M.D. on 07/30/2023 at 1:39 Approved by: Zach Arriaza M.D. on 07/30/2023 at 1:40 CT scan - chest: Radiologist's Impression: PROCEDURE: CT ANGIO CHEST PE PROTOCOL INDICATIONS: DYSPNEA, RECENT SURGERY TECHNIQUE: After the administration of intravenous contrast, 2 mm thick sections acquired from the pulmonary apices to the posterior costophrenic angles. 3-dimensional maximum intensity projection (MIP) coronal and sagittal reformats were then acquired through the thorax. For radiation dose reduction, the following was used: automated exposure control, adjustment of mA and/or kV according to patient size. COMPARISON: [facility], CT, CT ABDOMEN PELVIS W CON, 01/14/2019, 7:28. [facility], CR, XR CHEST 1V, 07/30/2023, 1:26. FINDINGS: Image quality: Diagnostic. Pulmonary arteries: Pulmonary arteries demonstrate no intraluminal filling defects to suggest central pulmonary embolism. Lower Neck: No enlarged lymph nodes. Thyroid: No thyroid nodules which require sonographic follow up, per consensus guidelines. Axillae: No enlarged lymph nodes. Chest Wall: Unremarkable. Median sternotomy wires are in place. Bones: Innumerable scattered sclerotic osseous metastatic lesions seen throughout the imaged skeleton, new since prior CT. Multilevel thoracic spondylosis. No acute compression fractures. Lungs and Pleura: No pneumothorax or pleural effusions. No consolidation or suspicious nodules. Eventration of the right hemidiaphragm. Bibasilar atelectasis. Heart: Heart size is normal. No pericardial effusion. Thoracic Vessels: Mild aneurysmal dilatation of the ascending thoracic aorta measuring 4.5 cm. Mediastinum and Emily: No enlarged lymph nodes. Esophagus: No wall thickening. No hiatal hernia. Upper Abdomen: Cholelithiasis without CT evidence for acute cholecystitis. Other visualized upper abdomen solid organs and bowel loops appear unremarkable. IMPRESSION: No acute pulmonary embolus. Extensive scattered sclerotic osseous metastatic lesions without evidence for pathologic fracture. Cholelithiasis. Other chronic findings as above. No significant discrepancy with the material handler 2nd shift radiology preliminary report. Dictated by: Ned Thrasher M.D. on 07/30/2023 at 7:02 Approved by: Ned Thrasher M.D. on 07/30/2023 at 7:21 MDM Narrative Medical decision making narrative: Patient with several weeks of dyspnea upon falling asleep. Reports chronic mild shortness of breath attributed to his COPD, but it is much worse following his hip replacement surgery. Patient does have significant bilateral lower extremity pitting edema, but lungs are clear to auscultation without obvious congestion. Laboratory work, chest x-ray ordered. Laboratory work reviewed, WBC count 2.5 (chronic, appox baseline), hemoglobin 10.6, platelets 234, sodium 138, potassium 4.3, creatinine 0.94, troponin undetectable, BNP 84. Chest x-ray notable for cardiomegaly with mild congestion. Patient given 40 mg of IV Lasix for his edema and congestion with very good diuresis. Since patient has had dyspnea disproportionate to lab and chest x-ray findings with recent hospitalization and rehab stay we will order CT angio of the chest. CT angio negative for pulmonary embolism. No obvious reason for patient's sleep dyspnea, however patient does state that in the past he has been referred for a sleep study but due to the clinic closing down he was never able to make an appointment. Patient's symptoms could be explained by sleep apnea, however he had need a formal sleep study. Patient counseled on all lab and imaging findings, recommended that he continue to follow up with primary as well as Pulmonary for a sleep study. We will continue Lasix to help with lower extremity edema and to prevent vascular congestion. After patient was discharged from the emergency department repeat review of imaging performed by myself. There was a note made of diffuse metastatic disease. Per patient's primary care notes the patient has suspected prostate cancer, however he has been unable to tolerate MRI due to claustrophobia and no formal diagnosis of cancer has been made. Call to be made to patient's primary care doctor and to the patient at 7:00 a.m. 07/31/23 Discharge Plan Departure Patient Disposition: Home Clinical Impression: Edema, Nocturnal dyspnea, Bony sclerosis, Aneurysm, thoracic aortic Instructions: DI for Peripheral Edema-Unilateral Activity Restrictions/Additional Instructions: Your laboratory work did not show any obvious abnormalities to explain your shortness of breath. Your chest x-ray did show an enlarged heart with some congestion that could be fluid on the lungs. Your CT scan did not show any signs of blood clots or pneumonia. For your edema I am going to continue you on your furosemide. I recommend continuing 40 mg daily for 1 week, however an additional week has been provided if you do not feel that you are completely improved. I strongly recommend following up with the sleep study you previously mentioned. Take the trazodone prescribed for sleep as needed. Prescriptions: New furosemide 40 mg tablet 40 mg PO DAILY Qty: 14 0RF No Action glipizide 5 mg tablet 5 mg PO BID Qty: 180 3RF Farxiga 10 mg tablet 10 mg PO QAM Qty: 90 3RF metoprolol succinate 25 mg tablet extended release 24 hr 25 mg PO QAM Qty: 90 3RF ketoconazole 2 % shampoo 1 applic topical 2XW losartan 25 mg tablet 25 mg PO DAILY Qty: 90 3RF albuterol sulfate 90 mcg/actuation HFA aerosol inhaler 2 puff inhalation Q4-6H PRN (Reason: shortness of breath or wheezing) Qty: 8.5 6RF pravastatin 20 mg tablet 20 mg PO DAILY Qty: 90 3RF tamsulosin 0.4 mg capsule 0.8 mg PO QPM docusate sodium 100 mg Capsule 100 mg PO BID Qty: 30 0RF ondansetron 4 mg Tablet,Disintegrating 4 mg PO Q4HR PRN (Reason: Nausea) Qty: 10 0RF aspirin 81 mg Tablet,Delayed Release (Dr/Ec) 81 mg PO BID 42 Days Qty: 84 0RF oxycodone 5 mg tablet 5 mg PO Q4-6H PRN (Reason: pain (scale score 4-6)) Qty: 30 0RF nystatin 100,000 unit/gram ointment 1 applic topical BID PRN (Reason: Skin Irritation) (DME) Disabled Parking See Rx Instructions Rx Instructions: Patient qualifies for disabled parking as per the attached form. fluticasone propionate [Flonase] 50 mcg/actuation Advance,Suspension 50 mcg INTRANASAL 1XD loratadine [Claritin] 10 mg Tablet 10 mg PO DAILY cyanocobalamin (vitamin B-12) 100 mcg Tablet 100 mcg PO QAM acetaminophen [Acetaminophen Extra Strength] 500 mg Tablet 1,000 mg PO TID-QID PRN (Reason: Pain (Scale Score 1-3)) ascorbic acid (vitamin C) 500 mg Tablet 500 mg PO DAILY clobetasol 0.05 % solution 0.005 % TOPICAL BID PRN (Reason: Skin Cleansing) cholecalciferol (vitamin D3) 100 mcg (4,000 unit) Tablet 100 mcg PO QAM Centrum Silver Men 300-600-300 mcg Tablet 1 tab PO QAM Referrals: Benjamin Mancilla MD [Primary Care Provider] - Stand Alone Forms: Patient Portal/API
--- NOTE | 2023-07-30 01:25 | DI.RAD.S_ITS ---
PROCEDURE: XR CHEST 1V INDICATIONS: DYSPNEA TECHNIQUE: One view of the chest was acquired. COMPARISON: [facility], CR, XR CHEST 2V, 11/26/2021, 18:46. FINDINGS: Surgical changes and devices: Median sternotomy wires are seen. Lungs and pleura: There is mild pulmonary vascular congestion. Small bilateral infrahilar infiltrate versus atelectasis cannot be excluded. No pleural effusions or pneumothorax. Mediastinum: Mediastinal contours appear normal. Heart size is enlarged. Bones and chest wall: No suspicious bony lesions. Overlying soft tissues appear unremarkable. IMPRESSION: Cardiomegaly and mild congestion. Cannot rule out small bilateral infrahilar infiltrate/atelectasis. No pleural effusion or pneumothorax. Dictated by: Zach Arriaza M.D. on 07/30/2023 at 1:39 Approved by: Zach Arriaza M.D. on 07/30/2023 at 1:40
[2023-07-30 01:56] LABS: Add Manual Diff / Slide Review NO; Basophils Absolute Auto 100 /uL (0-100); Eosinophils Absolute Auto 100 /uL (0-450); Eosinophils Percent Auto 2.7 % (2-4); Hematocrit 32.1 % (41-53); Hemoglobin 10.6 g/dL (13.5-17.5); Lymphocytes Absolute Auto 500 /uL (1100-4500); Lymphocytes Percent Auto 18.2 % (25-40); Mean Corpuscular HGB Conc 33.2 % (30-36); Mean Corpuscular Hemoglobin 31.1 PG (26-34); Mean Corpuscular Volume 93.9 fL (80-100); Monocytes Absolute Auto 300 /uL (0-900); Monocytes Percent Auto 13.5 % (3-14); Neutrophils Absolute Auto 1600 /uL (1500-7000); Neutrophils Percent Auto 63.6 % (50-75); Platelet Count 234 X10^3/uL (150-400); Red Blood Cell Count 3.42 X10^6/uL (4.5-5.9); Red Cell Distribution Width 15.3 % (11.6-14.8); White Blood Cell Count 2.5 X10^3/uL (4.5-11.0)
[2023-07-30 02:02] LABS: INR 1.2 (0.9-1.3); Prothrombin Time 13.8 SECONDS (9.4-12.5)
[2023-07-30 02:08] LABS: Alanine Aminotransferase 25 IU/L (<50); Albumin 3.7 g/dL (3.5-5.0); Albumin Globulin Ratio 1.3 (1.0-2.8); Alkaline Phosphatase 148 U/L (38-126); Aspartate Aminotransferase 22 IU/L (17-59); Bilirubin Total 0.3 mg/dL (0.2-1.3); Blood Urea Nitrogen 16 mg/dL (9-20); Carbon Dioxide 32 mmol/L (22-32); Chloride 103 mmol/L (98-107); Creatine Kinase 93 U/L (55-170); Estimated Glomerular Filt Rate > 60 mL/min (>60); Globulin 2.9 g/dL (1.7-4.1); Glucose 78 mg/dL (80-110); HEMOLYSIS < 15 (0-50); Potassium 4.3 mmol/L (3.4-5.1); Sodium 138 mmol/L (137-145); Total Protein 6.6 g/dL (6.3-8.2)
[2023-07-30] MEDS: FUROSEMIDE 40 MG/4 ML VIAL IV (02:10)
[2023-07-30 02:20] LABS: NT-proBNP (BNP-Adult 18+) 84 pg/mL (<125); Troponin I < 0.012 ng/mL (0.01-0.034)
--- NOTE | 2023-07-30 02:47 | DI.CT.S_ITS ---
PROCEDURE: CT ANGIO CHEST PE PROTOCOL INDICATIONS: DYSPNEA, RECENT SURGERY TECHNIQUE: After the administration of intravenous contrast, 2 mm thick sections acquired from the pulmonary apices to the posterior costophrenic angles. 3-dimensional maximum intensity projection (MIP) coronal and sagittal reformats were then acquired through the thorax. For radiation dose reduction, the following was used: automated exposure control, adjustment of mA and/or kV according to patient size. COMPARISON: [facility], CT, CT ABDOMEN PELVIS W CON, 01/14/2019, 7:28. [facility], CR, XR CHEST 1V, 07/30/2023, 1:26. FINDINGS: Image quality: Diagnostic. Pulmonary arteries: Pulmonary arteries demonstrate no intraluminal filling defects to suggest central pulmonary embolism. Lower Neck: No enlarged lymph nodes. Thyroid: No thyroid nodules which require sonographic follow up, per consensus guidelines. Axillae: No enlarged lymph nodes. Chest Wall: Unremarkable. Median sternotomy wires are in place. Bones: Innumerable scattered sclerotic osseous metastatic lesions seen throughout the imaged skeleton, new since prior CT. Multilevel thoracic spondylosis. No acute compression fractures. Lungs and Pleura: No pneumothorax or pleural effusions. No consolidation or suspicious nodules. Eventration of the right hemidiaphragm. Bibasilar atelectasis. Heart: Heart size is normal. No pericardial effusion. Thoracic Vessels: Mild aneurysmal dilatation of the ascending thoracic aorta measuring 4.5 cm. Mediastinum and Emily: No enlarged lymph nodes. Esophagus: No wall thickening. No hiatal hernia. Upper Abdomen: Cholelithiasis without CT evidence for acute cholecystitis. Other visualized upper abdomen solid organs and bowel loops appear unremarkable. IMPRESSION: No acute pulmonary embolus. Extensive scattered sclerotic osseous metastatic lesions without evidence for pathologic fracture. Cholelithiasis. Other chronic findings as above. No significant discrepancy with the machine bunch maker radiology preliminary report. Dictated by: Ned Thrasher M.D. on 07/30/2023 at 7:02 Approved by: Ned Thrasher M.D. on 07/30/2023 at 7:21
== END 2023-07-30 04:14 | disposition home or self-care (01) ==
PROVIDERS: Emergency Provider Emergency Medicine; Family Provider Physician Assistant; PCP Internal Medicine
DX: I71.20 Thoracic aortic aneurysm, without rupture, unspecified (principal); R60.0 Localized edema; R06.00 Dyspnea, unspecified; Q78.2 Osteopetrosis; Z79.899 Other long term (current) drug therapy; Z79.01 Long term (current) use of anticoagulants
CPT/HCPCS: 36415; 71045; 71275; 80053; 82550; 83880; 84484; 85025; 85610; 93005; 96374; 99284; J1940; Q9967

== ENCOUNTER → 2023-08-05 10:11 | Outpatient (CLI) | payer OTHER, SELFPAY ==
[2023-07-10 11:49] VITALS: BMI 30.1
[2023-08-05 12:34] LABS: Hemoglobin A1C% w Est Avg Glu 6.5 % (4.0-6.0)
[2023-08-05 12:41] LABS: Alanine Aminotransferase 30 IU/L (<50); Albumin 4.2 g/dL (3.5-5.0); Albumin Globulin Ratio 1.4 (1.0-2.8); Alkaline Phosphatase 157 U/L (38-126); Aspartate Aminotransferase 21 IU/L (17-59); BUN Creatinine Ratio 19.8 (6-22); Bilirubin Total 0.9 mg/dL (0.2-1.3); Blood Urea Nitrogen 21 mg/dL (9-20); Calcium 9.1 mg/dL (8.4-10.2); Carbon Dioxide 33 mmol/L (22-32); Chloride 101 mmol/L (98-107); Cholesterol 172 mg/dL (140-199); Estimated Glomerular Filt Rate > 60 mL/min (>60); Glucose 139 mg/dL (80-110); HDL Cholesterol 41 mg/dL (40-60); HEMOLYSIS < 15 (0-50); LDL Cholesterol Calculated 91 mg/dL (<100); Potassium 4.5 mmol/L (3.4-5.1); Sodium 139 mmol/L (137-145); Total Protein 7.2 g/dL (6.3-8.2); Triglycerides 200 mg/dL (35-150)
[2023-08-05 12:49] LABS: NT-proBNP (BNP-Adult 18+) 66 pg/mL (<125)
[2023-08-05 13:13] LABS: Prostate Specific Antigen 16.4 ng/mL (0.10-4.00)
[2023-08-05 18:00] LABS: Creatinine Urine Random 69.83 mg/dL
[2023-08-05 18:16] LABS: Microalbumin Urine Random 14.6 mg/dL (0-1.6)
== END ==
PROVIDERS: Family Provider Physician Assistant; PCP Internal Medicine; Referring Provider Specialist; Visit Provider Specialist
DX: R97.20 Elevated prostate specific antigen [PSA] (principal); E11.9 Type 2 diabetes mellitus without complications; R60.9 Edema, unspecified; R06.00 Dyspnea, unspecified; Q78.2 Osteopetrosis; C61 Malignant neoplasm of prostate
CPT/HCPCS: 36415; 80053; 80061; 82043; 82570; 83036; 83880; 84153

== ENCOUNTER → 2023-08-31 08:11 | Outpatient (CLI) | payer OTHER, SELFPAY ==
[2023-07-10 11:49] VITALS: BMI 30.1
--- NOTE | 2023-08-31 08:12 | DI.ECHO.S_ITS ---
[facility] : : [address] : : [place] : : [id number] : : Phone: [phone] Echocardiogram Report + + :Name: TERRELL SHERMAN Study Date: 08/31/2023 Height: 70 in : :[facility] ReadingLocation: Weight: 230 lb : : Gender: Male BSA: 2.2 m2 : :: 1955 Age: 68 yrs BP: 165/91 mmHg: :Reason For Study: PULMONARY EDEMA : :Ordering Physician: RUIZ, : :ZEKE Ruano Performed By: Nuria Miller : :Referring: ZEKE MELCHOR : + + Interpretation Summary Mild concentric left ventricular hypertrophy with ejection fraction 65-70%. There is a bioprosthetic aortic valve. The peak aortic velocity is 3.1 m/sec. Procedure: A two-dimensional transthoracic echocardiogram with color flow and Doppler was performed. The study quality was technically difficult. There is no prior echocardiogram noted for this patient. The heart rate ranged between 71-85 bpm during the study. Left Ventricle: The left ventricle is normal in size. There is mild concentric left ventricular hypertrophy. An intracavitary gradient is suspected. The ejection fraction is estimated to be 65-70%. There are no obvious focal wall motion abnormalities noted but poor endocardial definition reduces the sensitivity for the detection of such. Diastolic parameters suggest probable normal left ventricular diastolic function and normal filling pressures. Right Ventricle: The right ventricle is normal in size and function. Atria: The left atrial size is normal. Right atrial size is normal. There is no Doppler evidence for an interatrial shunt. Mitral Valve: The mitral valve is normal in structure and function. There is no mitral regurgitation noted. Aortic Valve: There is a bioprosthetic aortic valve. The peak aortic velocity is 3.1 m/sec. The aortic valve mean gradient is 23 mmHg. No aortic regurgitation is present. Tricuspid Valve: The tricuspid valve is not well visualized, but is grossly normal. No tricuspid regurgitation. Pulmonary artery pressures cannot be estimated because of the lack of a measurable TR jet velocity. Pulmonic Valve: The pulmonic valve is not well visualized. There is no pulmonic valvular regurgitation. Great Vessels: The aortic root is normal size. The ascending aorta could not be visualized. The IVC is of normal diameter and collapses greater than 50% with a sniff. This suggests a low right atrial pressure of 3 mm Hg. Pericardium/ Pleura There is no pericardial effusion. There is no pleural effusion. MMode/2D Measurements & Calculations LVIDd: 4.7 cm LVOT diam: 2.2 cm LVIDs: 3.0 cm asc Aorta Diam: 3.9 cm FS: 36.0 % Ao Arch Diam (Prox Trans): 3.0 cm IVSd: 0.96 cm LVPWd: 1.1 cm LV brewer. diameter/BSA (cm/m^2): 2.1 LV sys. diameter/BSA (cm/m^2): 1.3 LA A2 area: 13.9 cm2 RA long axis: 4.5 cm LA A4 area: 13.3 cm2 RA area: 10.9 cm2 LA length (vol): 5.1 cm RA vol: 22.4 ml LA vol: 30.4 ml RA : 10.1 ml/m2 LA vol index: 13.7 ml/m2 IVC diam: 1.5 cm RVD1 (basal): 3.0 cm RVD2 (mid): 2.3 cm TAPSE: 1.5 cm Doppler Measurements & Calculations Ao V2 max: 310.4 cm/sec LVOT Max Carl: 101.4 cm/sec Ao V2 mean: 225.2 cm/sec LV V1 max P.1 mmHg Ao max P.5 mmHg LV V1 VTI: 20.1 cm Ao mean P.6 mmHg CLAUDIO(I,D): 1.3 cm2 Ao V2 VTI: 60.6 cm LCAUDIO(V,D): 1.2 cm2 sev ratio: 0.33 CLAUDIO indexed to BSA (cm^2/m^2): 0.57 MV E max carl: 91.4 cm/sec PA V2 max: 96.7 cm/sec MV A max carl: 69.1 cm/sec PA V2 mean: 74.4 cm/sec MV E/A: 1.3 PA mean P.3 mmHg Med Peak E' Carl: 10.0 cm/sec PA pr(Accel): 39.6 mmHg E/E' med: 9.2 Lat Peak E' Carl: 8.8 cm/sec E/E' lat: 10.4 E/e' average: 9.8 MV dec time: 0.22 sec MVA(VTI): 2.6 cm2 MV V2 mean: 71.0 cm/sec SV(LVOT): 76.7 ml MV mean P.4 mmHg MV V2 VTI: 29.2 cm Electronically signed by: Dorothy Pandey on Reading Physician:08/31/2023 05:49 PM
== END ==
LOC: ECHO 08:11
PROVIDERS: Family Provider Physician Assistant; PCP Internal Medicine; Referring Provider Internal Medicine; Visit Provider Internal Medicine
DX: J81.1 Chronic pulmonary edema (principal); R06.00 Dyspnea, unspecified; Q78.2 Osteopetrosis; Z95.2 Presence of prosthetic heart valve; C61 Malignant neoplasm of prostate
CPT/HCPCS: 93306

== ENCOUNTER → 2023-09-08 07:08 | Outpatient (CLI) | payer OTHER, SELFPAY ==
[2023-07-10 11:49] VITALS: BMI 30.1
[2023-09-09 14:31] LABS: Prostate Specific Antigen 1.67 ng/mL (0.10-4.00)
== END ==
PROVIDERS: Family Provider Physician Assistant; PCP Internal Medicine; Referring Provider Specialist; Visit Provider Specialist
DX: R97.20 Elevated prostate specific antigen [PSA] (principal)
CPT/HCPCS: 36415; 84153

== ENCOUNTER 2023-09-10 00:18 | Emergency (ER) | payer OTHER, SELFPAY ==
[2023-07-10 11:49] VITALS: BMI 30.1
[2023-09-10 00:38] VITALS: BP 152/72; PULSE 71; RESP 17; TEMP 36.6; O2SAT 95; BMI 33.0
--- NOTE | 2023-09-10 00:40 | ED.ABDPAIN ---
HPI - Abdominal Pain General Chief Complaint: Abdominal Pain Stated Complaint: n/v abd pain history of blockage Time Seen by Provider: 09/10/23 00:40 Source: patient, RN notes reviewed and old records reviewed Mode of arrival: Ambulatory Limitations: no limitations History of Present Illness HPI narrative: 68-year-old male history of hypertension, dyslipidemia, bovine aortic valve replacement, prostate cancer currently on medications, diabetes presents with complaint of sudden onset abdominal pain this evening. Describes it as throughout his abdomen. Does have some back pain with it as well. No lightheadedness or passing out. He has had nausea and vomiting. States feels very similar to prior bowel obstructions although he did have a bowel movement about 10:00 p.m. which he describes as pebbly but a decent amount. Denies any new urinary issues but states he has chronic difficulty with urination. No reports of new shortness of breath or chest pain. No new swelling in extremities. Patient has had prior valve replacement, states aneurysm repair, patient states he donated a kidney, had prior diaphragm repair, has had ventral hernia repair as well as appendectomy and recurrent bowel obstructions. Patient states multiple allergies to medications. Former tobacco, occasional alcohol, no recreational drugs. Related Data Home Medications Medication Instructions Recorded Confirmed acetaminophen 500 mg tablet 1,000 mg PO TID-QID PRN Pain 08/14/19 08/19/23 (Acetaminophen Extra Strength) (Scale Score 1-3) clobetasol 0.05 % scalp solution 0.005 % topical BID PRN Skin 08/14/19 08/19/23 Cleansing ketoconazole 2 % shampoo 1 applic topical 2XW 10/08/21 08/19/23 tamsulosin 0.4 mg capsule 0.8 mg PO QPM 06/24/23 08/19/23 Disabled [address]ing 07/14/23 08/19/23 fluticasone propionate 50 50 mcg intranasal 1XD 07/14/23 08/19/23 mcg/actuation nasal spray,suspension trazodone 50 mg tablet 50 mg PO BEDTIME PRN 08/11/23 08/19/23 Previous Rx's Medication Instructions Recorded losartan 25 mg tablet 25 mg PO DAILY #90 tabs 09/10/21 glipizide 5 mg tablet 5 mg PO BID #180 tabs 09/15/22 metoprolol succinate 25 mg 25 mg PO QAM #90 tabs 10/22/22 tablet,extended release 24 hr albuterol sulfate 90 mcg/actuation 2 puff inhalation Q4-6H PRN 03/23/23 aerosol inhaler shortness of breath or wheezing #8.5 grams pravastatin 20 mg tablet 20 mg PO DAILY #90 tabs 03/23/23 furosemide 40 mg tablet 40 mg PO DAILY #90 tabs 08/03/23 dapagliflozin propanediol 10 mg 10 mg PO QAM #90 tabs 08/06/23 tablet (Farxiga) bicalutamide 50 mg tablet (Casodex) 50 mg PO DAILY #30 tabs 08/11/23 triazolam 0.25 mg tablet (Halcion) 0.25 mg PO ONCE #1 tab 08/19/23 megestrol 20 mg tablet 20 mg PO BID #180 tabs 08/27/23 abiraterone 500 mg tablet 1,000 mg (2 x 500 mg) PO DAILY 09/09/23 #180 tabs prednisone 5 mg tablet 5 mg PO BID #180 tabs 09/09/23 Allergies Allergy/AdvReac Type Severity Reaction Status Date / Time sulfamethoxazole Allergy Mild Rash Verified 08/27/23 14:21 [From SEPTRA] trimethoprim [From SEPTRA] Allergy Mild Rash Verified 08/27/23 14:21 celecoxib [From CELEBREX] AdvReac Severe Tears my Verified 08/27/23 14:21 stomach up citalopram [From CELEXA] AdvReac Severe Tears my Verified 08/27/23 14:21 stomach up metformin AdvReac Severe GI Sx Verified 08/27/23 14:21 rosuvastatin AdvReac Intermediate myalgia Verified 08/27/23 14:21 simvastatin AdvReac Intermediate myalgia Verified 08/27/23 14:21 Review of Systems Review of Systems ROS Unobtainable: All systems reviewed & are unremarkable except as noted in HPI and below Patient History Medical History History of urinary retention Urinary retention Family history of prostate cancer Bowel obstruction (01/2019) Anesthesia complication Hearing impaired Solitary kidney Bicuspid aortic valve Incomplete bladder emptying Prostate nodule with urinary obstruction Elevated PSA History of gout COVID-19 (~10/2021) BPH w urinary obs/LUTS Wears glasses Tinnitus Hearing loss Cataracts, bilateral Colon polyps Low testosterone (~2009) Aortic regurgitation Psoriasis (~2016) COPD (chronic obstructive pulmonary disease) Depression Hypogonadism male H/O adenomatous polyp of colon Atrial fibrillation Aortic stenosis Aneurysm, thoracic aortic Type 2 diabetes mellitus Hyperlipidemia Hypertension Hypertelorism Surgical History Hx of bilateral cataract extraction History of circumcision Anesthesia S/P plication of diaphragm (~2010) S/P AVR (aortic valve replacement) (~08/2019) History of appendectomy (~1987) History of exploratory laparotomy History of ventral hernia repair (~1986) History of nephrectomy, unilateral (~1984) Family History Father Cancer Mother Diabetes mellitus Sister Diabetes mellitus Grandfather Cancer Social History marital status: number of children: 2 household members: family Smoking Status: Former smoker alcohol intake: current Smoking Status: Former smoker alcohol intake frequency: holidays/special occasions only Substance Use Type: does not use Exam Narrative Exam Narrative: GENERAL: Alert and oriented x three, obese male in moderate distress HEENT: Head normocephalic, atraumatic, EOMI, pupils reactive, face symmetric, moist mucous membranes NECK: Supple, full range of motion CARDIOVASCULAR: Regular rate and rhythm without murmurs, rubs or gallops. RESPIRATORY: Breath sounds equal bilaterally, no wheezes rales or rhonchi. ABDOMEN: Soft, nontender. Nondistended. Normoactive bowel sounds all 4 quadrants. No guarding or rebound, rigidity, no mass : No CVA tenderness EXTREMITIES: Normal range of motion, no clubbing or edema. Neurovascularly intact NEUROLOGICAL: Cranial nerves II through XII grossly intact. Moving all extremities SKIN: Warm, dry, no petechiae, no rashes or lesions. Initial Vital Signs Initial Vital Signs: Vital Signs Temperature 97.9 F 09/10/23 00:38 Pulse Rate 71 09/10/23 00:38 Respiratory Rate 17 09/10/23 00:38 Blood Pressure 152/72 H 09/10/23 00:38 Pulse Oximetry 95 09/10/23 00:38 Oxygen Delivery Method Room Air 09/10/23 00:38 Course Orders Ordered: ED Orders 09/10/23 00:35 Complete Blood Count AUTO DIFF Stat Comprehensive Metabolic Panel Stat Lactate (Lactic Acid) Stat Lipase Stat 09/10/23 00:38 EKG-12 Lead Stat 09/10/23 00:56 CT abdomen pelvis w con Stat 09/10/23 02:10 Urine Microscopic Stat Discontinued Medications Acetaminophen (Acetaminophen 325 Mg Tablet) 650 mg PO NOW ONE Stop: 09/10/23 01:17 Last Admin: 09/10/23 02:00 Dose: Not Given Documented By: ASUNCION Hydromorphone HCl (Hydromorphone 1 Mg Inj) 1 mg IV NOW ONE Stop: 09/10/23 02:43 Last Admin: 09/10/23 02:50 Dose: 1 mg Documented By: Sodium Chloride (Normal Saline 0.9%) 1,000 mls @ 1,000 mls/hr IV BOLUS ONE Stop: 09/10/23 01:55 Last Infusion: 09/10/23 02:25 Dose: Infused Documented By: Admin: 09/10/23 01:03 Dose: 1,000 mls/hr Documented By: Morphine Sulfate (Morphine 4 Mg/Ml Inj) 4 mg IV NOW ONE Stop: 09/10/23 00:57 Last Admin: 09/10/23 01:03 Dose: 4 mg Documented By: Ondansetron HCl (Ondansetron 4 Mg/2 Ml Inj) 4 mg IV NOW PRN PRN Reason: Nausea And Vomiting Last Admin: 09/10/23 00:42 Dose: 4 mg Documented By: Ondansetron HCl (Ondansetron 4 Mg Odt) 4 mg PO NOW PRN PRN Reason: Nausea And Vomiting Ondansetron HCl (Ondansetron 4 Mg/2 Ml Inj) 4 mg IV NOW ONE Stop: 09/10/23 00:58 Last Admin: 09/10/23 01:33 Dose: Not Given Documented By: Ondansetron HCl (Ondansetron 4 Mg Odt Prepack) 1 bottle MISC DIRECTED ONE Stop: 09/10/23 01:17 Last Admin: 09/10/23 02:00 Dose: Not Given Documented By: ASUNCION Ondansetron HCl (Ondansetron 4 Mg Odt Prepack) 1 bottle MISC DIRECTED ONE Stop: 09/10/23 03:47 Last Admin: 09/10/23 03:52 Dose: 1 bottle Documented By: AB Ondansetron HCl (Ondansetron 4 Mg/2 Ml Inj) 4 mg IV NOW ONE Stop: 09/10/23 03:53 Vital Signs Vital signs: Vital Signs - 8 hr 09/10/23 00:38 09/10/23 03:59 Temperature 97.9 F Pulse Rate 71 82 Respiratory Rate 17 15 Blood Pressure 152/72 H 126/58 L Pulse Oximetry 95 96 Oxygen Delivery Method Room Air Room Air MDM - Abdominal Pain Lab Data 09/10/23 00:35 09/10/23 00:35 Labs: Lab Results 09/10/23 09/10/23 Range/Units 00:35 02:10 WBC 2.3 L (4.5-11.0) X10^3/uL RBC 4.19 L (4.5-5.9) X10^6/uL Hgb 12.7 L (13.5-17.5) g/dL Hct 38.5 L (41-53) % MCV 91.7 (80-100) fL MCH 30.2 (26-34) PG MCHC 32.9 (30-36) % RDW 16.6 H (11.6-14.8) % Plt Count 174 (150-400) X10^3/uL Neut % (Auto) 54.7 (50-75) % Lymph % (Auto) 23.9 L (25-40) % [place] % (Auto) 17.8 H (3-14) % Eos % (Auto) 2.9 (2-4) % Baso % (Auto) 0.7 (0-2) % Neut # (Auto) 1300 L (9360-4521) /uL Lymph # (Auto) 500 L (5193-2207) /uL [place] # (Auto) 400 (0-900) /uL Eos # (Auto) 100 (0-450) /uL Baso # (Auto) 0 (0-100) /uL Sodium 137 (137-145) mmol/L Potassium 4.4 (3.4-5.1) mmol/L Chloride 104 (98-107) mmol/L Carbon Dioxide 25 (22-32) mmol/L BUN 38 H (9-20) mg/dL Creatinine 1.07 (0.66-1.25) mg/dL Estimated GFR > 60 (>60) mL/min BUN/Creatinine Ratio 35.5 H (6-22) Glucose 196 H (80-110) mg/dL Lactate 1.3 (0.7-2.1) mmol/L Calcium 9.5 (8.4-10.2) mg/dL Total Bilirubin 0.5 (0.2-1.3) mg/dL AST 50 (17-59) IU/L ALT 41 (<50) IU/L Alkaline Phosphatase 177 H (38-126) U/L Total Protein 7.8 (6.3-8.2) g/dL Albumin 4.5 (3.5-5.0) g/dL Globulin 3.3 (1.7-4.1) g/dL Albumin/Globulin Ratio 1.4 (1.0-2.8) Lipase 62 (23-300) U/L Urine RBC 5-10/hpf H (0-5/HPF) Urine WBC None seen (0-5/HPF) Ur Squamous Epith Cells 0-1 /hpf (0-5/HPF) Urine Bacteria None seen (None) Ur Culture Indicated? Cult not indicated Vol Urine Centrifuged 10ml (spun) Point of care testing: Urine Dip Bedside Urine Glucose 1000 mg/dl Bedside Urine Bilirubin - Negative Bedside Urine Ketone +/- 5 Urine Specific [place] 1.015 Bedside Urine Occult Blood +/- Bedside Urine pH 6.0 Bedside Urine Protein + 30 Bedside Urine Urobilinogen - Negative Bedside Urine Nitrite - Negative Bedside Urine Leukocytes - Negative Esterase Imaging Data CT scan - abdomen/pelvis: Radiologist's Impression: [address] [address] [address] Scan Report Signed Patient: Mal Goodwin MR#: [id number] : 1955 Acct:[id number] Age/Sex: 68 / M Date of Service: 09/10/23 Loc: ED Accession Number: [id number] Procedure: CT abdomen pelvis w con Ordering Provider: Cammie Stringer D.O. PROCEDURE: CT ABDOMEN PELVIS W CON INDICATIONS: abd pain, sudden onset all over, hx SBO feels similar, hadBM TECHNIQUE: After the administration of intravenous contrast, axial sections acquired from the lung bases to the pubic symphysis. Coronal and sagittal reformats were performed. For radiation dose reduction, the following was used: automated exposure control, adjustment of mA and/or kV according to patient size. COMPARISON: [facility], CT, CT ABDOMEN PELVIS W CON, 01/14/2019, 7:28. FINDINGS: Image quality: Diagnostic. Lower Chest: No significant findings. ABDOMEN: Liver: No solid mass. Gallbladder: Cholelithiasis without wall thickening or pericholecystic fluid. Biliary ducts: No biliary dilation. Pancreas: No ductal dilation. Spleen: Size is within normal limits. Adrenal Glands: No adrenal nodules. Kidneys and Ureters: Status post right nephrectomy. No hydronephrosis. No solid mass. No complex renal cystic lesion which requires follow up. Stomach and Bowel: Normal colonic caliber, without significant wall thickening. Normal caliber appendix. No small bowel obstruction. Peritoneum: No abnormal intraperitoneal fluid. No free air. Ventral Wall: No significant ventral hernia. Abdominal Nodes: No retroperitoneal or mesenteric adenopathy by size criteria. Vessels: Aorta and inferior vena cava are normal in size. PELVIS: Pelvic Organs: Unremarkable. Bladder: No bladder wall thickening, accounting for underdistention. Pelvic Nodes: No enlarged lymph nodes. Miscellaneous: No inguinal hernias are seen. Bones: Innumerable sclerotic foci throughout the appendicular and axial skeleton. Status post right hip total arthroplasty. No pathological fracture. IMPRESSION: No small bowel obstruction as clinically queried. No acute process in the abdomen or pelvis identified. Cholelithiasis without CT evidence of acute cholecystitis. Innumerable sclerotic osseous metastasis throughout the appendicular and axial skeleton. No pathological fracture. Approved by: Olga Guido M.D.,Ph.D. on 09/10/2023 at 2:03 ECG Data Attestation: I personally reviewed and interpreted this ECG as follows: Interpretation: Sinus rhythm rate of 76 SD 158 QRS of 92 QTC of 434, no acute ST changes. Patient has prior from 07/30/2023 which appears similar. [facility] Narrative Medical decision making narrative: 68-year-old male with fairly abrupt onset of abdominal pain that started this evening with nausea vomiting states did have a bowel movement about 10:00 a.m. but feels very similar to when he had bowel obstructions. Patient has been seen for abdominal pain in the past. Labs labs show white count of 2.3 hemoglobin 12.7 platelets of 174, electrolytes are overall appropriate BUN 38 creatinine 1.07, glucose is 196 lactate is normal 1.3 LFTs are negative alk-phos is 177 was 157 in July. Lipase is 62. CT abdomen pelvis with contrast shows no small bowel obstruction, no acute process abdomen or pelvis identified cholelithiasis without evidence of acute cholecystitis. Innumerable sclerotic osseous metastases throughout appendix color and axial skeleton no pathologic fracture. Urine, point of care urine shows ketones, glucose or protein microscopy shows 5-10 red cells no white cells, 1 squamous, no bacteria culture not sent. Patient has known prostate cancer so red cells are not unexpected. Patient received fluids antiemetics and pain medication. Had some improvement in pain but is still present. Reviewed patient's findings from today. Patient still has discomfort. Given additional dose of pain medication. On recheck patient is feeling improved would like to return home, given a prepack of Zofran. Patient has oxycodone at home without Tylenol leftover from prior hip replacement. Discussed patient can take this. Discussed return precautions if you feel any worse or having any other new changes patient is to return. Discharge Plan Departure Patient Disposition: Home Clinical Impression: Abdominal pain, Nausea & vomiting Instructions: DI for Abdominal Pain-Adult Activity Restrictions/Additional Instructions: Please follow-up for recheck next 24-48 hours if your symptoms are not improving. Continue your home medications as prescribed. Take your home medications as prescribed for pain. You can take your oxycodone 1-2 tablets every 4-6 hours as needed for pain. You can take Tylenol with this up to a 1000 mg every 6 hours. You can take Zofran 1 tablet every 6 hours as needed for nausea. Please return for fevers, worsening or persistent abdominal pain, persistent vomiting, if you are not having any bowel movements, not passing any gas, passing out, black or bloody stools or other new or concerning changes. Prescriptions: No Action glipizide 5 mg tablet 5 mg PO BID Qty: 180 3RF metoprolol succinate 25 mg tablet extended release 24 hr 25 mg PO QAM Qty: 90 3RF Farxiga 10 mg tablet 10 mg PO QAM Qty: 90 3RF abiraterone 500 mg tablet 1,000 mg PO DAILY Qty: 180 3RF Rx Instructions: must be taken on empty stomach, at least 1 hr before or 2 hrs after a meal/food prednisone 5 mg tablet 5 mg PO BID Qty: 180 3RF ketoconazole 2 % shampoo 1 applic topical 2XW furosemide 40 mg tablet 40 mg PO DAILY Qty: 90 3RF losartan 25 mg tablet 25 mg PO DAILY Qty: 90 3RF albuterol sulfate 90 mcg/actuation HFA aerosol inhaler 2 puff inhalation Q4-6H PRN (Reason: shortness of breath or wheezing) Qty: 8.5 6RF pravastatin 20 mg tablet 20 mg PO DAILY Qty: 90 3RF tamsulosin 0.4 mg capsule 0.8 mg PO QPM (DME) Disabled Parking See Rx Instructions Rx Instructions: Patient qualifies for disabled parking as per the attached form. fluticasone propionate [Flonase] 50 mcg/actuation [place],Suspension 50 mcg INTRANASAL 1XD acetaminophen [Acetaminophen Extra Strength] 500 mg Tablet 1,000 mg PO TID-QID PRN (Reason: Pain (Scale Score 1-3)) clobetasol 0.05 % solution 0.005 % TOPICAL BID PRN (Reason: Skin Cleansing) trazodone 50 mg tablet 50 mg PO BEDTIME PRN bicalutamide [Casodex] 50 mg tablet 50 mg PO DAILY Qty: 30 0RF megestrol 20 mg tablet 20 mg PO BID Qty: 180 3RF triazolam [Halcion] 0.25 mg tablet 0.25 mg PO ONCE Qty: 1 0RF Rx Instructions: as a single dose; take1 hour prior to dental procedure or surgery. 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 Referrals: Benjamin Mancilla MD [Primary Care Provider] - Stand Alone Forms: Patient Portal/API, Work Release Note
[2023-09-10] MEDS: ONDANSETRON 4 MG/2 ML INJ IV (00:42)
[2023-09-10 00:47] LABS: Add Manual Diff / Slide Review NO; Basophils Absolute Auto 0 /uL (0-100); Basophils Percent Auto 0.7 % (0-2); Eosinophils Absolute Auto 100 /uL (0-450); Eosinophils Percent Auto 2.9 % (2-4); Hematocrit 38.5 % (41-53); Hemoglobin 12.7 g/dL (13.5-17.5); Lymphocytes Absolute Auto 500 /uL (1100-4500); Lymphocytes Percent Auto 23.9 % (25-40); Mean Corpuscular HGB Conc 32.9 % (30-36); Mean Corpuscular Hemoglobin 30.2 PG (26-34); Mean Corpuscular Volume 91.7 fL (80-100); Monocytes Absolute Auto 400 /uL (0-900); Monocytes Percent Auto 17.8 % (3-14); Neutrophils Absolute Auto 1300 /uL (1500-7000); Neutrophils Percent Auto 54.7 % (50-75); Platelet Count 174 X10^3/uL (150-400); Red Blood Cell Count 4.19 X10^6/uL (4.5-5.9); Red Cell Distribution Width 16.6 % (11.6-14.8); White Blood Cell Count 2.3 X10^3/uL (4.5-11.0)
[2023-09-10 00:53] LABS: Alanine Aminotransferase 41 IU/L (<50); Albumin 4.5 g/dL (3.5-5.0); Albumin Globulin Ratio 1.4 (1.0-2.8); Alkaline Phosphatase 177 U/L (38-126); Aspartate Aminotransferase 50 IU/L (17-59); BUN Creatinine Ratio 35.5 (6-22); Bilirubin Total 0.5 mg/dL (0.2-1.3); Blood Urea Nitrogen 38 mg/dL (9-20); Calcium 9.5 mg/dL (8.4-10.2); Carbon Dioxide 25 mmol/L (22-32); Chloride 104 mmol/L (98-107); Estimated Glomerular Filt Rate > 60 mL/min (>60); Globulin 3.3 g/dL (1.7-4.1); Glucose 196 mg/dL (80-110); HEMOLYSIS < 15 (0-50); Lipase 62 U/L (23-300); Potassium 4.4 mmol/L (3.4-5.1); Sodium 137 mmol/L (137-145); Total Protein 7.8 g/dL (6.3-8.2)
--- NOTE | 2023-09-10 00:56 | DI.CT.S_ITS ---
PROCEDURE: CT ABDOMEN PELVIS W CON INDICATIONS: abd pain, sudden onset all over, hx SBO feels similar, hadBM TECHNIQUE: After the administration of intravenous contrast, axial sections acquired from the lung bases to the pubic symphysis. Coronal and sagittal reformats were performed. For radiation dose reduction, the following was used: automated exposure control, adjustment of mA and/or kV according to patient size. COMPARISON: [facility], CT, CT ABDOMEN PELVIS W CON, 01/14/2019, 7:28. FINDINGS: Image quality: Diagnostic. Lower Chest: No significant findings. ABDOMEN: Liver: No solid mass. Gallbladder: Cholelithiasis without wall thickening or pericholecystic fluid. Biliary ducts: No biliary dilation. Pancreas: No ductal dilation. Spleen: Size is within normal limits. Adrenal Glands: No adrenal nodules. Kidneys and Ureters: Status post right nephrectomy. No hydronephrosis. No solid mass. No complex renal cystic lesion which requires follow up. Stomach and Bowel: Normal colonic caliber, without significant wall thickening. Normal caliber appendix. No small bowel obstruction. Peritoneum: No abnormal intraperitoneal fluid. No free air. Ventral Wall: No significant ventral hernia. Abdominal Nodes: No retroperitoneal or mesenteric adenopathy by size criteria. Vessels: Aorta and inferior vena cava are normal in size. PELVIS: Pelvic Organs: Unremarkable. Bladder: No bladder wall thickening, accounting for underdistention. Pelvic Nodes: No enlarged lymph nodes. Miscellaneous: No inguinal hernias are seen. Bones: Innumerable sclerotic foci throughout the appendicular and axial skeleton. Status post right hip total arthroplasty. No pathological fracture. IMPRESSION: No small bowel obstruction as clinically queried. No acute process in the abdomen or pelvis identified. Cholelithiasis without CT evidence of acute cholecystitis. Innumerable sclerotic osseous metastasis throughout the appendicular and axial skeleton. No pathological fracture. Approved by: Olga Guido M.D.,Ph.D. on 09/10/2023 at 2:03
[2023-09-10] MEDS: MORPHINE 4 MG/ML INJ IV (01:03)
[2023-09-10] MEDS: SODIUM CHLORIDE 0.9% 1,000 ML 1000 ML IV (01:03)
--- NOTE | 2023-09-10 01:06 | EKG_ITS ---
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
[2023-09-10 01:20] LABS: Lactate (Lactic Acid) 1.3 mmol/L (0.7-2.1)
[2023-09-10 02:24] LABS: Bacteria Urine None Seen; Culture Indicated Urine Cult Not Indicated; RBC Urine 5-10/HPF (0-5/HPF); Squamous Epithelial Cell Urine 0-1 /HPF (0-5/HPF); Urine Volume 10mL (spun); WBC Urine None Seen (0-5/HPF)
[2023-09-10] MEDS: HYDROMORPHONE 1 MG INJ IV (02:50)
[2023-09-10] MEDS: ONDANSETRON 4 MG ODT PREPACK 1 BOTTLE MISC (03:52)
[2023-09-10 03:59] VITALS: BP 126/58; PULSE 82; RESP 15; O2SAT 96
--- NOTE | 2023-09-11 01:44 | EKG_ITS ---
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
== END 2023-09-10 04:00 | disposition home or self-care (01) ==
PROVIDERS: Emergency Provider Emergency Medicine; Family Provider Physician Assistant; PCP Internal Medicine
DX: R10.9 Unspecified abdominal pain (principal); R11.2 Nausea with vomiting, unspecified
CPT/HCPCS: 36415; 74177; 80053; 81003; 81015; 83605; 83690; 85025; 93005; 96361; 96374; 96375; 99284; J1170; J2270; J2405; Q9967

== ENCOUNTER 2023-09-10 21:04 | Observation (INO) | payer OTHER, SELFPAY ==
[2023-07-10 11:49] VITALS: BMI 30.1
[2023-09-10 21:12] VITALS: BP 159/71; PULSE 104; RESP 20; TEMP 36.9; O2SAT 97; BMI 33.0
--- NOTE | 2023-09-10 21:19 | EKG_ITS ---
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
--- NOTE | 2023-09-10 21:19 | DI.RAD.S_ITS ---
PROCEDURE: XR CHEST 1V INDICATIONS: chest pain TECHNIQUE: One view of the chest was acquired. COMPARISON: [facility], CR, XR CHEST 1V, 07/30/2023, 1:26. FINDINGS: Surgical changes and devices: Median sternotomy with inferior most wire fractured. Lungs and pleura: Streaky opacity at the right lung base. No pleural effusions or pneumothorax. Mediastinum: Mediastinal contours appear normal. Heart size is normal. Bones and chest wall: Diffuse sclerotic osseous metastasis. Overlying soft tissues appear unremarkable. IMPRESSION: Streaky opacity at the right lung base favored to represent atelectasis versus aspiration. Diffuse sclerotic osseous metastases. Approved by: Olga Guido M.D.,Ph.D. on 09/10/2023 at 21:46
[2023-09-10 21:32] LABS: Add Manual Diff / Slide Review NO; Basophils Absolute Auto 0 /uL (0-100); Basophils Percent Auto 0.6 % (0-2); Eosinophils Absolute Auto 0 /uL (0-450); Eosinophils Percent Auto 0.5 % (2-4); Hematocrit 37.6 % (41-53); Hemoglobin 12.4 g/dL (13.5-17.5); Lymphocytes Absolute Auto 300 /uL (1100-4500); Lymphocytes Percent Auto 11.7 % (25-40); Mean Corpuscular Hemoglobin 30.3 PG (26-34); Mean Corpuscular Volume 91.8 fL (80-100); Monocytes Absolute Auto 400 /uL (0-900); Monocytes Percent Auto 16.9 % (3-14); Neutrophils Absolute Auto 1800 /uL (1500-7000); Neutrophils Percent Auto 70.3 % (50-75); Platelet Count 179 X10^3/uL (150-400); Red Blood Cell Count 4.09 X10^6/uL (4.5-5.9); Red Cell Distribution Width 16.6 % (11.6-14.8); White Blood Cell Count 2.5 X10^3/uL (4.5-11.0)
[2023-09-10 21:38] LABS: INR 1.1 (0.9-1.3); Prothrombin Time 12.4 SECONDS (9.4-12.5)
[2023-09-10 21:41] LABS: PTT Partial Thromboplastin Tim 31 SECONDS (25.1-36.5)
[2023-09-10 21:43] LABS: Alanine Aminotransferase 68 IU/L (<50); Albumin 4.4 g/dL (3.5-5.0); Albumin Globulin Ratio 1.4 (1.0-2.8); Alkaline Phosphatase 163 U/L (38-126); Aspartate Aminotransferase 60 IU/L (17-59); BUN Creatinine Ratio 20.8 (6-22); Bilirubin Total 0.8 mg/dL (0.2-1.3); Blood Urea Nitrogen 20 mg/dL (9-20); Calcium 8.3 mg/dL (8.4-10.2); Carbon Dioxide 28 mmol/L (22-32); Chloride 103 mmol/L (98-107); Creatine Kinase 55 U/L (55-170); Estimated Glomerular Filt Rate > 60 mL/min (>60); Globulin 3.1 g/dL (1.7-4.1); Glucose 176 mg/dL (80-110); HEMOLYSIS < 15 (0-50); Lipase 25 U/L (23-300); Magnesium 2.3 mg/dL (1.6-2.3); Potassium 4.9 mmol/L (3.4-5.1); Sodium 137 mmol/L (137-145); Total Protein 7.5 g/dL (6.3-8.2)
[2023-09-10 21:54] LABS: NT-proBNP (BNP-Adult 18+) 462 pg/mL (<125); Troponin I < 0.012 ng/mL (0.01-0.034)
[2023-09-10 22:15] VITALS: BP 128/72; PULSE 103; RESP 16; TEMP 37.2; O2SAT 97
--- NOTE | 2023-09-10 22:26 | DI.US.S_ITS ---
PROCEDURE: US ABDOMEN LIMITED INDICATIONS: gallstones, abd pain TECHNIQUE: Real-time scanning was performed of the abdominal and retroperitoneal organs, with image documentation. COMPARISON: None. FINDINGS: Liver: Liver is normal in size and homogeneous in echotexture. Gallbladder: Cholelithiasis and sludge. Normal gallbladder wall thickness. No pericholecystic fluid. Negative sonographic Daugherty sign. Biliary ducts: Not well visualized Pancreas: Not well visualized. IMPRESSION: Cholelithiasis without sonographic evidence of acute cholecystitis. Biliary tree is not well visualized. Approved by: Olga Guido M.D.,Ph.D. on 09/10/2023 at 23:57
[2023-09-10] MEDS: ONDANSETRON 4 MG/2 ML INJ IV (22:30)
[2023-09-10] MEDS: HYDROMORPHONE 1 MG INJ IV (22:30)
[2023-09-11] VITALS (18 sets, daily range): BP systolic 83–167; BP diastolic 42–88; PULSE 78–107; RESP 16–24; TEMP 37.1–37.4; O2SAT 92–98; BMI 33.0
[2023-09-11 00:35] LABS: Troponin I < 0.012 ng/mL (0.01-0.034)
--- NOTE | 2023-09-11 02:42 | ED.CHESTPAIN ---
HPI - Chest Pain General Chief Complaint: Chest Pain Stated Complaint: nausea, abd pain, chest pain Time Seen by Provider: 09/10/23 22:25 Source: patient, family, RN notes reviewed and old records reviewed Mode of arrival: Wheelchair Limitations: no limitations History of Present Illness HPI narrative: 68-year-old male history of hypertension, dyslipidemia, but bovine aortic valve replacement, prostate cancer currently on medications, diabetes who presents with persistent abdominal pain. Patient was seen last night no clear source was found patient had improvement printed discharge but states was tolerable throughout the day with antinausea and pain medication but increase this evening. States it did radiate up towards his chest into his back earlier this evening but is not present at in his chest currently or back. Patient states abdominal pain seemed to have moved a little bit lower but is throughout the abdomen. He states no back pain currently. No fevers or chills. He has had nausea he has been taking Zofran. He is tolerated fluids but occasionally had some dry heaves. States has not had a bowel movement since yesterday evening at 10:00 p.m.. He states not passing any gas currently. Denies any urinary issues no burning frequency or dysuria. States no shortness of breath. No syncope. States pain has not totally resolved. Patient has had prior valve replacement, states aneurysm repair, has donated kidney, prior diaphragm repair, ventral hernia repair as well as appendectomy and recurrent bowel obstructions. Multiple allergies to medications. Former tobacco, occasional alcohol, no recreational drugs. Related Data Home Medications Medication Instructions Recorded Confirmed acetaminophen 500 mg tablet 1,000 mg PO TID-QID PRN Pain 08/14/19 08/19/23 (Acetaminophen Extra Strength) (Scale Score 1-3) clobetasol 0.05 % scalp solution 0.005 % topical BID PRN Skin 08/14/19 08/19/23 Cleansing ketoconazole 2 % shampoo 1 applic topical 2XW 10/08/21 08/19/23 tamsulosin 0.4 mg capsule 0.8 mg PO QPM 06/24/23 08/19/23 [address]ing 07/14/23 08/19/23 fluticasone propionate 50 50 mcg intranasal 1XD 07/14/23 08/19/23 mcg/actuation nasal spray,suspension trazodone 50 mg tablet 50 mg PO BEDTIME PRN 08/11/23 08/19/23 Previous Rx's Medication Instructions Recorded losartan 25 mg tablet 25 mg PO DAILY #90 tabs 09/10/21 glipizide 5 mg tablet 5 mg PO BID #180 tabs 09/15/22 metoprolol succinate 25 mg 25 mg PO QAM #90 tabs 10/22/22 tablet,extended release 24 hr albuterol sulfate 90 mcg/actuation 2 puff inhalation Q4-6H PRN 03/23/23 aerosol inhaler shortness of breath or wheezing #8.5 grams pravastatin 20 mg tablet 20 mg PO DAILY #90 tabs 03/23/23 furosemide 40 mg tablet 40 mg PO DAILY #90 tabs 08/03/23 dapagliflozin propanediol 10 mg 10 mg PO QAM #90 tabs 08/06/23 tablet (Farxiga) bicalutamide 50 mg tablet (Casodex) 50 mg PO DAILY #30 tabs 08/11/23 triazolam 0.25 mg tablet (Halcion) 0.25 mg PO ONCE #1 tab 08/19/23 megestrol 20 mg tablet 20 mg PO BID #180 tabs 08/27/23 abiraterone 500 mg tablet 1,000 mg (2 x 500 mg) PO DAILY 09/09/23 #180 tabs prednisone 5 mg tablet 5 mg PO BID #180 tabs 09/09/23 Allergies Allergy/AdvReac Type Severity Reaction Status Date / Time sulfamethoxazole Allergy Mild Rash Verified 09/10/23 21:21 [From SEPTRA] trimethoprim [From SEPTRA] Allergy Mild Rash Verified 09/10/23 21:21 celecoxib [From CELEBREX] AdvReac Severe Tears my Verified 09/10/23 21:21 stomach up citalopram [From CELEXA] AdvReac Severe Tears my Verified 09/10/23 21:21 stomach up metformin AdvReac Severe GI Sx Verified 09/10/23 21:21 rosuvastatin AdvReac Intermediate myalgia Verified 09/10/23 21:21 simvastatin AdvReac Intermediate myalgia Verified 09/10/23 21:21 Review of Systems Review of Systems ROS Unobtainable: All systems reviewed & are unremarkable except as noted in HPI and below Patient History Medical History History of urinary retention Urinary retention Family history of prostate cancer Bowel obstruction (01/2019) Anesthesia complication Hearing impaired Solitary kidney Bicuspid aortic valve Incomplete bladder emptying Prostate nodule with urinary obstruction Elevated PSA History of gout COVID-19 (~10/2021) BPH w urinary obs/LUTS Wears glasses Tinnitus Hearing loss Cataracts, bilateral Colon polyps Low testosterone (~2009) Aortic regurgitation Psoriasis (~2016) COPD (chronic obstructive pulmonary disease) Depression Hypogonadism male H/O adenomatous polyp of colon Atrial fibrillation Aortic stenosis Aneurysm, thoracic aortic Type 2 diabetes mellitus Hyperlipidemia Hypertension Hypertelorism Surgical History Hx of bilateral cataract extraction History of circumcision Anesthesia S/P plication of diaphragm (~2010) S/P AVR (aortic valve replacement) (~08/2019) History of appendectomy (~1987) History of exploratory laparotomy History of ventral hernia repair (~1986) History of nephrectomy, unilateral (~1984) Family History Father Cancer Mother Diabetes mellitus Sister Diabetes mellitus Grandfather Cancer Social History marital status: number of children: 2 household members: family Smoking Status: Former smoker alcohol intake: current Smoking Status: Former smoker alcohol intake frequency: holidays/special occasions only Substance Use Type: does not use Exam Narrative Exam Narrative: GENERAL: Alert and oriented x three, in moderate distress. HEENT: Head normocephalic, atraumatic, EOMI, pupils reactive, face symmetric, moist mucous membranes NECK: Supple, full range of motion CARDIOVASCULAR: Slightly tachy but regular rate and rhythm without murmurs, rubs or gallops. No JVD. Trace edema bilateral lower extremities. RESPIRATORY: Breath sounds equal bilaterally, no wheezes rales or rhonchi. No tachypnea or accessory muscle use. ABDOMEN: Soft, generalized tenderness threw out. No localized tenderness. Patient's moderately distended but has a large body habitus. No fluid wave. Normoactive bowel sounds all 4 quadrants. No guarding or rebound, rigidity, no mass, no rash or skin changes. No pulsatile bruit. : No CVA tenderness EXTREMITIES: Normal range of motion, no clubbing or edema. Neurovascularly intact. 2+ pulses bilateral lower extremities. NEUROLOGICAL: Cranial nerves II through XII grossly intact. Moving all extremities SKIN: Warm, dry, no petechiae, no rashes or lesions. Initial Vital Signs Initial Vital Signs: Vital Signs Temperature 98.5 F 09/10/23 21:12 Pulse Rate 104 H 09/10/23 21:12 Respiratory Rate 20 09/10/23 21:12 Blood Pressure 159/71 H 09/10/23 21:12 Pulse Oximetry 97 09/10/23 21:12 Oxygen Delivery Method Room Air 09/10/23 21:12 Course Orders Ordered: ED Orders 09/10/23 21:19 XR chest 1V Stat EKG-12 Lead Stat 09/10/23 21:20 Complete Blood Count AUTO DIFF Stat Comprehensive Metabolic Panel Stat Lipase Stat Magnesium Stat NT-proBNP (BNP-Adult 18+) Stat PTT Partial Thromboplastin Demetrius Stat Prothrombin Time INR Stat Troponin & CK Cardiac Panel Stat 09/10/23 22:26 US abdomen limited Stat 09/10/23 23:35 Trop I [Troponin I] Stat 09/11/23 02:53 CT angio chest abdomen pelvis Stat 09/11/23 03:30 Blood Culture Stat 09/11/23 03:36 Lactate (Lactic Acid) Stat Procalcitonin Stat Discontinued Medications Hydromorphone HCl (Hydromorphone 1 Mg Inj) 1 mg IV NOW ONE Stop: 09/10/23 22:27 Last Admin: 09/10/23 22:30 Dose: 1 mg Documented By: Hydromorphone HCl (Hydromorphone 1 Mg Inj) 1 mg IV NOW ONE Stop: 09/11/23 02:55 Last Admin: 09/11/23 03:08 Dose: 1 mg Documented By: SHELBY Sodium Chloride (Normal Saline 0.9%) 1,000 mls @ 1,000 mls/hr IV BOLUS ONE Stop: 09/11/23 03:53 Last Infusion: 09/11/23 04:54 Dose: Infused Documented By: Admin: 09/11/23 03:07 Dose: 1,000 mls/hr Documented By: SHELBY Piperacillin Sod/Tazobactam (Sod 4.5 gm/ Sodium Chloride) 100 mls @ 200 mls/hr IV NOW ONE Stop: 09/11/23 05:11 Last Admin: 09/11/23 05:41 Dose: 200 mls/hr Documented By: SHELBY Ondansetron HCl (Ondansetron 4 Mg/2 Ml Inj) 4 mg IV NOW ONE Stop: 09/10/23 22:27 Last Admin: 09/10/23 22:30 Dose: 4 mg Documented By: AB Vital Signs Vital signs: Vital Signs - 8 hr 09/10/23 22:15 09/11/23 00:50 09/11/23 00:50 Temperature 98.9 F Pulse Rate 103 H 100 H Respiratory Rate 16 16 Blood Pressure 128/72 134/72 Pulse Oximetry 97 96 Oxygen Delivery Method Room Air Room Air 09/11/23 02:59 09/11/23 03:00 09/11/23 03:00 Temperature Pulse Rate 104 H 104 H Respiratory Rate 20 24 Blood Pressure 167/88 H Pulse Oximetry 96 96 Oxygen Delivery Method 09/11/23 03:30 09/11/23 04:00 09/11/23 04:30 Temperature Pulse Rate 105 H 104 H 102 H Respiratory Rate Blood Pressure Pulse Oximetry 97 92 92 Oxygen Delivery Method MDM - Chest Pain Lab Data 09/10/23 21:20 09/10/23 21:20 Labs: Lab Results 09/10/23 09/10/23 09/11/23 Range/Units 21:20 23:35 03:36 WBC 2.5 L (4.5-11.0) X10^3/uL RBC 4.09 L (4.5-5.9) X10^6/uL Hgb 12.4 L (13.5-17.5) g/dL Hct 37.6 L (41-53) % MCV 91.8 (80-100) fL MCH 30.3 (26-34) PG MCHC 33.0 (30-36) % RDW 16.6 H (11.6-14.8) % Plt Count 179 (150-400) X10^3/uL Neut % (Auto) 70.3 (50-75) % Lymph % (Auto) 11.7 L (25-40) % Harrison % (Auto) 16.9 H (3-14) % Eos % (Auto) 0.5 L (2-4) % Baso % (Auto) 0.6 (0-2) % Neut # (Auto) 1800 (8441-7133) /uL Lymph # (Auto) 300 L (6731-5706) /uL Harrison # (Auto) 400 (0-900) /uL Eos # (Auto) 0 (0-450) /uL Baso # (Auto) 0 (0-100) /uL PT 12.4 (9.4-12.5) SECONDS INR 1.1 (0.9-1.3) APTT 31 (25.1-36.5) SECONDS Sodium 137 (137-145) mmol/L Potassium 4.9 (3.4-5.1) mmol/L Chloride 103 (98-107) mmol/L Carbon Dioxide 28 (22-32) mmol/L BUN 20 (9-20) mg/dL Creatinine 0.96 (0.66-1.25) mg/dL Estimated GFR > 60 (>60) mL/min BUN/Creatinine Ratio 20.8 (6-22) Glucose 176 H (80-110) mg/dL Lactate 1.4 (0.7-2.1) mmol/L Calcium 8.3 L (8.4-10.2) mg/dL Magnesium 2.3 (1.6-2.3) mg/dL Total Bilirubin 0.8 (0.2-1.3) mg/dL AST 60 H (17-59) IU/L ALT 68 H (<50) IU/L Alkaline Phosphatase 163 H (38-126) U/L Total Creatine Kinase 55 (55-170) U/L Troponin I < 0.012 < 0.012 (0.01-0.034) ng/mL NT-Pro-B Natriuret Pep 462 H (<125) pg/mL Total Protein 7.5 (6.3-8.2) g/dL Albumin 4.4 (3.5-5.0) g/dL Globulin 3.1 (1.7-4.1) g/dL Albumin/Globulin Ratio 1.4 (1.0-2.8) Lipase 25 D (23-300) U/L Procalcitonin 0.330 (<0.5) ng/mL Point of Care Testing Glucose POC 158 ECG Data Attestation: I personally reviewed and interpreted this ECG as follows: Interpretation: Ventricular rate is 98 TN 152, QRS 84, QTC of 431, no acute ST elevation depression patient has prior from 07/30/2023 which appears similar. EKG 2. Shows sinus rhythm with sinus arrhythmia rate of 94 TN 154 QRS 86 QTC [address]. No acute ST elevation or depression. MDM Narrative Medical decision making narrative: Patient has a white count of 2 point has chronically been low for the last several months, hemoglobin is stable at 12.4 no decreased from yesterday, platelets are 179, predominance of monocytes. Coags are negative, electrolytes are normal renal functions normal glucose is 176, bilirubin 0.8 AST is 60, ALT 68 alk-phos is 63 lipase is 25. Troponins less than 0.012 and on repeat is still less than 0.012. Patient's BNP is 462 with a normal CK. No acute EKG changes. Abdominal ultrasound, right upper quadrant shows cholelithiasis without evidence of acute cholecystitis biliary tree is not well visualized. Discussed with patient plan for CT chest abdomen pelvis angio patient does have a history of thoracic aortic ectasia/aneurysm, CT abdomen pelvis yesterday was negative except for changes with gallstones. Patient discussed he is comfortable with this plan. We will give hydration to protect kidney. Given additional dose of pain medication. Patient is slightly tacky with low white count although that is likely his baseline added on lactate, blood cultures and procalcitonin. Lactate is negative at 1.4, procalcitonin is 0.33. Blood cultures are pending. CTA shows gallstones and distended gallbladder with neighboring mostly new fat stranding and new focal small to moderate amount pericholecystic fluid adjacent to fundus. Patient has mildly dilated left-sided jejunal loop without definite transition point likely due to ileus. Thin eccentric curvilinear calcification level infrarenal abdominal aorta maybe due to atherosclerotic changes or secondary to chronic dissection flap otherwise no evidence of aortoiliac dissection or aneurysm. Patient's pain has been throughout the abdomen but has radiated upwards. Suspect may have cholecystitis. Patient does have tenderness in the area. Spoke with Dr. Singh for General surgery we will cover with ISELA De Luna asked that we admit patient to medicine. Spoke with Dr. Mancilla, plan for observation for cholecystitis. Discussed patient has more generalized tenderness. No clear obstructive change. Patient has a history of thoracic ectasia but no acute changes on imaging. Discharge Plan Departure Patient Disposition: Admitted as Observation Clinical Impression: Cholecystitis, Abdominal pain Admit Date/Time: 09/11/23 05:32 Admit Provider: Benjamin Mancilla
--- NOTE | 2023-09-11 02:53 | DI.CT.S_ITS ---
PROCEDURE: CT ANGIO CHEST ABDOMEN PELVIS INDICATIONS: abd pain, radiated to chest/abd earlier, seen 09/09 TECHNIQUE: Precontrast 5 mm thick sections acquired from the lung apices to the iliac crests. After the administration of intravenous contrast, 2.5 mm thick sections again acquired from the lung apices to the iliac crests. Maximum intensity projection (MIP) oblique sagittal and coronal reformats were then acquired. For radiation dose reduction, the following was used: automated exposure control. COMPARISON: [facility], CR, XR CHEST 1V, 09/10/2023, 21:21. [facility], CT, CT ABDOMEN PELVIS W CON, 09/10/2023, 1:20. [facility], CT, CT ANGIO CHEST PE PROTOCOL, 07/30/2023, 2:54. FINDINGS: Image quality: Diagnostic. AORTA: No areas of hemodynamically significant stenosis, vascular occlusion, aneurysmal dilation or dissection. Atherosclerotic calcifications are present. CHEST: Lower Neck: No enlarged lymph nodes. Thyroid: No thyroid nodules which require sonographic evaluation. Axillae: No enlarged lymph nodes. Chest Wall: Unremarkable. Lungs and Pleura: No pneumothorax or pleural effusions. Streaky opacities are present within the right base. Heart: Heart size is normal. No pericardial effusion. Thoracic Vessels: Pulmonary arteries demonstrate normal size. Mediastinum and Emily: No enlarged lymph nodes. Esophagus: No wall thickening. Mild hiatal hernia. ABDOMEN: Liver: No solid mass. Gallbladder: Prominent luminal stone without wall thickening. Trace adjacent pericholecystic fluid, new. Biliary ducts: No biliary dilation. Pancreas: No ductal dilation. Spleen: Size is within normal limits. Adrenal Glands: No adrenal nodules. Kidneys and Ureters: No hydronephrosis. No solid mass. Right kidney is absent. Stomach and Bowel: Normal colonic caliber, without significant wall thickening. Peritoneum: No abnormal intraperitoneal fluid. No free air. Ventral Wall: No hernia. Abdominal Nodes: No retroperitoneal or mesenteric adenopathy by size criteria. Vessels: Inferior vena cava is normal in size. PELVIS: Pelvic Organs: Unremarkable. Bladder: Unremarkable. Pelvic Nodes: No enlarged lymph nodes. Miscellaneous: No inguinal hernias are seen. Bones: Numerous sclerotic foci are present within the axial and appendicular skeleton, unchanged. Right hip arthroplasty. IMPRESSION: Areas demonstrates no areas of hemodynamically significant stenosis, vascular occlusion, aneurysmal dilation or dissection. Atherosclerotic changes are present. No acute intra-abdominal or pelvic process. Unchanged appearance of diffuse osseous metastatic disease. Cholelithiasis without wall thickening. Trace adjacent pericholecystic fluid. This is overall nonspecific. However, it is new compared to CT exam of 09/10/2023. Recommend correlation clinical symptoms as developing cholecystitis cannot be definitively excluded. The above findings are concordant with preliminary report. Dictated by: Shobha Hebert M.D. on 09/11/2023 at 7:53 Approved by: Shobha Hebert M.D. on 09/11/2023 at 8:01
[2023-09-11] MEDS: SODIUM CHLORIDE 0.9% 1,000 ML 1000 ML IV (03:07)
[2023-09-11] MEDS: HYDROMORPHONE 1 MG INJ IV (03:08)
[2023-09-11 04:18] LABS: Lactate (Lactic Acid) 1.4 mmol/L (0.7-2.1)
[2023-09-11] MEDS: PIPERACILLIN/TAZO 4.5 GM in SODIUM CHLORIDE 0.9% 100 ML IV (05:41)
[2023-09-11] MEDS: HYDROMORPHONE 0.5 MG INJ IV ×5 (06:31→18:20)
[2023-09-11] MEDS: ONDANSETRON 4 MG/2 ML INJ IV ×3 (06:32→18:21)
[2023-09-11] MEDS: DEXTROSE 5%-0.9% NS 1,000 ML 100 ML IV (06:39)
--- NOTE | 2023-09-11 07:09 | P.HP_ITS ---
History of Present Illness History of Present Illness Date Patient Seen: 09/11/23 Time Patient Seen: 07:09 Chief complaint: nausea, abd pain, chest pain Narrative: 68-year-old male admitted with possible cholecystitis Patient presented to the emergency department on 2 successive nights with the abdominal pain, nausea and vomiting. [place] like he might have a bowel obstruction on his first presentation (had had previous admission for bowel obstruction in 2019 which resolved with Gastrografin study) but actually had a bowel movement and no evidence of bowel obstruction on objective testing. This was the night the 09 September. He was discharged home did okay with some antiemetics and pain meds but had increasing pain that prompted him to return to the emergency department Pain that is kind of diffusely across the abdomen with maybe some radiation into his chest at times. Has had some nausea but no actual emesis (although some dry heaving). No fever chills. No bowel movement since his bowel movement in the ER the night prior. Still wondering about bowel obstruction upon presentation. ER evaluation demonstrated mild leukopenia which has been present long-term. Bump in LFTs and abdominal CT demonstrates changes in the gallbladder bed consistent with possible cholecystitis. Obvious gallstones present on initial workup on 09/10/2023, but changes seen on CT currently are apparently not present on ultrasound performed on that prior evaluation. General surgery consulted via emergency department physician who agrees cholecystitis seems likely, was started on Zosyn and admitted for continued observation and management Patient does report a similar constellation of symptoms many years ago which resulted in admission to the hospital. The surgeon at that time, Dr. Martinez, eventually took him to surgery were per patient finding was super inflamed bowel. He had an appendectomy performed and he was close back up and treated with several days of IV antibiotics did find went home and has not had further trouble until that bowel obstruction in 2019 Patient with recent history of metastatic prostate cancer, hypertension hyperlipidemia type 2 diabetes COPD, mild ascending aortic dilatation/aneurysm, aortic valve replacement with bovine aortic valve [facility] Medical History (Updated 09/11/23 @ 07:21 by Benjamin Mancilla MD) History of urinary retention Urinary retention Bowel obstruction (01/2019) Anesthesia complication Hearing impaired Solitary kidney Bicuspid aortic valve Incomplete bladder emptying Prostate nodule with urinary obstruction Elevated PSA History of gout COVID-19 (~10/2021) BPH w urinary obs/LUTS Wears glasses Tinnitus Hearing loss Cataracts, bilateral Colon polyps Low testosterone (~2009) Aortic regurgitation Psoriasis (~2016) COPD (chronic obstructive pulmonary disease) Depression Hypogonadism male H/O adenomatous polyp of colon Atrial fibrillation Aortic stenosis Aneurysm, thoracic aortic Type 2 diabetes mellitus Hyperlipidemia Hypertension Hypertelorism Surgical History (Updated 09/11/23 @ 07:21 by Benjamin Mancilla MD) Hx of bilateral cataract extraction History of circumcision Anesthesia S/P plication of diaphragm (~2010) S/P AVR (aortic valve replacement) (~08/2019) History of appendectomy (~1987) History of exploratory laparotomy History of ventral hernia repair (~1986) History of nephrectomy, unilateral (~1984) Family History Father Cancer Mother Diabetes mellitus Sister Diabetes mellitus Grandfather Cancer Social History marital status: number of children: 2 household members: family Smoking Status: Former smoker alcohol intake: current Meds Home Medications and Allergies Home Medications Medication Instructions Recorded Confirmed Type acetaminophen 500 mg tablet 1,000 mg PO TID-QID PRN Pain 08/14/19 08/19/23 History (Acetaminophen Extra Strength) (Scale Score 1-3) clobetasol 0.05 % scalp solution 0.005 % topical BID PRN Skin 08/14/19 08/19/23 History Cleansing losartan 25 mg tablet 25 mg PO DAILY #90 tabs 09/10/21 08/19/23 Rx ketoconazole 2 % shampoo 1 applic topical 2XW 10/08/21 08/19/23 History glipizide 5 mg tablet 5 mg PO BID #180 tabs 09/15/22 08/19/23 Rx metoprolol succinate 25 mg 25 mg PO QAM #90 tabs 10/22/22 08/19/23 Rx tablet,extended release 24 hr albuterol sulfate 90 mcg/actuation 2 puff inhalation Q4-6H PRN 03/23/23 08/19/23 Rx aerosol inhaler shortness of breath or wheezing #8.5 grams pravastatin 20 mg tablet 20 mg PO DAILY #90 tabs 03/23/23 08/19/23 Rx tamsulosin 0.4 mg capsule 0.8 mg PO QPM 06/24/23 08/19/23 [address]ing 07/14/23 08/19/23 History fluticasone propionate 50 50 mcg intranasal 1XD 07/14/23 08/19/23 History mcg/actuation nasal spray,suspension furosemide 40 mg tablet 40 mg PO DAILY #90 tabs 08/03/23 08/19/23 Rx dapagliflozin propanediol 10 mg 10 mg PO QAM #90 tabs 08/06/23 08/19/23 Rx tablet (Farxiga) bicalutamide 50 mg tablet (Casodex) 50 mg PO DAILY #30 tabs 08/11/23 08/19/23 Rx trazodone 50 mg tablet 50 mg PO BEDTIME PRN 08/11/23 08/19/23 History triazolam 0.25 mg tablet (Halcion) 0.25 mg PO ONCE #1 tab 08/19/23 08/19/23 Rx megestrol 20 mg tablet 20 mg PO BID #180 tabs 08/27/23 Rx abiraterone 500 mg tablet 1,000 mg (2 x 500 mg) PO DAILY 09/09/23 Rx #180 tabs prednisone 5 mg tablet 5 mg PO BID #180 tabs 09/09/23 Rx Allergies Allergy/AdvReac Type Severity Reaction Status Date / Time sulfamethoxazole Allergy Mild Rash Verified 09/10/23 21:21 [From SEPTRA] trimethoprim [From SEPTRA] Allergy Mild Rash Verified 09/10/23 21:21 celecoxib [From CELEBREX] AdvReac Severe Tears my Verified 09/10/23 21:21 stomach up citalopram [From CELEXA] AdvReac Severe Tears my Verified 09/10/23 21:21 stomach up metformin AdvReac Severe GI Sx Verified 09/10/23 21:21 rosuvastatin AdvReac Intermediate myalgia Verified 09/10/23 21:21 simvastatin AdvReac Intermediate myalgia Verified 09/10/23 21:21 Exam Vital Signs (past 8 hours): - 09/11/23 00:50 09/11/23 00:50 09/11/23 02:59 Temperature Pulse Rate 100 H 104 H Respiratory Rate 16 20 Blood Pressure 134/72 Pulse Oximetry 96 96 Oxygen Delivery Method Room Air Oxygen Flow Rate 09/11/23 03:00 09/11/23 03:00 09/11/23 03:30 Temperature Pulse Rate 104 H 105 H Respiratory Rate 24 Blood Pressure 167/88 H Pulse Oximetry 96 97 Oxygen Delivery Method Oxygen Flow Rate 09/11/23 04:00 09/11/23 04:30 09/11/23 05:00 Temperature Pulse Rate 104 H 102 H 104 H Respiratory Rate Blood Pressure Pulse Oximetry 92 92 93 Oxygen Delivery Method Oxygen Flow Rate 09/11/23 05:30 09/11/23 05:42 09/11/23 05:44 Temperature Pulse Rate 107 H 103 H Respiratory Rate Blood Pressure 143/75 H Pulse Oximetry 93 96 Oxygen Delivery Method Oxygen Flow Rate 09/11/23 06:00 09/11/23 06:21 Temperature 99.0 F Pulse Rate 100 H Respiratory Rate 18 Blood Pressure 131/76 Pulse Oximetry 98 Oxygen Delivery Method Room Air Oxygen Flow Rate 0 Oxygen Delivery Method Room Air Oxygen Flow Rate 0 Narrative Exam Narrative: Elderly male in no obvious distress in a bedside chair HEENT-unremarkable Lungs-good breath sounds no wheezes no crackles Heart-regular rate and rhythm, grade 2/6 systolic ejection murmur across the entire precordium, no rub or thrill Abdomen-obese and mild distention, normal bowel tones, no real tenderness to palpation certainly no rebound or guarding Laiztrofaew-imcov-5+ edema bilateral pretibial areas Objective Labs 09/10/23 21:20 09/10/23 21:20 Labs: Laboratory Results - last 24 hr 09/10/23 09/10/23 09/11/23 21:20 23:35 03:36 WBC 2.5 L RBC 4.09 L Hgb 12.4 L Hct 37.6 L MCV 91.8 MCH 30.3 MCHC 33.0 RDW 16.6 H Plt Count 179 Neut % (Auto) 70.3 Lymph % (Auto) 11.7 L [place] % (Auto) 16.9 H Eos % (Auto) 0.5 L Baso % (Auto) 0.6 Neut # (Auto) 1800 Lymph # (Auto) 300 L [place] # (Auto) 400 Eos # (Auto) 0 Baso # (Auto) 0 PT 12.4 INR 1.1 APTT 31 Sodium 137 Potassium 4.9 Chloride 103 Carbon Dioxide 28 BUN 20 Creatinine 0.96 Estimated GFR > 60 BUN/Creatinine Ratio 20.8 Glucose 176 H Lactate 1.4 Calcium 8.3 L Magnesium 2.3 Total Bilirubin 0.8 AST 60 H ALT 68 H Alkaline Phosphatase 163 H Total Creatine Kinase 55 Troponin I < 0.012 < 0.012 NT-Pro-B Natriuret Pep 462 H Total Protein 7.5 Albumin 4.4 Globulin 3.1 Albumin/Globulin Ratio 1.4 Lipase 25 D Procalcitonin 0.330 Assessment & Plan Assessment & Plan narrative: 1. Abdominal pain/probable cholecystitis-continue with parental antibiotics and continued observation. General surgery to consult later today. Findings the support this diagnosis include bump in LFTs as well as change on his abdominal CT between scan done on September 09 and September 10. No other findings to explain symptoms are present either. 2. Diabetes-I am keeping patient NPO given problem 1. Above. Patient is on some IV fluids with dextrose will hold his oral diabetic meds and cover him with insulin as necessary. If patient is allowed to have a diet by General surgery then would probably alter his IV fluids by least removing the dextrose and may need adjustment in his insulin dosing. I would hold his oral meds until probably ready for discharge 3. Hypertension-patient also is off his oral meds which includes metoprolol and losartan. May need to reinstitute least the beta-arturo therapy with small sips of water depending on heart rate and blood pressure as we continue to monitor 4. Hyperlipidemia-patient normally on pravastatin will hold until patient is able to have a diet and then resume pravastatin 5. Prostate cancer-no specific intervention at this time. Continue outpatient treatment. Patient on prednisone as part of his outpatient treatment may need to monitor for evidence of renal insufficiency (while NPO and not taking prednisone) and or administer parental steroids. However patient's outpatient dose is quite low I doubt he will have issues while NPO. 6. COPD-no evidence of active issues. Albuterol as needed. 7. VTE prophylaxis-SCDs for now. Hold chemo prophylaxis until surgical status is determined 8. Code status-full code in the event of a sudden cardiac or respiratory arrest 9. Leukopenia-patient was longstanding leukopenia dating back to 2017 at least. Do not believe that as a sign severe infection or anything else more significant. Merely likely demonstrates a mild leukopenia intravascularly but patient with no history or other findings to suggest any physiologic impairment of immune system or other significant hematological disorder. Probably normal for this patient. Time-Based Coding :: [TOTAL MINUTES] spent with patient and on the chart (including review of chart, obtaining history, exam, reviewing outside data, placing orders, documenting exam and treatment plan, and counseling patient) on [DATE]. PROFEE Charge Codes Initial inpatient/observation care: 37442
[2023-09-11] MEDS: INSULIN LISPRO 100 UNIT/ML 3ML VIAL SUBCUT ×3 (08:55→17:09)
--- NOTE | 2023-09-11 09:47 | P.CONS_ITS ---
History of Present Illness Consult details Date Patient Seen: 09/11/23 Time Patient Seen: 12:18 Chief complaint: nausea, abd pain, chest pain Narrative: 68-year-old man PMH COPD, hypertension, aortic valve replacement in metastatic prostate cancer admitted to the hospital with possible cholecystitis. Over the past couple of days he has had abdominal pain with associated nausea and emesis. On arrival to the emergency department afebrile, vital signs within limits, WBC 2.5, total bilirubin 0.8, AST 60, ALT 70. CT abdomen pelvis and abdominal ultrasound performed demonstrate gallstones without wall thickening, minimal pericholecystic fluid. Multiple prior abdominal surgeries including exploratory laparotomy for small bowel obstruction, open appendectomy, ventral hernia repair. Meds Home Medications and Allergies Home Medications Medication Instructions Recorded Confirmed Type acetaminophen 500 mg tablet 1,000 mg PO TID-QID PRN Pain 08/14/19 09/11/23 History (Acetaminophen Extra Strength) (Scale Score 1-3) clobetasol 0.05 % scalp solution 0.005 % topical BID PRN Skin 08/14/19 09/11/23 History Cleansing losartan 25 mg tablet 25 mg PO DAILY #90 tabs 09/10/21 09/11/23 Rx ketoconazole 2 % shampoo 1 applic topical 2XW 10/08/21 09/11/23 History glipizide 5 mg tablet 5 mg PO BID #180 tabs 09/15/22 09/11/23 Rx metoprolol succinate 25 mg 25 mg PO QAM #90 tabs 10/22/22 09/11/23 Rx tablet,extended release 24 hr albuterol sulfate 90 mcg/actuation 2 puff inhalation Q4-6H PRN 03/23/23 09/11/23 Rx aerosol inhaler shortness of breath or wheezing #8.5 grams pravastatin 20 mg tablet 20 mg PO DAILY #90 tabs 03/23/23 09/11/23 Rx tamsulosin 0.4 mg capsule 0.8 mg PO QPM 06/24/23 09/11/23 History Disabled Parking 07/14/23 09/11/23 History fluticasone propionate 50 50 mcg intranasal 1XD 07/14/23 09/11/23 History mcg/actuation nasal spray,suspension furosemide 40 mg tablet 40 mg PO DAILY #90 tabs 08/03/23 09/11/23 Rx dapagliflozin propanediol 10 mg 10 mg PO QAM #90 tabs 08/06/23 09/11/23 Rx tablet (Farxiga) trazodone 50 mg tablet 50 mg PO BEDTIME PRN Insomnia 08/11/23 09/11/23 History megestrol 20 mg tablet 20 mg PO BID #180 tabs 08/27/23 09/11/23 Rx abiraterone 500 mg tablet 1,000 mg (2 x 500 mg) PO DAILY 09/09/23 09/11/23 Rx #180 tabs prednisone 5 mg tablet 5 mg PO BID #180 tabs 09/09/23 09/11/23 Rx bicalutamide 50 mg tablet (Casodex) 50 mg PO ONCE PM 09/11/23 09/11/23 History triazolam 0.25 mg tablet (Halcion) 0.25 mg PO ONCE PRN Anxiety 09/11/23 09/11/23 History Allergies Allergy/AdvReac Type Severity Reaction Status Date / Time sulfamethoxazole Allergy Mild Rash Verified 09/10/23 21:21 [From SEPTRA] trimethoprim [From SEPTRA] Allergy Mild Rash Verified 09/10/23 21:21 celecoxib [From CELEBREX] AdvReac Severe Tears my Verified 09/10/23 21:21 stomach up citalopram [From CELEXA] AdvReac Severe Tears my Verified 09/10/23 21:21 stomach up metformin AdvReac Severe GI Sx Verified 09/10/23 21:21 rosuvastatin AdvReac Intermediate myalgia Verified 09/10/23 21:21 simvastatin AdvReac Intermediate myalgia Verified 09/10/23 21:21 Exam Vital Signs (past 8 hours): - 09/11/23 02:59 09/11/23 03:00 09/11/23 03:00 Temperature Pulse Rate 104 H 104 H Respiratory Rate 20 24 Blood Pressure 167/88 H Pulse Oximetry 96 96 Oxygen Delivery Method Oxygen Flow Rate 09/11/23 03:30 09/11/23 04:00 09/11/23 04:30 Temperature Pulse Rate 105 H 104 H 102 H Respiratory Rate Blood Pressure Pulse Oximetry 97 92 92 Oxygen Delivery Method Oxygen Flow Rate 09/11/23 05:00 09/11/23 05:30 09/11/23 05:42 Temperature Pulse Rate 104 H 107 H 103 H Respiratory Rate Blood Pressure Pulse Oximetry 93 93 96 Oxygen Delivery Method Oxygen Flow Rate 09/11/23 05:44 09/11/23 06:00 09/11/23 06:21 Temperature 99.0 F Pulse Rate 100 H Respiratory Rate 18 Blood Pressure 143/75 H 131/76 Pulse Oximetry 98 Oxygen Delivery Method Room Air Oxygen Flow Rate 0 09/11/23 08:58 Temperature 98.7 F Pulse Rate 98 H Respiratory Rate 18 Blood Pressure 138/74 Pulse Oximetry 95 Oxygen Delivery Method Oxygen Flow Rate Oxygen Delivery Method Room Air Oxygen Flow Rate 0 Narrative Exam Narrative: General elderly man alert oriented no acute distress Chest nonlabored respiration Abdomen thick midline laparotomy scar. Tender right upper quadrant no peritonitis. Extremities warm well perfused. Objective Labs 09/10/23 21:20 09/10/23 21:20 Labs: Laboratory Results - last 24 hr 09/10/23 09/10/23 09/11/23 21:20 23:35 03:36 WBC 2.5 L RBC 4.09 L Hgb 12.4 L Hct 37.6 L MCV 91.8 MCH 30.3 MCHC 33.0 RDW 16.6 H Plt Count 179 Neut % (Auto) 70.3 Lymph % (Auto) 11.7 L [place] % (Auto) 16.9 H Eos % (Auto) 0.5 L Baso % (Auto) 0.6 Neut # (Auto) 1800 Lymph # (Auto) 300 L [place] # (Auto) 400 Eos # (Auto) 0 Baso # (Auto) 0 PT 12.4 INR 1.1 APTT 31 Sodium 137 Potassium 4.9 Chloride 103 Carbon Dioxide 28 BUN 20 Creatinine 0.96 Estimated GFR > 60 BUN/Creatinine Ratio 20.8 Glucose 176 H Lactate 1.4 Calcium 8.3 L Magnesium 2.3 Total Bilirubin 0.8 AST 60 H ALT 68 H Alkaline Phosphatase 163 H Total Creatine Kinase 55 Troponin I < 0.012 < 0.012 NT-Pro-B Natriuret Pep 462 H Total Protein 7.5 Albumin 4.4 Globulin 3.1 Albumin/Globulin Ratio 1.4 Lipase 25 D Procalcitonin 0.330 PFSH Medical History History of urinary retention Urinary retention Bowel obstruction (01/2019) Anesthesia complication Hearing impaired Solitary kidney Bicuspid aortic valve Incomplete bladder emptying Prostate nodule with urinary obstruction Elevated PSA History of gout COVID-19 (~10/2021) BPH w urinary obs/LUTS Wears glasses Tinnitus Hearing loss Cataracts, bilateral Colon polyps Low testosterone (~2009) Aortic regurgitation Psoriasis (~2016) COPD (chronic obstructive pulmonary disease) Depression Hypogonadism male H/O adenomatous polyp of colon Atrial fibrillation Aortic stenosis Aneurysm, thoracic aortic Type 2 diabetes mellitus Hyperlipidemia Hypertension Hypertelorism Surgical History Hx of bilateral cataract extraction History of circumcision Anesthesia S/P plication of diaphragm (~2010) S/P AVR (aortic valve replacement) (~08/2019) History of appendectomy (~1987) History of exploratory laparotomy History of ventral hernia repair (~1986) History of nephrectomy, unilateral (~1984) Family History Father Cancer Mother Diabetes mellitus Sister Diabetes mellitus Grandfather Cancer Social History marital status: number of children: 2 household members: family Tobacco & Substance Use Smoking Status: Former smoker alcohol intake: current Assessment & Plan Assessment & Plan narrative: 68-year-old man PMH COPD, aortic valve replacement, metastatic prostate cancer with possible acute cholecystitis. CT abdomen pelvis and abdominal ultrasound reviewed demonstrates cholelithiasis trace pericholecystic fluid but no wall thickening. Recommend we begin with a trial of antibiotic therapy. If he fails to respond to non operative management we can progress with cholecystectomy however given his multiple prior abdominal surgeries and significant medical comorbidities I think it would be in his favor to be less invasive. -trial full liquid diet -IV antibiotic therapy for possible cholecystitis Time-Based Coding :: [TOTAL MINUTES] spent with patient and on the chart (including review of chart, obtaining history, exam, reviewing outside data, placing orders, documenting exam and treatment plan, and counseling patient) on [DATE].
--- NOTE | 2023-09-11 10:47 | CM.DANOTE ---
Initial DCP Assessment Note Pt is a 68 yo male, resident of [place], arrives with nausea, abd pain, chest pain, admitted for medical management, suspected cholecystitis. Surgery consulted. PCP: Benjamin Mancilla Payer: [facility] Reviewed chart, met w/patient to introduce self and role. Patient lives with son, DIL and granddaughter in [place]. 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 Patient has hx at [facility] and then with [facility] after his hip replacement. Patient denies current need from this CM team. No barriers identified at this time to patient's safe discharge home w/family to assist; close outpatient f/u recommended. CM team will plan to follow clinical course closely in case any DC needs or concerns arise. WALDO Prasad Discharge Planning/Care Management CM Discharge Assessment Start: 09/11/23 10:41 Freq: Status: Active Protocol: Document 09/11/23 10:41 HUGO (Rec: 09/11/23 10:47 HUGO [id number]) Discharge Planning Assessment Assigned Rug Washer WALDO Jones DPOA/Assigned Designee Name stacy Mcallister Contact Information [phone] Advance Directives? No History Provided By Patient,Medical Record Prior Living Arrangements House Household Members family Independent with ADL's Yes Is patient alert and oriented? Yes Needs Assistance With Meal Prep,Home Chores / Shopping Barriers to Discharge No Discharge Plan Home Transportation Arrangement Family Referrals Initiated None needed
[2023-09-11] MEDS: PIPERACILLIN/TAZO 3.375 GM in SODIUM CHLORIDE 0.9% 100 ML IV ×2 (12:24→18:20)
[2023-09-11] MEDS: FUROSEMIDE 40 MG TABLET PO (12:25)
[2023-09-11] MEDS: METOPROLOL ER 25 MG TABLET PO (12:25)
[2023-09-11] MEDS: LOSARTAN 25 MG TABLET PO (12:26)
[2023-09-11] MEDS: SODIUM CHLORIDE 0.9% 1,000 ML 84 ML IV (12:36)
[2023-09-11] MEDS: ACETAMINOPHEN 325 MG TABLET 975 MG PO (20:13)
[2023-09-11] MEDS: BICALUTAMIDE 50 MG TABLET PO (20:51)
[2023-09-11] MEDS: predniSONE 5 MG TABLET PO (20:52)
[2023-09-11] MEDS: TAMSULOSIN 0.4 MG CAPSULE 0.8 MG PO (20:52)
[2023-09-12] VITALS (7 sets, daily range): BP systolic 112–144; BP diastolic 66–78; PULSE 79–89; RESP 14–20; TEMP 36.9–37.2; O2SAT 95–97
[2023-09-12] MEDS: SODIUM CHLORIDE 0.9% 1,000 ML 84 ML IV (00:44)
[2023-09-12] MEDS: PIPERACILLIN/TAZO 3.375 GM in SODIUM CHLORIDE 0.9% 100 ML IV ×2 (02:50→10:38)
[2023-09-12] MEDS: HYDROMORPHONE 0.5 MG INJ IV (04:30)
[2023-09-12 05:58] LABS: Add Manual Diff / Slide Review NO; Basophils Absolute Auto 0 /uL (0-100); Basophils Percent Auto 0.2 % (0-2); Eosinophils Absolute Auto 0 /uL (0-450); Eosinophils Percent Auto 0.8 % (2-4); Hemoglobin 10.2 g/dL (13.5-17.5); Lymphocytes Absolute Auto 400 /uL (1100-4500); Lymphocytes Percent Auto 19.6 % (25-40); Mean Corpuscular Hemoglobin 30.5 PG (26-34); Mean Corpuscular Volume 92.4 fL (80-100); Monocytes Absolute Auto 300 /uL (0-900); Monocytes Percent Auto 15.7 % (3-14); Neutrophils Absolute Auto 1400 /uL (1500-7000); Neutrophils Percent Auto 63.7 % (50-75); Platelet Count 140 X10^3/uL (150-400); Red Blood Cell Count 3.36 X10^6/uL (4.5-5.9); Red Cell Distribution Width 16.4 % (11.6-14.8); White Blood Cell Count 2.1 X10^3/uL (4.5-11.0)
[2023-09-12 06:14] LABS: Alanine Aminotransferase 85 IU/L (<50); Albumin 3.2 g/dL (3.5-5.0); Albumin Globulin Ratio 1.1 (1.0-2.8); Alkaline Phosphatase 156 U/L (38-126); Aspartate Aminotransferase 36 IU/L (17-59); BUN Creatinine Ratio 20.9 (6-22); Bilirubin Total 0.6 mg/dL (0.2-1.3); Blood Urea Nitrogen 23 mg/dL (9-20); Calcium 6.5 mg/dL (8.4-10.2); Carbon Dioxide 24 mmol/L (22-32); Chloride 105 mmol/L (98-107); Estimated Glomerular Filt Rate > 60 mL/min (>60); Globulin 2.8 g/dL (1.7-4.1); Glucose 140 mg/dL (80-110); HEMOLYSIS < 15 (0-50); Sodium 134 mmol/L (137-145)
[2023-09-12] MEDS: predniSONE 5 MG TABLET PO ×2 (08:58→21:03)
[2023-09-12] MEDS: METOPROLOL ER 25 MG TABLET PO (08:59)
[2023-09-12] MEDS: FUROSEMIDE 40 MG TABLET PO (09:01)
[2023-09-12] MEDS: LOSARTAN 25 MG TABLET PO (09:01)
[2023-09-12] MEDS: ACETAMINOPHEN 325 MG TABLET 975 MG PO (09:09)
--- NOTE | 2023-09-12 10:38 | PM.PN.1 ---
Subjective Subjective Date Patient Seen: 09/12/23 Time Patient Seen: 10:38 Interval history: Feeling better overall. Large BM this morning which really helped. No nausea or emesis. Abdominal pain better, more localized. Has some constant RUQ pain as well as twinges. Not worse really after eating. Voiding normally. No other pain (except baseline R hip - s/p replacement in June). Exam Vital Signs (past 8 hours): - 09/12/23 02:55 09/12/23 04:53 09/12/23 08:00 Temperature 98.9 F 99.0 F Pulse Rate 89 87 89 Respiratory Rate 20 14 Blood Pressure 112/78 127/67 124/68 Pulse Oximetry 96 97 Oxygen Flow Rate 0 0 09/12/23 08:59 Temperature Pulse Rate 89 Respiratory Rate Blood Pressure 124/68 Pulse Oximetry Oxygen Flow Rate Oxygen Delivery Method Room Air Oxygen Flow Rate 0 Narrative Exam Narrative: GEN: NAD, well appearing, pleasant, non toxic CV: RRR Pulm:normal WOB, CTAB Abdomen: slight distension, hypoactive BS, mild RUQ TTPp, no rebound or guarding Extremities: trace pitting edema bilaterally Skin: no visible rashes, WWP Psych: normal affect Neuro: normal gait, symmetric movement Objective Labs 09/12/23 05:32 09/12/23 05:32 Labs: Laboratory Results - last 24 hr 09/12/23 05:32 WBC 2.1 L RBC 3.36 L Hgb 10.2 L Hct 31.0 L MCV 92.4 MCH 30.5 MCHC 33.0 RDW 16.4 H Plt Count 140 L Neut % (Auto) 63.7 Lymph % (Auto) 19.6 L [place] % (Auto) 15.7 H Eos % (Auto) 0.8 L Baso % (Auto) 0.2 Neut # (Auto) 1400 L Lymph # (Auto) 400 L [place] # (Auto) 300 Eos # (Auto) 0 Baso # (Auto) 0 Sodium 134 L Potassium 4.0 Chloride 105 Carbon Dioxide 24 BUN 23 H Creatinine 1.10 Estimated GFR > 60 BUN/Creatinine Ratio 20.9 Glucose 140 H Calcium 6.5 L Total Bilirubin 0.6 AST 36 ALT 85 H Alkaline Phosphatase 156 H Total Protein 6.0 L Albumin 3.2 L Globulin 2.8 Albumin/Globulin Ratio 1.1 [facility] Medical History History of urinary retention Urinary retention Bowel obstruction (01/2019) Anesthesia complication Hearing impaired Solitary kidney Bicuspid aortic valve Incomplete bladder emptying Prostate nodule with urinary obstruction Elevated PSA History of gout COVID-19 (~10/2021) BPH w urinary obs/LUTS Wears glasses Tinnitus Hearing loss Cataracts, bilateral Colon polyps Low testosterone (~2009) Aortic regurgitation Psoriasis (~2016) COPD (chronic obstructive pulmonary disease) Depression Hypogonadism male H/O adenomatous polyp of colon Atrial fibrillation Aortic stenosis Aneurysm, thoracic aortic Type 2 diabetes mellitus Hyperlipidemia Hypertension Hypertelorism Surgical History Hx of bilateral cataract extraction History of circumcision Anesthesia S/P plication of diaphragm (~2010) S/P AVR (aortic valve replacement) (~08/2019) History of appendectomy (~1987) History of exploratory laparotomy History of ventral hernia repair (~1986) History of nephrectomy, unilateral (~1984) Family History Father Cancer Mother Diabetes mellitus Sister Diabetes mellitus Grandfather Cancer Social History marital status: number of children: 2 household members: family Smoking Status: Former smoker alcohol intake: current Assessment & Plan Assessment and plan (1) Abdominal pain: Qualifiers: Abdominal location: right upper quadrant Qualified Code(s): R10.11 - Right upper quadrant pain Status: Acute (2) Cholecystitis: Status: Acute (3) Malignant neoplasm of prostate: Status: Acute (4) Type 2 diabetes mellitus: Qualifiers: Diabetes mellitus assisted insulin use: without assisted use Diabetes mellitus complication status: without complication Qualified Code(s): E11.9 - Type 2 diabetes mellitus without complications Status: Chronic (5) Hyperlipidemia: Qualifiers: Hyperlipidemia type: mixed hyperlipidemia Qualified Code(s): E78.2 - Mixed hyperlipidemia Status: Chronic (6) Hypertension: Qualifiers: Hypertension type: essential hypertension Qualified Code(s): I10 - Essential (primary) hypertension Status: Chronic Plan 1. Abdominal pain/probable cholecystitis - surgery consulted, trying to avoid surgery if possible. LFTs stable. -Continue Zosyn for now -Pain control - APAP, Dilaudid, adding Oxycodone today -Zofran PRN -Surgery following, will see later today 2. T2DM - tolerating full liquid diet. Hold oral agents. -Continue SSI 3. HTN - stable -Continue metoprolol and losartan 4. HLD - stable -Holding statin for now 5. Prostate cancer - stable -Continue Abiraterone, Casodex, Prednisone, Tamsulosin 6. COPD- stable -Albuterol as needed. 7. Leukopenia, anemia - stable -Monitor with AM labs 8. HypoCa - mild, corrects to 7.1 -Monitor with AM labs VTE prophylaxis - SCD and ambulation Code status - full Diet - full liquid Dispo - pending improvement on diet, likely 1-2 more days at least Time-Based Coding :: [TOTAL MINUTES] spent with patient and on the chart (including review of chart, obtaining history, exam, reviewing outside data, placing orders, documenting exam and treatment plan, and counseling patient) on [DATE]. PROFEE Charge codes Subsequent inpatient/observation care: 11686
[2023-09-12] MEDS: OXYCODONE IR 10 MG TABLET PO ×2 (11:24→17:23)
[2023-09-12] MEDS: INSULIN LISPRO 100 UNIT/ML 3ML VIAL SUBCUT ×2 (12:26→17:12)
--- NOTE | 2023-09-12 13:03 | P.PN_ITS ---
Subjective Subjective Date Patient Seen: 09/12/23 Time Patient Seen: 13:03 Interval history: Mal feels much better today. He has tolerated his diet. Pain is minimal. Exam Vital Signs (past 8 hours): - 09/12/23 08:00 09/12/23 08:59 Temperature 99.0 F Pulse Rate 89 89 Respiratory Rate 14 Blood Pressure 124/68 124/68 Pulse Oximetry 97 Oxygen Flow Rate 0 Oxygen Delivery Method Room Air Oxygen Flow Rate 0 Narrative Exam Narrative: Abdomen is obese Multiple surgical scars noted No tenderness to deep palpation Objective Labs 09/12/23 05:32 09/12/23 05:32 Labs: Laboratory Results - last 24 hr 09/12/23 05:32 WBC 2.1 L RBC 3.36 L Hgb 10.2 L Hct 31.0 L MCV 92.4 MCH 30.5 MCHC 33.0 RDW 16.4 H Plt Count 140 L Neut % (Auto) 63.7 Lymph % (Auto) 19.6 L [place] % (Auto) 15.7 H Eos % (Auto) 0.8 L Baso % (Auto) 0.2 Neut # (Auto) 1400 L Lymph # (Auto) 400 L [place] # (Auto) 300 Eos # (Auto) 0 Baso # (Auto) 0 Sodium 134 L Potassium 4.0 Chloride 105 Carbon Dioxide 24 BUN 23 H Creatinine 1.10 Estimated GFR > 60 BUN/Creatinine Ratio 20.9 Glucose 140 H Calcium 6.5 L Total Bilirubin 0.6 AST 36 ALT 85 H Alkaline Phosphatase 156 H Total Protein 6.0 L Albumin 3.2 L Globulin 2.8 Albumin/Globulin Ratio 1.1 PFSH Medical History History of urinary retention Urinary retention Bowel obstruction (01/2019) Anesthesia complication Hearing impaired Solitary kidney Bicuspid aortic valve Incomplete bladder emptying Prostate nodule with urinary obstruction Elevated PSA History of gout COVID-19 (~10/2021) BPH w urinary obs/LUTS Wears glasses Tinnitus Hearing loss Cataracts, bilateral Colon polyps Low testosterone (~2009) Aortic regurgitation Psoriasis (~2016) COPD (chronic obstructive pulmonary disease) Depression Hypogonadism male H/O adenomatous polyp of colon Atrial fibrillation Aortic stenosis Aneurysm, thoracic aortic Type 2 diabetes mellitus Hyperlipidemia Hypertension Hypertelorism Surgical History Hx of bilateral cataract extraction History of circumcision Anesthesia S/P plication of diaphragm (~2010) S/P AVR (aortic valve replacement) (~08/2019) History of appendectomy (~1987) History of exploratory laparotomy History of ventral hernia repair (~1986) History of nephrectomy, unilateral (~1984) Family History Father Cancer Mother Diabetes mellitus Sister Diabetes mellitus Grandfather Cancer Social History marital status: number of children: 2 household members: family Smoking Status: Former smoker alcohol intake: current Assessment & Plan Assessment and plan (1) Abdominal pain: Qualifiers: Abdominal location: right upper quadrant Qualified Code(s): R10.11 - Right upper quadrant pain Status: Acute Plan No exam findings to suggest acute cholecystitis Okay to stop antibiotics and discharged home. Time-Based Coding :: [TOTAL MINUTES] spent with patient and on the chart (including review of chart, obtaining history, exam, reviewing outside data, placing orders, documenting exam and treatment plan, and counseling patient) on [DATE].
--- NOTE | 2023-09-12 15:17 | CM.DPNOTE ---
DCP Cont Reviewed chart. Patient discussed in multidisciplinary rounds. Conservative management continues for probable cholecystitis. Patient expected to discharge in 24-48 hrs depending on improvement in diet. Plan remains discharge home independently w/close outpatient follow up. CM team following clinical course closely in case any discharge needs or concerns arise. HUGO
[2023-09-12] MEDS: CALCIUM CARBONATE 500 MG TAB 1000 MG PO ×2 (15:18→21:03)
[2023-09-12] MEDS: ONDANSETRON 4 MG/2 ML INJ IV (17:24)
[2023-09-12] MEDS: TAMSULOSIN 0.4 MG CAPSULE 0.8 MG PO (21:03)
[2023-09-12] MEDS: BICALUTAMIDE 50 MG TABLET PO (21:04)
[2023-09-13 02:15] VITALS: BP 156/86; PULSE 86; RESP 20; TEMP 36.7; O2SAT 98
[2023-09-13] MEDS: OXYCODONE IR 10 MG TABLET PO (02:33)
[2023-09-13 04:55] LABS: Add Manual Diff / Slide Review NO; Basophils Absolute Auto 0 /uL (0-100); Basophils Percent Auto 0.4 % (0-2); Eosinophils Absolute Auto 0 /uL (0-450); Eosinophils Percent Auto 1.2 % (2-4); Hematocrit 30.9 % (41-53); Hemoglobin 10.2 g/dL (13.5-17.5); Lymphocytes Absolute Auto 500 /uL (1100-4500); Mean Corpuscular HGB Conc 33.1 % (30-36); Mean Corpuscular Hemoglobin 30.6 PG (26-34); Mean Corpuscular Volume 92.4 fL (80-100); Monocytes Absolute Auto 300 /uL (0-900); Monocytes Percent Auto 14.8 % (3-14); Neutrophils Absolute Auto 1200 /uL (1500-7000); Neutrophils Percent Auto 59.6 % (50-75); Platelet Count 139 X10^3/uL (150-400); Red Blood Cell Count 3.34 X10^6/uL (4.5-5.9); Red Cell Distribution Width 16.5 % (11.6-14.8); White Blood Cell Count 2.1 X10^3/uL (4.5-11.0)
[2023-09-13 05:25] LABS: Alanine Aminotransferase 57 IU/L (<50); Albumin 3.2 g/dL (3.5-5.0); Albumin Globulin Ratio 1.1 (1.0-2.8); Alkaline Phosphatase 150 U/L (38-126); Aspartate Aminotransferase 21 IU/L (17-59); BUN Creatinine Ratio 20.4 (6-22); Bilirubin Total 0.3 mg/dL (0.2-1.3); Blood Urea Nitrogen 20 mg/dL (9-20); Calcium 7.5 mg/dL (8.4-10.2); Carbon Dioxide 28 mmol/L (22-32); Chloride 106 mmol/L (98-107); Estimated Glomerular Filt Rate > 60 mL/min (>60); Globulin 2.9 g/dL (1.7-4.1); Glucose 186 mg/dL (80-110); HEMOLYSIS < 15 (0-50); Potassium 4.4 mmol/L (3.4-5.1); Sodium 134 mmol/L (137-145); Total Protein 6.1 g/dL (6.3-8.2)
[2023-09-13 08:00] VITALS: BP 145/82; PULSE 75; RESP 16; TEMP 37.3; O2SAT 97
[2023-09-13 09:55] VITALS: BP 145/82; PULSE 76
[2023-09-13] MEDS: predniSONE 5 MG TABLET PO (09:55)
[2023-09-13] MEDS: FUROSEMIDE 40 MG TABLET PO (09:55)
[2023-09-13] MEDS: METOPROLOL ER 25 MG TABLET PO (09:55)
[2023-09-13] MEDS: LOSARTAN 25 MG TABLET PO (09:55)
--- NOTE | 2023-09-13 10:55 | P.DS_ITS ---
History of Present Illness History of Present Illness Chief complaint: nausea, abd pain, chest pain Narrative: 68 yo with PMH prostate cancer, HTN, T2DM, HLD, COPD who presented with abdominal pain and concern for cholecystitis. Discharge Providers Provider Date of admission: 09/11/23 05:32 Discharge Date: 09/13/23 Primary care physician: Benjamin Mancilla MD Consults: 09/11/23 06:21 Consult to Physician Routine Comment: Consulting Provider: Alissa Singh Reason for consultation: abd pain Has provider been notified: Yes Discharge provider: Shira Rodrigez MD Summary Hospital Course Hospital Course: 68 yo with PMH prostate cancer, HTN, T2DM, HLD, COPD who presented with abdominal pain and concern for cholecystitis. Admitted for observation. Started on Zosyn, liquid diet and surgery consulted. Pain improved significantly after large BM. Antibiotics discontinued day 2 and diet advanced. Did well with full diet overnight, no pain this morning. Plan to continue scheduled APAP and as needed oxycodone (doing at home prior to admission) and also has Zofran on hand if needed. F/u with PCP already scheduled in 2 days. Chronic conditions stable during hospitalization, continued on usual medications with except of oral DM medications - all resumed on discharge. Status at Discharge Cognitive/behavioral status at discharge: at baseline, oriented Functional status at discharge: independent ambulation Time Spent with Patient Time spent: Less than 30 minutes Exam Vital Signs (past 8 hours): - 09/13/23 08:00 09/13/23 09:55 09/13/23 09:55 Temperature 99.2 F Pulse Rate 75 76 76 Respiratory Rate 16 Blood Pressure 145/82 H 145/82 H 145/82 H Pulse Oximetry 97 Oxygen Flow Rate 0 Oxygen Delivery Method Room Air Oxygen Flow Rate 0 Neuro Other: GEN: NAD, well appearing, pleasant CV: RRR Pulm:normal WOB, CTAB ABD: soft, non tender, + BS Skin: no visible rashes, WWP Psych: normal affect Neuro: normal gait, symmetric movement Objective Labs 09/13/23 04:42 09/13/23 04:42 Labs: Laboratory Results - last 24 hr 09/13/23 04:42 WBC 2.1 L RBC 3.34 L Hgb 10.2 L Hct 30.9 L MCV 92.4 MCH 30.6 MCHC 33.1 RDW 16.5 H Plt Count 139 L Neut % (Auto) 59.6 Lymph % (Auto) 24.0 L [place] % (Auto) 14.8 H Eos % (Auto) 1.2 L Baso % (Auto) 0.4 Neut # (Auto) 1200 L Lymph # (Auto) 500 L [place] # (Auto) 300 Eos # (Auto) 0 Baso # (Auto) 0 Sodium 134 L Potassium 4.4 Chloride 106 Carbon Dioxide 28 BUN 20 Creatinine 0.98 Estimated GFR > 60 BUN/Creatinine Ratio 20.4 Glucose 186 H Calcium 7.5 L Total Bilirubin 0.3 AST 21 ALT 57 H Alkaline Phosphatase 150 H Total Protein 6.1 L Albumin 3.2 L Globulin 2.9 Albumin/Globulin Ratio 1.1 PFSH Medical History History of urinary retention Urinary retention Bowel obstruction (01/2019) Anesthesia complication Hearing impaired Solitary kidney Bicuspid aortic valve Incomplete bladder emptying Prostate nodule with urinary obstruction Elevated PSA History of gout COVID-19 (~10/2021) BPH w urinary obs/LUTS Wears glasses Tinnitus Hearing loss Cataracts, bilateral Colon polyps Low testosterone (~2009) Aortic regurgitation Psoriasis (~2016) COPD (chronic obstructive pulmonary disease) Depression Hypogonadism male H/O adenomatous polyp of colon Atrial fibrillation Aortic stenosis Aneurysm, thoracic aortic Type 2 diabetes mellitus Hyperlipidemia Hypertension Hypertelorism Surgical History Hx of bilateral cataract extraction History of circumcision Anesthesia S/P plication of diaphragm (~2010) S/P AVR (aortic valve replacement) (~08/2019) History of appendectomy (~1987) History of exploratory laparotomy History of ventral hernia repair (~1986) History of nephrectomy, unilateral (~1984) Family History Father Cancer Mother Diabetes mellitus Sister Diabetes mellitus Grandfather Cancer Social History marital status: number of children: 2 household members: family Smoking Status: Former smoker alcohol intake: current Discharge Plan Discharge Plan Patient Disposition: Home Discharge orders & Medications Prescriptions: Continued glipizide 5 mg tablet 5 mg PO BID Qty: 180 3RF metoprolol succinate 25 mg tablet extended release 24 hr 25 mg PO QAM Qty: 90 3RF Farxiga 10 mg tablet 10 mg PO QAM Qty: 90 3RF abiraterone 500 mg tablet 1,000 mg PO DAILY Qty: 180 3RF Patient Comments: Pt states this is a new med. Pt states he will get to start med, when it's delivered with steroid, on 09/14. Rx Instructions: must be taken on empty stomach, at least 1 hr before or 2 hrs after a meal/food prednisone 5 mg tablet 5 mg PO BID Qty: 180 3RF Patient Comments: Pt states this is a new med. Pt states he will get to start med, when it's delivered with abireterone, on 09/14. ketoconazole 2 % shampoo 1 applic topical 2XW furosemide 40 mg tablet 40 mg PO DAILY Qty: 90 3RF losartan 25 mg tablet 25 mg PO DAILY Qty: 90 3RF albuterol sulfate 90 mcg/actuation HFA aerosol inhaler 2 puff inhalation Q4-6H PRN (Reason: shortness of breath or wheezing) Qty: 8.5 6RF pravastatin 20 mg tablet 20 mg PO DAILY Qty: 90 3RF tamsulosin 0.4 mg capsule 0.8 mg PO QPM (DME) Disabled Parking See Rx Instructions Rx Instructions: Patient qualifies for disabled parking as per the attached form. fluticasone propionate 50 mcg/actuation [employer],Suspension 50 mcg INTRANASAL 1XD Rx Instructions: Pt states he does not take med bicalutamide [Casodex] 50 mg tablet 50 mg PO ONCE PM triazolam [Halcion] 0.25 mg tablet 0.25 mg PO ONCE PRN (Reason: Anxiety) Patient Comments: Pt states he only takes med PRN for anxiety for procedures such as MRI Rx Instructions: as a single dose; take1 hour prior to dental procedure or surgery. 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 acetaminophen [Acetaminophen Extra Strength] 500 mg Tablet 1,000 mg PO TID-QID PRN (Reason: Pain (Scale Score 1-3)) clobetasol 0.05 % solution 0.005 % TOPICAL BID PRN (Reason: Skin Cleansing) trazodone 50 mg tablet 50 mg PO BEDTIME PRN (Reason: Insomnia) megestrol 20 mg tablet 20 mg PO BID Qty: 180 3RF Follow up/Referrals: Benjamin Mancilla MD [Primary Care Provider] - (scheduled already for appt 09/14) Diet/Activity/Treatments Diet: Diet as Tolerated and Regular Activity: as tolerated Skin/Wound/Dressing Care Report to your healthcare provider any signs of infection, such as:: chills, fever and increased pain Visit Report/Discharge Packet Stand Alone Forms: Patient Portal/API, Stroke Signs & Symptoms Discharge Data Primary Care Provider: Benjamin Mancilla
--- NOTE | 2023-09-13 12:09 | CM.DPC ---
DCP Cont. Reviewed EMR and team rounds for status updates. Pt has been medically cleared for home d/c, his family is transporting him home. No further DCP needs indicated at this time.
--- NOTE | 2023-09-13 13:07 | PC.NURSE ---
Pt discharged at 1235, escorted off floor in wheelchair accompanied by hospital staff. IV removed, discharge teaching completed including follow up appointments and worsening symptoms. Patient left with all belongings.
--- NOTE | 2023-09-21 10:12 | PC.NURSE ---
Late Entry: Piperacillin infusion initiated 09/10 at 0541 complete at 0612.
== END 2023-09-13 13:12 | disposition home or self-care (01) ==
LOC: ED 09-11 05:32 → AC 09-11 05:35
PROVIDERS: Family Medicine; Admitting Provider Internal Medicine; Emergency Provider Emergency Medicine; Family Provider Physician Assistant; PCP Internal Medicine; Visit Provider Internal Medicine
DX: K80.20 Calculus of gallbladder without cholecystitis without obstruction (principal); C61 Malignant neoplasm of prostate; E11.9 Type 2 diabetes mellitus without complications; E78.2 Mixed hyperlipidemia; I10 Essential (primary) hypertension; J44.9 Chronic obstructive pulmonary disease, unspecified; Z79.84 Long term (current) use of oral hypoglycemic drugs
CPT/HCPCS: 36415; 71045; 71275; 74174; 76705; 80053; 82550; 82962; 83605; 83690; 83735; 83880; 84145; 84484; 85025; 85610; 85730; 87040; 93005; 93010; 96361; 96365; 96366; 96375; 96376; 99223; 99231; 99232; 99233; 99238; 99284; G0378; J1170; J1815; J2405; J2543; Q9967

== ENCOUNTER 2023-10-06 15:24 | Emergency (ER) | payer OTHER, SELFPAY ==
[2023-09-11 06:21] VITALS: BMI 33.0
[2023-10-06] VITALS (15 sets, daily range): BP systolic 91–171; BP diastolic 53–81; PULSE 79–111; RESP 11–29; TEMP 36.4; O2SAT 96–100; BMI 31.8
--- NOTE | 2023-10-06 15:33 | DI.RAD.S_ITS ---
PROCEDURE: XR CHEST 1V INDICATIONS: chest pain TECHNIQUE: One view of the chest was acquired. COMPARISON: [facility], CT, CT ABDOMEN PELVIS W CON, 09/10/2023, 1:20Multiple sclerotic foci . [facility], CR, XR CHEST 1V, 09/10/2023, 21:21. FINDINGS: Surgical changes and devices: None. Lungs and pleura: Mild bilateral perihilar and basilar predominant reticulonodular pulmonary opacity. No pleural effusions or pneumothorax. Mediastinum: Mediastinal contours appear normal. Heart size is normal. Bones and chest wall: Multiple sclerotic os affect foci. Overlying soft tissues appear unremarkable. IMPRESSION: 1. Mild atypical pneumonia 2. Bony metastatic disease. Dictated by: Ernesto Pretty M.D. on 10/06/2023 at 16:35 Approved by: Ernesto Pretty M.D. on 10/06/2023 at 16:36
--- NOTE | 2023-10-06 15:33 | EKG_ITS ---
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
[2023-10-06 16:02] LABS: Add Manual Diff / Slide Review NO; Basophils Absolute Auto 0 /uL (0-100); Basophils Percent Auto 1.3 % (0-2); Eosinophils Absolute Auto 0 /uL (0-450); Eosinophils Percent Auto 1.1 % (2-4); Hematocrit 40.7 % (41-53); Hemoglobin 13.4 g/dL (13.5-17.5); Lymphocytes Absolute Auto 1000 /uL (1100-4500); Lymphocytes Percent Auto 35.7 % (25-40); Mean Corpuscular Hemoglobin 30.2 PG (26-34); Mean Corpuscular Volume 91.7 fL (80-100); Monocytes Absolute Auto 400 /uL (0-900); Monocytes Percent Auto 13.7 % (3-14); Neutrophils Absolute Auto 1400 /uL (1500-7000); Neutrophils Percent Auto 48.2 % (50-75); Platelet Count 160 X10^3/uL (150-400); Red Blood Cell Count 4.44 X10^6/uL (4.5-5.9); Red Cell Distribution Width 16.6 % (11.6-14.8); White Blood Cell Count 2.9 X10^3/uL (4.5-11.0)
[2023-10-06 16:03] LABS: INR 0.9 (0.9-1.3)
--- NOTE | 2023-10-06 16:39 | ED_ITS ---
HPI - Dizziness <Cammierafael Stringer, - Last Filed: 10/07/23 07:39> General Chief Complaint: Dizziness Stated Complaint: Low BP, Dizzyness, Weakness Time Seen by Provider: 10/06/23 16:38 Source: patient, family, RN notes reviewed and old records reviewed Mode of arrival: Wheelchair Limitations: no limitations History of Present Illness HPI Narrative: 68-year-old male history of hypertension, dyslipidemia, bovine aortic valve replacement, prostate cancer currently on medications, diabetes who presents with complaint of dizziness, near syncope 3 or 4 times today noted a blood pressure was quite low at home he got systolics as low as 75 states his heart rate was in the 107 range. States it was bouncing around this morning. He never had actual syncopal episode. States it was most significant when standing little bit when seated has felt okay while lying flat. Denies any fevers or chills, no cold cough or congestion, no chest pain. No new shortness of breath states he is at his normal baseline. States no new cold or congestive symptoms. No abdominal back or flank pain, no issues with bowel movements, no issues with urination. Patient states no new swelling in extremities. States he is on prednisone and abiraterone which are fairly new medications for him. He had recently been in the hospital on the 10 of September seen by myself was admitted for abdominal pain possible cholecystitis but had significant improvement after a large bowel movement his abdominal pain and was ultimately discharged home. Related Data Home Medications Medication Instructions Recorded Confirmed acetaminophen 500 mg tablet 1,000 mg PO TID-QID PRN Pain 08/14/19 09/17/23 (Acetaminophen Extra Strength) (Scale Score 1-3) clobetasol 0.05 % scalp solution 0.005 % topical BID PRN Skin 08/14/19 09/17/23 Cleansing ketoconazole 2 % shampoo 1 applic topical 2XW 10/08/21 09/17/23 tamsulosin 0.4 mg capsule 0.8 mg PO QPM 06/24/23 09/17/23 Disabled Parking 07/14/23 09/17/23 fluticasone propionate 50 50 mcg intranasal 1XD 07/14/23 09/17/23 mcg/actuation nasal spray,suspension triazolam 0.25 mg tablet (Halcion) 0.25 mg PO ONCE PRN Anxiety 09/11/23 09/17/23 tramadol 50 mg tablet 50 mg PO DAILY Muscle and bone 09/15/23 09/17/23 pain. Previous Rx's Medication Instructions Recorded losartan 25 mg tablet 25 mg PO DAILY #90 tabs 09/10/21 albuterol sulfate 90 mcg/actuation 2 puff inhalation Q4-6H PRN 03/23/23 aerosol inhaler shortness of breath or wheezing #8.5 grams pravastatin 20 mg tablet 20 mg PO DAILY #90 tabs 03/23/23 furosemide 40 mg tablet 40 mg PO DAILY #90 tabs 08/03/23 dapagliflozin propanediol 10 mg 10 mg PO QAM #90 tabs 08/06/23 tablet (Farxiga) megestrol 20 mg tablet 20 mg PO BID #180 tabs 08/27/23 abiraterone 500 mg tablet 1,000 mg (2 x 500 mg) PO DAILY 09/09/23 #180 tabs prednisone 5 mg tablet 5 mg PO BID #180 tabs 09/09/23 quetiapine 50 mg tablet 50 mg PO BEDTIME #90 tabs 09/15/23 glipizide 5 mg tablet 5 mg PO BID #180 tabs 09/21/23 metoprolol succinate 25 mg 25 mg PO QAM #90 tabs 10/02/23 tablet,extended release 24 hr amoxicillin 875 mg-potassium 1 tab PO BID #20 tabs 10/06/23 clavulanate 125 mg tablet azithromycin 250 mg tablet See Rx Instructions PO .COMPLEX #6 10/06/23 tabs Allergies Allergy/AdvReac Type Severity Reaction Status Date / Time sulfamethoxazole Allergy Mild Rash Verified 09/17/23 10:34 [From SEPTRA] trimethoprim [From SEPTRA] Allergy Mild Rash Verified 09/17/23 10:34 celecoxib [From CELEBREX] AdvReac Severe Tears my Verified 09/17/23 10:34 stomach up citalopram [From CELEXA] AdvReac Severe Tears my Verified 09/17/23 10:34 stomach up metformin AdvReac Severe GI Sx Verified 09/17/23 10:34 rosuvastatin AdvReac Intermediate myalgia Verified 09/17/23 10:34 simvastatin AdvReac Intermediate myalgia Verified 09/17/23 10:34 Review of Systems <Cammie StringerDO - Last Filed: 10/07/23 07:39> Review of Systems ROS Unobtainable: All systems reviewed & are unremarkable except as noted in HPI and below Patient History <Cammie Stringer DO - Last Filed: 10/07/23 07:39> Medical History History of urinary retention Urinary retention Bowel obstruction (01/2019) Anesthesia complication Hearing impaired Solitary kidney Bicuspid aortic valve Incomplete bladder emptying Prostate nodule with urinary obstruction Elevated PSA History of gout COVID-19 (~10/2021) BPH w urinary obs/LUTS Wears glasses Tinnitus Hearing loss Cataracts, bilateral Colon polyps Low testosterone (~2009) Aortic regurgitation Psoriasis (~2016) COPD (chronic obstructive pulmonary disease) Depression Hypogonadism male H/O adenomatous polyp of colon Atrial fibrillation Aortic stenosis Aneurysm, thoracic aortic Type 2 diabetes mellitus Hyperlipidemia Hypertension Hypertelorism Surgical History Hx of bilateral cataract extraction History of circumcision Anesthesia S/P plication of diaphragm (~2010) S/P AVR (aortic valve replacement) (~08/2019) History of appendectomy (~1987) History of exploratory laparotomy History of ventral hernia repair (~1986) History of nephrectomy, unilateral (~1984) Family History Father Cancer Mother Diabetes mellitus Sister Diabetes mellitus Grandfather Cancer Social History marital status: number of children: 2 household members: family Smoking Status: Former smoker alcohol intake: current Smoking Status: Former smoker alcohol intake frequency: holidays/special occasions only Substance Use Type: does not use Exam <Cammie Stringer DO - Last Filed: 10/07/23 07:39> Initial Vital Signs Initial Vital Signs: Vital Signs Temperature 97.6 F 10/06/23 15:28 Pulse Rate 92 H 10/06/23 15:28 Respiratory Rate 18 10/06/23 15:28 Blood Pressure 135/81 10/06/23 15:28 Pulse Oximetry 100 10/06/23 15:28 Oxygen Delivery Method Room Air 10/06/23 15:28 <Cammie Barrera MD - Last Filed: 10/06/23 20:03> Initial Vital Signs Initial Vital Signs: Vital Signs Temperature 97.6 F 10/06/23 15:28 Pulse Rate 92 H 10/06/23 15:28 Respiratory Rate 18 10/06/23 15:28 Blood Pressure 135/81 10/06/23 15:28 Pulse Oximetry 100 10/06/23 15:28 Oxygen Delivery Method Room Air 10/06/23 15:28 Course <Cammie Stringer DO - Last Filed: 10/07/23 07:39> Orders Ordered: Discontinued Medications Sodium Chloride (Normal Saline 0.9%) 1,000 mls @ 1,000 mls/hr IV BOLUS ONE Stop: 10/06/23 18:22 Last Infusion: 10/06/23 19:22 Dose: Infused Documented By: Admin: 10/06/23 18:15 Dose: 1,000 mls/hr Documented By: STEVE Ceftriaxone Sodium 1,000 mg/ (Sodium Chloride) 100 mls @ 200 mls/hr IV NOW ONE Stop: 10/06/23 18:03 Last Infusion: 10/06/23 18:46 Dose: Infused Documented By: Admin: 10/06/23 18:15 Dose: 200 mls/hr Documented By: STEVE Vital Signs Vital signs: Vital Signs - 8 hr 10/06/23 15:28 10/06/23 15:48 10/06/23 15:52 Temperature 97.6 F Pulse Rate 92 H 82 Pulse Rate [Orthostatic Lying] Pulse Rate [Orthostatic Sitting] Pulse Rate [Orthostatic Standing] Respiratory Rate 18 22 Blood Pressure 135/81 171/68 H Blood Pressure [Orthostatic Lying] Blood Pressure [Orthostatic Sitting] Blood Pressure [Orthostatic Standing] Pulse Oximetry 100 Oxygen Delivery Method Room Air 10/06/23 15:52 10/06/23 16:00 10/06/23 16:00 Temperature Pulse Rate 86 87 Pulse Rate [Orthostatic Lying] Pulse Rate [Orthostatic Sitting] Pulse Rate [Orthostatic Standing] Respiratory Rate 25 H 22 Blood Pressure 104/57 L Blood Pressure [Orthostatic Lying] Blood Pressure [Orthostatic Sitting] Blood Pressure [Orthostatic Standing] Pulse Oximetry 98 96 Oxygen Delivery Method 10/06/23 16:30 10/06/23 16:30 10/06/23 17:00 Temperature Pulse Rate 94 H Pulse Rate [Orthostatic Lying] Pulse Rate [Orthostatic Sitting] Pulse Rate [Orthostatic Standing] Respiratory Rate 29 H Blood Pressure 124/66 138/72 Blood Pressure [Orthostatic Lying] Blood Pressure [Orthostatic Sitting] Blood Pressure [Orthostatic Standing] Pulse Oximetry 97 Oxygen Delivery Method 10/06/23 17:00 10/06/23 17:17 10/06/23 17:17 Temperature Pulse Rate 96 H 79 Pulse Rate [Orthostatic Lying] Pulse Rate [Orthostatic Sitting] Pulse Rate [Orthostatic Standing] Respiratory Rate 26 H 19 Blood Pressure 151/70 H Blood Pressure [Orthostatic Lying] Blood Pressure [Orthostatic Sitting] Blood Pressure [Orthostatic Standing] Pulse Oximetry 98 98 Oxygen Delivery Method 10/06/23 17:19 10/06/23 17:19 10/06/23 17:22 Temperature Pulse Rate 95 H 109 H Pulse Rate [Orthostatic Lying] Pulse Rate [Orthostatic Sitting] Pulse Rate [Orthostatic Standing] Respiratory Rate 14 28 H Blood Pressure 135/73 Blood Pressure [Orthostatic Lying] Blood Pressure [Orthostatic Sitting] Blood Pressure [Orthostatic Standing] Pulse Oximetry 99 98 Oxygen Delivery Method 10/06/23 17:22 10/06/23 17:23 10/06/23 17:30 Temperature Pulse Rate 91 H Pulse Rate [Orthostatic Lying] 83 Pulse Rate [Orthostatic Sitting] 96 H Pulse Rate [Orthostatic Standing] 111 H Respiratory Rate 15 Blood Pressure 91/53 L Blood Pressure [Orthostatic Lying] 151/70 H Blood Pressure [Orthostatic Sitting] 135/73 Blood Pressure [Orthostatic Standing] 91/53 L Pulse Oximetry 98 Oxygen Delivery Method 10/06/23 17:30 10/06/23 18:00 10/06/23 18:01 Temperature Pulse Rate 93 H Pulse Rate [Orthostatic Lying] Pulse Rate [Orthostatic Sitting] Pulse Rate [Orthostatic Standing] Respiratory Rate 11 L Blood Pressure 112/70 129/67 Blood Pressure [Orthostatic Lying] Blood Pressure [Orthostatic Sitting] Blood Pressure [Orthostatic Standing] Pulse Oximetry 97 Oxygen Delivery Method 10/06/23 18:01 10/06/23 18:30 10/06/23 18:30 Temperature Pulse Rate 95 H 94 H Pulse Rate [Orthostatic Lying] Pulse Rate [Orthostatic Sitting] Pulse Rate [Orthostatic Standing] Respiratory Rate 20 27 H Blood Pressure 125/78 Blood Pressure [Orthostatic Lying] Blood Pressure [Orthostatic Sitting] Blood Pressure [Orthostatic Standing] Pulse Oximetry 98 97 Oxygen Delivery Method <Cammie Barrera MD - Last Filed: 10/06/23 20:03> Orders Ordered: Discontinued Medications Sodium Chloride (Normal Saline 0.9%) 1,000 mls @ 1,000 mls/hr IV BOLUS ONE Stop: 10/06/23 18:22 Last Infusion: 10/06/23 19:22 Dose: Infused Documented By: Admin: 10/06/23 18:15 Dose: 1,000 mls/hr Documented By: STEVE Ceftriaxone Sodium 1,000 mg/ (Sodium Chloride) 100 mls @ 200 mls/hr IV NOW ONE Stop: 10/06/23 18:03 Last Infusion: 10/06/23 18:46 Dose: Infused Documented By: Admin: 10/06/23 18:15 Dose: 200 mls/hr Documented By: STEVE Vital Signs Vital signs: Vital Signs - 8 hr 10/06/23 15:28 10/06/23 15:48 10/06/23 15:52 Temperature 97.6 F Pulse Rate 92 H 82 Pulse Rate [Orthostatic Lying] Pulse Rate [Orthostatic Sitting] Pulse Rate [Orthostatic Standing] Respiratory Rate 18 22 Blood Pressure 135/81 171/68 H Blood Pressure [Orthostatic Lying] Blood Pressure [Orthostatic Sitting] Blood Pressure [Orthostatic Standing] Pulse Oximetry 100 Oxygen Delivery Method Room Air 10/06/23 15:52 10/06/23 16:00 10/06/23 16:00 Temperature Pulse Rate 86 87 Pulse Rate [Orthostatic Lying] Pulse Rate [Orthostatic Sitting] Pulse Rate [Orthostatic Standing] Respiratory Rate 25 H 22 Blood Pressure 104/57 L Blood Pressure [Orthostatic Lying] Blood Pressure [Orthostatic Sitting] Blood Pressure [Orthostatic Standing] Pulse Oximetry 98 96 Oxygen Delivery Method 10/06/23 16:30 10/06/23 16:30 10/06/23 17:00 Temperature Pulse Rate 94 H Pulse Rate [Orthostatic Lying] Pulse Rate [Orthostatic Sitting] Pulse Rate [Orthostatic Standing] Respiratory Rate 29 H Blood Pressure 124/66 138/72 Blood Pressure [Orthostatic Lying] Blood Pressure [Orthostatic Sitting] Blood Pressure [Orthostatic Standing] Pulse Oximetry 97 Oxygen Delivery Method 10/06/23 17:00 10/06/23 17:17 10/06/23 17:17 Temperature Pulse Rate 96 H 79 Pulse Rate [Orthostatic Lying] Pulse Rate [Orthostatic Sitting] Pulse Rate [Orthostatic Standing] Respiratory Rate 26 H 19 Blood Pressure 151/70 H Blood Pressure [Orthostatic Lying] Blood Pressure [Orthostatic Sitting] Blood Pressure [Orthostatic Standing] Pulse Oximetry 98 98 Oxygen Delivery Method 10/06/23 17:19 10/06/23 17:19 10/06/23 17:22 Temperature Pulse Rate 95 H 109 H Pulse Rate [Orthostatic Lying] Pulse Rate [Orthostatic Sitting] Pulse Rate [Orthostatic Standing] Respiratory Rate 14 28 H Blood Pressure 135/73 Blood Pressure [Orthostatic Lying] Blood Pressure [Orthostatic Sitting] Blood Pressure [Orthostatic Standing] Pulse Oximetry 99 98 Oxygen Delivery Method 10/06/23 17:22 10/06/23 17:23 10/06/23 17:30 Temperature Pulse Rate 91 H Pulse Rate [Orthostatic Lying] 83 Pulse Rate [Orthostatic Sitting] 96 H Pulse Rate [Orthostatic Standing] 111 H Respiratory Rate 15 Blood Pressure 91/53 L Blood Pressure [Orthostatic Lying] 151/70 H Blood Pressure [Orthostatic Sitting] 135/73 Blood Pressure [Orthostatic Standing] 91/53 L Pulse Oximetry 98 Oxygen Delivery Method 10/06/23 17:30 10/06/23 18:00 10/06/23 18:01 Temperature Pulse Rate 93 H Pulse Rate [Orthostatic Lying] Pulse Rate [Orthostatic Sitting] Pulse Rate [Orthostatic Standing] Respiratory Rate 11 L Blood Pressure 112/70 129/67 Blood Pressure [Orthostatic Lying] Blood Pressure [Orthostatic Sitting] Blood Pressure [Orthostatic Standing] Pulse Oximetry 97 Oxygen Delivery Method 10/06/23 18:01 10/06/23 18:30 10/06/23 18:30 Temperature Pulse Rate 95 H 94 H Pulse Rate [Orthostatic Lying] Pulse Rate [Orthostatic Sitting] Pulse Rate [Orthostatic Standing] Respiratory Rate 20 27 H Blood Pressure 125/78 Blood Pressure [Orthostatic Lying] Blood Pressure [Orthostatic Sitting] Blood Pressure [Orthostatic Standing] Pulse Oximetry 98 97 Oxygen Delivery Method MDM - Dizziness <Cammie Stringer, - Last Filed: 10/07/23 07:39> Lab Data 10/06/23 15:46 10/06/23 16:33 Labs: Lab Results 10/06/23 10/06/23 Range/Units 15:46 16:33 WBC 2.9 L (4.5-11.0) X10^3/uL RBC 4.44 L (4.5-5.9) X10^6/uL Hgb 13.4 L (13.5-17.5) g/dL Hct 40.7 L (41-53) % MCV 91.7 (80-100) fL MCH 30.2 (26-34) PG MCHC 33.0 (30-36) % RDW 16.6 H (11.6-14.8) % Plt Count 160 (150-400) X10^3/uL Neut % (Auto) 48.2 L (50-75) % Lymph % (Auto) 35.7 (25-40) % Rock % (Auto) 13.7 (3-14) % Eos % (Auto) 1.1 L (2-4) % Baso % (Auto) 1.3 (0-2) % Neut # (Auto) 1400 L (8053-2122) /uL Lymph # (Auto) 1000 L (8932-6147) /uL Rock # (Auto) 400 (0-900) /uL Eos # (Auto) 0 (0-450) /uL Baso # (Auto) 0 (0-100) /uL PT 10.0 (9.4-12.5) SECONDS INR 0.9 (0.9-1.3) APTT 17 L (25.1-36.5) SECONDS D-Dimer 630 H (<500) ng/ml Sodium 131 L (137-145) mmol/L Potassium 3.9 (3.4-5.1) mmol/L Chloride 101 (98-107) mmol/L Carbon Dioxide 25 (22-32) mmol/L BUN 40 H (9-20) mg/dL Creatinine 1.03 (0.66-1.25) mg/dL Estimated GFR > 60 (>60) mL/min BUN/Creatinine Ratio 38.8 H (6-22) Glucose 364 H (80-110) mg/dL Calcium 8.7 (8.4-10.2) mg/dL Magnesium 2.3 (1.6-2.3) mg/dL Total Bilirubin 0.4 (0.2-1.3) mg/dL AST 14 L (17-59) IU/L ALT 17 (<50) IU/L Alkaline Phosphatase 137 H (38-126) U/L Total Creatine Kinase 40 L (55-170) U/L Troponin I < 0.012 (0.01-0.034) ng/mL NT-Pro-B Natriuret Pep 156 H (<125) pg/mL Total Protein 6.2 L (6.3-8.2) g/dL Albumin 3.5 (3.5-5.0) g/dL Globulin 2.7 (1.7-4.1) g/dL Albumin/Globulin Ratio 1.3 (1.0-2.8) Lipase 103 (23-300) U/L Imaging Data Chest x-ray: Radiologist's Impression: [address] [address] XRay Report Signed Patient: Mal Goodwin MR#: [id number] : 1955 Acct:[id number] Age/Sex: 68 / M Date of Service: 10/06/23 Loc: ED Accession Number: [id number] Procedure: XR chest 1V Ordering Provider: Cammie Stringer D.O. PROCEDURE: XR CHEST 1V INDICATIONS: chest pain TECHNIQUE: One view of the chest was acquired. COMPARISON: [facility], CT, CT ABDOMEN PELVIS W CON, 09/10/2023, 1:20Multiple sclerotic foci . [facility], CR, XR CHEST 1V, 09/10/2023, 21:21. FINDINGS: Surgical changes and devices: None. Lungs and pleura: Mild bilateral perihilar and basilar predominant reticulonodular pulmonary opacity. No pleural effusions or pneumothorax. Mediastinum: Mediastinal contours appear normal. Heart size is normal. Bones and chest wall: Multiple sclerotic os affect foci. Overlying soft tissues appear unremarkable. IMPRESSION: 1. Mild atypical pneumonia 2. Bony metastatic disease. Dictated by: Ernesto Pretty M.D. on 10/06/2023 at 16:35 Approved by: Ernesto Pretty M.D. on 10/06/2023 at 16:36 ECG Data Attestation: I personally reviewed and interpreted this ECG as follows: Prior ECG tracings: available for review Interpretation: Sinus rhythm with sinus arrhythmia rate 86 SD 166 QRS of 102 QTC of 423. Patient has prior on 09/11/2023 appears similar with sinus arrhythmia with no acute ST changes. MDM Narrative Medical decision making narrative: 68-year-old male presents with complaint of dizziness almost near syncope states blood pressure was low heart rate was elevated at home felt sort of irregular. Did have an episode of AFib after his aortic valve replacement but unaware of any persistent atrial fibrillation. Did not have a syncopal episode today denies any other symptoms currently. Labs show white count of 2.9, hemoglobin of 13, platelets of 160 patient labs are fairly consistent with priors. Patient has had chronic leukopenia. Dimer 630 when age adjusted is unlikely or negative. Chemistries shows sodium 131 potassium 3.9 chloride of 101 CO2 25 BUN of 40, glucose is 364, LFTs are overall reassuring. CK is 40. Troponins less than 0.012, BNP show is 156. Chest x-ray shows possible atypical pneumonia. Bony metastatic disease. EKG shows sinus rhythm with sinus arrhythmia rate 86 SD 166, QRS of 102 QTC of 423. Patient's orthostatics are positive. Patient was given a 1L of fluids. Atypical pneumonia on chest x-ray was covered with Rocephin. Patient states he is feeling quite well likely discharge home. Plan for recheck after a L of fluids, patient was given dose antibiotic. Signed out to Dr. Barrera for recheck prior to DC. <Cammie Barrera MD - Last Filed: 10/06/23 20:03> Lab Data Labs: Lab Results 10/06/23 10/06/23 Range/Units 15:46 16:33 WBC 2.9 L (4.5-11.0) X10^3/uL RBC 4.44 L (4.5-5.9) X10^6/uL Hgb 13.4 L (13.5-17.5) g/dL Hct 40.7 L (41-53) % MCV 91.7 (80-100) fL MCH 30.2 (26-34) PG MCHC 33.0 (30-36) % RDW 16.6 H (11.6-14.8) % Plt Count 160 (150-400) X10^3/uL Neut % (Auto) 48.2 L (50-75) % Lymph % (Auto) 35.7 (25-40) % Rock % (Auto) 13.7 (3-14) % Eos % (Auto) 1.1 L (2-4) % Baso % (Auto) 1.3 (0-2) % Neut # (Auto) 1400 L (7240-4092) /uL Lymph # (Auto) 1000 L (1677-3005) /uL Rock # (Auto) 400 (0-900) /uL Eos # (Auto) 0 (0-450) /uL Baso # (Auto) 0 (0-100) /uL PT 10.0 (9.4-12.5) SECONDS INR 0.9 (0.9-1.3) APTT 17 L (25.1-36.5) SECONDS D-Dimer 630 H (<500) ng/ml Sodium 131 L (137-145) mmol/L Potassium 3.9 (3.4-5.1) mmol/L Chloride 101 (98-107) mmol/L Carbon Dioxide 25 (22-32) mmol/L BUN 40 H (9-20) mg/dL Creatinine 1.03 (0.66-1.25) mg/dL Estimated GFR > 60 (>60) mL/min BUN/Creatinine Ratio 38.8 H (6-22) Glucose 364 H (80-110) mg/dL Calcium 8.7 (8.4-10.2) mg/dL Magnesium 2.3 (1.6-2.3) mg/dL Total Bilirubin 0.4 (0.2-1.3) mg/dL AST 14 L (17-59) IU/L ALT 17 (<50) IU/L Alkaline Phosphatase 137 H (38-126) U/L Total Creatine Kinase 40 L (55-170) U/L Troponin I < 0.012 (0.01-0.034) ng/mL NT-Pro-B Natriuret Pep 156 H (<125) pg/mL Total Protein 6.2 L (6.3-8.2) g/dL Albumin 3.5 (3.5-5.0) g/dL Globulin 2.7 (1.7-4.1) g/dL Albumin/Globulin Ratio 1.3 (1.0-2.8) Lipase 103 (23-300) U/L MDM Narrative Medical decision making narrative: 68-year-old male presents with complaint of dizziness almost near syncope states blood pressure was low heart rate was elevated at home felt sort of irregular. Did have an episode of AFib after his aortic valve replacement but unaware of any persistent atrial fibrillation. Did not have a syncopal episode today denies any other symptoms currently. Labs show white count of 2.9, hemoglobin of 13, platelets of 160 patient labs are fairly consistent with priors. Patient has had chronic leukopenia. Dimer 630 when age adjusted is unlikely or negative. Chemistries shows sodium 131 potassium 3.9 chloride of 101 CO2 25 BUN of 40, glucose is 364, LFTs are overall reassuring. CK is 40. Troponins less than 0.012, BNP show is 156. Chest x-ray shows possible atypical pneumonia. Bony metastatic disease. EKG shows sinus rhythm with sinus arrhythmia rate 86 SD 166, QRS of 102 QTC of 423. Patient's orthostatics are positive. Patient was given a 1L of fluids. Atypical pneumonia on chest x-ray was covered with Rocephin. Patient states he is feeling quite well likely discharge home. Plan for recheck after a L of fluids, patient was given dose antibiotic. Signed out to Dr. Barrera for recheck prior to DC. Dr. Barrera -care of patient is signed out to me by Dr. Stringer. Independent review of patient and chart performed by myself. Patient reassessed, he states he feels much better and back to normal. He states that he was ready to go home. He did ask about if he should continue his Lasix with his recent orthostatic hypotension. Recommended that patient decrease to 20 mg daily from 40 mg daily and reassess how he was feeling. He can bring up further medication adjustments with his primary care doctor. Patient discharged home in stable condition. Discharge Plan Departure Patient Disposition: Home Clinical Impression: Pneumonia Instructions: Orthostatic Hypotension, DI for Pneumonia -- Adult Activity Restrictions/Additional Instructions: Please decrease your Lasix from 40 mg daily to 20 mg daily. This may decrease your risk of dehydration and volume loss. Follow up with your physician for recheck, your workup today showed a little bit of orthostatic hypotension but otherwise your labs were stable. Your white count, hemoglobin and platelets do all tend to run low. If you have never been evaluated by hematology maybe worthwhile to follow-up for evaluation. Take antibiotics until completed. Prescription was sent to [facility] in [place]. I would recommend you continue your home medications as prescribed. Please return for fevers, new chest pain or shortness of breath, persistent lightheadedness or passing out, new nausea or vomiting, new swelling in your extremities or other new or concerning changes. Prescriptions: New amoxicillin-pot clavulanate 875-125 mg tablet 1 tab PO BID Qty: 20 0RF azithromycin 250 mg tablet See Rx Instructions .ROUTE .COMPLEX Qty: 6 0RF Rx Instructions: For 250 mg dose pack: take 500 mg today (day 1), then 250 mg for 4 days (days 2-5) No Action Farxiga 10 mg tablet 10 mg PO QAM Qty: 90 3RF abiraterone 500 mg tablet 1,000 mg PO DAILY Qty: 180 3RF Patient Comments: Pt states this is a new med. Pt states he will get to start med, when it's delivered with steroid, on 09/14. Rx Instructions: must be taken on empty stomach, at least 1 hr before or 2 hrs after a meal/food prednisone 5 mg tablet 5 mg PO BID Qty: 180 3RF Patient Comments: Pt states this is a new med. Pt states he will get to start med, when it's delivered with abireterone, on 09/14. glipizide 5 mg tablet 5 mg PO BID Qty: 180 3RF metoprolol succinate 25 mg tablet extended release 24 hr 25 mg PO QAM Qty: 90 3RF ketoconazole 2 % shampoo 1 applic topical 2XW furosemide 40 mg tablet 40 mg PO DAILY Qty: 90 3RF tramadol 50 mg tablet 50 mg PO DAILY quetiapine 50 mg tablet 50 mg PO BEDTIME Qty: 90 3RF losartan 25 mg tablet 25 mg PO DAILY Qty: 90 3RF albuterol sulfate 90 mcg/actuation HFA aerosol inhaler 2 puff inhalation Q4-6H PRN (Reason: shortness of breath or wheezing) Qty: 8.5 6RF pravastatin 20 mg tablet 20 mg PO DAILY Qty: 90 3RF tamsulosin 0.4 mg capsule 0.8 mg PO QPM (DME) Disabled Parking See Rx Instructions Rx Instructions: Patient qualifies for disabled parking as per the attached form. fluticasone propionate 50 mcg/actuation [place],Suspension 50 mcg INTRANASAL 1XD Rx Instructions: Pt states he does not take med triazolam [Halcion] 0.25 mg tablet 0.25 mg PO ONCE PRN (Reason: Anxiety) Patient Comments: Pt states he only takes med PRN for anxiety for procedures such as MRI Rx Instructions: as a single dose; take1 hour prior to dental procedure or surgery. Must have special needs bus driver to and from procedure. acetaminophen [Acetaminophen Extra Strength] 500 mg Tablet 1,000 mg PO TID-QID PRN (Reason: Pain (Scale Score 1-3)) clobetasol 0.05 % solution 0.005 % TOPICAL BID PRN (Reason: Skin Cleansing) megestrol 20 mg tablet 20 mg PO BID Qty: 180 3RF Referrals: Benjamin Mancilla MD [Primary Care Provider] - Stand Alone Forms: Patient Portal/API
[2023-10-06 16:45] LABS: PTT Partial Thromboplastin Tim 17 SECONDS (25.1-36.5)
[2023-10-06 16:51] LABS: D Dimer 630 ng/ml (<500)
[2023-10-06 17:08] LABS: Alanine Aminotransferase 17 IU/L (<50); Albumin 3.5 g/dL (3.5-5.0); Albumin Globulin Ratio 1.3 (1.0-2.8); Alkaline Phosphatase 137 U/L (38-126); Aspartate Aminotransferase 14 IU/L (17-59); BUN Creatinine Ratio 38.8 (6-22); Bilirubin Total 0.4 mg/dL (0.2-1.3); Blood Urea Nitrogen 40 mg/dL (9-20); Calcium 8.7 mg/dL (8.4-10.2); Carbon Dioxide 25 mmol/L (22-32); Chloride 101 mmol/L (98-107); Creatine Kinase 40 U/L (55-170); Estimated Glomerular Filt Rate > 60 mL/min (>60); Globulin 2.7 g/dL (1.7-4.1); Glucose 364 mg/dL (80-110); HEMOLYSIS 16 (0-50); Lipase 103 U/L (23-300); Magnesium 2.3 mg/dL (1.6-2.3); Potassium 3.9 mmol/L (3.4-5.1); Sodium 131 mmol/L (137-145); Total Protein 6.2 g/dL (6.3-8.2)
[2023-10-06 17:18] LABS: Troponin I < 0.012 ng/mL (0.01-0.034)
[2023-10-06] MEDS: cefTRIAXone 1,000 MG in SODIUM CHLORIDE 0.9% 100 ML 200 MG IV (18:15)
[2023-10-06] MEDS: SODIUM CHLORIDE 0.9% 1,000 ML 1000 ML IV (18:15)
[2023-10-06 18:23] LABS: NT-proBNP (BNP-Adult 18+) 156 pg/mL (<125)
--- NOTE | 2023-10-06 19:38 | PC.NURSE ---
pt states he is feeling better after the fluids, raised the HOB of the bed for the pt to sit up, pt states some lightheadness, instructed pt to remain sitting up for awhile to see how he feels, Dr Barrera informed of pt's progress
--- NOTE | 2023-10-06 19:54 | PC.NURSE ---
pt states he has continued to feel better, stood pt on the side of the bed, pt denied any dizziness, states he is ready to go home
== END 2023-10-06 20:05 | disposition home or self-care (01) ==
PROVIDERS: Emergency Medicine; Emergency Provider Emergency Medicine; Family Provider Physician Assistant; PCP Internal Medicine
DX: J18.9 Pneumonia, unspecified organism (principal); I95.9 Hypotension, unspecified; R07.9 Chest pain, unspecified; Z79.899 Other long term (current) drug therapy
CPT/HCPCS: 36415; 71045; 80053; 82550; 83690; 83735; 83880; 84484; 85025; 85379; 85610; 85730; 93005; 93010; 96365; 99284; J0696

== ENCOUNTER → 2023-10-16 08:11 | Outpatient (CLI) | payer OTHER, SELFPAY ==
[2023-09-11 06:21] VITALS: BMI 33.0
[2023-10-16 09:38] LABS: Prostate Specific Antigen 0.749 ng/mL (0.10-4.00)
== END ==
PROVIDERS: Family Provider Physician Assistant; PCP Internal Medicine; Referring Provider Urology; Visit Provider Urology
DX: N40.1 Benign prostatic hyperplasia with lower urinary tract symptoms (principal); N13.8 Other obstructive and reflux uropathy
CPT/HCPCS: 36415; 84153

== ENCOUNTER → 2023-11-03 07:12 | Outpatient (CLI) | payer OTHER, SELFPAY ==
[2023-09-11 06:21] VITALS: BMI 33.0
--- NOTE | 2023-11-03 07:14 | DI.NM.S_ITS ---
PROCEDURE: NM HIDA WITH CCK PHARMACEUTICAL: 5.5 mCi Tc-99m mebrofenin IV; 2 mcg CCK IV. INDICATIONS: CHOLECYSTITIS,ABDOMINAL PAIN TECHNIQUE: Following intravenous administration of Tc-99m mebrofenin, sequential anterior abdominal images were obtained. To evaluate the contractile response of the gallbladder in response to Cholecystokinin (CCK), sincalide (0.02 ?g/kg) was administered by slow intravenous infusion approximately 60 minutes after the administration of the radiopharmaceutical. Sequential imaging was continued for 30 minutes after the start of CCK infusion. Gallbladder ejection fraction was calculated. COMPARISON: [facility], US, US ABDOMEN LIMITED, 09/10/2023, 22:40. [facility], CT, CT ANGIO CHEST ABDOMEN PELVIS, 09/11/2023, 2:57. FINDINGS: Biliary scan: There is normal tracer uptake and excretion by the liver. There is normal visualization of the intrahepatic ducts, common bile duct, and gallbladder. There is normal tracer transit into the duodenum. CCK stimulation: There is normal contractile response of the gallbladder to CCK infusion. The calculated gallbladder ejection fraction is 91 percent ; normal values are above 35%. IMPRESSION: Patent cystic duct. Normal gallbladder ejection fraction. Dictated by: Raymon Frazier M.D. on 11/03/2023 at 12:17 Approved by: Raymon Frazier M.D. on 11/03/2023 at 12:18
== END ==
LOC: NUCM 07:12
PROVIDERS: Family Provider Physician Assistant; PCP Internal Medicine; Referring Provider Internal Medicine; Visit Provider Internal Medicine
DX: K81.9 Cholecystitis, unspecified (principal); R10.9 Unspecified abdominal pain
CPT/HCPCS: 78227; A9537; J2805

== ENCOUNTER → 2023-12-02 08:09 | Outpatient (CLI) | payer OTHER, SELFPAY ==
[2023-09-11 06:21] VITALS: BMI 33.0
[2023-12-02 09:22] LABS: Add Manual Diff / Slide Review NO; Basophils Absolute Auto 0 /uL (0-100); Basophils Percent Auto 0.5 % (0-2); Eosinophils Absolute Auto 0 /uL (0-450); Eosinophils Percent Auto 0.4 % (2-4); Hematocrit 39.6 % (41-53); Hemoglobin 13.4 g/dL (13.5-17.5); Lymphocytes Absolute Auto 500 /uL (1100-4500); Lymphocytes Percent Auto 26.6 % (25-40); Mean Corpuscular HGB Conc 33.8 % (30-36); Mean Corpuscular Hemoglobin 32.3 PG (26-34); Mean Corpuscular Volume 95.6 fL (80-100); Monocytes Absolute Auto 300 /uL (0-900); Monocytes Percent Auto 13.8 % (3-14); Neutrophils Absolute Auto 1200 /uL (1500-7000); Neutrophils Percent Auto 58.7 % (50-75); Platelet Count 158 X10^3/uL (150-400); Red Blood Cell Count 4.14 X10^6/uL (4.5-5.9); Red Cell Distribution Width 18.4 % (11.6-14.8)
[2023-12-02 09:37] LABS: Hemoglobin A1C% w Est Avg Glu 8.9 % (4.0-6.0)
[2023-12-02 10:21] LABS: Alanine Aminotransferase 20 IU/L (<50); Albumin 3.8 g/dL (3.5-5.0); Albumin Globulin Ratio 1.5 (1.0-2.8); Alkaline Phosphatase 106 U/L (38-126); Aspartate Aminotransferase 15 IU/L (17-59); BUN Creatinine Ratio 25.8 (6-22); Bilirubin Total 0.8 mg/dL (0.2-1.3); Blood Urea Nitrogen 32 mg/dL (9-20); Calcium 8.9 mg/dL (8.4-10.2); Carbon Dioxide 26 mmol/L (22-32); Chloride 101 mmol/L (98-107); Estimated Glomerular Filt Rate > 60 mL/min (>60); Globulin 2.5 g/dL (1.7-4.1); Glucose 276 mg/dL (80-110); HEMOLYSIS < 15 (0-50); Potassium 4.9 mmol/L (3.4-5.1); Sodium 134 mmol/L (137-145); Total Protein 6.3 g/dL (6.3-8.2)
== END ==
PROVIDERS: Family Provider Physician Assistant; PCP Internal Medicine; Referring Provider Internal Medicine; Visit Provider Internal Medicine
DX: E11.9 Type 2 diabetes mellitus without complications (principal); E78.5 Hyperlipidemia, unspecified; I10 Essential (primary) hypertension
CPT/HCPCS: 36415; 80053; 83036; 85025

== ENCOUNTER → 2024-02-11 07:27 | Outpatient (CLI) | payer OTHER, SELFPAY ==
[2023-09-11 06:21] VITALS: BMI 33.0
[2024-02-11 08:51] LABS: BUN Creatinine Ratio 20.4 (6-22); Blood Urea Nitrogen 23 mg/dL (9-20); Calcium 9.2 mg/dL (8.4-10.2); Carbon Dioxide 25 mmol/L (22-32); Chloride 98 mmol/L (98-107); Estimated Glomerular Filt Rate > 60 mL/min (>60); Glucose 260 mg/dL (80-110); HEMOLYSIS < 15 (0-50); Hemoglobin A1C% w Est Avg Glu 11.3 % (4.0-6.0); Potassium 4.3 mmol/L (3.4-5.1); Sodium 132 mmol/L (137-145)
== END ==
PROVIDERS: Family Provider Physician Assistant; PCP Internal Medicine; Referring Provider Internal Medicine; Visit Provider Internal Medicine
DX: I10 Essential (primary) hypertension (principal); E78.5 Hyperlipidemia, unspecified; E11.9 Type 2 diabetes mellitus without complications
CPT/HCPCS: 36415; 80048; 83036

== ENCOUNTER → 2024-05-20 07:49 | Outpatient (CLI) | payer OTHER, SELFPAY ==
[2023-09-11 06:21] VITALS: BMI 33.0
[2024-05-20 08:43] LABS: Hemoglobin A1C% w Est Avg Glu 6.5 % (4.0-6.0)
[2024-05-20 08:47] LABS: Alanine Aminotransferase 26 IU/L (<50); Albumin 4.2 g/dL (3.5-5.0); Albumin Globulin Ratio 1.8 (1.0-2.8); Alkaline Phosphatase 74 U/L (38-126); Aspartate Aminotransferase 24 IU/L (17-59); BUN Creatinine Ratio 21.1 (6-22); Bilirubin Total 0.5 mg/dL (0.2-1.3); Blood Urea Nitrogen 20 mg/dL (9-20); Calcium 9.5 mg/dL (8.4-10.2); Carbon Dioxide 31 mmol/L (22-32); Chloride 100 mmol/L (98-107); Estimated Glomerular Filt Rate > 60 mL/min (>60); Globulin 2.4 g/dL (1.7-4.1); Glucose 144 mg/dL (80-110); HEMOLYSIS < 15 (0-50); Potassium 4.8 mmol/L (3.4-5.1); Sodium 138 mmol/L (137-145); Total Protein 6.6 g/dL (6.3-8.2)
== END ==
PROVIDERS: Family Provider Physician Assistant; PCP Internal Medicine; Referring Provider Internal Medicine; Visit Provider Internal Medicine
DX: E11.9 Type 2 diabetes mellitus without complications (principal); I10 Essential (primary) hypertension; E78.5 Hyperlipidemia, unspecified
CPT/HCPCS: 36415; 80053; 83036

== ENCOUNTER → 2024-10-07 08:57 | Outpatient (CLI) | payer OTHER, SELFPAY ==
[2023-09-11 06:21] VITALS: BMI 33.0
[2024-10-07 10:18] LABS: Hemoglobin A1C% w Est Avg Glu 5.4 % (4.0-6.0)
[2024-10-07 10:35] LABS: Alanine Aminotransferase 20 IU/L (<50); Albumin 4.1 g/dL (3.5-5.0); Albumin Globulin Ratio 1.9 (1.0-2.8); Alkaline Phosphatase 74 U/L (38-126); Blood Urea Nitrogen 19 mg/dL (9-20); Calcium 8.6 mg/dL (8.4-10.2); Carbon Dioxide 28 mmol/L (22-32); Chloride 99 mmol/L (98-107); Estimated Glomerular Filt Rate > 60 mL/min (>60); Globulin 2.2 g/dL (1.7-4.1); Glucose 87 mg/dL (70-99); HEMOLYSIS < 15 (0-50); Potassium 4.4 mmol/L (3.4-5.1); Sodium 137 mmol/L (137-145); Total Protein 6.3 g/dL (6.3-8.2)
== END ==
PROVIDERS: PCP Internal Medicine; Referring Provider Internal Medicine; Visit Provider Internal Medicine
DX: E11.9 Type 2 diabetes mellitus without complications (principal); E78.5 Hyperlipidemia, unspecified; I10 Essential (primary) hypertension
CPT/HCPCS: 36415; 80053; 83036

== ENCOUNTER → 2024-12-31 10:53 | Outpatient (CLI) | payer OTHER, SELFPAY ==
[2023-09-11 06:21] VITALS: BMI 33.0
[2024-12-31 11:44] LABS: Hemoglobin A1C% w Est Avg Glu 5.1 % (4.0-6.0)
[2024-12-31 12:21] LABS: Alanine Aminotransferase 28 IU/L (<50); Albumin 3.9 g/dL (3.5-5.0); Albumin Globulin Ratio 1.6 (1.0-2.8); Alkaline Phosphatase 72 U/L (38-126); Blood Urea Nitrogen 15 mg/dL (9-20); Calcium 9.2 mg/dL (8.4-10.2); Carbon Dioxide 28 mmol/L (22-32); Chloride 102 mmol/L (98-107); Estimated Glomerular Filt Rate > 60 mL/min (>60); Globulin 2.4 g/dL (1.7-4.1); Glucose 85 mg/dL (70-99); HEMOLYSIS < 15 (0-50); Potassium 5.0 mmol/L (3.4-5.1); Sodium 137 mmol/L (137-145); Total Protein 6.3 g/dL (6.3-8.2)
== END ==
PROVIDERS: PCP Internal Medicine; Referring Provider Internal Medicine; Visit Provider Internal Medicine
DX: E11.9 Type 2 diabetes mellitus without complications (principal); E78.2 Mixed hyperlipidemia; I10 Essential (primary) hypertension
CPT/HCPCS: 36415; 80053; 83036